=== PATIENT | male | born 1950 | race Caucasian/White ===

== ENCOUNTER 2019-12-23 14:43 | Emergency (ER) | payer OTHER, SELFPAY ==
[2019-12-23 15:29] VITALS: BP 185/99; PULSE 65; RESP 18; TEMP 36.2; O2SAT 98; BMI 30.1
--- NOTE | 2019-12-23 16:31 | XRR_ITS ---
PROCEDURE INFORMATION: Exam: XR Right Foot Complete Exam date and time: 12/23/2019 5:26 PM Age: 69 years old Clinical indication: Patient HX: Right foot pain TECHNIQUE: Imaging protocol: XR Right foot. Views: 3 or more views. COMPARISON: CR Foot 3 views, RIGHT* [id number] 07/21/2016 2:16 PM FINDINGS: Bones/joints: Possible fracture involving the medial proximal aspect of the 1st cuneiform. Soft tissues: Normal. XR/XR foot RT min 3V* [id number] IMPRESSION: Possible fracture involving the medial proximal aspect of the 1st cuneiform.
--- NOTE | 2019-12-23 16:37 | ED_ITS ---
Documented by User: [email or web address] 12/26/19 07:01 HPI - Extremity Problem General: Chief complaint: Extremity Injury, Lower Stated complaint: RIGHT FOOT PAIN Time Seen by Provider: 12/23/19 16:24 History of Present Illness: HPI Narrative: Patient complains about right foot pain. Been gone for about a week or 2. Come back from trip and he has been [facility] for 10 months was in the ER for he said 25 hours. Said he has hi story of Charcot's has pain with plan weight on the right foot. Does have a history diabetes high blood pressure MD Complaint: extremity pain Onset (ago): day(s) Pain Consistency: constant Location: right and lower extremity Severity scale (1-10): 4 Quality: aching Radiation: none Relieving factors: immobilization and rest Exacerbating factors: range of motion and weight bearing Associated symptoms: Reports no associated symptoms; Deny chest pain, fever(s) or rash Context: recent travel Review of Systems Const: Denies: fever(s), chills or body aches Eyes: Denies: change in vision or blurry vision ENMT: Denies: throat pain or nasal congestion Card: Denies: chest pain or dyspnea on exertion Resp: Denies: dyspnea, productive cough or non-productive cough GI: Denies: abdominal pain, nausea or vomiting : Denies: difficulty urinating Musc: Reports: extremity pain (Right foot) Skin/Breast: Denies: rash Neuro: Denies: headache(s) Psych: Denies: anxiety or depression Rico/Lymph: Denies: easy bruising Physical Exam Const: COMMON NORMALS: no acute distress, average body habitus and patient oriented x3 HENMT: COMMON NORMALS: normocephalic HEAD & SCALP: normal to inspection and normocephalic FACE & SINUS: normal facial exam Eye: COMMON NORMALS: conjunctivae normal GENERAL EYE: appearance normal, both eyes and all related structures CONJUNCTIVA: Yes conjunctivae normal Neck/C-Spine: COMMON NORMALS: no JVD Chest: COMMONS NORMALS: normal inspection of the chest Resp: COMMON NORMALS: normal respiratory effort and clear to auscultation bilaterally AUSCULTATION: clear to auscultation bilaterally Cardio: COMMON NORMALS: no JVD, regular rate and regular rhythm RATE: regular rate RHYTHM: regular rhythm GI: COMMON NORMALS: Normal to inspection, nondistended, normoactive bowel sounds present Extremity: COMMON NORMALS: full ROM RIGHT LOWER EXTREMITY: Yes foot & digits (Has redness to right foot lateral aspect head of the fifth metatarsal foot not swollen) Neuro: COMMON NORMALS: patient oriented x3 Course Vital Signs: Vital signs: Vital Signs Temperature 97.2 F L 12/23/19 15:29 Pulse Rate 53 L 12/23/19 20:00 Respiratory Rate 16 12/23/19 20:00 Blood Pressure 204/95 12/23/19 20:00 Pulse Oximetry 96 12/23/19 20:00 Discharge Plan Discharge Patient Disposition: Home Clinical Impression: Closed fracture of tarsal bone of right foot Qualifiers: Encounter type: initial encounter Tarsal bone: medial cuneiform Fracture alignment: nondisplaced Qualified Code(s): S92.244A - Nondisplaced fracture of medial cuneiform of right foot, initial encounter for closed fracture Condition: Stable Discharge Orders: Discharge Order (Routine); Ordered 12/23/19 Ordered By: Lucila Lebron Referrals: Vamsi Domínguez [Primary Care Provider] - Activity Restrictions/Additional Instructions: As discussed case management should be contacting you shortly to set you up with podiatry. In the meantime please ice and elevate the extremity. Continue to use your hard soled shoe for ambulation. Please return to the emergency department for redness or warmth to the foot, worsening pain, red streaking up your leg, fevers, or any other concerns you may have. Discharge Date/Time: 12/23/19 20:02 Sign Out Sign Out Data: Patient Sign Out occurred on 12/23/19 at 17:23. Patient's care was discussed, and care was transferred from to LISA Velasco. Coding Level of Care Code ED Environmental Property Assessor for Chg Fwd Exam Comprehensive Documented by User: LISA Velasco 12/24/19 00:15 HPI - Extremity Problem General: Chief complaint: Extremity Injury, Lower Stated complaint: RIGHT FOOT PAIN Time Seen by Provider: 12/23/19 16:24 Source: patient Limitations: no limitations History of Present Illness: HPI Narrative: Patient is a 69-year-old male who presents to ED today with complaints of pain and swelling to his right foot. Patient tells me he recently came back from a long trip from the [facility]. He does not remember injuring the foot in any way. He does have a history of Charcot's. He does state he did a lot of walking while there. Review of Systems Musc: Reports: extremity pain (R foot) and extremity swelling (R foot) Physical Exam Extremity: OTHER: pt has swelling throughout dorsum of R foot when compared to his L; he has mild TTP to R calf Course Vital Signs: Vital signs: Vital Signs Temperature 97.2 F L 12/23/19 15:29 Pulse Rate 53 L 12/23/19 20:00 Respiratory Rate 16 12/23/19 20:00 Blood Pressure 204/95 12/23/19 20:00 Pulse Oximetry 96 12/23/19 20:00 MDM - Extremity (Nontraumatic) MDM Narrative: Medical decision making narrative: due to swelling and calf pain along with his recent long travel history, US was obtained to rule out DVT; this was negative; XR showing proximal fx of medial cuneiform; pt will be splinted/crutches and follow up with podiatry; I don't see any evidence for infection at this time; recommend ice/elevation; return to ED precautions given Imaging Data^: XR R foot: Radiologist's impression: [address] [place] [address] XRay Report Signed Patient: Manoj Anglin Unit #: [id number] : 1950 Age/Sex: 69 / M ADM Date: 12/23/19 Loc: ER Room/Bed: Attending Dr: Ordering Provider/Ordering MD: Julián Pastor Sr, [employer]- Date of Service: 12/23/19 Procedure(s): XR foot RT min 3V* [id number] Accession Number(s): [id number] Report Number: [id number] PROCEDURE INFORMATION: Exam: XR Right Foot Complete Exam date and time: 12/23/2019 5:26 PM Age: 69 years old Clinical indication: Patient HX: Right foot pain TECHNIQUE: Imaging protocol: XR Right foot. Views: 3 or more views. COMPARISON: CR Foot 3 views, RIGHT* [id number] 07/21/2016 2:16 PM FINDINGS: Bones/joints: Possible fracture involving the medial proximal aspect of the 1st cuneiform. Soft tissues: Normal. XR/XR foot RT min 3V* [id number] IMPRESSION: Possible fracture involving the medial proximal aspect of the 1st cuneiform. Dictated By: Marcel Hunt MD Signed By: Marcel Hunt MD Signed Date/Time: 12/23/191833 DD/ 31 US R LE venous: Radiologist's impression: [address] [address] Ultrasound Report Signed Patient: Manoj Anglin Unit #: [id number] : 1950 Age/Sex: 69 / M ADM Date: 12/23/19 Loc: ER Room/Bed: Attending Dr: Ordering Provider/Ordering MD: Lucila Lebron Date of Service: 12/23/19 Procedure(s): [place] [address] Accession Number(s): [id number] Report Number: [id number] PROCEDURE INFORMATION: Exam: US Duplex Right Lower Extremity Veins, Limited Exam date and time: 12/23/2019 5:49 PM Age: 69 years old Clinical indication: Swelling (edema) of limb; Lower extremity, right; Additional info: Swelling, pain; Recent long plane ride TECHNIQUE: Imaging protocol: Real-time Duplex ultrasound of the Right Lower Extremity with 2-D johnston scale, color Doppler flow and spectral waveform analysis with image documentation. Limited exam was focused on the right lower extremity veins. COMPARISON: No relevant prior studies available. FINDINGS: Right deep veins: Unremarkable. The common femoral, femoral, proximal profunda femoral and popliteal veins are patent without thrombus. Normal Doppler waveforms. Normal compressibility and/or augmentation response. Right superficial veins: Unremarkable. Saphenofemoral junction is patent without thrombus. Soft tissues: Unremarkable. US/[place] [id number] IMPRESSION: No evidence of deep vein thrombosis. Dictated By: Marcel Hunt MD Signed By: Marcel Hunt MD Signed Date/Time: 12/23/192150 DD/ 49 Discharge Plan Discharge Patient Disposition: Home Clinical Impression: Closed fracture of tarsal bone of right foot Qualifiers: Encounter type: initial encounter Tarsal bone: medial cuneiform Fracture alignment: nondisplaced Qualified Code(s): S92.244A - Nondisplaced fracture of medial cuneiform of right foot, initial encounter for closed fracture Condition: Stable Discharge Orders: Discharge Order (Routine); Ordered 12/23/19 Ordered By: Lucila Lebron Referrals: Vamsi Domínguez [Primary Care Provider] - Activity Restrictions/Additional Instructions: As discussed case management should be contacting you shortly to set you up with podiatry. In the meantime please ice and elevate the extremity. Continue to use your hard soled shoe for ambulation. Please return to the emergency department for redness or warmth to the foot, worsening pain, red streaking up your leg, fevers, or any other concerns you may have. Discharge Date/Time: 12/23/19 20:02 Sign Out Sign Out Data: Patient Sign Out occurred on 12/23/19 at 17:23. Patient's care was discussed, and care was transferred from to LISA Velasco. Coding Level of Care Code ED Environmental Property Assessor for Kalpana Doherty Exam Comprehensive
--- NOTE | 2019-12-23 17:48 | USR_ITS ---
PROCEDURE INFORMATION: Exam: US Duplex Right Lower Extremity Veins, Limited Exam date and time: 12/23/2019 5:49 PM Age: 69 years old Clinical indication: Swelling (edema) of limb; Lower extremity, right; Additional info: Swelling, pain; Recent long plane ride TECHNIQUE: Imaging protocol: Real-time Duplex ultrasound of the Right Lower Extremity with 2-D jhonston scale, color Doppler flow and spectral waveform analysis with image documentation. Limited exam was focused on the right lower extremity veins. COMPARISON: No relevant prior studies available. FINDINGS: Right deep veins: Unremarkable. The common femoral, femoral, proximal profunda femoral and popliteal veins are patent without thrombus. Normal Doppler waveforms. Normal compressibility and/or augmentation response. Right superficial veins: Unremarkable. Saphenofemoral junction is patent without thrombus. Soft tissues: Unremarkable. US/[place] [id number] IMPRESSION: No evidence of deep vein thrombosis.
--- NOTE | 2019-12-23 19:50 | PC.NURSE ---
POST OP SHOE APPLIED TO RIGHT FOOT. PT IS IN NAD.
[2019-12-23 20:00] VITALS: BP 204/95; PULSE 53; RESP 16; O2SAT 96
--- NOTE | 2019-12-26 11:11 | DCPLANNER ---
Addendum entered by Norma Gonzalez 12/26/19 12:51: Patient has [facility] insurance, child welfare caseworker called [facility] with [facility], informed the [facility] that patient was seen in ED and a follow up with ortho was needed. fast food manager sent [facility] records on patient. Original Note: fast food manager had message to schedule a follow up appointment for patient with ortho. fast food manager called the ortho clinic, spoke with Pat, gave clinic patients information. fast food manager was told that patients information would be printed and reviewed. Clinic will call patient with appointment information.
--- NOTE | 2019-12-27 15:43 | DCPLANNER ---
Layne from ortho called case therapist and stated that a follow up appointment for patient for Thursday, January 02, [address] at 2:[address] Bauman. workday manager called July with the [facility] and informed the [facility] of the scheduled appointment. The ortho clinic called patient with appointment information.
--- NOTE | 2020-01-14 08:57 | DCPLANNER ---
Patient did attend appointment scheduled for 01.02.20 with ortho.
== END 2019-12-23 20:02 | disposition home or self-care (01) ==
PROVIDERS: Emergency Provider Physician Assistant; Family Provider Family Medicine; PCP Family Medicine
DX: S92.244A Nondisplaced fracture of medial cuneiform of right foot, initial encounter for closed fracture (principal); X58.XXXA Exposure to other specified factors, initial encounter
CPT/HCPCS: 12345; 73630; 93971; 99281; 99282

== ENCOUNTER → 2020-01-02 14:49 | Outpatient (BNVA) | payer OTHER, SELFPAY | PROVIDERS: Family Provider Family Medicine; PCP Family Medicine; Referring Provider Nurse Practitioner Family; Visit Provider Podiatrist Foot & Ankle Surgery | DX: M25.571 Pain in right ankle and joints of right foot (principal); S92.001A Unspecified fracture of right calcaneus, initial encounter for closed fracture | CPT/HCPCS: 73610; 73630 ==

== ENCOUNTER 2020-01-02 16:39 | Outpatient (CLI) | payer OTHER, SELFPAY | END 2020-01-02 16:40 | disposition home or self-care (01) | LOC: SPT 16:40 | PROVIDERS: Family Provider Family Medicine; PCP Family Medicine; Visit Provider Podiatrist Foot & Ankle Surgery | DX: Z47.89 Encounter for other orthopedic aftercare (principal); S90.31XD Contusion of right foot, subsequent encounter; X58.XXXD Exposure to other specified factors, subsequent encounter | CPT/HCPCS: 97760; L4361 ==

== ENCOUNTER 2020-01-16 15:15 | Outpatient (CLI) | payer OTHER, SELFPAY | END 2020-01-16 15:16 | disposition home or self-care (01) | LOC: SPT 04-23 16:16 | PROVIDERS: Family Provider Family Medicine; PCP Family Medicine; Referring Provider Podiatrist Foot & Ankle Surgery; Visit Provider Podiatrist Foot & Ankle Surgery | DX: Z46.89 Encounter for fitting and adjustment of other specified devices (principal); S90.31XD Contusion of right foot, subsequent encounter; X58.XXXD Exposure to other specified factors, subsequent encounter | CPT/HCPCS: 97760; L1902 ==

== ENCOUNTER → 2020-02-20 14:17 | Outpatient (BNVA) | payer OTHER, SELFPAY | PROVIDERS: Family Provider Family Medicine; PCP Family Medicine; Visit Provider Podiatrist Foot & Ankle Surgery | DX: S90.31XA Contusion of right foot, initial encounter (principal); M77.51 Other enthesopathy of right foot and ankle; X58.XXXA Exposure to other specified factors, initial encounter | CPT/HCPCS: 73610 ==

== ENCOUNTER 2020-06-06 09:07 | Outpatient (CLI) | payer OTHER, SELFPAY ==
[2020-06-06 09:33] LABS: Add Urine Microscopic? NO
[2020-06-06 09:46] LABS: Urine Appearance Clear (CLEAR); Urine Color Yellow (Yellow)
[2020-06-06 09:47] LABS: Bilirubin Urine Neg (Negative); Blood Urine Neg (Negative); Glucose Urine UA 4+ (Normal); Ketones Urine Negative (Negative); Leukocyte Esterase Urine Negative (Negative); Nitrate Urine Negative (Negative); Protein Urine Neg (Negative); Urobilinogen Urine Norm (Negative); pH Urine 5 (5-7)
[2020-06-06 09:54] LABS: Alanine Aminotransferase 19 U/L (0-41); Albumin Level 4.4 g/dL (3.5-5.2); Alkaline Phosphatase 53 IU/L (40-130); Anion Gap 12.5 (5-19); Aspartate Amino Transferase 18 U/L (0-40); Blood Urea Nitrogen 16 mg/dL (8-23); Calcium 9.1 mg/dL (8.5-10.5); Carbon Dioxide 28 mmol/L (22-29); Chloride 101 mmol/L (98-107); Globulin 2.8 g/dL (1.3-4.6); Glomerular Filtration Rate 96.1 mL/min (90-130); Glucose 337 mg/dL (65-115); Osmolality Calculated 298 mOsm/kg (285-295); Potassium 4.5 mmol/L (3.5-5.1); Sodium 137 mmol/L (136-145); Total Bilirubin 0.6 mg/dL (0.15-1.2); Total Protein 7.2 g/dL (6.6-8.7)
== END 2020-06-06 09:08 | disposition home or self-care (01) ==
PROVIDERS: PCP Family Medicine; Visit Provider Orthopaedic Surgery
DX: E11.9 Type 2 diabetes mellitus without complications (principal)
CPT/HCPCS: 36415; 80053; 81003

== ENCOUNTER 2020-06-23 13:44 | Inpatient (IN) | payer OTHER, MEDICARE, SELFPAY ==
[2020-06-23 13:51] VITALS: BP 168/98; PULSE 102; RESP 14; TEMP 38; O2SAT 97; BMI 29.0
--- NOTE | 2020-06-23 14:10 | W.ED.GENADLT ---
Documented by User: YUKO Ye 06/23/20 15:50 HPI - General Adult General: Chief complaint: General Medical Stated complaint: POSS STAPH INFECTION Time Seen by Provider: 06/23/20 13:55 History of Present Illness: HPI narrative: Patient complains about an area right buttock and thigh area that is very swollen and tender and painful. Patient has a history of staph. Said he acquired a spider bite right thigh while over in the [facility]. Was diagnosed with a staph aureus. Said his nose is tender a lot of time from staph infection now area right thigh has been present for quite a few days and just worsened to where he cannot stand the pain anymore complaint: Abscess Onset (ago): day(s) Location: buttocks and right Radiation: non-radiation Severity scale (1-10): 4 Quality: burning and aching Pain Consistency: constant Relieving factors: immobilization Exacerbating factors: movement Associated symptoms: Reports fevers/chills; Deny chest pain, dyspnea, headache(s), nausea, rash or vomiting Review of Systems Narrative: Patient is diabetic Const: Denies: fever(s), chills or body aches Eyes: Denies: change in vision or blurry vision ENMT: Denies: throat pain or nasal congestion Card: Denies: chest pain or dyspnea on exertion Resp: Denies: dyspnea, productive cough or non-productive cough GI: Denies: abdominal pain, nausea or vomiting : Denies: difficulty urinating Musc: Denies: extremity pain Skin/Breast: Reports: skin tenderness and skin swelling (Right buttock and thigh area); Denies: rash Neuro: Denies: headache(s) Psych: Denies: anxiety or depression Rico/Lymph: Denies: easy bruising PFSH ED PFSH: Medical History (Updated 06/23/20 @ 23:54 by Gia Navarro MD, [facility]) Diabetes mellitus Hypertension Social History Smoking and tobacco status: never smoked Alcohol intake: current Alcohol intake frequency: few times a week Physical Exam Const: COMMON NORMALS: no acute distress, average body habitus and patient oriented x3 HENMT: COMMON NORMALS: normocephalic HEAD & SCALP: normal to inspection and normocephalic FACE & SINUS: normal facial exam Eye: COMMON NORMALS: conjunctivae normal GENERAL EYE: appearance normal, both eyes and all related structures CONJUNCTIVA: Yes conjunctivae normal Neck/C-Spine: COMMON NORMALS: no JVD Chest: COMMONS NORMALS: normal inspection of the chest Resp: COMMON NORMALS: normal respiratory effort and clear to auscultation bilaterally AUSCULTATION: clear to auscultation bilaterally Cardio: COMMON NORMALS: no JVD and regular rhythm RATE: tachycardic RHYTHM: regular rhythm GI: COMMON NORMALS: Normal to inspection, nondistended, normoactive bowel sounds present Extremity: COMMON NORMALS: normal to inspection and full ROM Neuro: COMMON NORMALS: patient oriented x3 Skin: OTHER: Large abscess right gluteal fold tender appears to have a bite to the proximal aspect of wound redness extends up to the scrotal sac. Very tender. I made 2 incisions proximal and distal of the abscess and drained very little pustular contents did packed with half-inch iodoform gauze. Procedures Abscess I/D Site: lower extremity Side (if applicable): right Local Anesthetic: lidocaine 1% Amount of anesthesia used (mL): 5 Technique: incised with #11 blade Irrigation: Yes Packing used?: iodoform Course Vital Signs: Vital signs: Vital Signs Temperature 98.3 F 06/23/20 19:24 Pulse Rate 55 L 06/23/20 19:24 Respiratory Rate 18 06/23/20 19:24 Blood Pressure 125/72 06/23/20 19:24 Pulse Oximetry 96 06/23/20 19:24 MDM - General Adult MDM Narrative: Medical decision making narrative: Discussed lab and radiology findings with Dr. Ferris. Turned over care to him. Lab Data: Labs: Lab Results 06/23/20 06/23/20 06/23/20 Range/Units 14:18 14:18 14:18 WBC 13.0 H (4.0-10.0) 10^3/ uL RBC 4.47 (4.1-5.3) 10^6/u L Hgb 14.6 (11.7-16.6) g/dL Hct 41.1 L (42.0-52.0) % MCV 91.9 (80-94) fL MCH 32.7 (28.0-34.0) pg MCHC 35.5 (30.0-36.0) g/dL RDW 11.5 L (12.1-15.1) % Plt Count 255 (130-400) 10^3/c mm MPV 10.6 H (7.4-10.4) fL Neut % (Auto) 73.8 % Lymph % (Auto) 15.4 % Tarrant % (Auto) 9.3 % Eos % (Auto) 0.5 % Baso % (Auto) 0.5 % Neut # (Auto) 9.54 H (1.8-7.7) 10^3/u L Lymph # (Auto) 2.0 (0.8-4.8) 10^3/u L Tarrant # (Auto) 1.2 H (0.2-0.9) 10^3/u L Eos # (Auto) 0.1 (0.0-0.8) 10^3/u L Baso # (Auto) 0.1 (0.0-0.1) 10^3/u L Nucleated RBC % (a uto) 0 % Nucleated RBCs # 0.0 /100WBC Sodium 136 (136-145) mmol/L Potassium 3.7 (3.5-5.1) mmol/L Chloride 99 (98-107) mmol/L Carbon Dioxide 25 (22-29) mmol/L Anion Gap 15.7 (5-19) BUN 11 (8-23) mg/dL Creatinine 0.7 (0.7-1.2) mg/dL GFR Calculation 112.1 (90-130) mL/min Glucose 223 H (65-115) mg/dL Calculated Osmolal ity 288 (285-295) mOsm/k g Lactate 1.5 (0.5-2.2) mmol/L Calcium 8.6 (8.5-10.5) mg/dL Discharge Plan Discharge Patient Disposition: Admitted As Inpatient Admit Provider: Parker Wiley Clinical Impression: Cellulitis of gluteal region, Diabetes mellitus Condition: Stable Sign Out Sign Out Data: Patient Sign Out occurred on 06/23/20 at 16:09. Patient's care was discussed, and care was transferred from to Gia Navarro MD, [facility]. Coding Level of Care Code ED Crayon Sorting Machine Feeder for g Fwd Exam Comprehensive Documented by User: Gia Navarro MD, [facility] 06/23/20 23:54 HPI - General Adult General: Chief complaint: General Medical Stated complaint: POSS STAPH INFECTION Time Seen by Provider: 06/23/20 13:55 PFSH ED PFSH: Medical History (Updated 06/23/20 @ 23:54 by Gia Navarro MD, [facility]) Diabetes mellitus Hypertension Social History Smoking and tobacco status: never smoked Alcohol intake: current Alcohol intake frequency: few times a week Course Consultations: Consultation #1: Discussed the patient with Dr. Wiley, hospitalist and she kindly accepted patient to her service Time: 16:03 Vital Signs: Vital signs: Vital Signs Temperature 98.3 F 06/23/20 19:24 Pulse Rate 55 L 06/23/20 19:24 Respiratory Rate 18 06/23/20 19:24 Blood Pressure 125/72 06/23/20 19:24 Pulse Oximetry 96 06/23/20 19:24 MDM - General Adult MDM Narrative: Medical decision making narrative: Kindly evaluate the nurse practitioner's note for complete history and physical examination. I also evaluated this patient. Essentially this is a 70-year-old diabetic male who presents to the emergency department with a gluteal cellulitis/abscess. In inspection had attempted an I&D but only got scant amounts of purulent material. CT scan of the area showed mainly cellulitis with no abscess. On examination he has at least a 10 x 10 area of induration and erythema in his right gluteal region. He has a history of MRSA. I think because of his risk factors he will benefit from inpatient stay and IV antibiotics and so he is being admitted to the hospitalist service for further evaluation and management. Lab Data: Labs: Lab Results 06/23/20 06/23/20 06/23/20 Range/Units 14:18 14:18 14:18 WBC 13.0 H (4.0-10.0) 10^3/ uL RBC 4.47 (4.1-5.3) 10^6/u L Hgb 14.6 (11.7-16.6) g/dL Hct 41.1 L (42.0-52.0) % MCV 91.9 (80-94) fL MCH 32.7 (28.0-34.0) pg MCHC 35.5 (30.0-36.0) g/dL RDW 11.5 L (12.1-15.1) % Plt Count 255 (130-400) 10^3/c mm MPV 10.6 H (7.4-10.4) fL Neut % (Auto) 73.8 % Lymph % (Auto) 15.4 % Tarrant % (Auto) 9.3 % Eos % (Auto) 0.5 % Baso % (Auto) 0.5 % Neut # (Auto) 9.54 H (1.8-7.7) 10^3/u L Lymph # (Auto) 2.0 (0.8-4.8) 10^3/u L Tarrant # (Auto) 1.2 H (0.2-0.9) 10^3/u L Eos # (Auto) 0.1 (0.0-0.8) 10^3/u L Baso # (Auto) 0.1 (0.0-0.1) 10^3/u L Nucleated RBC % (a uto) 0 % Nucleated RBCs # 0.0 /100WBC Sodium 136 (136-145) mmol/L Potassium 3.7 (3.5-5.1) mmol/L Chloride 99 (98-107) mmol/L Carbon Dioxide 25 (22-29) mmol/L Anion Gap 15.7 (5-19) BUN 11 (8-23) mg/dL Creatinine 0.7 (0.7-1.2) mg/dL GFR Calculation 112.1 (90-130) mL/min Glucose 223 H (65-115) mg/dL Calculated Osmolal ity 288 (285-295) mOsm/k g Lactate 1.5 (0.5-2.2) mmol/L Calcium 8.6 (8.5-10.5) mg/dL Imaging Data^: CT Abd/Pel: Attestation: I personally reviewed and interpreted this imaging study as follows: Radiologist's impression: [facility] [address] [place] [address] CT Scan Report Signed with Addenda Patient: Ana Anglin #: [id number] : 1950cct#:[id number] Age/Sex: 70 / MADM Date: 06/23/20 Loc: ERRoom/Bed: Attending Dr: Ordering Provider/Ordering MD: Julián Pastor Sr, [facility]- Date of Service: 06/23/20 Procedure(s): CT pelvis w con* [id number] Accession Number(s): [id number] Report Number: [id number]/CT pelvis w con* [id number] There is a lipoma deep to the left gluteus ewa muscle that measures 4.2 x 9.5 x 17.1 cm. Radiation Dose CTDIVOL = (mGy): DLP = 605.31 (mGy-cm) Addendum Dictated By: Vamsi Manuel Addendum Signed By: Esequiel Manueligned Date/Time:06/23/20 1611 Addendum Cosigned By: PROCEDURE INFORMATION: Exam: CT Pelvis With Contrast Exam date and time: 06/23/2020 3:00 PM Age: 70 years old Clinical indication: Gluteal fold abscess with swelling and pain. Right buttock/upper thigh abscess. TECHNIQUE: Imaging protocol: Computed tomography images of the pelvis with intravenous contrast. Radiation optimization: All CT scans at this facility use at least one of these dose optimization techniques: automated exposure control; mA and/or kV adjustment per patient size (includes targeted exams where dose is matched to clinical indication); or iterative reconstruction. Contrast material: OMNI 300; Contrast volume: 95 ml; Contrast route: INTRAVENOUS (IV); COMPARISON: No relevant prior studies available. RADIATION DOSE METRICS: Total DLP (mGy-cm): 605.31 FINDINGS: No acute fracture is identified. No free intraperitoneal air. Small fat containing umbilical hernia. A subcentimeter right renal hypodensity is too small to accurately characterize and requires no follow-up. The bladder wall is mildly thickened. Correlate with urinalysis to assess for cystitis. The visualized large and small bowel are grossly unremarkable. The prostate measures 3.6 x 4.3 cm. A right external iliac lymph node measures 1.1 x 2.1 cm. A right inguinal lymph node measures 1.3 x 2.0 cm. There is skin thickening and subcutaneous edema involving the right gluteal fold. There are 2 small cutaneous wounds or foci of recent incision and drainage. There are small underlying hematomas at these locations measuring 0.9 x 1.0 x 1.4 cm and 0.7 x 0.6 x 0.7 cm. No drainable abscess is identified. CT/CT pelvis w con* [id number] IMPRESSION: 1. There is skin thickening and subcutaneous edema involving the right gluteal fold compatible with cellulitis. There are 2 small cutaneous wounds or foci of recent incision and drainage. There are small underlying hematomas at these locations. No drainable abscess is identified. There is associated right inguinal and right pelvic lymphadenopathy. 2. The bladder wall is mildly thickened. Correlate with urinalysis to assess for cystitis. Radiation Dose CTDIVOL = (mGy): DLP = 605.31 (mGy-cm) Dictated By:Vamsi Manuel Signed By:Esequiel Manueligned Date/Time:06/23/201544 DD/ 154 Discharge Plan Discharge Patient Disposition: Admitted As Inpatient Admit Provider: Parker Wiley Clinical Impression: Cellulitis of gluteal region, Diabetes mellitus Condition: Stable Sign Out Sign Out Data: Patient Sign Out occurred on 06/23/20 at 16:09. Patient's care was discussed, and care was transferred from to Gia Navarro MD, [facility]. Coding Level of Care Code ED Crayon Sorting Machine Feeder for Chg Fwd Exam Comprehensive
[2020-06-23] MEDS: TRAMadol 50 mg Tablet PO (14:17)
[2020-06-23] MEDS: lidocaine 1% INJ 20 mL 5 ML INTRADERMA (14:18)
[2020-06-23 14:32] LABS: Basophils # 0.1 10^3/uL (0.0-0.1); Basophils % 0.5 %; Eosinophils # 0.1 10^3/uL (0.0-0.8); Eosinophils % 0.5 %; Hematocrit 41.1 % (42.0-52.0); Hemoglobin 14.6 g/dL (11.7-16.6); Lymphocytes % 15.4 %; Mean Corpuscular HGB Conc 35.5 g/dL (30.0-36.0); Mean Corpuscular Hemoglobin 32.7 pg (28.0-34.0); Mean Corpuscular Volume 91.9 fL (80-94); Mean Platelet Volume 10.6 fL (7.4-10.4); Monocytes # 1.2 10^3/uL (0.2-0.9); Monocytes % 9.3 %; Neutrophils # 9.54 10^3/uL (1.8-7.7); Neutrophils % 73.8 %; Nucleated Red Blood Cells % 0 %; Platelet Count 255 10^3/cmm (130-400); Red Blood Count 4.47 10^6/uL (4.1-5.3); Red Cell Distribution Width 11.5 % (12.1-15.1)
--- NOTE | 2020-06-23 14:35 | CTR_ITS ---
PROCEDURE INFORMATION: Exam: CT Pelvis With Contrast Exam date and time: 06/23/2020 3:00 PM Age: 70 years old Clinical indication: Gluteal fold abscess with swelling and pain. Right buttock/upper thigh abscess. TECHNIQUE: Imaging protocol: Computed tomography images of the pelvis with intravenous contrast. Radiation optimization: All CT scans at this facility use at least one of these dose optimization techniques: automated exposure control; mA and/or kV adjustment per patient size (includes targeted exams where dose is matched to clinical indication); or iterative reconstruction. Contrast material: OMNI 300; Contrast volume: 95 ml; Contrast route: INTRAVENOUS (IV); COMPARISON: No relevant prior studies available. RADIATION DOSE METRICS: Total DLP (mGy-cm): 605.31 FINDINGS: No acute fracture is identified. No free intraperitoneal air. Small fat containing umbilical hernia. A subcentimeter right renal hypodensity is too small to accurately characterize and requires no follow-up. The bladder wall is mildly thickened. Correlate with urinalysis to assess for cystitis. The visualized large and small bowel are grossly unremarkable. The prostate measures 3.6 x 4.3 cm. A right external iliac lymph node measures 1.1 x 2.1 cm. A right inguinal lymph node measures 1.3 x 2.0 cm. There is skin thickening and subcutaneous edema involving the right gluteal fold. There are 2 small cutaneous wounds or foci of recent incision and drainage. There are small underlying hematomas at these locations measuring 0.9 x 1.0 x 1.4 cm and 0.7 x 0.6 x 0.7 cm. No drainable abscess is identified. CT/CT pelvis w con* [id number] IMPRESSION: 1. There is skin thickening and subcutaneous edema involving the right gluteal fold compatible with cellulitis. There are 2 small cutaneous wounds or foci of recent incision and drainage. There are small underlying hematomas at these locations. No drainable abscess is identified. There is associated right inguinal and right pelvic lymphadenopathy. 2. The bladder wall is mildly thickened. Correlate with urinalysis to assess for cystitis. Radiation Dose CTDIVOL = (mGy): DLP = 605.31 (mGy-cm)
[2020-06-23 14:59] LABS: Lactate (Lactic Acid level) 1.5 mmol/L (0.5-2.2)
[2020-06-23] MEDS: clindamycin 600 MG/50 ML PREMIX 100 MG IV (14:59)
[2020-06-23 15:00] LABS: Anion Gap 15.7 (5-19); Blood Urea Nitrogen 11 mg/dL (8-23); Calcium 8.6 mg/dL (8.5-10.5); Carbon Dioxide 25 mmol/L (22-29); Chloride 99 mmol/L (98-107); Glomerular Filtration Rate 112.1 mL/min (90-130); Glucose 223 mg/dL (65-115); Osmolality Calculated 288 mOsm/kg (285-295); Potassium 3.7 mmol/L (3.5-5.1); Sodium 136 mmol/L (136-145)
[2020-06-23] MEDS: iohexol 300 mg/mL 100 mL Btl IV (15:10)
[2020-06-23] MEDS: acetaminophen 500 mg Tablet 1000 MG PO (16:12)
[2020-06-23] MEDS: vancomycin 1,500 MG/300 ML PIGGYBACK 200 MG IV (16:18)
[2020-06-23 16:33] VITALS: BP 132/79; PULSE 68; RESP 16; TEMP 37.7; O2SAT 95
[2020-06-23 18:28] VITALS: BP 151/82; PULSE 58; RESP 18; TEMP 36.6; O2SAT 18
--- NOTE | 2020-06-23 18:36 | PM.HP ---
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 He states this particular infection he noticed pain on Thursday and something was off a few days prior to that. He says he wanted to see [facility] however he depends on a ride from his sister and she was unable to bring him at the time. He presents today with pain at the site of his right gluteal fold. It is getting progressively worse. He denies other signs and symptoms. He is unable to identify any factors that trigger the MRSA infections. Review of Systems General: Reports: 10 or more systems reviewed and unremarkable except in HPI and below Const: Denies: fever(s) or chills Eyes: Denies: change in vision or blurry vision ENMT: Denies: throat pain or odynophagia Card: Denies: chest pain or palpitations Resp: Denies: dyspnea or productive cough GI: Denies: abdominal pain, nausea, vomiting or diarrhea : Reports: difficulty urinating (Denies) and dysuria (Denies) Musc: Reports: neck pain and back pain (Denies denies) Skin/Breast: Reports: rash (Denies) and pruritus (Denies) Neuro: Reports: headache(s) (Denies) and weakness in extremities (Denies) Psych: Reports: anxiety (Denies) and depression (Denies) Endo: Reports: polyuria (Denies) and polydipsia (Denies) Medications/Allergies Home Medications Medication Instructions Recorded Confirmed Last Taken Type Cam Walker #1 each NS 01/02/20 06/23/20 Unknown Rx ASO Ankle brace #1 ea 01/16/20 06/23/20 Unknown Rx Vitamin C 1 tab PO DAILY@52906/23/20 06/23/20 06/23/20 History Vitamin D3 1 tab PO DAILY@52906/23/20 06/23/20 06/23/20 History amlodipine 10 mg PO DAILY@52906/23/20 06/23/20 06/23/20 History aspirin [Aspir-81] 81 mg PO DAILY@52906/23/20 06/23/20 06/23/20 History brimonidine-timolol 1 drp OPHTHALMIC (EYE) 06/23/20 06/23/20 06/23/20 History BID@529,1999 budesonide-formoterol 2 puff INHALATION BID@529,199906/23/20 06/23/20 06/23/20 History fluticasone propionate 1 spray INTRANASAL DAILY@0800 06/23/20 06/23/20 Unknown History hydralazine 25 mg PO BID@529,199906/23/20 06/23/20 06/23/20 History hydrochlorothiazide 25 mg PO DAILY@0506/23/20 06/23/20 06/23/20 History insulin aspart U-100 [Novolog 6 unit SUBCUT TID@529,1199,199906/23/20 06/23/20 06/23/20 History Flexpen U-100 Insulin] latanoprost 1 drp OPHTHALMIC (EYE) DAILY@199906/23/20 06/23/20 06/22/20 History lisinopril 20 mg PO DAILY@52906/23/20 06/23/20 06/23/20 History loratadine 10 mg PO DAILY@52906/23/20 06/23/20 06/23/20 History metoprolol tartrate 50 mg PO BID@529,199906/23/20 06/23/20 06/23/20 History omeprazole 20 mg PO DAILY@30 06/23/20 06/23/20 06/23/20 History sildenafil 50 mg PO Q7D PRN 06/23/20 06/23/20 Unknown History timolol maleate (PF) 1 drp OPHTHALMIC (EYE) DAILY@52906/23/20 06/23/20 06/23/20 History tiotropium-olodaterol 2 puff INHALATION DAILY@30 06/23/20 06/23/20 06/23/20 History vitamin A 1 tab PO DAILY@30 06/23/20 06/23/20 06/23/20 History vitamin B complex 1 tab PO DAILY@0530 06/23/20 06/23/20 06/23/20 History vitamin E 1 tab PO DAILY@0530 06/23/20 06/23/20 06/23/20 History Allergies Allergy/AdvReac Type Severity Reaction Status Date / Time No Known Allergies Allergy Verified 02/20/20 14:37 PFSH Acute PFSH: Medical History (Updated 06/23/20 @ 18:48 by Parker Wiley DO) Diabetes mellitus Hypertension Social History Smoking and tobacco status: never smoked Alcohol intake: current Alcohol intake frequency: few times a week Vitals/I&O/Wt Last Vital Signs Temp 99.8 F H 06/23/20 16:33 Pulse 68 06/23/20 16:33 Resp 16 06/23/20 16:33 BP 132/79 06/23/20 16:33 Pulse Ox 95 06/23/20 16:33 06/23/20 06/23/20 06/23/20 06:59 14:59 22:59 Intake Total 350 / 350 Balance 350 / 350 Weight last 48 hrs Weight 94.347 kg Physical Exam Narrative: EXAM NARRATIVE: General patient is alert oriented to person place and time. He is in no acute distress. He appears his stated age of 70 and he has a normal body habitus HEENT: Head is normocephalic atraumatic pupils are equal and round reactive to light and accommodation. Extraocular muscles are intact. External auditory canals appear normal neck is supple no JVD carotid bruits or lymphadenopathy. Mucous membranes are moist and pink without lesions or exudate. Chest: Symmetric with respirations no deformities Respiratory: Clear to auscultation without wheezes rales or rhonchi. Cardio: Regular rate and rhythm without murmurs clicks gallops or rubs. Normal S1-S2. GI: Soft, nontender, nondistended. Normal active bowel sounds no rigidity or rebound or guarding. Extremities: No clubbing cyanosis or edema. Neuro: Cranial nerves II through XII are grossly intact he has diminished sensation in his lower extremities due to neuropathy sensations intact in his arms. Motor able to move all extremities 5 out of 5. Reflexes are normal. Skin: On his right gluteal fold there is erythema and induration. There is a small incision with a wick in place. There is no pus able to be discharged on manual expression. And limited bloody discharge. , normal circumcised male Data : 06/23/20 14:18 06/23/20 14:18 Micro: Microbiology 06/23/20 14:18 Blood Culture - Preliminary Blood SPECIMEN COLLECTED A&P Assessment and plan (1) Cellulitis: Vancomycin and Zosyn IV. Discussed with patient to stay off of his right buttock. Patient is encouraged to ambulate around room and sit in chair. Status: Acute (2) Peripheral neuropathy: I do not see that patient is taking typical medication for this condition will discuss starting Neurontin with patient. Status: Acute Additional A&P Information Hypertension: Patient takes hydralazine hydrochlorothiazide and lisinopril metoprolol at home for this condition will order Diabetes mellitus: Patient takes NovoLog 6 units 3 times daily and I do not see other treatment. Attestations Medical Necessity Statement*: Patient with cellulitis and possible abscess prior to the CAT scan being done. Patient had I&D in the ER. Patient requires 2448 hrs. of IV antibiotics Coding Level of Care Code Acute Telephone Information Supervisor for Kalpana Doherty Diagnoses Cellulitis L03.90 Peripheral neuropathy G62.9
--- NOTE | 2020-06-23 19:13 | PC.PHAR ---
Vancomycin is dosed at 1500mg IVPB every 12 hours to produce a predicted trough level of 11.65 (population based pharmacokinetic analysis). A trough level has been ordered from the lab to be obtained before the fourth dose to confirm and adjust if needed.
[2020-06-23 19:24] VITALS: BP 125/72; PULSE 55; RESP 18; TEMP 36.8; O2SAT 96
[2020-06-23 19:26] LABS: Blood Urine 2+ (Negative); Glucose Urine UA 2+ (Normal); Ketones Urine Negative (Negative); Nitrate Urine Negative (Negative); Protein Urine Neg (Negative); Urine Appearance Clear (CLEAR); Urine Color Yellow (Yellow); pH Urine 5 (5-7)
[2020-06-23 19:27] LABS: Add Urine Microscopic? YES; Bilirubin Urine Neg (Negative); Leukocyte Esterase Urine Negative (Negative); Urobilinogen Urine 1 mg/dL (Negative)
[2020-06-23 19:28] LABS: Mucus Urine TRACE /hpf; WBC Urine RARE /hpf (0-5)
[2020-06-23 19:29] LABS: Add Urine Culture? No
[2020-06-23] MEDS: enoxaparin 40 mg/0.4 mL Syringe SUBCUT (19:32)
--- NOTE | 2020-06-23 20:09 | PM.HP ---
Providers/Chief Complaint Admitting Physician: Parker Wiley DO Primary Care Provider: [facility] Chief Complaint: POSS STAPH INFECTION History of Present Illness Manoj Anglin is a 70 year old male Review of Systems Const: Denies: fever(s) or chills Eyes: Denies: change in vision ENMT: Denies: throat pain or nasal congestion Card: Denies: chest pain or palpitations Resp: Denies: dyspnea or productive cough GI: Denies: abdominal pain, nausea, vomiting or change in stool character : Denies: difficulty urinating or dysuria Musc: Denies: back pain or extremity pain Skin/Breast: Denies: rash or lesions Neuro: Denies: headache(s) or dizziness Psych: Denies: anxiety or depression Rico/Lymph: Denies: easy bruising or easy bleeding Medications/Allergies Home Medications Medication Instructions Recorded Confirmed Last Taken Type Cam Walker #1 each NS 01/02/20 06/23/20 Unknown Rx ASO Ankle brace #1 ea 01/16/20 06/23/20 Unknown Rx Vitamin C 1 tab PO DAILY@0530 06/23/20 06/23/20 06/23/20 History Vitamin D3 1 tab PO DAILY@0530 06/23/20 06/23/20 06/23/20 History amlodipine 10 mg PO DAILY@0530 06/23/20 06/23/20 06/23/20 History aspirin [Aspir-81] 81 mg PO DAILY@0530 06/23/20 06/23/20 06/23/20 History brimonidine-timolol 1 drp OPHTHALMIC (EYE) 06/23/20 06/23/20 06/23/20 History BID@05,1999 budesonide-formoterol 2 puff INHALATION BID@0530,199906/23/20 06/23/20 06/23/20 History fluticasone propionate 1 spray INTRANASAL DAILY@0800 06/23/20 06/23/20 Unknown History hydralazine 25 mg PO BID@0530,199906/23/20 06/23/20 06/23/20 History hydrochlorothiazide 25 mg PO DAILY@0530 06/23/20 06/23/20 06/23/20 History insulin aspart U-100 [Novolog 6 unit SUBCUT TID@0530,1200,199906/23/20 06/23/20/20/21 History Flexpen U-100 Insulin] latanoprost 1 drp OPHTHALMIC (EYE) DAILY@199906/23/20 06/23/20 06/22/20 History lisinopril 20 mg PO DAILY@0530 06/23/20 06/23/20 06/23/20 History loratadine 10 mg PO DAILY@0530 06/23/20 06/23/20 06/23/20 History metoprolol tartrate 50 mg PO BID@06/23/20 06/23/20 06/23/20 History omeprazole 20 mg PO DAILY@0530 06/23/20 06/23/20 06/23/20 History sildenafil 50 mg PO Q7D PRN 06/23/20 06/23/20 Unknown History timolol maleate (PF) 1 drp OPHTHALMIC (EYE) DAILY@0506/23/20 06/23/20 06/23/20 History tiotropium-olodaterol 2 puff INHALATION DAILY@30 06/23/20 06/23/20 06/23/20 History vitamin A 1 tab PO DAILY@0530 06/23/20 06/23/20 06/23/20 History vitamin B complex 1 tab PO DAILY@0530 06/23/20 06/23/20 06/23/20 History vitamin E 1 tab PO DAILY@0530 06/23/20 06/23/20 06/23/20 History Allergies Allergy/AdvReac Type Severity Reaction Status Date / Time No Known Allergies Allergy Verified 02/20/20 14:37 PFSH Acute PFSH: Medical History (Updated 06/23/20 @ 18:48 by Parker Wiley DO) Diabetes mellitus Hypertension Social History Smoking and tobacco status: never smoked Alcohol intake: current Alcohol intake frequency: few times a week Vitals/I&O/Wt Last Vital Signs Temp 98.3 F 06/23/20 19:24 Pulse 55 L 06/23/20 19:24 Resp 18 06/23/20 19:24 BP 125/72 06/23/20 19:24 Pulse Ox 96 06/23/20 19:24 06/23/20 06/23/20 06/23/20 06:59 14:59 22:59 Intake Total 350 / 350 Output Total 100 / 100 Balance 250 / 250 Weight last 48 hrs Weight 94.347 kg Data : 06/23/20 14:18 06/23/20 14:18 Micro: Microbiology 06/23/20 14:18 Blood Culture - Preliminary Blood SPECIMEN COLLECTED Coding Level of Care Code Acute Acting Section Chief for g Chas
[2020-06-23] MEDS: hyDRALAzine 25 mg Tablet PO (20:30)
[2020-06-23] MEDS: metoprolol tartrate 50 mg Tablet PO (20:30)
[2020-06-23] MEDS: timolol 0.5% Op Soln 5 mL Btl 1 DROP EYEAFF (20:31)
[2020-06-23] MEDS: latanoprost 0.005% Op Soln 2.5 mL Btl 1 DROP EYE-BOTH (20:31)
[2020-06-23] MEDS: piperacillin-tazobactam 3.375 GM in sodium chloride 0.9% (plus) 50 ML IV (20:32)
[2020-06-23 22:15] LABS: Glucose Point of Care 247 mg/dL (70-110)
[2020-06-23 23:56] VITALS: BP 109/61; PULSE 49; RESP 18; TEMP 36.9; O2SAT 97
[2020-06-24] VITALS (8 sets, daily range): BP systolic 107–118; BP diastolic 60–72; PULSE 53–65; RESP 16–20; TEMP 36.5–37; O2SAT 96–98
[2020-06-24] MEDS: vancomycin 1,500 MG/300 ML PIGGYBACK 150 MG IV ×2 (02:59→17:09)
[2020-06-24] MEDS: acetaminophen 325 mg Tablet 650 MG PO (03:04)
[2020-06-24 04:58] LABS: Glucose Point of Care 160 mg/dL (70-110)
[2020-06-24] MEDS: piperacillin-tazobactam 3.375 GM in sodium chloride 0.9% (plus) 50 ML IV ×3 (05:02→19:46)
[2020-06-24] MEDS: loratadine 10 mg Tablet PO (05:05)
[2020-06-24] MEDS: metoprolol tartrate 50 mg Tablet PO ×2 (05:05→19:45)
[2020-06-24] MEDS: hyDRALAzine 25 mg Tablet PO ×2 (05:06→19:44)
[2020-06-24] MEDS: b-complex-vitamin c Tablet 1 EACH PO (05:06)
[2020-06-24] MEDS: lisinopril 20 mg Tablet PO (05:06)
[2020-06-24] MEDS: aspirin 81 mg EC Tablet PO (05:06)
[2020-06-24] MEDS: amlodipine 10 mg Tablet PO (05:06)
[2020-06-24] MEDS: pantoprazole DR 40 mg Tablet PO (05:06)
[2020-06-24] MEDS: hydroCHLOROthiazide 25 mg Tablet PO (05:06)
[2020-06-24 06:34] LABS: Alanine Aminotransferase 8 U/L (0-41); Albumin Level 3.5 g/dL (3.5-5.2); Alkaline Phosphatase 54 IU/L (40-130); Anion Gap 13.4 (5-19); Aspartate Amino Transferase 9 U/L (0-40); Blood Urea Nitrogen 10 mg/dL (8-23); Calcium 8.6 mg/dL (8.5-10.5); Carbon Dioxide 25 mmol/L (22-29); Chloride 105 mmol/L (98-107); Glucose 205 mg/dL (65-115); Osmolality Calculated 295 mOsm/kg (285-295); Potassium 3.4 mmol/L (3.5-5.1); Sodium 140 mmol/L (136-145); Total Bilirubin 0.8 mg/dL (0.15-1.2); Total Protein 6.5 g/dL (6.6-8.7)
[2020-06-24] MEDS: fluticasone nasal spray 16gm Btl 1 SPRAY INTRANASAL (09:34)
[2020-06-24 09:48] LABS: Basophils # 0.1 10^3/uL (0.0-0.1); Basophils % 0.8 %; Eosinophils # 0.2 10^3/uL (0.0-0.8); Eosinophils % 1.9 %; Hematocrit 37.9 % (42.0-52.0); Hemoglobin 13.3 g/dL (11.7-16.6); Lymphocytes # 2.8 10^3/uL (0.8-4.8); Lymphocytes % 26.4 %; Mean Corpuscular HGB Conc 35.1 g/dL (30.0-36.0); Mean Corpuscular Hemoglobin 32.5 pg (28.0-34.0); Mean Corpuscular Volume 92.7 fL (80-94); Mean Platelet Volume 11.1 fL (7.4-10.4); Monocytes # 1.1 10^3/uL (0.2-0.9); Monocytes % 10.1 %; Neutrophils # 6.36 10^3/uL (1.8-7.7); Nucleated Red Blood Cells % 0 %; Platelet Count 251 10^3/cmm (130-400); Red Blood Count 4.09 10^6/uL (4.1-5.3); Red Cell Distribution Width 11.7 % (12.1-15.1); White Blood Count 10.6 10^3/uL (4.0-10.0)
--- NOTE | 2020-06-24 10:16 | PC.CHAP ---
Pastoral Care Encounter/Spiritual Assessment Type of Contact [x] Declined supervisor area visit [] Patient/Family/Request visit [] Outpatient visit [] Follow-up visit [] Physician referral [] Code/Alert [] Routine visit [] Staff referral [] Actively dying [] Patient sleeping [] Family support [] [] Out of room [] Palliative care [] [] Receiving care in room [] Pre-surgical visit [] Trauma [] Long length of stay [] ICU visit [] Other: Relational/Emotional Strength [] Patient feels connected with others/family/visitors/staff [] Distress [] Loneliness/isolation [] Abandonment Spirituality of Patient [] Person of Gilda [] Attends Moravian of their Gilda [] Believes in Prayer [] Reads Bible or Lutheran materials [] There are Spiritual issues to be addressed Asset Manager Interventions [] Prayer [] Active listening [] Non-anxious presence [] Spiritual/emotional support [] Crisis/trauma care [] Spiritual counseling [] Bereavement support [] Provided bereavement packet [] Provided Bible/devotional materials [] Provided toy/stuffed animal, coloring book to patient or family member [] Provided Communion [] Anointing/[place] [] Salvation [] Completed spiritual assessment [] Other: Impact on Illness or Injury [] Angry [] Fearful [] Anxious [] Often cries [] Exhaustion [] Unable to work [] Unable to attend presybeterian [] Unable to walk/stand [] Unable to read [] Unable to drive [] Unable to eat/drink [] Unable to sleep [] Unable to be with family [] Patient intubated [] Other: Summary Time spent with patient Patient refused Asset Manager visit. 2 minutes.
[2020-06-24 12:00] LABS: Glucose Point of Care 211 mg/dL (70-110)
--- NOTE | 2020-06-24 12:37 | PC.NURSE ---
Notified Dr Wiley that patient has wound culture that is positive for Staphylococcus Aureus.
--- NOTE | 2020-06-24 15:37 | PM.PN ---
Subjective Subjective: Interval history: Patient states he is in pain. He feels it is still swollen. He has been staying off of it for the most part Medications: Reviewed: Yes Vitals/I&O/Wt Last Vital Signs Temp 97.9 F 06/24/20 10:49 Pulse 60 06/24/20 10:49 Resp 17 06/24/20 10:49 BP 113/72 06/24/20 10:49 Pulse Ox 97 06/24/20 10:49 06/24/20 06/24/20 06/24/20 06:59 14:59 22:59 Intake Total 350 / 700 530 / 530 Output Total 500 / 900 1250 / 1250 Balance -150 / -200 -720 / -720 Weight last 48 hrs Weight 94.347 kg Physical Exam Narrative: EXAM NARRATIVE: focused exam on the right buttock. Marked improvement by my exam. The area of erythema is about one third of what it was last night. And the induration is also about one third of what it was yesterday. The wick is gone he has very minimal bloody drainage on the ABD. I think he has had much improvement. Data : 06/24/20 05:40 06/24/20 05:40 Micro: Microbiology 06/23/20 15:00 Wound Culture - Preliminary Buttock Staphylococcus aureus 06/23/20 14:18 Blood Culture - Preliminary Blood SPECIMEN COLLECTED A&P Assessment and plan (1) Cellulitis: Vancomycin and Zosyn IV. RE-Discussed with patient to stay off of his right buttock. Patient is encouraged to ambulate around room and sit in chair Dr Carpio to assume care in am. As ID specialist, she can recommend transition to oral therapy and follow up. Status: Acute (2) Peripheral neuropathy: I do not see that patient is taking typical medication for this condition. Pt states he tried neurontin and higher dosing made him too dizzy. Will try lyrica and see if [facility] otherwise he can not afford. Status: Acute Attestations Medical Necessity Statement*: Continued antibiotcs. Anticipate d/c tomorrow. Coding Level of Care Code Acute Executive Director Global Brand Marketing for [facility] Diagnoses Cellulitis L03.90 Peripheral neuropathy G62.9
[2020-06-24 16:50] LABS: Glucose Point of Care 203 mg/dL (70-110)
[2020-06-24] MEDS: enoxaparin 40 mg/0.4 mL Syringe SUBCUT (17:08)
[2020-06-24] MEDS: latanoprost 0.005% Op Soln 2.5 mL Btl 1 DROP EYE-BOTH (19:42)
[2020-06-24 20:42] LABS: Glucose Point of Care 273 mg/dL (70-110)
[2020-06-25] VITALS (9 sets, daily range): BP systolic 106–135; BP diastolic 45–81; PULSE 52–85; RESP 17–19; TEMP 36.6–37.1; O2SAT 93–99
[2020-06-25] MEDS: piperacillin-tazobactam 3.375 GM in sodium chloride 0.9% (plus) 50 ML IV ×2 (03:05→11:37)
[2020-06-25 03:50] LABS: Basophils # 0.1 10^3/uL (0.0-0.1); Basophils % 0.7 %; Eosinophils # 0.2 10^3/uL (0.0-0.8); Eosinophils % 1.8 %; Hematocrit 38.8 % (42.0-52.0); Hemoglobin 13.4 g/dL (11.7-16.6); Lymphocytes # 2.4 10^3/uL (0.8-4.8); Lymphocytes % 26.3 %; Mean Corpuscular HGB Conc 34.5 g/dL (30.0-36.0); Mean Corpuscular Hemoglobin 32.4 pg (28.0-34.0); Mean Corpuscular Volume 93.9 fL (80-94); Mean Platelet Volume 10.2 fL (7.4-10.4); Neutrophils # 5.31 10^3/uL (1.8-7.7); Nucleated Red Blood Cells % 0 %; Platelet Count 257 10^3/cmm (130-400); Red Blood Count 4.13 10^6/uL (4.1-5.3); Red Cell Distribution Width 11.6 % (12.1-15.1)
[2020-06-25 04:10] LABS: Alanine Aminotransferase < 5 U/L (0-41); Albumin Level 3.5 g/dL (3.5-5.2); Alkaline Phosphatase 55 IU/L (40-130); Anion Gap 16.2 (5-19); Aspartate Amino Transferase 12 U/L (0-40); Blood Urea Nitrogen 12 mg/dL (8-23); Calcium 8.9 mg/dL (8.5-10.5); Carbon Dioxide 25 mmol/L (22-29); Chloride 104 mmol/L (98-107); Globulin 3.3 g/dL (1.3-4.6); Glomerular Filtration Rate 112.1 mL/min (90-130); Glucose 202 mg/dL (65-115); Osmolality Calculated 298 mOsm/kg (285-295); Potassium 4.2 mmol/L (3.5-5.1); Sodium 141 mmol/L (136-145); Total Bilirubin 0.5 mg/dL (0.15-1.2); Total Protein 6.8 g/dL (6.6-8.7)
[2020-06-25 04:28] LABS: Vancomycin Trough 10.9 ug/mL (10-15)
[2020-06-25] MEDS: b-complex-vitamin c Tablet 1 EACH PO (05:08)
[2020-06-25] MEDS: amlodipine 10 mg Tablet PO (05:08)
[2020-06-25] MEDS: aspirin 81 mg EC Tablet PO (05:09)
[2020-06-25] MEDS: metoprolol tartrate 50 mg Tablet PO ×2 (05:09→20:45)
[2020-06-25] MEDS: loratadine 10 mg Tablet PO (05:09)
[2020-06-25] MEDS: hydroCHLOROthiazide 25 mg Tablet PO (05:09)
[2020-06-25] MEDS: hyDRALAzine 25 mg Tablet PO ×2 (05:09→20:45)
[2020-06-25] MEDS: vancomycin 1,500 MG/300 ML PIGGYBACK 150 MG IV ×2 (05:09→17:48)
[2020-06-25] MEDS: pantoprazole DR 40 mg Tablet PO (05:09)
[2020-06-25] MEDS: lisinopril 20 mg Tablet PO (05:09)
[2020-06-25] MEDS: timolol 0.5% Op Soln 5 mL Btl 1 DROP EYEAFF (05:10)
[2020-06-25 07:22] LABS: Glucose Point of Care 198 mg/dL (70-110)
[2020-06-25] MEDS: fluticasone nasal spray 16gm Btl 1 SPRAY INTRANASAL (07:54)
[2020-06-25] MEDS: pregabalin 150 mg Capsule PO ×2 (07:54→17:48)
[2020-06-25 11:04] LABS: Glucose Point of Care 211 mg/dL (70-110)
--- NOTE | 2020-06-25 13:24 | PC.NURSE ---
patient's sister called and requested to be transferred to patient's room. technical writer transferred call to patient's room.
[2020-06-25 17:23] LABS: Glucose Point of Care 225 mg/dL (70-110)
--- NOTE | 2020-06-25 17:26 | PC.NURSE ---
Per Dr Carpio, discontinue isolation precautions. financial writer discontinued isolation precautions.
[2020-06-25] MEDS: enoxaparin 40 mg/0.4 mL Syringe SUBCUT (17:48)
--- NOTE | 2020-06-25 18:02 | P.PN_ITS ---
Subjective Subjective: Interval history: Buttock cellulitis appears to be improving, no noted abscess at this present time, culture from the wound show MSSA. Vancomycin,zosyn discontinued, started cefazolin instead. Medications: Reviewed: Yes Vitals/I&O/Wt Last Vital Signs Temp 98.1 F 06/25/20 15:08 Pulse 57 L 06/25/20 15:08 Resp 18 06/25/20 15:08 BP 125/60 06/25/20 15:08 Pulse Ox 94 06/25/20 15:08 06/25/20 06/25/20 06/25/20 06:59 14:59 22:59 Intake Total 50 / 1170 750 / 750 50 / 800 Output Total 0 / 1650 Balance 50 / -480 750 / 750 50 / 800 Physical Exam Narrative: EXAM NARRATIVE: GEN: Awake, alert and oriented, no acute distress CVS: S1S2 N RS: CTA B/L Abd: Soft, nt/nd , bs+ CIGARETTE MACHINE FILLER: no focal neuro deficits Data : 06/25/20 03:33 06/25/20 03:33 Micro: Microbiology 06/23/20 15:00 Wound Culture - Final Buttock Staphylococcus aureus 06/23/20 14:18 Blood Culture - Preliminary Blood NEGATIVE TO DATE Microbiology 06/23/20 15:00 Buttock Wound Culture - Final Staphylococcus aureus 06/23/20 14:18 Blood Blood Culture - Preliminary NEGATIVE TO DATE A&P Assessment and plan (1) Cellulitis: Culture from I&D returned with MSSA. Discontinue Zosyn and vancomycin Switch antibiotics to cefazolin 2 g IV every 8 hours If remains stable over the next 24 to 48 hours, plan transition to oral Keflex and discharging on the same regimen. Remove isolation precautions Discussed with the patient regarding role of decolonization. Though most extensively studied for MRSA, given patient has been having recurrent folliculitis over the last 2 months, can try decolonization even with MSSA. Mupirocin has been prescribed in accordance to be applied over both nostrils, to axillary folds and groin folds. Calin Status: Acute (2) Peripheral neuropathy: I do not see that patient is taking typical medication for this condition. Pt states he tried neurontin and higher dosing made him too dizzy. Will try lyrica and see if [facility] will [facility] otherwise he can not afford. Status: Acute Attestations Medical Necessity Statement*: Narrow antibiotics to cefazolin today, plan for transition to oral antibiotics if continues to improve over the next 24 to 48 hours. 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
[2020-06-25 20:44] LABS: Glucose Point of Care 248 mg/dL (70-110)
[2020-06-25] MEDS: latanoprost 0.005% Op Soln 2.5 mL Btl 1 DROP EYE-BOTH (20:46)
[2020-06-26] VITALS (10 sets, daily range): BP systolic 103–136; BP diastolic 56–79; PULSE 59–74; RESP 15–18; TEMP 36.8–37.5; O2SAT 94–98
[2020-06-26] MEDS: pantoprazole DR 40 mg Tablet PO (05:48)
[2020-06-26] MEDS: aspirin 81 mg EC Tablet PO (05:48)
[2020-06-26] MEDS: b-complex-vitamin c Tablet 1 EACH PO (05:48)
[2020-06-26] MEDS: hydroCHLOROthiazide 25 mg Tablet PO (05:48)
[2020-06-26] MEDS: loratadine 10 mg Tablet PO (05:48)
[2020-06-26] MEDS: hyDRALAzine 25 mg Tablet PO ×2 (06:02→21:37)
[2020-06-26] MEDS: timolol 0.5% Op Soln 5 mL Btl 1 DROP EYEAFF (06:03)
[2020-06-26 06:46] LABS: Alanine Aminotransferase 11 U/L (0-41); Albumin Level 3.4 g/dL (3.5-5.2); Alkaline Phosphatase 54 IU/L (40-130); Anion Gap 13.6 (5-19); Aspartate Amino Transferase 12 U/L (0-40); Blood Urea Nitrogen 12 mg/dL (8-23); Calcium 8.9 mg/dL (8.5-10.5); Carbon Dioxide 25 mmol/L (22-29); Chloride 103 mmol/L (98-107); Globulin 3.7 g/dL (1.3-4.6); Glomerular Filtration Rate 112.1 mL/min (90-130); Glucose 180 mg/dL (65-115); Osmolality Calculated 290 mOsm/kg (285-295); Potassium 3.6 mmol/L (3.5-5.1); Sodium 138 mmol/L (136-145); Total Bilirubin 0.5 mg/dL (0.15-1.2); Total Protein 7.1 g/dL (6.6-8.7)
[2020-06-26 06:47] LABS: Glucose Point of Care 195 mg/dL (70-110)
[2020-06-26] MEDS: chlorhexidine gluconate 4% Btl 118 mL 1 APPLIC TOPICAL (08:29)
[2020-06-26] MEDS: pregabalin 150 mg Capsule PO ×2 (08:30→18:08)
[2020-06-26] MEDS: fluticasone nasal spray 16gm Btl 1 SPRAY INTRANASAL (08:30)
--- NOTE | 2020-06-26 12:04 | PC.NURSE ---
Medications given without scanning due to WIFI shortage. Lisa HARRY verified medication administration with property underwriter. 2 patient identifiers used
[2020-06-26 12:30] LABS: Glucose Point of Care 264 mg/dL (70-110)
--- NOTE | 2020-06-26 15:19 | PM.PN ---
Subjective Subjective: Interval history: Complains of buttocks being sore, lump appears to be more prominent today, T-max 99.5, hemodynamically stable Medications: Reviewed: Yes Vitals/I&O/Wt Last Vital Signs Temp 99.5 F 06/26/20 12:00 Pulse 68 06/26/20 12:00 Resp 17 06/26/20 12:00 BP 114/74 06/26/20 12:00 Pulse Ox 95 06/26/20 12:00 06/26/20 06/26/20 06/26/20 06:59 14:59 22:59 Intake Total 362.5 / 2040.0 290 / 290 Output Total 850 / 850 Balance -487.5 / 1190.0 290 / 290 Physical Exam Narrative: EXAM NARRATIVE: GEN: Awake, alert and oriented, no acute distress CVS: S1S2 N RS: CTA B/L Abd: Soft, nt/nd , bs+ STARCH AND PROSIZE MIXER: no focal neuro deficits Data : 06/25/20 03:33 06/26/20 05:01 Micro: Microbiology 06/23/20 15:00 Wound Culture - Final Buttock Staphylococcus aureus A&P Assessment and plan (1) Cellulitis: Culture from I&D returned with MSSA. On Zosyn and vancomycin 06/23-06/25, cefazolin since 06/25- Cellulitis looks worse today compared to yesterday, may be 2/2 prolonged weigth bearing over the site, however also more pronounced fluctuant area possibly over gluteal cleft superiorly. Surgery consult to assess for need for additonal drainage Previosuly attempted I&D in the ER on 06/23- emilia pus aspirated, returned with MOOSE Discussed with the patient regarding role of decolonization given recurrent SSTIs/folliculitis over the past 2 months. Though most extensively studied for MRSA rather than MSSSA. can try decolonization given frequency of symptoms. Mupirocin has been prescribed in accordance to be applied over both nostrils, to axillary folds and groin folds. Hibiclens bath recommended. 5 days every month for the next 3-4 months Status: Acute (2) Peripheral neuropathy: Lyrica has been added this admission, tolerating well thus far Status: Acute (3) Hypertension: currently well controlled Status: Acute (4) Diabetes mellitus: Increasee pre meal insulin to 7U TID Status: Acute Attestations Medical Necessity Statement*: need for iv abx, surgery assessment Coding Level of Care Code Acute Drum Straightener for [facility] Fwd Diagnoses Cellulitis L03.90 Peripheral neuropathy G62.9 Hypertension I10 Diabetes mellitus E11.9
[2020-06-26 17:54] LABS: Glucose Point of Care 242 mg/dL (70-110)
[2020-06-26] MEDS: enoxaparin 40 mg/0.4 mL Syringe SUBCUT (18:07)
[2020-06-26] MEDS: mupirocin oint 22 gm 1 APPLIC NASAL (18:08)
--- NOTE | 2020-06-26 19:33 | PC.NURSE ---
PT was playing on cell phone.
[2020-06-26 20:54] LABS: Glucose Point of Care 238 mg/dL (70-110)
[2020-06-26] MEDS: metoprolol tartrate 50 mg Tablet PO (21:38)
[2020-06-26] MEDS: latanoprost 0.005% Op Soln 2.5 mL Btl 1 DROP EYE-BOTH (21:43)
[2020-06-27] VITALS (8 sets, daily range): BP systolic 118–147; BP diastolic 65–85; PULSE 60–88; RESP 17–18; TEMP 36.6–37.3; O2SAT 95–98
--- NOTE | 2020-06-27 05:57 | PC.NURSE ---
Physician Notification Patient has several BP medications ordered this morning. BP 118/74 and HR 60, notified Dr. Gonzalez. Orders received to hold amlodipine, metoprolol, and lisinopril. Proceed with administration of HCTZ and hydralazine.
[2020-06-27] MEDS: b-complex-vitamin c Tablet 1 EACH PO (06:01)
[2020-06-27] MEDS: hydroCHLOROthiazide 25 mg Tablet PO (06:01)
[2020-06-27] MEDS: hyDRALAzine 25 mg Tablet PO (06:01)
[2020-06-27] MEDS: pantoprazole DR 40 mg Tablet PO (06:01)
[2020-06-27] MEDS: aspirin 81 mg EC Tablet PO (06:01)
[2020-06-27] MEDS: loratadine 10 mg Tablet PO (06:01)
[2020-06-27] MEDS: timolol 0.5% Op Soln 5 mL Btl 1 DROP EYEAFF (06:04)
[2020-06-27 06:41] LABS: Glucose Point of Care 179 mg/dL (70-110)
[2020-06-27] MEDS: pregabalin 150 mg Capsule PO (09:39)
[2020-06-27] MEDS: fluticasone nasal spray 16gm Btl 1 SPRAY INTRANASAL (09:40)
[2020-06-27] MEDS: mupirocin oint 22 gm 1 APPLIC NASAL (09:42)
[2020-06-27 11:06] LABS: Glucose Point of Care 260 mg/dL (70-110)
--- NOTE | 2020-06-27 11:31 | PC.SOCIAL ---
IMM Update Pg. 2 of IMM updated and reviewed with patient who verbalized understanding. Copy provided.
--- NOTE | 2020-06-27 11:54 | P.CONIM_ITS ---
Providers/Reason For Consult Consulting Physican/Specialty*: Dr. Carpio Reason for Consult*: Gluteal cellulitis Attending Physician: Margo Carpio MD History of Present Illness History of Present Illness Manoj Anglin is a 70 year old male who presented to the ER on 06/23/2020 with pain redness and swelling in the right gluteal area of 4 days duration. Patient states that he had a spider bite about a year and a half ago when [place] traveled [place] and subsequently has been having intermittent episodes of skin infections since then. Patient presented to the ER says the pain redness and swelling was worsening and he underwent incision and drainage in the emergency room and was admitted for IV antibiotics. He denies any fevers or chills. Patient is a diabetic Review of Systems General: Reports: 10 or more systems reviewed and unremarkable except in HPI and below Meds/Allergies Home Medications and Allergies Home Medications Medication Instructions Recorded Confirmed Last Taken Type Cam Walker #1 each NS 01/02/20 06/23/20 Unknown Rx ASO Ankle brace #1 ea 01/16/20 06/23/20 Unknown Rx Novolog Flexpen U-100 Insulin 6 unit SUBCUT TID@0530,1199,199906/23/20 06/23/20 06/23/20 History Vitamin C 1 tab PO DAILY@0530 06/23/20 06/23/20 06/23/20 History Vitamin D3 1 tab PO DAILY@0530 06/23/20 06/23/20 06/23/20 History amlodipine 10 mg PO DAILY@0530 06/23/20 06/23/20 06/23/20 History aspirin 81 mg PO DAILY@0530 06/23/20 06/23/20 06/23/20 History brimonidine-timolol 1 drp OPHTHALMIC (EYE) 06/23/20 06/23/20 06/23/20 History BID@ budesonide-formoterol 2 puff INHALATION BID@06/23/20 06/23/20 06/23/20 History fluticasone propionate 1 spray INTRANASAL DAILY@0800 06/23/20 06/23/20 Unknown History hydralazine 25 mg PO BID@06/23/20 06/23/20 06/23/20 History hydrochlorothiazide 25 mg PO DAILY@0530 06/23/2020/21 03/20/21 History latanoprost 1 drp OPHTHALMIC (EYE) DAILY@199906/23/20 06/23/20 06/22/20 History lisinopril 20 mg PO DAILY@52906/23/20 06/23/20 06/23/20 History loratadine 10 mg PO DAILY@52906/23/20 06/23/20 06/23/20 History metoprolol tartrate 50 mg PO BID@06/23/20 06/23/20 06/23/20 History omeprazole 20 mg PO DAILY@52906/23/20 06/23/20 06/23/20 History sildenafil 50 mg PO Q7D PRN 06/23/20 06/23/20 Unknown History timolol maleate (PF) 1 drp OPHTHALMIC (EYE) DAILY@52906/23/20 06/23/20 06/23/20 History tiotropium-olodaterol 2 puff INHALATION DAILY@52906/23/20 06/23/20 06/23/20 History vitamin A 1 tab PO DAILY@52906/23/20 06/23/20 06/23/20 History vitamin B complex 1 tab PO DAILY@52906/23/20 06/23/20 06/23/20 History vitamin E 1 tab PO DAILY@52906/23/20 06/23/20 06/23/20 History cefadroxil 1,000 mg PO Q12H 7 Days #14 tab 06/27/20 Unknown Rx mupirocin 1 applic NASAL BID 5 Days g 06/27/20 Unknown Rx Allergies Allergy/AdvReac Type Severity Reaction Status Date / Time No Known Allergies Allergy Verified 02/20/20 14:37 Current Medications Current Medications Generic Name Dose Route Start Last Admin Trade Name Freq PRN Reason Stop Dose Admin Acetaminophen 650 mg 06/23/20 18:28 06/24/20 03:04 Acetaminophen 325 Mg Tablet PO 650 mg Q6H PRN Administration Mild/Mod Pain Or Temp >/= 101 Amlodipine Besylate 10 mg 06/24/20 05:30 06/27/20 05:57 Amlodipine 10 Mg Tablet PO Not Given DAILY@05 [facility] Aspirin 81 mg 06/24/20 05:30 06/27/20 06:01 Aspirin 81 Mg Ec Tablet PO 81 mg DAILY@529 [facility] Administration Chlorhexidine Gluconate 1 applic 06/26/20 09:00 06/26/20 08:29 Chlorhexidine Gluconate 4% Btl 118 Ml TOPICAL 1 applic DAILY [facility] Administration Enoxaparin Sodium 40 mg 06/23/20 18:30 06/26/20 18:07 Enoxaparin 40 Mg/0.4 Ml Syringe SUBCUT 40 mg Q24H [facility] Administration Fluticasone Propionate 1 spray 06/24/20 08:00 06/27/20 09:40 Fluticasone Nasal [place] 16gm Btl INTRANASAL 1 spray DAILY@0800 [facility] Administration Hydralazine HCl 25 mg 06/23/20 20:00 06/27/20 06:01 Hydralazine 25 Mg Tablet PO 25 mg BID@ [facility] Administration Hydrochlorothiazide 25 mg 06/24/20 05:30 06/27/20 06:01 Hydrochlorothiazide 25 Mg Tablet PO 25 mg DAILY@529 [facility] Administration Cefazolin Sodium/Dextrose 2 gm in 50 mls @ 100 mls/hr 06/25/20 18:30 06/27/20 04:05 Kefzol IV Infused Q8H [facility] Infusion Insulin Aspart 7 unit 06/26/20 20:00 06/27/20 06:01 Insulin Aspart 100 Unit/1 Ml SUBCUT 7 unit TID@05,1199,1999 [facility] Administration Latanoprost 1 drop 06/23/20 20:00 06/26/20 21:43 Latanoprost 0.005% Op Soln 2.5 Ml Btl EYE-BOTH 1 drop DAILY@1999 [facility] Administration Lisinopril 20 mg 06/24/20 05:30 06/27/20 05:57 Lisinopril 20 Mg Tablet PO Not Given DAILY@529 [facility] Loratadine 10 mg 06/24/20 05:30 06/27/20 06:01 Loratadine 10 Mg Tablet PO 10 mg DAILY@529 [facility] Administration Metoprolol Tartrate 50 mg 06/23/20 20:00 06/27/20 05:57 Metoprolol Tartrate 50 Mg Tablet PO Not Given BID@ [facility] Multivitamins 1 each 06/24/20 05:30 06/27/20 06:01 M-Qyatlqf-Zeodlie C Tablet PO 1 each DAILY@0530 [facility] Administration Mupirocin 1 applic 06/26/20 18:00 06/27/20 09:42 Mupirocin Oint 22 Gm NASAL 1 applic BID [facility] Administration Non-Formulary Medication 1 drop 06/23/20 20:00 06/27/20 05:11 Brimonidine-Timolol EYEAFF Not Given BID@0530,2000 [facility] Non-Formulary Medication 2 puff 06/24/20 05:30 06/27/20 06:17 Tiotropium-Olodaterol INHALATION Not Given DAILY@0530 [facility] Pantoprazole Sodium 40 mg 06/24/20 05:30 06/27/20 06:[address] 40 Mg Tablet PO 40 mg DAILY@0530 [facility] Administration Pregabalin 150 mg 06/25/20 09:00 06/27/20 09:39 Pregabalin 150 Mg Capsule PO 150 mg BID [facility] Administration Fluticasone/Salmeterol 1 puff 06/24/20 08:00 06/27/20 08:46 Fluticasone-Salmeterol 250-50 Diskus INHALATION 1 puff BID.RESPIRATORY [facility] Administration Timolol Maleate 1 drop 06/24/20 05:30 06/27/20 06:04 Timolol 0.5% Op Soln 5 Ml Btl EYEAFF 1 drop DAILY@0530 [facility] Administration PFSH Acute PFSH: Medical History Diabetes mellitus Hypertension Social History Smoking and tobacco status: never smoked Alcohol intake: current Alcohol intake frequency: few times a week Vitals/I&O/Wt Last Vital Signs Temp 97.8 F 06/27/20 11:09 Pulse 65 06/27/20 11:09 Resp 18 06/27/20 11:09 BP 136/85 06/27/20 11:09 Pulse Ox 96 06/27/20 11:09 06/26/20 06/27/20 06/27/20 22:59 06:59 14:59 Intake Total 290 / 870 50 / 870 330 / 330 Balance 290 / 870 50 / 870 330 / 330 Physical Exam Narrative: EXAM NARRATIVE: HEENT: Normocephalic Eye: Sclera /conjunctiva normal Abdomen: Soft to palpation Neurological: Oriented to place person and time Skin: Intact, the right gluteal fold there are 2 stab wounds which are almost healed, there is surrounding brawny edema with mild erythema. No fluctuant fluid collections noted A&P Assessment and plan (1) Cellulitis of gluteal region: 70-year-old male who is a diabetic who presented to the ER with 5-day history of cellulitis of the right gluteal region, status post incision and drainage in the ER. 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
--- NOTE | 2020-06-27 12:48 | P.DS_ITS ---
Discharge Providers Date of Admission: 06/24/20 15:37 Date of Discharge: June 27, 2020 Attending Provider at Admission: Parker Wiley DO Attending Provider at Discharge: Margo Carpio MD Diagnoses at Discharge Discharge Diagnosis (1) Cellulitis: Status: Acute (2) Peripheral neuropathy: Status: Acute (3) Hypertension: Status: Acute (4) Diabetes mellitus: Status: Acute Reason for Visit Reason for Visit: POSS STAPH INFECTION Hospital Course Hospital Course 70-year-old male presented to the emergency room on June 23, 2020 with chief complaint of pain swelling and redness over his right buttock that started 3 to 4 days prior to presentation. He was noted to have cellulitis involving the right buttock. Upon presentation at the ER, was thought he may have an underlying abscess, I&D was attempted, very little pus was able to be aspirated. Culture from this has subsequently shown MSSA. CT imaging performed upon admission also suggestive of cellulitis. He has been on treatment with IV antibiotics initially with Zosyn and vancomycin, changed to cefazolin once MSSA was recovered on cultures. General surgery was consulted, no current indication for further I&D at this time. Cellulitis is currently improving at the time of discharge. He is being transitioned to oral cefadroxil 1 g p.o. twice daily for 1 week. Follow-up with general surgery to ensure resolution. 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 Though most extensively studied for MRSA rather than MSSA, can try decolonization given frequency of symptoms. Mupirocin has been prescribed in accordance to be applied over both nostrils, to axillary folds and groin folds. Hibiclens bath recommended. Both of these interventions to be done for 5 days every month for the next 3-4 months. Physical Exam Narrative: EXAM NARRATIVE: GEN: Awake, alert and oriented, no acute distress CVS: S1S2 N RS: CTA B/L Abd: Soft, nt/nd , bs+ [employer] REPRESENTATIVE: no focal neuro deficits Extremities improving cellulitis over the right buttock Discharge Data Data Completed and Pending: Completed Studies During Hospitalization Category Date Time Status CT pelvis w con* [id number] Urgent Cat Scan 06/23/20 14:35 Completed Pending at discharge Category Date Time Status Blood Culture Sta t Lab 06/23/20 14:18 Results Labs from last 24 hours 06/27/20 06/27/20 06/26/20 10:27 06:26 20:46 POC Glucose 260 H 179 H 238 H 06/26/20 17:41 POC Glucose 242 H Addt'l Data from Hospital Stay: Laboratory Results WBC 9.0 10^3/uL (4.0- 10.0) 06/25/20 03:33 RBC 4.13 10^6/uL (4.1 -5.3) 06/25/20 03:33 Hgb 13.4 g/dL (11.7-1 6.6) 06/25/20 03:33 Hct 38.8 % (42.0-52.0 ) L 06/25/20 03:33 MCV 93.9 fL (80-94) 06/25/20 03:33 MCH 32.4 pg (28.0-34. 0) 06/25/20 03:33 MCHC 34.5 g/dL (30.0-3 6.0) 06/25/20 03:33 RDW 11.6 % (12.1-15.1 ) L 06/25/20 03:33 Plt Count 257 10^3/cmm (130 -400) 06/25/20 03:33 MPV 10.2 fL (7.4-10.4 ) 06/25/20 03:33 Neut % (Auto) 59.0 % 06/25/20 03:33 Lymph % (Auto) 26.3 % 06/25/20 03:33 Howard % (Auto) 11.0 % 06/25/20 03:33 Eos % (Auto) 1.8 % 06/25/20 03:33 Baso % (Auto) 0.7 % 06/25/20 03:33 Neut # (Auto) 5.31 10^3/uL (1.8 -7.7) 06/25/20 03:33 Lymph # (Auto) 2.4 10^3/uL (0.8- 4.8) 06/25/20 03:33 Howard # (Auto) 1.0 10^3/uL (0.2- 0.9) H 06/25/20 03:33 Eos # (Auto) 0.2 10^3/uL (0.0- 0.8) 06/25/20 03:33 Baso # (Auto) 0.1 10^3/uL (0.0- 0.1) 06/25/20 03:33 Nucleated RBC % (a uto) 0 % 06/25/20 03:33 Nucleated RBCs # 0.0 /100WBC 06/25/20 03:33 Sodium 138 mmol/L (136-1 45) 06/26/20 05:01 Potassium 3.6 mmol/L (3.5-5 .1) 06/26/20 05:01 Chloride 103 mmol/L (98-10 7) 06/26/20 05:01 Carbon Dioxide 25 mmol/L (22-29) 06/26/20 05:01 Anion Gap 13.6 (5-19) 06/26/20 05:01 BUN 12 mg/dL (8-23) 06/26/20 05:01 Creatinine 0.7 mg/dL (0.7-1. 2) 06/26/20 05:01 GFR Calculation 112.1 mL/min (90- 130) 06/26/20 05:01 Glucose 180 mg/dL (65-115 ) H 06/26/20 05:01 POC Glucose 260 mg/dL (70-110 ) H 06/27/20 10:27 Calculated Osmolal ity 290 mOsm/kg (285- 295) 06/26/20 05:01 Lactate 1.5 mmol/L (0.5-2 .2) 06/23/20 14:18 Calcium 8.9 mg/dL (8.5-10 .5) 06/26/20 05:01 Total Bilirubin 0.5 mg/dL (0.15-1 .2) 06/26/20 05:01 AST 12 U/L (0-40) 06/26/20 05:01 ALT 11 U/L (0-41) 06/26/20 05:01 Alkaline Phosphata se 54 IU/L (40-130) 06/26/20 05:01 Total Protein 7.1 g/dL (6.6-8.7 ) 06/26/20 05:01 Albumin 3.4 g/dL (3.5-5.2 ) L 06/26/20 05:01 Globulin 3.7 g/dL (1.3-4.6 ) 06/26/20 05:01 Urine Color Yellow (Yellow) 06/23/20 18:53 Urine Appearance Clear (CLEAR) 06/23/20 18:53 Urine pH 5 (5-7) 06/23/20 18:53 Ur Specific Gravit y 1.010 (1.005-1.0 30) 06/23/20 18:53 Urine Protein Neg (Negative) 06/23/20 18:53 Urine Glucose (UA) 2+ (Normal) 06/23/20 18:53 Urine Ketones Negative (Negati ve) 06/23/20 18:53 Urine Blood 2+ (Negative) H 06/23/20 18:53 Urine Nitrate Negative (Negati ve) 06/23/20 18:53 Urine Bilirubin Neg (Negative) 06/23/20 18:53 Urine Urobilinogen 1 mg/dL (Negative ) H 06/23/20 18:53 Ur Leukocyte Magnolia ase Negative (Negati ve) 06/23/20 18:53 Urine RBC 5-10 /hpf (0-2) H 06/23/20 18:53 Urine WBC Rare /hpf (0-5) 06/23/20 18:53 Ur Squamous Epith Cells None /hpf (0-5) 06/23/20 18:53 Amorphous Sediment Not Reportable 06/23/20 18:53 Urine Bacteria None /hpf (NONE) 06/23/20 18:53 Urine Mucus Trace /hpf 06/23/20 18:53 Vancomycin Trough 10.9 ug/mL (10-15 ) 06/25/20 03:[address] 06/23/20 14:35 IMPRESSION: 1. There is skin thickening and subcutaneous edema involving the right gluteal fold compatible with cellulitis. There are 2 small cutaneous wounds or foci of recent incision and drainage. There are small underlying hematomas at these locations. No drainable abscess is identified. There is associated right inguinal and right pelvic lymphadenopathy. 2. The bladder wall is mildly thickened. Correlate with urinalysis to assess for cystitis. Radiation Dose CTDIVOL = (mGy): DLP = 605.31 (mGy-cm) ADDENDUM: 06/23/20 1741 There is a lipoma deep to the left gluteus ewa muscle that measures 4.2 x 9.5 x 17.1 cm. Radiation Dose CTDIVOL = (mGy): DLP = 605.31 (mGy-cm) Microbiology 06/23/20 15:00 Buttock Wound Culture - Final Staphylococcus aureus 06/23/20 14:18 Blood Blood Culture - Preliminary NEGATIVE TO DATE Wound Culture Final 06/25/20-1230 Organism 1 Staphylococcus aureus Growth HEAVY DAY 2 CRITICAL RESULT YES/NO: YES CRITICAL CALLED BY: LESLIE TO AND READ BACK BY: SANDIE DATE: 06/24/20 TIME: 1233 S aureus M.I.C. RX --------- ------ * Amoxicillin/Clavulanate <=4/2 S * Ampicillin >8 R * Ampicillin/Sulbactam <=8/4 S * Ceftriaxone <=8 S * Ciprofloxacin <=1 S * Clindamycin <=0.5 S * Erythromycin <=0.5 S * Gentamicin <=4 S * Levofloxacin <=1 S * Linezolid 4 S * Oxacillin 0.5 S * Penicillin >8 R * Rifampin <=1 S * Tetracycline <=4 S * Trimethoprim/Sulfamethoxazole 04/24 S Vancomycin 1 S Daptomycin <=0.5 S Vitals: Last Vital Signs Temp 97.8 F 06/27/20 11:09 Pulse 65 06/27/20 11:09 Resp 18 06/27/20 11:09 BP 136/85 06/27/20 11:09 Pulse Ox 96 06/27/20 11:09 Discharge Plan Discharge Patient Disposition: Home Condition: Stable Prescriptions: New mupirocin 2 % Ointment 1 applic nasal BID 5 Days RF: 0 cefadroxil 1 gram tablet 1,000 mg PO Q12H 7 Days Qty: 14 RF: 0 Continued latanoprost 0.005 % Drops 1 drp OPHTHALMIC (EYE) DAILY@1999 RF: 0 metoprolol tartrate 100 mg Tablet 50 mg PO BID@ RF: 0 hydralazine 25 mg Tablet 25 mg PO BID@ RF: 0 Aspir-81 81 mg Tablet,Delayed Release (Dr/Ec) 81 mg PO DAILY@529 RF: 0 sildenafil 100 mg Tablet 50 mg PO Q7D PRN (Reason: ERECTILE DISFUNCTION) RF: 0 amlodipine 10 mg Tablet 10 mg PO DAILY@529 RF: 0 vitamin B complex Tablet 1 tab PO DAILY@0530 RF: 0 hydrochlorothiazide 25 mg Tablet 25 mg PO DAILY@0530 RF: 0 lisinopril 40 mg Tablet 20 mg PO DAILY@0530 RF: 0 fluticasone propionate 50 mcg/actuation [place],Suspension 1 spray INTRANASAL DAILY@0800 RF: 0 loratadine 10 mg Tablet 10 mg PO DAILY@0530 RF: 0 Novolog Flexpen U-100 Insulin 100 unit/mL (3 mL) Insulin Pen 6 unit SUBCUT TID@0530,1199,1999 RF: 0 timolol maleate (PF) 0.5 % Dropperette 1 drp OPHTHALMIC (EYE) DAILY@05 RF: 0 budesonide-formoterol 80-4.5 mcg/actuation Hfa Aerosol Inhaler 2 puff INHALATION BID@529,1999 RF: 0 brimonidine-timolol 0.2-0.5 % Drops 1 drp OPHTHALMIC (EYE) BID@529,1999 RF: 0 omeprazole 20 mg Tablet,Delayed Release (Dr/Ec) 20 mg PO DAILY@0530 RF: 0 tiotropium-olodaterol 2.5-2.5 mcg/actuation Mist 2 puff INHALATION DAILY@0530 RF: 0 Vitamin C 1 tab PO DAILY@0530 RF: 0 Vitamin D3 1 tab PO DAILY@0530 RF: 0 vitamin A 1 tab PO DAILY@0530 RF: 0 vitamin E 1 tab PO DAILY@0530 RF: 0 No Action (DME) Cam Walker See Rx Instructions .ROUTE .MEDSUPPLY Qty: 1 RF: 0 (DME) ASO Ankle brace See Rx Instructions .Route .MEDSUPPLY Qty: 1 RF: 0 Discharge Orders: Discharge Order (Routine); Ordered 06/27/20 Ordered By: Margo Carpio Referrals: Brady Ford MD [Physician] - 1 week Discharge Diet: Usual diet Discharge Activity: Resume usual activity Activity Restrictions/Additional Instructions: Recommend using chlorhexidine 4% soap (available OTC at pharmacy) to wash everyday for 5 days each month over the next 3-4 months to decolonize. Wash your entire body (except face), concentrating on crevices or skin folds. Rinse off the CHG soap solution with warm tap water Discharge Attestations Time Spent in Discharge Care*: greater than 30 min Quality Metrics Clinical Quality Measures During this hospital stay, did patient experience: None Coding Level of Care Code Acute Chg FW DC note Diagnoses Cellulitis L03.90 Peripheral neuropathy G62.9 Hypertension I10 Diabetes mellitus E11.9
== END 2020-06-27 16:49 | disposition home or self-care (01) | DRG 603 ==
LOC: ER 16:09 → MEDSURG 16:40
PROVIDERS: Nurse Practitioner Family; Admitting Provider Internal Medicine; Emergency Provider Family Medicine; Visit Provider Student in an Organized Health Care Education/Training Program
DX: L03.317 Cellulitis of buttock (principal); Z86.14 Personal history of Methicillin resistant Staphylococcus aureus infection; E11.42 Type 2 diabetes mellitus with diabetic polyneuropathy; I10 Essential (primary) hypertension; Z79.4 Long term (current) use of insulin; B95.61 Methicillin susceptible Staphylococcus aureus infection as the cause of diseases classified elsewhere; Z79.82 Long term (current) use of aspirin
CPT/HCPCS: 10060; 36415; 36416; 72193; 80048; 80053; 80202; 81001; 82962; 83605; 85025; 87040; 87070; 87077; 87186; 94640; 96365; 96367; 96372; 99285; G0378; J0690; J1650; J1815; J2543; J3370; J3490; Q9967

== ENCOUNTER 2020-07-26 14:38 | Outpatient (CLI) | payer OTHER, SELFPAY ==
--- NOTE | 2020-07-26 14:43 | MR_ITS ---
WS: [id number] MRI HEAD WITH CONTRAST TECHNIQUE: Sagittal T1, T2 axial, T2 axial FLAIR, axial susceptibility weighted imaging, axial diffus ion weighted images, and coronal T2 images were obtained. Pre and post-T1 axial and post T1 coronal i mages. ADC and FSPGR images. CLINICAL INFORMATION: TREMOR/MEMORY LOSS;NEW TREMOR IN RT ARM/HAND,MEMORY LOSS COMPARISON: MRI 9 3075 FINDINGS: No evidence of restricted diffusion to suggest acute ischemia. Ventricular system and basal cisterns are patent. Moderate parenchymal volume loss. No suspicious intracranial signal abnormalities. Normal posterior fossa. Normal vascular flow voids skull base. No extra-axial fluid collections. No evidenc e of mass or mass effect. Mild mucosal thickening paranasal sinuses. Mastoid air cells well aerated. No hemosiderin on the susceptibility weighted images. No abnormal intracranial enhancement. Normal op tic chiasm and pituitary infundibulum. Cavernous sinuses and Meckel's cave normal in appearance. Mild to moderate symmetric atrophy temporal lobes and hippocampal formations. Normal visualized dural mallorie ous sinuses. MR/MR head wo/w con [id number] IMPRESSION: 1. No evidence of restricted diffusion to suggest acute ischemia. 2. No suspicious intracranial signal abnormalities. Moderate parenchymal volum e loss. 3. No hemosiderin on susceptibly weighted images. 4. Mild to moderate symmetric atrophy temporal lobes and hippocampal formation s. 5. No abnormal gadolinium enhancement. 6. No other significant findings.
[2020-07-26] MEDS: gadobenate dimeglumine 20 mL vial IV (15:47)
== END 2020-07-26 14:39 | disposition home or self-care (01) ==
LOC: RADSHAW 14:41
PROVIDERS: PCP Family Medicine; Visit Provider Family Medicine
DX: R25.1 Tremor, unspecified (principal); R41.3 Other amnesia; G31.9 Degenerative disease of nervous system, unspecified
CPT/HCPCS: 70553; A9577

== ENCOUNTER → 2020-12-24 10:54 | Outpatient (BNVA) | payer OTHER, SELFPAY | PROVIDERS: PCP Family Medicine; Visit Provider Specialist | DX: R25.1 Tremor, unspecified (principal); E11.42 Type 2 diabetes mellitus with diabetic polyneuropathy; Z79.4 Long term (current) use of insulin; Z87.891 Personal history of nicotine dependence | CPT/HCPCS: 99204 ==

== ENCOUNTER → 2021-02-04 12:42 | Outpatient (BNVA) | payer OTHER, SELFPAY | PROVIDERS: PCP Family Medicine; Visit Provider Specialist | DX: G25.0 Essential tremor (principal); E11.42 Type 2 diabetes mellitus with diabetic polyneuropathy; Z79.4 Long term (current) use of insulin; R20.0 Anesthesia of skin; R20.2 Paresthesia of skin; Z87.891 Personal history of nicotine dependence | CPT/HCPCS: 99213; 99214 ==

== ENCOUNTER → 2021-02-21 12:41 | Outpatient (BNVA) | payer OTHER, SELFPAY | PROVIDERS: PCP Family Medicine; Referring Provider Specialist; Visit Provider Specialist | DX: G56.03 Carpal tunnel syndrome, bilateral upper limbs (principal); G56.23 Lesion of ulnar nerve, bilateral upper limbs; Z87.891 Personal history of nicotine dependence | CPT/HCPCS: 95910 ==

== ENCOUNTER 2021-03-11 16:15 | Emergency (ER) | payer OTHER, SELFPAY ==
[2021-03-11 16:39] VITALS: BP 156/80; PULSE 61; RESP 16; TEMP 36.4; O2SAT 99
[2021-03-11 19:40] VITALS: BP 165/90; PULSE 68; RESP 18; O2SAT 98
--- NOTE | 2021-03-11 19:47 | W.ED.BACK ---
HPI - Back Pain/Injury General: Chief Complaint: Back Pain/Injury Stated Complaint: KIDNEY RELATED PAIN/SENT FROM [place] [facility] Time Seen by Provider: 03/11/21 19:32 Source: patient Mode of arrival: ambulatory Limitations: no limitations History of Present Illness: HPI Narrative: 71-year-old male states that over the last month he has been having bilateral flank pain along with right upper quadrant pain over the liver he states he started a statin over that time and is [place] physician believes it may be the statin causing pains concern is causing kidney dysfunction. They sent him here to have his liver enzymes and creatinine evaluated. Patient denies any fever states his pain has been constant for months rates it a 3 out of 10 denies any vomiting or diarrhea Associated symptoms: Deny abdominal pain, chills, fever(s), nausea or vomiting Review of Systems Const: Denies: fever(s), chills, body aches or change in appetite Eyes: Denies: blurry vision or eye discomfort ENMT: Denies: throat pain or dental pain Card: Denies: chest pain Resp: Denies: dyspnea GI: Denies: abdominal pain, nausea, vomiting or diarrhea : Reports: flank pain Musc: Denies: neck pain or back pain Skin/Breast: Denies: rash Neuro: Denies: headache(s) Psych: Denies: depression Rico/Lymph: Denies: easy bruising All/Imm: Denies: urticaria PFSH ED PFSH: Medical History Diabetes mellitus Hypertension Social History Smoking and tobacco status: former smoker Alcohol intake: current Alcohol intake frequency: few times a week History of recent travel: No Physical Exam Const: COMMON NORMALS: no acute distress, patient oriented x3 and healthy appearing HENMT: COMMON NORMALS: normocephalic and atraumatic HEAD & SCALP: normocephalic and atraumatic Eye: COMMON NORMALS: Equal, round and reactive pupils present and EOMs intact bilaterally PUPIL: Yes Equal, round and reactive pupils present Neck/C-Spine: COMMON NORMALS: full ROM and supple Chest: COMMONS NORMALS: normal inspection of the chest and normal palpation of entire chest wall Resp: COMMON NORMALS: normal respiratory effort, No retractions, No use of accessory muscles and clear to auscultation bilaterally AUSCULTATION: clear to auscultation bilaterally Cardio: COMMON NORMALS: regular rate, regular rhythm and No murmurs present (Cardio) RATE: regular rate RHYTHM: regular rhythm GI: COMMON NORMALS: Normal to inspection, nondistended, normoactive bowel sounds present, Soft to palpation, non-tender and no masses PALPATION: Yes Soft to palpation Extremity: COMMON NORMALS: normal to inspection and full ROM Neuro: COMMON NORMALS: patient oriented x3, moves all extremities and no focal motor deficits Psych: COMMON NORMALS: mental status grossly normal, Normal thought process present and cooperative THOUGHT PROCESS: Normal thought process present Skin: COMMON NORMALS: no rashes or lesions noted and no wounds GENERAL SKIN EXAM: no rashes or lesions noted Course Vital Signs: Vital signs: Vital Signs Temperature 97.5 F L 03/11/21 16:39 Pulse Rate 68 03/11/21 19:40 Respiratory Rate 16 03/11/21 20:44 Blood Pressure 165/90 03/11/21 19:40 Pulse Oximetry 98 03/11/21 19:40 MDM - Back Pain/Injury MDM Narrative: Medical decision making narrative: Patient presents here with back pain flank pain concerned about his liver enzymes and kidney function patient's liver enzymes kidney function are all normal CT shows no acute findings I did inform the pulmonary nodule [facility] Stable for discharge is to return if worsening Lab Data: Labs: Lab Results 03/11/21 03/11/21 03/11/21 16:28 19:35 19:35 WBC 7.0 10^3/uL 10^3/ uL Cancelled (4.0-10.0) Corrected WBC Cancelled RBC 4.77 10^6/uL 10^6 /uL Cancelled (4.1-5.3) Hgb 15.7 g/dL g/dL Cancelled (11.7-16.6) Hct 44.6 % % Cancelled (42.0-52.0) MCV 93.5 fl fl Cancelled (80-94) MCH 32.9 pg pg Cancelled (28.0-34.0) MCHC 35.2 g/dL g/dL Cancelled (30.0-36.0) RDW 11.6 % L % Cancelled (12.1-15.1) Plt Count 221 10^3/cmm 10^3 /cmm Cancelled (130-400) MPV 11.0 fL H fL Cancelled (7.4-10.4) Gran % Cancelled Neut % (Auto) 44.4 % % Cancelled Lymph % (Auto) 41.7 % % Cancelled [place] % (Auto) 9.8 % % Cancelled Eos % (Auto) 2.4 % % Cancelled Baso % (Auto) 1.1 % % Cancelled Neut # (Auto) 3.11 10^3/uL 10^3 /uL Cancelled (1.8-7.7) Lymph # (Auto) 2.9 10^3/uL 10^3/ uL Cancelled (0.8-4.8) [place] # (Auto) 0.7 10^3/uL 10^3/ uL Cancelled (0.2-0.9) Eos # (Auto) 0.2 10^3/uL 10^3/ uL Cancelled (0.0-0.8) Baso # (Auto) 0.1 10^3/uL 10^3/ uL Cancelled (0.0-0.1) Absolute Gran (aut o) Cancelled Nucleated RBC % (a uto) 0 % % Cancelled Nucleated RBCs # 0.0 /100WBC /100W BC Cancelled Sodium 140 mmol/L mmol/L (136-145) Potassium 4.0 mmol/L mmol/L (3.5-5.1) Chloride 102 mmol/L mmol/L (98-107) Carbon Dioxide 22 mmol/L mmol/L (22-29) Anion Gap 20.0 H (5-19) BUN 16 mg/dL mg/dL (8-23) Creatinine 0.7 mg/dL mg/dL (0.7-1.2) GFR Calculation 111.8 mL/min mL/m in (90-130) Glucose 179 mg/dL H mg/dL (65-115) Calculated Osmolal ity 296 mOsm/kg H mOs m/kg (285-295) Calcium 9.3 mg/dL mg/dL (8.5-10.5) Total Bilirubin 0.4 mg/dL mg/dL (0.15-1.2) AST 25 U/L U/L (0-40) ALT 33 U/L U/L (0-41) Alkaline Phosphata se 59 IU/L IU/L (40-130) Total Protein 7.2 g/dL g/dL (6.6-8.7) Albumin 5.0 g/dL g/dL (3.5-5.2) Globulin 2.2 g/dL g/dL (1.3-4.6) Lipase Urine Color Urine Appearance Urine pH Ur Specific Gravit y Urine Protein Urine Glucose (UA) Urine Ketones Urine Blood Urine Nitrate Urine Bilirubin Urine Urobilinogen Ur Leukocyte Magnolia ase Urine RBC Urine WBC Ur Squamous Epith Cells Amorphous Sediment Urine Bacteria 03/11/21 03/11/21 19:35 19:35 WBC Corrected WBC RBC Hgb Hct MCV MCH MCHC RDW Plt Count MPV Gran % Neut % (Auto) Lymph % (Auto) [place] % (Auto) Eos % (Auto) Baso % (Auto) Neut # (Auto) Lymph # (Auto) [place] # (Auto) Eos # (Auto) Baso # (Auto) Absolute Gran (aut o) Nucleated RBC % (a uto) Nucleated RBCs # Sodium Cancelled Potassium Cancelled Chloride Cancelled Carbon Dioxide Cancelled Anion Gap Cancelled BUN Cancelled Creatinine Cancelled GFR Calculation Cancelled Glucose Cancelled Calculated Osmolal ity Cancelled Calcium Cancelled Total Bilirubin Cancelled AST Cancelled ALT Cancelled Alkaline Phosphata se Cancelled Total Protein Cancelled Albumin Cancelled Globulin Cancelled Lipase Cancelled Urine Color Yellow (Yellow) Urine Appearance Clear (CLEAR) Urine pH 5 (5-7) Ur Specific Gravit y 1.010 (1.005-1.030) Urine Protein Neg (Negative) Urine Glucose (UA) 4+ H (Normal) Urine Ketones Negative (Negative) Urine Blood 2+ H (Negative) Urine Nitrate Negative (Negative) Urine Bilirubin Neg (Negative) Urine Urobilinogen Norm mg/dL mg/dL (Negative) Ur Leukocyte Magnolia ase Negative (Negative) Urine RBC 5-10 /hpf H /hpf (0-2) Urine WBC Not Reportable Ur Squamous Epith Cells 0-4 /hpf H /hpf (0-5) Amorphous Sediment Not Reportable Urine Bacteria Trace /hpf /hpf (NONE) Imaging Data^: CT Abd/Pel: Attestation: I personally reviewed and interpreted this imaging study as follows: Radiologist's impression: [employer] [address] [address] Scan Report Signed Patient: Manoj Anglin Unit #: [id number] : 1950 Age/Sex: 71 / M ADM Date: 03/11/21 Loc: ER Room/Bed: Attending Dr: Ordering Provider/Ordering MD: Judith Leyva MD Date of Service: 03/11/21 Procedure(s): CT abdomen pelvis w con* [id number] Accession Number(s): [id number] Report Number: [id number] PROCEDURE INFORMATION: Exam: CT Abdomen And Pelvis With Contrast Exam date and time: 03/11/2021 8:01 PM Age: 71 years old Clinical indication: Abdominal pain; Flank; Other: Bilateral; Prior surgery; Surgery type: Appy; Additional info: Flank pain TECHNIQUE: Imaging protocol: Computed tomography of the abdomen and pelvis with contrast. Radiation optimization: All CT scans at this facility use at least one of these dose optimization techniques: automated exposure control; mA and/or kV adjustment per patient size (includes targeted exams where dose is matched to clinical indication); or iterative reconstruction. Contrast material: OMNI 300; Contrast volume: 95 ml; Contrast route: INTRAVENOUS (IV); COMPARISON: CT pelvis w con* [id number] 06/23/2020 3:22 PM RADIATION DOSE METRICS: Total DLP (mGy-cm): 2206.74 FINDINGS: Lungs: There is a noncalcified pulmonary nodule in the right upper lobe visible on axial series 2, image 3 measuring 8 mm. Liver: There is a simple cyst in the liver. Gallbladder and bile ducts: The gallbladder is normal. There is no biliary dilation. Pancreas: The pancreas is unremarkable. Spleen: The spleen is unremarkable. Adrenal glands: The adrenal glands are unremarkable. Kidneys and ureters: There are simple cysts in both kidneys. There is no hydronephrosis or stones. Stomach and bowel: The stomach is decompressed, preventing meaningful evaluation of wall thickness. The small bowel is nondilated. The colon is unremarkable. Appendix: The appendix is absent. Intraperitoneal space: There is no free air or significant intraperitoneal free fluid. Vasculature: There is moderate aortic atherosclerotic disease. The portal, splenic and superior mesenteric veins are patent. Lymph nodes: Unremarkable. No enlarged lymph nodes. Urinary bladder: Unremarkable as visualized. Reproductive: The prostate and seminal vesicles are unremarkable. Bones/joints: The pelvis and proximal femora are intact. There is moderate diffuse lumbar degenerative disease. There is lower lumbar epidural lipomatosis. There is a lipoma in the deep gluteal region on the left deep to the gluteus ewa muscle extending inferior to the hip measuring 15 cm in length and 9.2 x 3.6 cm axial dimension. This finding is stable since 06/23/2020. Soft tissues: The abdominal wall is intact. CT/CT abdomen pelvis w con* [id number] IMPRESSION: 1. No acute findings. 2. 8 mm right middle lobe pulmonary nodule. For patients at low risk (minimal or absent history of smoking and of other known risk factors), recommend CT Chest at 6-12 months, then consider CT Chest at 18-24 months. For patients at high risk (history of smoking or of other known risk factors), recommend CT Chest at 6-12 months, then CT Chest at 18-24 months. (Reference: Nahun) 3. Incidental findings above. COMMENTS: Consistent with the [place]'s Incidental Findings Committee white paper (J Am Lyndsey Radiol 2018): Any incidental renal lesion less than 1 cm or classified as too small to characterize, or any incidental cystic renal lesion characterized as simple-appearing, is likely benign. No follow-up imaging is recommended for these lesions per consensus recommendations based on imaging criteria. REFERENCES: Nahun Wolfe, et al. Guidelines for Management of Incidental Pulmonary Nodules Detected on CT Images: From the Fleischner Society 2017. Radiology. 2017;284(1):228-243. Dictated By: Yanick Gray MD Signed By: Yanick Gray MD Signed Date/Time: 03/11/212124 DD/ 00 Discharge Plan Discharge Patient Disposition: Home Clinical Impression: Bilateral flank pain Condition: Stable Prescriptions: No Action (DME) Cam Walker See Rx Instructions .ROUTE .MEDSUPPLY Qty: 1 RF: 0 (DME) ASO Ankle brace See Rx Instructions .Route .MEDSUPPLY Qty: 1 RF: 0 zonisamide [Zonegran] 100 mg capsule 200 mg PO DAILY Qty: 60 RF: 3 pregabalin [Lyrica] 50 mg capsule 50 mg PO BID Qty: 60 RF: 2 latanoprost 0.005 % Drops 1 drp OPHTHALMIC (EYE) DAILY@1999 RF: 0 metoprolol tartrate 100 mg Tablet 50 mg PO BID@ RF: 0 hydralazine 25 mg Tablet 25 mg PO BID@ RF: 0 aspirin 81 mg Tablet,Delayed Release (Dr/Ec) 81 mg PO DAILY@529 RF: 0 sildenafil 100 mg Tablet 50 mg PO Q7D PRN (Reason: ERECTILE DISFUNCTION) RF: 0 amlodipine 10 mg Tablet 10 mg PO DAILY@529 RF: 0 vitamin B complex Tablet 1 tab PO DAILY@529 RF: 0 hydrochlorothiazide 25 mg Tablet 25 mg PO DAILY@529 RF: 0 lisinopril 40 mg Tablet 20 mg PO DAILY@529 RF: 0 fluticasone propionate 50 mcg/actuation [place],Suspension 1 spray INTRANASAL DAILY@799 RF: 0 loratadine 10 mg Tablet 10 mg PO DAILY@529 RF: 0 Novolog Flexpen U-100 Insulin 100 unit/mL (3 mL) Insulin Pen 6 unit SUBCUT TID@529, RF: 0 timolol maleate (PF) 0.5 % Dropperette 1 drp OPHTHALMIC (EYE) DAILY@529 RF: 0 budesonide-formoterol 80-4.5 mcg/actuation Hfa Aerosol Inhaler 2 puff INHALATION BID@ RF: 0 brimonidine-timolol 0.2-0.5 % Drops 1 drp OPHTHALMIC (EYE) BID@ RF: 0 omeprazole 20 mg Tablet,Delayed Release (Dr/Ec) 20 mg PO DAILY@529 RF: 0 tiotropium-olodaterol 2.5-2.5 mcg/actuation Mist 2 puff INHALATION DAILY@529 RF: 0 Vitamin C 1 tab PO DAILY@529 RF: 0 Vitamin D3 1 tab PO DAILY@529 RF: 0 vitamin A 1 tab PO DAILY@529 RF: 0 vitamin E 1 tab PO DAILY@529 RF: 0 Discharge Orders: Discharge ED (Routine); Ordered 03/11/21 Ordered By: Judith Leyva Referrals: Latisha Arce MD [Primary Care Provider] - 1-3 days Discharge Diet: Advance as tolerated Discharge Activity: Resume usual activity Patient Instructions: Flank Pain (ED) Coding Level of Care Code ED Washer Meat for Chg Fwd Exam Comprehensive
[2021-03-11 19:48] LABS: Basophils # 0.1 10^3/uL (0.0-0.1); Basophils % 1.1 %; Eosinophils # 0.2 10^3/uL (0.0-0.8); Eosinophils % 2.4 %; Hematocrit 44.6 % (42.0-52.0); Hemoglobin 15.7 g/dL (11.7-16.6); Lymphocytes # 2.9 10^3/uL (0.8-4.8); Lymphocytes % 41.7 %; Mean Corpuscular HGB Conc 35.2 g/dL (30.0-36.0); Mean Corpuscular Hemoglobin 32.9 pg (28.0-34.0); Mean Corpuscular Volume 93.5 fl (80-94); Monocytes # 0.7 10^3/uL (0.2-0.9); Monocytes % 9.8 %; Neutrophils # 3.11 10^3/uL (1.8-7.7); Neutrophils % 44.4 %; Nucleated Red Blood Cells % 0 %; Platelet Count 221 10^3/cmm (130-400); Red Blood Count 4.77 10^6/uL (4.1-5.3); Red Cell Distribution Width 11.6 % (12.1-15.1)
[2021-03-11 19:50] LABS: Protein Urine Neg (Negative); Urine Appearance Clear (CLEAR); Urine Color Yellow (Yellow); pH Urine 5 (5-7)
[2021-03-11 19:51] LABS: Add Urine Microscopic? YES; Bilirubin Urine Neg (Negative); Blood Urine 2+ (Negative); Glucose Urine UA 4+ (Normal); Ketones Urine Negative (Negative); Leukocyte Esterase Urine Negative (Negative); Nitrate Urine Negative (Negative); Urobilinogen Urine Norm (Negative)
--- NOTE | 2021-03-11 20:01 | CTR_ITS ---
PROCEDURE INFORMATION: Exam: CT Abdomen And Pelvis With Contrast Exam date and time: 03/11/2021 8:01 PM Age: 71 years old Clinical indication: Abdominal pain; Flank; Other: Bilateral; Prior surgery; Surgery type: Appy; Additional info: Flank pain TECHNIQUE: Imaging protocol: Computed tomography of the abdomen and pelvis with contrast. Radiation optimization: All CT scans at this facility use at least one of these dose optimization techniques: automated exposure control; mA and/or kV adjustment per patient size (includes targeted exams where dose is matched to clinical indication); or iterative reconstruction. Contrast material: OMNI 300; Contrast volume: 95 ml; Contrast route: INTRAVENOUS (IV); COMPARISON: CT pelvis w con* [id number] 06/23/2020 3:22 PM RADIATION DOSE METRICS: Total DLP (mGy-cm): 2206.74 FINDINGS: Lungs: There is a noncalcified pulmonary nodule in the right upper lobe visible on axial series 2, image 3 measuring 8 mm. Liver: There is a simple cyst in the liver. Gallbladder and bile ducts: The gallbladder is normal. There is no biliary dilation. Pancreas: The pancreas is unremarkable. Spleen: The spleen is unremarkable. Adrenal glands: The adrenal glands are unremarkable. Kidneys and ureters: There are simple cysts in both kidneys. There is no hydronephrosis or stones. Stomach and bowel: The stomach is decompressed, preventing meaningful evaluation of wall thickness. The small bowel is nondilated. The colon is unremarkable. Appendix: The appendix is absent. Intraperitoneal space: There is no free air or significant intraperitoneal free fluid. Vasculature: There is moderate aortic atherosclerotic disease. The portal, splenic and superior mesenteric veins are patent. Lymph nodes: Unremarkable. No enlarged lymph nodes. Urinary bladder: Unremarkable as visualized. Reproductive: The prostate and seminal vesicles are unremarkable. Bones/joints: The pelvis and proximal femora are intact. There is moderate diffuse lumbar degenerative disease. There is lower lumbar epidural lipomatosis. There is a lipoma in the deep gluteal region on the left deep to the gluteus ewa muscle extending inferior to the hip measuring 15 cm in length and 9.2 x 3.6 cm axial dimension. This finding is stable since 06/23/2020. Soft tissues: The abdominal wall is intact. CT/CT abdomen pelvis w con* [id number] IMPRESSION: 1. No acute findings. 2. 8 mm right middle lobe pulmonary nodule. For patients at low risk (minimal or absent history of smoking and of other known risk factors), recommend CT Chest at 6-12 months, then consider CT Chest at 18-24 months. For patients at high risk (history of smoking or of other known risk factors), recommend CT Chest at 6-12 months, then CT Chest at 18-24 months. (Reference: Nahun) 3. Incidental findings above. COMMENTS: Consistent with the [employer]'s Incidental Findings Committee white paper (J Am Lyndsey Radiol 2018): Any incidental renal lesion less than 1 cm or classified as too small to characterize, or any incidental cystic renal lesion characterized as simple-appearing, is likely benign. No follow-up imaging is recommended for these lesions per consensus recommendations based on imaging criteria. REFERENCES: Nahun Wolfe, et al. Guidelines for Management of Incidental Pulmonary Nodules Detected on CT Images: From the Fleischner Society 2017. Radiology. 2017;284(1):228-243.
[2021-03-11 20:02] LABS: Add Urine Culture? No; Bacteria Urine TRACE /hpf; Squamous Epithelial Cell Urine 0-4 /hpf (0-5)
[2021-03-11 20:25] LABS: Alanine Aminotransferase 33 U/L (0-41); Alkaline Phosphatase 59 IU/L (40-130); Aspartate Amino Transferase 25 U/L (0-40); Blood Urea Nitrogen 16 mg/dL (8-23); Calcium 9.3 mg/dL (8.5-10.5); Carbon Dioxide 22 mmol/L (22-29); Chloride 102 mmol/L (98-107); Globulin 2.2 g/dL (1.3-4.6); Glomerular Filtration Rate 111.8 mL/min (90-130); Glucose 179 mg/dL (65-115); Osmolality Calculated 296 mOsm/kg (285-295); Sodium 140 mmol/L (136-145); Total Bilirubin 0.4 mg/dL (0.15-1.2); Total Protein 7.2 g/dL (6.6-8.7)
[2021-03-11] MEDS: iohexol 300 mg/mL 100 mL Btl IV (20:39)
[2021-03-11 20:44] VITALS: RESP 16
[2021-03-11] MEDS: morphine 4 mg/mL SDV 1 mL IVP (20:44)
[2021-03-11] MEDS: ondansetron 2 mg/ML SDV 2 mL 4 MG IVP (20:44)
== END 2021-03-11 22:03 | disposition home or self-care (01) ==
PROVIDERS: Physician Assistant; Emergency Provider Emergency Medicine; PCP Family Medicine
DX: R10.9 Unspecified abdominal pain (principal); Z79.82 Long term (current) use of aspirin; Z79.4 Long term (current) use of insulin; E11.9 Type 2 diabetes mellitus without complications; I10 Essential (primary) hypertension; Z87.891 Personal history of nicotine dependence
CPT/HCPCS: 74177; 80053; 81001; 85025; 96374; 96375; 99284; J2270; J2405; Q9967

== ENCOUNTER → 2021-06-10 12:59 | Outpatient (BNVA) | payer OTHER, SELFPAY | PROVIDERS: PCP Family Medicine; Visit Provider Specialist | DX: G25.0 Essential tremor (principal); G62.9 Polyneuropathy, unspecified; G56.03 Carpal tunnel syndrome, bilateral upper limbs; Z87.891 Personal history of nicotine dependence | CPT/HCPCS: 99213; 99214 ==

== ENCOUNTER 2021-07-18 06:11 | Day surgery (SDC) | payer OTHER, SELFPAY ==
[2021-07-17 14:08] VITALS: BMI 30.7
[2021-07-18 06:35] VITALS: BP 133/78; PULSE 48; RESP 15; TEMP 36.6; O2SAT 97
[2021-07-18 06:36] LABS: Glucose Point of Care 97 mg/dL (70-110)
--- NOTE | 2021-07-18 06:38 | P.ANESASSM_ITS ---
Pre-Anesthetic Assessment Height/Weight: Height 1.8 m Weight 99.79 kg Preop Diagnosis: Carpal tunnel syndrome Right Operation Date: 07/18/21 07:00 Proposed Procedures p Carpal Tunnel Release 48071/g56.03(Right) - David Reardon MD Familial anesthetic complications: none Was Beta Jessica taken within 24 hours: Yes Was Clonidine taken within 24 hours: N/A Last intake: > 8hrs Social Tobacco (Former smoker) and No alcohol Exam alert, oriented x 3, clear to auscultation bilaterally and regular rate & rhythm Airway Mallampati: Class III Dentition: full Pulmonary Chronic Obstructive Pulmonary Disease (not on oxygen, no steroid use in last year, no admissions) and Sleep Apnea (cpap) CV/HEM Hypertension None reported Hepatic None reported GI Gastroesophageal Reflux Disease Metabolic Diabetes Mellitus Neuropsych Neuropathy hx crush injury to back Anesthetic Plan ASA status: 3 Anesthesia: MAC and Regional (specify below) Risk of > 500 ml blood loss (7ml/kg in children): No Medications/Allergies Home Medications Medication Instructions Recorded Confirmed Last Taken Type Cam Walker #1 each NS 01/02/20 07/16/21 Unknown Rx ASO Ankle brace #1 ea 01/16/20 07/16/21 Unknown Rx Vitamin C 1 tab PO DAILY@0530 06/23/20 07/18/21 07/17/21 History Vitamin D3 1 tab PO DAILY@0530 06/23/20 07/18/21 07/17/21 History amlodipine 10 mg tablet 10 mg PO DAILY@0530 06/23/20 07/18/21 07/18/21 History aspirin 81 mg tablet,delayed 81 mg PO DAILY@0530 06/23/20 07/18/21 07/17/21 History release brimonidine 0.2 %-timolol 0.5 % 1 drp OPHTHALMIC (EYE) 06/23/20 07/18/21 07/17/21 History eye drops BID@ budesonide-formoterol HFA 80 2 puff INHALATION BID@0506/23/20 07/18/21 07/17/21 History mcg-4.5 mcg/actuation aerosol inhaler fluticasone propionate 50 1 spray INTRANASAL DAILY@0800 06/23/20 07/18/21 07/17/21 History mcg/actuation nasal spray,suspension hydralazine 25 mg tablet 25 mg PO BID@06/23/20 07/18/21 07/17/21 History hydrochlorothiazide 25 mg tablet 25 mg PO DAILY@52906/23/20 07/18/21 07/17/21 History insulin aspart U-100 100 unit/mL 6 unit SUBCUT TID@0530,1200,199906/23/20 07/18/21 07/17/21 History (3 mL) subcutaneous pen (Novolog Flexpen U-100 Insulin aspart) latanoprost 0.005 % eye drops 1 drp OPHTHALMIC (EYE) DAILY@199906/23/20 07/18/21 07/17/21 History lisinopril 40 mg tablet 20 mg PO DAILY@52906/23/20 07/18/21 07/17/21 History loratadine 10 mg tablet 10 mg PO DAILY@52906/23/20 07/18/21 07/17/21 History metoprolol tartrate 100 mg tablet 50 mg PO BID@06/23/20 07/18/21 07/18/21 History omeprazole 20 mg tablet,delayed 20 mg PO DAILY@52906/23/20 07/18/21 07/17/21 History release sildenafil 100 mg tablet 50 mg PO Q7D PRN 06/23/20 07/17/21 Unknown History timolol maleate (PF) 0.5 % eye 1 drp OPHTHALMIC (EYE) DAILY@52906/23/20 07/18/21 07/17/21 History drops in a dropperette tiotropium 2.5 mcg-olodaterol 2.5 2 puff INHALATION DAILY@52906/23/20 07/18/21 07/17/21 History mcg/actuation mist for inhalation vitamin A 1 tab PO DAILY@52906/23/20 07/18/21 07/17/21 History vitamin B complex 1 tab PO DAILY@52906/23/20 07/18/21 07/17/21 History vitamin E 1 tab PO DAILY@52906/23/20 07/18/21 07/17/21 History zonisamide 100 mg capsule 200 mg PO DAILY #60 cap 12/24/20 07/18/21 07/17/21 Rx (Zonegran) pregabalin 100 mg capsule 100 mg PO BID #60 cap 06/10/21 07/18/21 07/17/21 Rx Allergies Allergy/AdvReac Type Severity Reaction Status Date / Time No Known Allergies Allergy Verified 07/16/21 10:46 [facility] Anesthesia Medical History Diabetes mellitus Hypertension Social History Smoking and tobacco status: former smoker Alcohol intake: current Alcohol intake frequency: few times a week History of recent travel: No Data Anesthesia Cardiac Studies: No Data to Display
[2021-07-18] MEDS: sodium chloride 0.9% 1,000 ML 30 ML IV (06:40)
--- NOTE | 2021-07-18 06:57 | W.PM.OPSUD ---
Surgery/Procedure H&P Update DATE OF PROCEDURE: July 18, 2021 DATE H&P PERFORMED: 07/02/21 H&P UPDATE INFORMATION: I have reviewed H&P completed within last 30 days PREOP DIAGNOSIS: Carpal tunnel syndrome Right PLANNED PROCEDURE: Operation Date: 07/18/21 07:00 Proposed Procedures p Carpal Tunnel Release 89310/g56.03(Right) - David Reardon MD
[2021-07-18 07:44] VITALS: BP 95/55; PULSE 46; RESP 12; TEMP 36.2; O2SAT 95
--- NOTE | 2021-07-18 07:44 | P.OP_ITS ---
Operative Report Date of procedure: July 18, 2021 Pre-op diagnosis: Preop Diagnosis Carpal tunnel syndrome Right Post-op diagnosis: same Post-op diagnosis: Same Procedure done: Right carpal tunnel release Pathology: none sent Surgeon: David Reardon Anesthesia: Nerve Block ([place] block) Estimated blood loss (mL): 2 Tourniquet time (min): 20 Findings: No masses or space-occupying lesion seen in the right carpal tunnel Condition: stable Disposition: PACU Procedure: Patient was taken to the operating room and anesthesia provided by the anesthesia service. She was prepped and draped with the arm exposed. A timeout was performed. A 3 cm long incision was made in line with the fourth ray from the distal edge of the carpal tunnel extending proximally. The subcutaneous fat and palmar fascia was divided with a scalpel blade. Under loupe magnification the ulnar neurovascular bundle was identified distally. A hemostat could be passed under the transverse carpal ligament allowing the distal 25% to be divided. A slotted guide was then passed beneath the transverse carpal ligament and the middle 50% divided. Blunt scissors were then passed over the guide freeing the proximal ligament. The tourniquet was deflated. Hemostasis provided with electrocautery. Wound edges were infiltrated with 10 cc of a half percent Marcaine solution. Skin edges were reapproximated with 3-0 Prolene. Sterile dressings were applied. The patient was taken to the recovery room in stable condition
[2021-07-18 07:49] VITALS: BP 98/59; PULSE 46; RESP 16; O2SAT 94
[2021-07-18 07:54] VITALS: BP 100/58; PULSE 48; RESP 16; TEMP 36.2; O2SAT 95
[2021-07-18 07:56] VITALS: BP 109/63; PULSE 45; RESP 15; TEMP 36.1; O2SAT 95
[2021-07-18 08:11] VITALS: BP 129/66; PULSE 50; RESP 16; TEMP 36.6; O2SAT 98
--- NOTE | 2021-07-18 13:20 | ANE.PACU2 ---
Inpatient post-anesthesia follow up: Airway intact: Yes Vital signs: Temperature 98 F Pulse Rate 50 Respiratory Rate 16 Blood Pressure 129/66 Pulse Oximetry 98 Oxygen Delivery Me thod Room Air Oxygen Flow Rate 6 Fraction of Inspir ed Oxygen Hydration adequate: Yes Nausea and vomiting: No Pain level: 2 Mental status: Baseline
== END 2021-07-18 08:26 | disposition home or self-care (01) ==
PROVIDERS: PCP Family Medicine; Visit Provider Orthopaedic Surgery
PROC: (CPT 64721; principal; 2021-07-18 07:00)
DX: G56.01 Carpal tunnel syndrome, right upper limb (principal); J44.9 Chronic obstructive pulmonary disease, unspecified; Z87.891 Personal history of nicotine dependence; I10 Essential (primary) hypertension; G47.30 Sleep apnea, unspecified; K21.9 Gastro-esophageal reflux disease without esophagitis; E11.40 Type 2 diabetes mellitus with diabetic neuropathy, unspecified; Z79.82 Long term (current) use of aspirin; Z79.4 Long term (current) use of insulin
CPT/HCPCS: 64721; 36416; 82962; J0330; J0690; J2370; J2704; J3010; J3490; J7030

== ENCOUNTER 2021-08-05 11:18 | Outpatient (CLI) | payer OTHER, SELFPAY ==
--- NOTE | 2021-08-05 11:30 | CT_ITS ---
WS: [id number] CT CHEST TECHNIQUE: Contrast enhanced CT of the chest with coronal and sagittal reformatted images. CLINICAL INFORMATION: 8 MM RIGHT MIDDLE LOBE PULMONARY NODULE COMPARISON: CT abdomen pelvis March 11, 2021 DLP: 823.[address] scans at [facility] use at least one of these dose optimization techniques: automated e xposure control; mA and/or kV adjustment per patient size (includes targeted exams where dose is matc hed to clinical indication); or iterative reconstruction. FINDINGS: Again seen is the RIGHT middle lobe pulmonary nodule today measuring 8 mm unchanged from March 11, 2021. Additional tiny pulmonary nodule RIGHT upper lobe measuring 3 mm. Hazy opacity RIGHT upper lob e measuring 5 mm. A few tiny subpleural nodules. A few tiny calcified granulomas. Hazy subpleural nod ule in the RIGHT lower lobe laterally measuring 5 mm appears stable Mild chronic emphysematous changes. Proximal main pulmonary arteries are normal. Normal caliber thora cic aorta. Aortic calcification. No mediastinal or hilar lymphadenopathy. No axillary lymphadenopathy . Stable RIGHT adrenal adenoma measuring 2.3 CM. Partially visualized renal cysts. Small LEFT adrenal adenoma. Diffuse fatty infiltration of the liver. Enlarged RIGHT hepatic lobe. Incidental RIGHT hepa tic cyst or hemangioma. Mild fatty atrophy of the pancreas. Celiac and SMA appear patent at the upper abdomen. Normal GE junction. No axillary lymphadenopathy. Schmorl's nodes in the mid thoracic spine. Small sclerotic focus in the mid thoracic spine likely benign bone island. CT/CT chest w con* [id number] IMPRESSION: 1. Previously described 8 mm pulmonary nodule along the RIGHT hilum and RIGHT middle lobe is stable compared to March 11, 2021. Considering the size of 8 mm recommend additional 6 -12 month follow-up. 2. A few additional scattered subcentimeter noncalcified nodules and subpleura l nodules described above. 3. No mediastinal or hilar lymphadenopathy. 4. Stable RIGHT greater than LEFT adrenal adenomas.
[2021-08-05 12:40] LABS: Blood Urea Nitrogen 14 mg/dL (8-23); Glomerular Filtration Rate 111.8 mL/min (90-130)
[2021-08-05] MEDS: iohexol 350 mg/mL 100 mL Btl IV (12:41)
== END 2021-08-05 11:19 | disposition home or self-care (01) ==
LOC: RAD 11:19
PROVIDERS: PCP Family Medicine; Visit Provider Family Medicine
DX: R91.1 Solitary pulmonary nodule (principal); D35.02 Benign neoplasm of left adrenal gland; D35.01 Benign neoplasm of right adrenal gland
CPT/HCPCS: 71260; 82565; 84520

== ENCOUNTER → 2021-12-11 13:01 | Outpatient (BNVA) | payer OTHER, SELFPAY | PROVIDERS: PCP Family Medicine; Visit Provider Specialist | DX: G25.0 Essential tremor (principal); G62.9 Polyneuropathy, unspecified; G89.29 Other chronic pain | CPT/HCPCS: 99213 ==

== ENCOUNTER → 2022-01-30 14:24 | Outpatient (BNVA) | payer OTHER, SELFPAY | PROVIDERS: PCP Family Medicine; Visit Provider Surgery | DX: Z86.010 Personal history of colon polyps (principal) | CPT/HCPCS: 99203 ==

== ENCOUNTER 2022-03-19 05:48 | Day surgery (SDC) | payer OTHER, SELFPAY ==
[2022-03-17 08:30] VITALS: BMI 32.3
[2022-03-19 06:20] VITALS: BP 115/66; PULSE 43; RESP 18; TEMP 36; O2SAT 97
[2022-03-19] MEDS: sodium chloride 0.9% 1,000 ML 30 ML IV (06:25)
[2022-03-19 06:30] LABS: Glucose Point of Care 166 mg/dL (70-110)
--- NOTE | 2022-03-19 06:42 | W.PM.OPSFHP ---
Same Day Surgery H&P Indication for Procedure/HPI DATE OF PROCEDURE: March 19, 2022 CHIEF COMPLAINT/INDICATIONFOR SURGICAL PROCEDURE: History of colon polyps PREOP DIAGNOSIS: History of colon polyps PLANNED PROCEDURE: Operation Date: 03/19/22 07:30 Proposed Procedures p Colonoscopy 89146,Z12.11(Not Applicable) - Huy Koehler MD 01/30/2022 This is a pleasant 72 years old gentleman with history of colon polyps before 6 years ago.? Denies bleeding per rectum and he is referred to my practice for surveillance colonoscopy.? No evidence of history of colon cance 03/19/2022 Patient comes today for surveillance colonoscopy ROS All systems have been reviewed negative except as for the above or per problem list. Medications/Allergies* Home Medications Medication Instructions Recorded Confirmed Type Vitamin C 1 tab PO DAILY@52906/23/20 03/19/22 History Vitamin D3 1 tab PO DAILY@52906/23/20 03/19/22 History amlodipine 10 mg tablet 10 mg PO DAILY@52906/23/20 03/19/22 History aspirin 81 mg tablet,delayed 81 mg PO DAILY@52906/23/20 03/19/22 History release brimonidine 0.2 %-timolol 0.5 % 1 drp ophthalmic (eye) 06/23/20 03/19/22 History eye drops BID@ hydralazine 25 mg tablet 25 mg PO BID@06/23/20 03/19/22 History hydrochlorothiazide 25 mg tablet 25 mg PO DAILY@52906/23/20 03/19/22 History insulin aspart U-100 100 unit/mL 6 unit SUBCUT TID@529,06/23/20 03/19/22 History (3 mL) subcutaneous pen (Novolog Flexpen U-100 Insulin aspart) latanoprost 0.005 % eye drops 1 drp ophthalmic (eye) DAILY@199906/23/20 03/19/22 History lisinopril 40 mg tablet 20 mg PO DAILY@52906/23/20 03/19/22 History loratadine 10 mg tablet 10 mg PO DAILY@52906/23/20 03/19/22 History metoprolol tartrate 100 mg tablet 50 mg PO BID@06/23/20 03/19/22 History omeprazole 20 mg tablet,delayed 20 mg PO DAILY@0530 06/23/20 03/19/22 History release sildenafil 100 mg tablet 50 mg PO Q7D PRN ERECTILE 06/23/20 03/19/22 History DISFUNCTION timolol maleate (PF) 0.5 % eye 1 drp ophthalmic (eye) DAILY@0530 06/23/20 03/19/22 History drops in a dropperette (Timoptic Ocudose (PF)) vitamin A 1 tab PO DAILY@0530 06/23/20 03/19/22 History vitamin B complex 1 tab PO DAILY@0530 06/23/20 03/19/22 History vitamin E 1 tab PO DAILY@0530 06/23/20 03/19/22 History pregabalin 100 mg capsule (Lyrica) 100 mg PO BID 03/17/22 03/19/22 History Allergies/Adverse Reactions Allergy/AdvReac Type Severity Reaction Status Date / Time No Known Allergies Allergy Verified 03/19/22 06:42 Current Medications: Generic Name Dose Route Start Last Admin Trade Name Freq PRN Reason Stop Dose Admin Sodium Chloride 1,000 mls @ 30 mls/hr 03/19/22 06:00 03/19/22 06:25 Sodium Chloride 0.9% IV 03/20/22 05:59 30 mls/hr .Q24H ANGELICA Administration Pertinent History/Comorbid Conditions* Medical History (Updated 02/02/22 @ 08:06 by Huy Koehler MD) Diabetes mellitus Hypertension Social History Smoking and tobacco status: former smoker Alcohol intake: current Alcohol intake frequency: few times a week History of recent travel: No Pertinent Exam Findings alert, oriented x 3, regular rate & rhythm and procedure specific exam findings (Abdominal exam nontender nondistended soft) Recommendations Surgery/Procedure today (Surveillance colonoscopy) Coding Level of Care Code Acute Youth Care Professional for Kalpana Doherty
--- NOTE | 2022-03-19 06:55 | P.ANESASSM_ITS ---
Pre-Anesthetic Assessment Height/Weight: Height 1.78 m Weight 102.058 kg Temp Pulse Resp BP Pulse Ox O2 Del Method 96.8 F L 43 L 18 115/66 97 03/19/22 06:20 03/19/22 06:20 03/19/22 06:20 03/19/22 06:20 03/19/22 06:20 03/19/22 06:20 Preop Diagnosis: History of colon polyps Operation Date: 03/19/22 07:30 Proposed Procedures p Colonoscopy 78450,Z12.11(Not Applicable) - Huy Koehler MD Was Beta Jessica taken within 24 hours: Yes Last intake: Intake Last Liquid Date 03/18/22 Last Liquid Time 22:00 Last Solid Date 03/17/22 Last Solid Time 19:00 Last Intake: 22:00 Exam alert Airway Submandibular: within normal limits Cervical ROM: within normal limits Mallampati: Class II History/ROS No significant history except as noted Pulmonary Sleep Apnea CV/HEM Hypertension None reported Hepatic None reported GI Gastroesophageal Reflux Disease Metabolic Diabetes Mellitus [facility] [place] None reported Neuropsych Neuropathy Anesthetic Plan ASA status: 3 Anesthesia: MAC Medications/Allergies Home Medications Medication Instructions Recorded Confirmed Last Taken Type Cam Walker #1 ea 01/02/20 03/19/22 Unknown Rx ASO Ankle brace #1 ea 01/16/20 03/19/22 Unknown Rx Vitamin C 1 tab PO DAILY@0530 06/23/20 03/19/22 03/17/22 History Vitamin D3 1 tab PO DAILY@0530 06/23/20 03/19/22 03/17/22 History amlodipine 10 mg tablet 10 mg PO DAILY@0530 06/23/20 03/19/22 03/19/22 History aspirin 81 mg tablet,delayed 81 mg PO DAILY@0530 06/23/20 03/19/22 03/16/22 History release brimonidine 0.2 %-timolol 0.5 % 1 drp ophthalmic (eye) 06/23/20 03/19/22 03/18/22 History eye drops BID@ hydralazine 25 mg tablet 25 mg PO BID@0530,199906/23/20 03/19/22 03/19/22 History hydrochlorothiazide 25 mg tablet 25 mg PO DAILY@0530 06/23/20 03/19/22 03/19/22 History insulin aspart U-100 100 unit/mL 6 unit SUBCUT TID@0530,1200,199906/23/20 03/19/22 03/18/22 History (3 mL) subcutaneous pen (Novolog Flexpen U-100 Insulin aspart) latanoprost 0.005 % eye drops 1 drp ophthalmic (eye) DAILY@199906/23/20 03/19/22 03/18/22 History lisinopril 40 mg tablet 20 mg PO DAILY@52906/23/20 03/19/22 03/18/22 History loratadine 10 mg tablet 10 mg PO DAILY@52906/23/20 03/19/22 03/16/22 History metoprolol tartrate 100 mg tablet 50 mg PO BID@06/23/20 03/19/22 03/19/22 History omeprazole 20 mg tablet,delayed 20 mg PO DAILY@52906/23/20 03/19/22 03/18/22 History release sildenafil 100 mg tablet 50 mg PO Q7D PRN ERECTILE 06/23/20 03/19/22 2 Months Ago History DISFUNCTION ~01/17/22 timolol maleate (PF) 0.5 % eye 1 drp ophthalmic (eye) DAILY@52906/23/20 03/19/22 03/18/22 History drops in a dropperette (Timoptic Ocudose (PF)) vitamin A 1 tab PO DAILY@0530 06/23/20 03/19/22 03/17/22 History vitamin B complex 1 tab PO DAILY@0530 06/23/20 03/19/22 03/17/22 History vitamin E 1 tab PO DAILY@0530 06/23/20 03/19/22 03/17/22 History pregabalin 100 mg capsule (Lyrica) 100 mg PO BID 03/17/22 03/19/22 03/16/22 History Allergies Allergy/AdvReac Type Severity Reaction Status Date / Time No Known Allergies Allergy Verified 03/19/22 06:42 Current Medications Generic Name Dose Route Start Last Admin Trade Name Freq PRN Reason Stop Dose Admin Sodium Chloride 1,000 mls @ 30 mls/hr 03/19/22 06:00 03/19/22 06:25 Sodium Chloride 0.9% IV 03/20/22 05:59 30 mls/hr .Q24H ANGELICA Administration PFSH Anesthesia Medical History Diabetes mellitus Hypertension Social History Smoking and tobacco status: former smoker Alcohol intake: current Alcohol intake frequency: few times a week History of recent travel: No Data Anesthesia Cardiac Studies: No Data to Display
[2022-03-19 08:07] VITALS: BP 100/65; PULSE 52; RESP 16; TEMP 36.1; O2SAT 99
[2022-03-19 08:17] VITALS: BP 105/68; PULSE 51; RESP 16; O2SAT 100
--- NOTE | 2022-03-19 15:56 | ANE.PACU2 ---
Inpatient post-anesthesia follow up: Airway intact: Yes Vital signs: Temperature 97 F Pulse Rate 51 Respiratory Rate 16 Blood Pressure 105/68 Pulse Oximetry 100 Oxygen Delivery Me thod Room Air Oxygen Flow Rate 4 Fraction of Inspir ed Oxygen Hydration adequate: Yes Nausea and vomiting: No Pain level: 1 Mental status: Baseline
== END 2022-03-19 08:31 | disposition home or self-care (01) ==
PROVIDERS: PCP Family Medicine; Visit Provider Surgery
PROC: 0DJD8ZZ Inspection of Lower Intestinal Tract, Via Natural or Artificial Opening Endoscopic (ICD-10-PCS; CPT 45378; principal; 2022-03-19 07:30)
DX: Z12.11 Encounter for screening for malignant neoplasm of colon (principal); Z86.010 Personal history of colon polyps; D12.2 Benign neoplasm of ascending colon; E11.9 Type 2 diabetes mellitus without complications; I10 Essential (primary) hypertension; Z87.891 Personal history of nicotine dependence; G47.30 Sleep apnea, unspecified; K21.9 Gastro-esophageal reflux disease without esophagitis; Z79.82 Long term (current) use of aspirin
CPT/HCPCS: 36416; 45385; 82962; 88305; J0461; J2704; J7030

== ENCOUNTER → 2022-03-26 09:31 | Outpatient (BNVA) | payer OTHER, SELFPAY | PROVIDERS: PCP Family Medicine; Visit Provider Surgery | DX: Z09 Encounter for follow-up examination after completed treatment for conditions other than malignant neoplasm (principal); Z86.010 Personal history of colon polyps | CPT/HCPCS: 99213 ==

== ENCOUNTER 2022-07-08 12:46 | Outpatient (CLI) | payer OTHER, SELFPAY ==
--- NOTE | 2022-07-08 | MR_ITS ---
WS: [id number] INDICATION: RIGHT calf pain TECHNIQUE: Coronal STIR coronal T1 sagittal STIR sagittal T1, axial T2 fat sat, axial PD FINDINGS: Mild diffuse soft tissue edema RIGHT calf. A few superficial varicosities. No drainable flu id collection or abscess. Normal bone marrow signal in the tibia and fibula. No evidence of osteomyel itis. No acute fractures. No evidence of drainable abscess or fluid collection. Distal Achilles is no rmal in appearance. Degenerative arthritis at the ankle mortise partially visualized. Partially included at the edge of the [id number] is diffuse irregularity with thickening of the extensor hallucis longus. Findings c ompatible with tendinopathy/partial tear. Fluid along the tendon sheath compatible with tenosynovitis . Partially visualized peroneal tendon sheaths appear normal. MR/MR lower leg RT wo con* [id number] IMPRESSION: 1. Partially visualized irregularity with thickening of the extensor pollicis longus at the level of the ankle with tenosynovitis and tendinopathy/partial te ar. Recommend clinical correlation. This can be further evaluated with ankle MR I. 2. No evidence of osteomyelitis. No evidence of abscess or drainable fluid col lection. 3. Mild diffuse soft tissue edema throughout the RIGHT calf. 4. A few superficial varicosities.
== END 2022-07-08 12:47 | disposition home or self-care (01) ==
PROVIDERS: PCP Family Medicine; Visit Provider Family Medicine
DX: M79.661 Pain in right lower leg (principal); R60.0 Localized edema
CPT/HCPCS: 73718

== ENCOUNTER → 2022-07-22 09:44 | Outpatient (BNVA) | payer OTHER, SELFPAY | PROVIDERS: PCP Family Medicine; Referring Provider Family Medicine; Visit Provider Orthopaedic Surgery | DX: M76.891 Other specified enthesopathies of right lower limb, excluding foot (principal) | CPT/HCPCS: 99213 ==

== ENCOUNTER 2022-07-28 06:00 | Outpatient (RCR) | payer OTHER, SELFPAY | END 2022-08-03 23:59 | disposition home or self-care (01) | LOC: MPT 06:00 | PROVIDERS: Visit Provider Orthopaedic Surgery | DX: M25.561 Pain in right knee (principal) | CPT/HCPCS: 97110; 97162; G0283 ==

== ENCOUNTER 2022-07-30 12:07 | Outpatient (CLI) | payer OTHER, SELFPAY ==
--- NOTE | 2022-07-30 12:16 | CT_ITS ---
WS: [id number] CT chest w con* [id number] HISTORY: SOLITARY NODULE FOLLOW UP TECHNIQUE: Axial imaging performed through the thorax. Coronal and sagittal reformats are submitted. All CT scans at [facility] use at least one of these dose optimization techniques: automated exposure control; mA and/or kV adjustment per patient size (includes targeted exams where dose is mat ched to clinical indication); or iterative reconstruction. CONTRAST: Omnipaque 350; 100 mL IV. DLP: 394.11 mGy.cm COMPARISON: 08/05/2021, 03/11/2012 Lungs and central airway: Solid well-circumscribed 7.7 mm nodule in the RIGHT middle lobe. May be an endobronchial nodule but there is no collapse. No increase in size since 03/11/2021. No additional mas s or nodule. Pleura: Normal. No pleural effusion. Heart and pericardium: Normal size heart with no pericardial effusion. Mediastinum and harsha: Small mediastinal and hilar lymph nodes. Similar to prior studies. Vessels: Mild atherosclerosis aorta. Normal size pulmonary artery. Chest wall and lower neck: No soft tissue masses. Upper abdomen: RIGHT adrenal adenoma stable at 2.5 cm. Negative gallbladder. Bilateral renal cysts. L argest cyst on the RIGHT is 2.7 x 3.0 cm. Mild pancreatic atrophy. Osseous structures: No destructive process. CT/CT chest w con* [id number] IMPRESSION: 1. Stable solid nodule 7.7 mm RIGHT middle lobe. No increase in size since 03/11/2021. Recommend one additional 12 month month follow-up to document stability for greater than 2 years. 2. No adenopathy. 3. RIGHT adrenal adenoma. 4. Bilateral renal cysts.
[2022-07-30 12:46] LABS: Blood Urea Nitrogen 25 mg/dL (8-23); Glomerular Filtration Rate 66.2 mL/min (90-130)
[2022-07-30] MEDS: iohexol 350 mg/mL 500 mL Btl (per mL) IV (12:53)
== END 2022-07-30 12:08 | disposition home or self-care (01) ==
LOC: RAD 12:11
PROVIDERS: PCP Family Medicine; Visit Provider Family Medicine
DX: R91.8 Other nonspecific abnormal finding of lung field (principal); D35.01 Benign neoplasm of right adrenal gland; N28.1 Cyst of kidney, acquired
CPT/HCPCS: 71260; 82565; 84520; Q9967

== ENCOUNTER 2022-08-04 06:00 | Outpatient (RCR) | payer OTHER, SELFPAY | END 2022-09-03 23:59 | disposition home or self-care (01) | LOC: MPT 06:00 | PROVIDERS: PCP Family Medicine; Visit Provider Orthopaedic Surgery | DX: M25.561 Pain in right knee (principal) | CPT/HCPCS: 97110; 97112; G0283 ==

== ENCOUNTER → 2022-08-20 12:53 | Outpatient (BNVA) | payer OTHER, SELFPAY | PROVIDERS: PCP Family Medicine; Visit Provider Dermatology | DX: D23.5 Other benign neoplasm of skin of trunk (principal); L27.0 Generalized skin eruption due to drugs and medicaments taken internally; L82.1 Other seborrheic keratosis; L57.0 Actinic keratosis | CPT/HCPCS: 11102; 17000; 17003; 99214 ==

== ENCOUNTER 2022-09-04 06:00 | Outpatient (RCR) | payer OTHER, SELFPAY | END 2022-09-25 23:59 | disposition home or self-care (01) | LOC: MPT 06:00 | PROVIDERS: PCP Family Medicine; Visit Provider Orthopaedic Surgery | DX: M25.561 Pain in right knee (principal) | CPT/HCPCS: 97110; 97112; G0283 ==

== ENCOUNTER → 2022-12-10 12:36 | Outpatient (BNVA) | payer OTHER, SELFPAY | PROVIDERS: PCP Family Medicine; Visit Provider Specialist | DX: G62.9 Polyneuropathy, unspecified (principal); G25.0 Essential tremor | CPT/HCPCS: 99214 ==

== ENCOUNTER 2023-01-06 14:08 | Outpatient (CLI) | payer OTHER, SELFPAY ==
--- NOTE | 2023-01-06 14:39 | MR_ITS ---
WS: [id number] MRI RIGHT ANKLE WITHOUT CONTRAST. COMPARISON: Radiograph 11/27/2022 and prior MRI 07/08/2022 Multiplanar, multisequence imaging is performed without contrast. No fractures or marrow edema. Normal Achilles tendon. The peroneal tendons are normal. Extensor tendons are normal. Abnormal appearance of the distal extensor hallucis longus tendon. There is marked thickening of the distal tendon just above the ankle joint. This is the area of previously described tear which was lauro cribed on 07/08/2022. There is an area of soft tissue thickening extending over a length of 1.9 cm whic h is low signal on all sequences. There is no residual fluid within the tendon sheath. The tendon dis jensen to this focal nodularity is very thin and small caliber. Favored tear of the extensor hallucis lo ngus with retraction resulting in the soft tissue nodule at the stump site. The tendon proximal to th e soft tissue nodule is a more normal caliber. The anterior tibial tendon and the peroneus tendons ar e negative. Anterior and posterior talofibular ligaments are negative. No osteochondral lesions. IMPRESSION: 1. Marked thickening in the distal extensor hallucis longus tendon and sheath sheath just above the a nkle joint. Favor there is a complete tear with retraction of the tendon. Distal to this marked thick ening of the extensor tendon there is no significant tendon or tendon sheath identified. 2. No fractures.
== END 2023-01-06 14:09 | disposition home or self-care (01) ==
PROVIDERS: PCP Family Medicine; Visit Provider Family Medicine
DX: R93.6 Abnormal findings on diagnostic imaging of limbs (principal)
CPT/HCPCS: 73721

== ENCOUNTER → 2023-01-26 07:50 | Outpatient (BNVA) | payer OTHER, SELFPAY | PROVIDERS: PCP Family Medicine; Visit Provider Podiatrist Foot & Ankle Surgery | DX: B35.1 Tinea unguium (principal); G62.9 Polyneuropathy, unspecified; R20.0 Anesthesia of skin; R20.2 Paresthesia of skin; E11.42 Type 2 diabetes mellitus with diabetic polyneuropathy; Z79.4 Long term (current) use of insulin | CPT/HCPCS: 11056; 11721; 99203 ==

== ENCOUNTER → 2023-02-23 13:14 | Outpatient (BNVA) | payer OTHER, SELFPAY | PROVIDERS: PCP Family Medicine; Visit Provider Nurse Practitioner Family | DX: L27.0 Generalized skin eruption due to drugs and medicaments taken internally (principal); Z85.828 Personal history of other malignant neoplasm of skin; L57.0 Actinic keratosis; L82.1 Other seborrheic keratosis; L82.0 Inflamed seborrheic keratosis; I87.2 Venous insufficiency (chronic) (peripheral) | CPT/HCPCS: 17000; 17110; 99214 ==

== ENCOUNTER → 2023-03-10 12:46 | Outpatient (BNVA) | payer OTHER, SELFPAY | PROVIDERS: PCP Family Medicine; Visit Provider Podiatrist Foot & Ankle Surgery | DX: B35.1 Tinea unguium; G62.9 Polyneuropathy, unspecified; R20.0 Anesthesia of skin; R20.2 Paresthesia of skin; E11.42 Type 2 diabetes mellitus with diabetic polyneuropathy; M21.371 Foot drop, right foot; Z79.4 Long term (current) use of insulin | CPT/HCPCS: 99213 ==

== ENCOUNTER 2023-05-01 13:06 | Outpatient (CLI) | payer OTHER, SELFPAY ==
--- NOTE | 2023-05-01 | USCV_ITS ---
Manoj Anglin Age: 73 Gender: M : 1950 Exam Date: 05/01/2023 14:02 Ordering Phys: Latisha Arce MD Technologist: MARKEL Exam Location: [facility] [place] Indication: Screening Risk Factors: Previous Vascular Surgery: Right Brachial BP: / Left Brachial BP: / Right Left Velocity (cm/s) Spectral Plaque Velocity (cm/s) Spectral Plaque Syst/Diast Broadening Syst/Diast Broadening 98.10/ 17.60 Prox CCA 125.50/ 31.40 94.80/ 22.10 Mid CCA 94.80 / 19.80 83.80/ 18.70 Distal CCA 90.40 / 19.80 50.70/ 13.40 Prox ICA 75.20 / 21.40 64.10/ 19.40 Mid ICA 78.60 / 29.10 77.80/ 26.50 Distal ICA 88.90 / 29.90 72.60 ECA 126.20 0.79 ICA/CCA 0.71 Antegrade Vertebral Antegrade 48.70/ 15.40 cm/s 53.00/ 14.50 cm/s Tri Subclavian Tri 133.5 175.1 0 0 CONCLUSIONS Right ICA stenosis <50%. Mild atheromatous plaque right carotid bulb/ICA. . Left ICA stenosis <50%. Mild atheromatous plaque left carotid bulb/ICA. Normal antegrade Doppler flow noted in the right vertebral artery. Normal antegrade Doppler flow noted in the left vertebral artery. Sky Upton MD (Electronically Signed) Final Date: 01 May 2023 15:46 S
== END 2023-05-01 13:07 | disposition home or self-care (01) ==
LOC: RAD 13:07
PROVIDERS: PCP Family Medicine; Visit Provider Family Medicine
DX: Z13.6 Encounter for screening for cardiovascular disorders (principal); I65.23 Occlusion and stenosis of bilateral carotid arteries
CPT/HCPCS: 93880

== ENCOUNTER → 2023-05-19 09:36 | Outpatient (BNVA) | payer OTHER, SELFPAY | PROVIDERS: PCP Family Medicine; Visit Provider Podiatrist Foot & Ankle Surgery | DX: B35.1 Tinea unguium (principal); G62.9 Polyneuropathy, unspecified; R20.0 Anesthesia of skin; R20.2 Paresthesia of skin; E11.42 Type 2 diabetes mellitus with diabetic polyneuropathy; M21.371 Foot drop, right foot; Z79.4 Long term (current) use of insulin | CPT/HCPCS: 11721 ==

== ENCOUNTER 2023-07-17 12:44 | Outpatient (CLI) | payer OTHER, SELFPAY ==
--- NOTE | 2023-07-17 12:48 | CT_ITS ---
WS: [id number] CT chest w con* [id number] HISTORY: FOLLOW UP ON LUNG NODULE TECHNIQUE: Axial imaging performed through the thorax. Coronal and sagittal reformats are submitted. All CT scans at [facility] use at least one of these dose optimization techniques: automated exposure control; mA and/or kV adjustment per patient size (includes targeted exams where dose is mat ched to clinical indication); or iterative reconstruction. CONTRAST: Omnipaque 350; 100 mL IV. DLP: 592.53 mGy.cm COMPARISON: 08/05/2021, 07/30/2022 Lungs and central airway: Mild pulmonary hyperexpansion. Previously described well-circumscribed 7 mm nodule in the RIGHT middle lobe is reidentified with no interval change. There are a few additional very small micronodules throughout the RIGHT lung. No pneumonia. Pleura: Normal. No pleural effusion. Heart and pericardium: Normal size heart with no pericardial effusion. Mediastinum and harsha: No mediastinum or hilar adenopathy. Vessels: Mild atherosclerosis aorta. Normal sized pulmonary artery. Chest wall and lower neck: No soft tissue masses. Upper abdomen: Hepatic steatosis. Stable bilateral adrenal masses consistent with adenomas. No change since 08/05/2021. Gallbladder is slightly contracted which is probably due to a nonfasting state. No b ile duct dilatation. Mild pancreatic atrophy. Bilateral renal cysts in the upper poles. Osseous structures: Mild thoracic spondylosis. IMPRESSION: 1. Stable pulmonary nodules since 08/05/2021. The largest is 7 mm, noncalcified in the RIGHT middle lo be. 2. No mediastinal or hilar adenopathy. 3. Stable bilateral adrenal adenomas. 4. Contracted gallbladder due to nonfasting state.
[2023-07-17 13:20] LABS: Blood Urea Nitrogen 18 mg/dL (8-23)
[2023-07-17] MEDS: iohexol 350 mg/mL 500 mL Btl (per mL) IV (13:25)
== END 2023-07-17 12:45 | disposition home or self-care (01) ==
LOC: RAD 12:44
PROVIDERS: PCP Family Medicine; Visit Provider Family Medicine
DX: R91.8 Other nonspecific abnormal finding of lung field (principal); D35.02 Benign neoplasm of left adrenal gland; D35.01 Benign neoplasm of right adrenal gland
CPT/HCPCS: 71260; 82565; 84520; Q9967

== ENCOUNTER → 2023-07-23 10:32 | Outpatient (BNVA) | payer OTHER, SELFPAY | PROVIDERS: Visit Provider Podiatrist Foot & Ankle Surgery | DX: B35.1 Tinea unguium (principal); G62.9 Polyneuropathy, unspecified; R20.0 Anesthesia of skin; R20.2 Paresthesia of skin; E11.42 Type 2 diabetes mellitus with diabetic polyneuropathy; M21.371 Foot drop, right foot; Z79.4 Long term (current) use of insulin | CPT/HCPCS: 11721 ==

== ENCOUNTER 2023-08-10 06:00 | Outpatient (RCR) | payer OTHER, SELFPAY | END 2023-09-04 23:59 | disposition home or self-care (01) | LOC: MST 06:00 | PROVIDERS: PCP Family Medicine; Visit Provider Family Medicine | DX: R49.0 Dysphonia (principal) | CPT/HCPCS: 92507; 92524 ==

== ENCOUNTER → 2023-09-18 12:55 | Outpatient (BNVA) | payer OTHER, SELFPAY | PROVIDERS: PCP Family Medicine; Visit Provider Specialist | DX: G62.9 Polyneuropathy, unspecified; G25.0 Essential tremor | CPT/HCPCS: 99214 ==

== ENCOUNTER 2023-09-24 11:00 | Outpatient (CLI) | payer OTHER, SELFPAY ==
--- NOTE | 2023-09-24 10:42 | MR_ITS ---
WS: [id number] MRI LUMBAR SPINE NONCONTRAST TECHNIQUE: Sagittal T1, T2 and STIR imaging. Axial T1 and T2 imaging. CLINICAL INFORMATION: LUMBAR RADICULOPATHY/NEUROPATHY IN LEG, FREQ FALLS COMPARISON: None. FINDINGS: S1 is partially lumbarized. Counting performed from the craniocervical junction. Recommend plain film correlation prior to surgical intervention. Prominent epidural fat throughout the lumbar spine results in diffuse narrowing of the thecal sac. Th is is worse at L2-L5 with tapering of the thecal sac distally. Crowding of the cauda equina nerve yaw tlets. RIGHT paracentral disc extrusion L4-5 in the RIGHT subarticular recess. L1-L2: Mild annular bulging. Mild facet arthropathy. Spinal canal and foramen are patent. L2-L3: Mild disc bulging with mild to moderate narrowing of the thecal sac due to prominent epidural fat. Moderate facet arthropathy. Foramen are patent. L3-L4: Mild disc bulging with prominent epidural fat. Moderate facet arthropathy. Moderate narrowing of the thecal sac due to prominent epidural fat. Foramina are patent. L4-L5: Small RIGHT paracentral extrusion with inferior migration of disc material in the RIGHT subart icular recess. Impingement on the traversing RIGHT L5 nerve root. Mild central canal stenosis. Modera te narrowing of the thecal sac due to prominent epidural fat. Mild LEFT greater than RIGHT foraminal narrowing. Moderate facet arthropathy. L5-S1: Mild disc bulge with endplate ridging. RIGHT foraminal disc osteophyte protrusion impinges the exiting L5 nerve root with severe RIGHT foraminal narrowing. Mild LEFT foraminal narrowing. Moderate to advanced facet arthropathy. Circumferential tapering and narrowing of the thecal sac with promine nt epidural fat. Partially visualized RIGHT renal cyst. Few small disc protrusions in the cervical spine on the packager machine imaging with mild central canal stenosis at C5-C6 and C6-C7. Partially visualized cholelithiasis. MR/MR lumbar spine wo con* [id number] IMPRESSION: 1. Diffuse prominent epidural fat throughout the lumbar spine results in mild to moderate narrowing of the thecal sac with crowding of the cauda equina nerve rootlets L2-L5. Tapering of the cauda equina distally. Moderate narrowing at L 3-L4 and L4-L5. 2. S1 is partially lumbarized. Recommend plain film correlation prior to surgi jeet intervention. 3. RIGHT paracentral disc extrusion L4-5 with slight inferior migration of dis c material in the subarticular recess. Impingement traversing RIGHT L5 nerve ro ot with mild central canal stenosis. 4. Severe RIGHT L5-S1 foraminal narrowing with impingement on the exiting RIGH T L5 nerve root. 5. LEFT foraminal protrusion L4-5 with moderate LEFT foraminal narrowing and i mpingement on the exiting LEFT L4 nerve root. 6. Cholelithiasis. This could be further evaluated with ultrasound.
== END 2023-09-24 11:01 | disposition home or self-care (01) ==
PROVIDERS: PCP Family Medicine; Visit Provider Family Medicine
DX: M51.26 Other intervertebral disc displacement, lumbar region (principal); M48.062 Spinal stenosis, lumbar region with neurogenic claudication; M99.63 Osseous and subluxation stenosis of intervertebral foramina of lumbar region; M99.64 Osseous and subluxation stenosis of intervertebral foramina of sacral region; K80.80 Other cholelithiasis without obstruction
CPT/HCPCS: 72148

== ENCOUNTER → 2023-09-30 13:21 | Outpatient (BNVA) | payer OTHER, SELFPAY | PROVIDERS: PCP Family Medicine; Visit Provider Podiatrist Foot & Ankle Surgery | DX: B35.1 Tinea unguium (principal); G62.9 Polyneuropathy, unspecified; R20.0 Anesthesia of skin; R20.2 Paresthesia of skin; E11.42 Type 2 diabetes mellitus with diabetic polyneuropathy; M21.371 Foot drop, right foot; Z79.4 Long term (current) use of insulin | CPT/HCPCS: 11721 ==

== ENCOUNTER 2023-10-13 16:33 | Observation (INO) | payer OTHER, MEDICARE, SELFPAY ==
[2023-10-13] VITALS (8 sets, daily range): BP systolic 104–141; BP diastolic 56–94; PULSE 52–60; RESP 15–20; TEMP 36.6–36.9; O2SAT 93–95; BMI 38.5
--- NOTE | 2023-10-13 16:50 | XRR_ITS ---
PROCEDURE INFORMATION: Exam: XR Chest Exam date and time: 10/13/2023 5:01 PM Age: 73 years old Clinical indication: Dyspnea; Additional info: Dyspnea/cough TECHNIQUE: Imaging protocol: Radiologic exam of the chest. Views: 1 view. COMPARISON: CT chest w con* [id number] 07/17/2023 1:20 PM FINDINGS: Lungs: Unremarkable. No consolidation. Pleural spaces: Unremarkable. No pleural effusion. No pneumothorax. Heart/Mediastinum: Unremarkable. No cardiomegaly. Bones/joints: Unremarkable. XR/XR chest 1V portable [id number] IMPRESSION: No acute findings.
--- NOTE | 2023-10-13 16:51 | ECG_ITS ---
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 Measurements Intervals [place] Rate: 55 P: 30 IN: 179 QRS: 31 QRSD: 105 T: 68 QT: 433 QTc: 416 Interpretive Statements SINUS BRADYCARDIA NONSPECIFIC T-WAVE ABNORMALITY INTERPRETATION BASED ON A DEFAULT AGE OF 40 YEARS No previous ECG available for comparison Electronically Signed On 10-13-2023 23:42:08 CDT by Rina Aranda M.D. [id number]
--- NOTE | 2023-10-13 16:56 | ED_ITS ---
Documented by User: Jonathon Robledo DO 10/14/23 07:35 HPI - Weakness 2 General: Chief complaint: Weakness Stated complaint: sent by [facility], bp low, sob Time Seen by Provider: 10/13/23 16:50 Source: patient Mode of arrival: ambulatory History of Present Illness: 73-year-old male presents to the emergen cy room with complaints of chest tightness and generalized weakness. [facility] and reported to have shortness of breath chest discomfort with exertion for the last couple weeks is escalating in nature he is generalized weakness. He was mildly bradycardic as well. He has a history of diabetes mellitus and hypertension he is on multiple medications including metoprolol. He is a former smoker. He is on some inhaled medications as well. MD Complaint: generalized weakness Onset (ago): week(s) (2) Duration: intermittent Severity: moderate Quality: aching Relieving factors: none and exertion Exacerbating factors: rest Associated symptoms: Reports chest pain; Denies chills, confusion, melena, decreased appetite, diaphoresis, dysuria, easy bruising, fever(s), headache(s), myalgias, nausea, rash, short of breath, syncope or vomiting Review of Systems 2 Const: Denies: fever(s), chills or diaphoresis Card: Reports: chest pain; Denies: syncope Resp: Denies: dyspnea GI: Denies: abdominal pain, nausea, vomiting or melena : Denies: dysuria, urinary frequency or urinary urgency Musc: Denies: neck pain or back pain Skin/Breast: Denies: rash Neuro: Denies: headache(s) or confusion Rico/Lymph: Denies: easy bruising PFSH ED 2 PFSH: Medical History Diabetes mellitus Hypertension Family History Other CAD (coronary artery disease) Social History Smoking and tobacco/nicotine status: tobacco/nicotine user, details unknown Alcohol intake: current Alcohol intake frequency: few times a week Substance/Drug Use: never Physical Exam 2 Const: COMMON NORMALS: no acute distress GENERAL APPEARANCE: cooperative and comfortable ORIENTATION/CONSCIOUSNESS: Yes awake, Yes oriented to person, Yes oriented to place and Yes oriented to time HENMT: COMMON NORMALS: normocephalic, atraumatic and hearing grossly normal bilaterally HEAD & SCALP: normocephalic and atraumatic Resp: COMMON NORMALS: normal respiratory effort, No retractions, No use of accessory muscles and clear to auscultation bilaterally AUSCULTATION: clear to auscultation bilaterally Cardio: COMMON NORMALS: regular rate, regular rhythm and No murmurs present (Cardio) RATE: regular rate RHYTHM: regular rhythm GI: COMMON NORMALS: Soft to palpation and No hepatosplenomegaly present A USCULTATION: Yes normoactive bowel sounds PALPATION: Yes Soft to palpation, No Tenderness to palpation present (GI), No Guarding due to palpation present (GI) and Yes No hepatosplenomegaly present Extremity: COMMON NORMALS: normal to inspection, capillary refill normal, no clubbing, cyanosis or edema, no calf tenderness and no pedal edema Neuro: SENSORIUM/ORIENTATION: Yes oriented to person, Yes oriented to place and Yes oriented to time Skin: COMMON NORMALS: no rashes or lesions noted GENERAL SKIN EXAM: no rashes or lesions noted Course 2 Vital Signs: Vital signs: Vital Signs Temperature 98.0 F 10/14/23 03:56 Pulse Rate 66 10/14/23 06:00 Respiratory Rate 16 10/14/23 03:56 Blood Pressure 111/84 10/14/23 03:56 Pulse Oximetry 96 10/14/23 03:56 Oxygen Delivery Me thod Room Air 10/14/23 03:56 MDM - Weakness Medical Decision Making Patient having what this sounds like escalating angina he has multiple risk factors initial EKG does not show any acute changes. His troponin is 13. Will admit for rule out [place] and due to his high risk status early cardiac stress testing. Medical Records I reviewed the patient's medical records. Lab Data I reviewed the patient's lab results. 10/14/23 03:43 10/14/23 03:43 Radiology Impressions Chest X-Ray 10/13/23 16:50 IMPRESSION: No acute findings. Laboratory Results WBC 7.22 10^3/uL (3.29-11.43) 10/13/23 16:57 RBC 4.25 10^6/uL (3.85-5.65) 10/13/23 16:57 Hgb 14.00 g/dL (11.27-16.99) 10/13/23 16:57 Hct 40.3 % (37-53) 10/13/23 16:57 MCV 94.8 fl (82-101) 10/13/23 16:57 MCH 32.9 pg (27-33) 10/13/23 16:57 MCHC 34.7 g/dL (30-55) 10/13/23 16:57 RDW 12.8 % (12.1-15.1) 10/13/23 16:57 Plt Count 194 10^3/cmm (157-399) 10/13/23 16:57 MPV 11.4 fL (7.4-10.4) H 10/13/23 16:57 Neut % (Auto) 56.0 % 10/13/23 16:57 Lymph % (Auto) 27.8 % 10/13/23 16:57 [place] % (Auto) 12.7 % 10/13/23 16:57 Eos % (Auto) 1.9 % 10/13/23 16:57 Baso % (Auto) 1.0 % 10/13/23 16:57 Neut # (Auto) 4.04 10^3/uL (1.8-7.7) 10/13/23 16:57 Lymph # (Auto) 2.0 10^3/uL (0.8-4.8) 10/13/23 16:57 [place] # (Auto) 0.9 10^3/uL (0.2-0.9) 10/13/23 16:57 Eos # (Auto) 0.1 10^3/uL (0.0-0.8) 10/13/23 16:57 Baso # (Auto) 0.1 10^3/uL (0.0-0.1) 10/13/23 16:57 Nucleated RBC % (auto) 0 % 10/13/23 16:57 Nucleated RBCs # 0.0 /100WBC 10/13/23 16:57 PT 12.40 SECONDS (12.1-14.9) 10/13/23 16:57 INR 0.90 (0.8-1.2) 10/13/23 16:57 Sodium 142 mmol/L (136-145) 10/13/23 16:57 Potassium 3.8 mmol/L (3.5-5.1) 10/13/23 16:57 Chloride 107 mmol/L (98-107) 10/13/23 16:57 Carbon Dioxide 19 mmol/L (22-29) L 10/13/23 16:57 Anion Gap 19.8 (5-19) H 10/13/23 16:57 BUN 30 mg/dL (8-23) H 10/13/23 16:57 Creatinine 1.1 mg/dL (0.7-1.2) 10/13/23 16:57 GFR Calculation Not Reportable 10/13/23 16:57 Glucose 155 mg/dL (65-115) H 10/13/23 16:57 Estimat Average Glucose 146 10/13/23 16:57 Hemoglobin A1c 6.7 % (4.0-6.0) H 10/13/23 16:57 Calculated Osmolality 303 mOsm/kg (285-295) H 10/13/23 16:57 Lactic Acid 2.0 mmol/L (0.5-2.2) 10/13/23 16:57 Calcium 9.2 mg/dL (8.5-10.5) 10/13/23 16:57 Phosphorus 3.7 mg/dL (2.5-4.5) 10/13/23 16:57 Magnesium 1.6 mg/dL (1.7-2.3) L 10/13/23 16:57 Total Bilirubin 0.3 mg/dL (0.15-1.2) 10/13/23 16:57 AST 16 U/L (0-40) 10/13/23 16:57 ALT 17 U/L (0-41) 10/13/23 16:57 Alkaline Phosphatase 62 U/L (40-130) 10/13/23 16:57 Troponin T Baseline 13 ng/L (0-15) 10/13/23 16:57 C-Reactive Protein 24.3 mg/L (0.0-4.9) H 10/13/23 16:57 NT-Pro-B Natriuret Pep 61 pg/mL (0-125) 10/13/23 16:57 Total Protein 7.2 g/dL (6.6-8.7) 10/13/23 16:57 Albumin 4.4 g/dL (3.5-5.2) 10/13/23 16:57 Globulin 2.8 g/dL (1.3-4.6) 10/13/23 16:57 Triglycerides 241 mg/dL (0-150) H 10/13/23 16:57 Cholesterol 146 mg/dL (0-200) 10/13/23 16:57 LDL Cholesterol, Calc 58 mg/dL (50-129) 10/13/23 16:57 HDL Cholesterol 40 mg/dL (60-100) L 10/13/23 16:57 LDL/HDL Ratio 1.45 RATIO (0.00-3.22) 10/13/23 16:57 Cholesterol/HDL Ratio 3.65 mg/dL (1.0-5.00) 10/13/23 16:57 Lipase 45 U/L (13-60) 10/13/23 16:57 Procalcitonin 0.13 ng/mL (0-0.5) 10/13/23 16:57 TSH 2.04 uIU/mL (0.27-4.20) 10/13/23 16:57 Urine Color Dark yellow (Yellow) A 10/13/23 18:16 Urine Appearance Clear (CLEAR) 10/13/23 18:16 Urine pH 5 (5-7) 10/13/23 18:16 Ur Specific [place] 1.020 (1.005-1.030) 10/13/23 18:16 Urine Protein Neg (Negative) 10/13/23 18:16 Urine Glucose (UA) Norm (Normal) 10/13/23 18:16 Urine Ketones Negative (Negative) 10/13/23 18:16 Urine Blood Neg (Negative) 10/13/23 18:16 Urine Nitrate Negative (Negative) 10/13/23 18:16 Urine Bilirubin Neg (Negative) 10/13/23 18:16 Urine Urobilinogen Norm mg/dL (Negative) 10/13/23 18:16 Ur Leukocyte Esterase Negative (Negative) 10/13/23 18:16 Urine Opiates Screen Negative ng/mL (Negative) 10/13/23 18:16 Ur Barbiturates Screen Negative ng/mL (Negative) 10/13/23 18:16 Ur Phencyclidine Scrn Negative ng/mL (Negative) 10/13/23 18:16 Ur Amphetamines Screen Negative ng/mL (Negative) 10/13/23 18:16 U Benzodiazepines Scrn Negative ng/mL (Negative) 10/13/23 18:16 Urine Cocaine Screen Negative ng/mL (Negative) 10/13/23 18:16 U Marijuana (THC) Screen Negative ng/mL (Negative) 10/13/23 18:16 Discharge Plan Discharge Patient Disposition: Placed in Observation Admit Provider: Andrade Delgado Clinical Impression: Angina pectoris Coding Level of Care Code ED Ict Support And Test Engineers for Chg Fwd Documented by User: Deedee Silva MD 10/13/23 18:25 HPI - Weakness 2 General: Chief complaint: Weakness Stated complaint[facility] Time Seen by Provider: 10/13/23 16:50 PFSH ED 2 PFSH: Medical History Diabetes mellitus Hypertension Family History Other CAD (coronary artery disease) Social History Smoking and tobacco/nicotine status: tobacco/nicotine user, details unknown Alcohol intake: current Alcohol intake frequency: few times a week Substance/Drug Use: never Course 2 Vital Signs: Vital signs: Vital Signs Temperature 98.0 F 10/14/23 03:56 Pulse Rate 66 10/14/23 06:00 Respiratory Rate 16 10/14/23 03:56 Blood Pressure 111/84 10/14/23 03:56 Pulse Oximetry 96 10/14/23 03:56 Oxygen Delivery Ca thod Room Air 10/14/23 03:56 MDM - Weakness Medical Decision Making Patient having what this sounds like escalating angina he has multiple risk factors initial EKG does not show any acute changes. His troponin is 13. Will admit for rule out [place] and due to his high risk status early cardiac stress testing. Patient was transferred to or at shift change. Awaiting hospitalist callback for admission. He has been having worsening angina and is being admitted for this. I spoke with Dr. Delgado who agrees to admission. Lab Data 10/14/23 03:43 10/14/23 03:43 Radiology Impressions Chest X-Ray 10/13/23 16:50 IMPRESSION: No acute findings. Laboratory Results WBC 7.22 10^3/uL (3.29-11.43) 10/13/23 16:57 RBC 4.25 10^6/uL (3.85-5.65) 10/13/23 16:57 Hgb 14.00 g/dL (11.27-16.99) 10/13/23 16:57 Hct 40.3 % (37-53) 10/13/23 16:57 MCV 94.8 fl (82-101) 10/13/23 16:57 MCH 32.9 pg (27-33) 10/13/23 16:57 MCHC 34.7 g/dL (30-55) 10/13/23 16:57 RDW 12.8 % (12.1-15.1) 10/13/23 16:57 Plt Count 194 10^3/cmm (157-399) 10/13/23 16:57 MPV 11.4 fL (7.4-10.4) H 10/13/23 16:57 Neut % (Auto) 56.0 % 10/13/23 16:57 Lymph % (Auto) 27.8 % 10/13/23 16:57 [place] % (Auto) 12.7 % 10/13/23 16:57 Eos % (Auto) 1.9 % 10/13/23 16:57 Baso % (Auto) 1.0 % 10/13/23 16:57 Neut # (Auto) 4.04 10^3/uL (1.8-7.7) 10/13/23 16:57 Lymph # (Auto) 2.0 10^3/uL (0.8-4.8) 10/13/23 16:57 [place] # (Auto) 0.9 10^3/uL (0.2-0.9) 10/13/23 16:57 Eos # (Auto) 0.1 10^3/uL (0.0-0.8) 10/13/23 16:57 Baso # (Auto) 0.1 10^3/uL (0.0-0.1) 10/13/23 16:57 Nucleated RBC % (auto) 0 % 10/13/23 16:57 Nucleated RBCs # 0.0 /100WBC 10/13/23 16:57 PT 12.40 SECONDS (12.1-14.9) 10/13/23 16:57 INR 0.90 (0.8-1.2) 10/13/23 16:57 Sodium 142 mmol/L (136-145) 10/13/23 16:57 Potassium 3.8 mmol/L (3.5-5.1) 10/13/23 16:57 Chloride 107 mmol/L (98-107) 10/13/23 16:57 Carbon Dioxide 19 mmol/L (22-29) L 10/13/23 16:57 Anion Gap 19.8 (5-19) H 10/13/23 16:57 BUN 30 mg/dL (8-23) H 10/13/23 16:57 Creatinine 1.1 mg/dL (0.7-1.2) 10/13/23 16:57 GFR Calculation Not Reportable 10/13/23 16:57 Glucose 155 mg/dL (65-115) H 10/13/23 16:57 Estimat Average Glucose 146 10/13/23 16:57 Hemoglobin A1c 6.7 % (4.0-6.0) H 10/13/23 16:57 Calculated Osmolality 303 mOsm/kg (285-295) H 10/13/23 16:57 Lactic Acid 2.0 mmol/L (0.5-2.2) 10/13/23 16:57 Calcium 9.2 mg/dL (8.5-10.5) 10/13/23 16:57 Phosphorus 3.7 mg/dL (2.5-4.5) 10/13/23 16:57 Magnesium 1.6 mg/dL (1.7-2.3) L 10/13/23 16:57 Total Bilirubin 0.3 mg/dL (0.15-1.2) 10/13/23 16:57 AST 16 U/L (0-40) 10/13/23 16:57 ALT 17 U/L (0-41) 10/13/23 16:57 Alkaline Phosphatase 62 U/L (40-130) 10/13/23 16:57 Troponin T Baseline 13 ng/L (0-15) 10/13/23 16:57 C-Reactive Protein 24.3 mg/L (0.0-4.9) H 10/13/23 16:57 NT-Pro-B Natriuret Pep 61 pg/mL (0-125) 10/13/23 16:57 Total Protein 7.2 g/dL (6.6-8.7) 10/13/23 16:57 Albumin 4.4 g/dL (3.5-5.2) 10/13/23 16:57 Globulin 2.8 g/dL (1.3-4.6) 10/13/23 16:57 Triglycerides 241 mg/dL (0-150) H 10/13/23 16:57 Cholesterol 146 mg/dL (0-200) 10/13/23 16:57 LDL Cholesterol, Calc 58 mg/dL (50-129) 10/13/23 16:57 HDL Cholesterol 40 mg/dL (60-100) L 10/13/23 16:57 LDL/HDL Ratio 1.45 RATIO (0.00-3.22) 10/13/23 16:57 Cholesterol/HDL Ratio 3.65 mg/dL (1.0-5.00) 10/13/23 16:57 Lipase 45 U/L (13-60) 10/13/23 16:57 Procalcitonin 0.13 ng/mL (0-0.5) 10/13/23 16:57 TSH 2.04 uIU/mL (0.27-4.20) 10/13/23 16:57 Urine Color Dark yellow (Yellow) A 10/13/23 18:16 Urine Appearance Clear (CLEAR) 10/13/23 18:16 Urine pH 5 (5-7) 10/13/23 18:16 Ur Specific [place] 1.020 (1.005-1.030) 10/13/23 18:16 Urine Protein Neg (Negative) 10/13/23 18:16 Urine Glucose (UA) Norm (Normal) 10/13/23 18:16 Urine Ketones Negative (Negative) 10/13/23 18:16 Urine Blood Neg (Negative) 10/13/23 18:16 Urine Nitrate Negative (Negative) 10/13/23 18:16 Urine Bilirubin Neg (Negative) 10/13/23 18:16 Urine Urobilinogen Norm mg/dL (Negative) 10/13/23 18:16 Ur Leukocyte Esterase Negative (Negative) 10/13/23 18:16 Urine Opiates Screen Negative ng/mL (Negative) 10/13/23 18:16 Ur Barbiturates Screen Negative ng/mL (Negative) 10/13/23 18:16 Ur Phencyclidine Scrn Negative ng/mL (Negative) 10/13/23 18:16 Ur Amphetamines Screen Negative ng/mL (Negative) 10/13/23 18:16 U Benzodiazepines Scrn Negative ng/mL (Negative) 10/13/23 18:16 Urine Cocaine Screen Negative ng/mL (Negative) 10/13/23 18:16 U Marijuana (THC) Screen Negative ng/mL (Negative) 10/13/23 18:16 All radiology interpretation(s) finalized by discharge Discharge Plan Discharge Patient Disposition: Placed in Observation Admit Provider: Andrade Delgado Clinical Impression: Angina pectoris Coding Level of Care Code ED Ict Support And Test Engineers for Kalpana Doherty
--- NOTE | 2023-10-13 17:01 | PC.NURSE ---
Pt on bedside cardiac nurse
[2023-10-13 17:04] LABS: Basophils # 0.1 10^3/uL (0.0-0.1); Eosinophils # 0.1 10^3/uL (0.0-0.8); Eosinophils % 1.9 %; Hematocrit 40.3 % (37-53); Lymphocytes % 27.8 %; Mean Corpuscular HGB Conc 34.7 g/dL (30-55); Mean Corpuscular Hemoglobin 32.9 pg (27-33); Mean Corpuscular Volume 94.8 fl (82-101); Mean Platelet Volume 11.4 fL (7.4-10.4); Monocytes # 0.9 10^3/uL (0.2-0.9); Monocytes % 12.7 %; Neutrophils # 4.04 10^3/uL (1.8-7.7); Nucleated Red Blood Cells % 0 %; Platelet Count 194 10^3/cmm (157-399); Red Blood Count 4.25 10^6/uL (3.85-5.65); Red Cell Distribution Width 12.8 % (12.1-15.1); White Blood Count 7.22 10^3/uL (3.29-11.43)
[2023-10-13 17:25] LABS: Troponin(5th) Baseline 13 ng/L (0-15)
[2023-10-13 17:27] LABS: Alanine Aminotransferase 17 U/L (0-41); Albumin Level 4.4 g/dL (3.5-5.2); Alkaline Phosphatase 62 U/L (40-130); Anion Gap 19.8 (5-19); Aspartate Amino Transferase 16 U/L (0-40); Blood Urea Nitrogen 30 mg/dL (8-23); Calcium 9.2 mg/dL (8.5-10.5); Carbon Dioxide 19 mmol/L (22-29); Chloride 107 mmol/L (98-107); Creatinine Clr Calc Pharmacy 61.3236; Globulin 2.8 g/dL (1.3-4.6); Glucose 155 mg/dL (65-115); Lipase 45 U/L (13-60); Osmolality Calculated 303 mOsm/kg (285-295); Potassium 3.8 mmol/L (3.5-5.1); Sodium 142 mmol/L (136-145); Total Bilirubin 0.3 mg/dL (0.15-1.2); Total Protein 7.2 g/dL (6.6-8.7)
--- NOTE | 2023-10-13 18:19 | USCV_ITS ---
Manoj Anglin Age: 73 Gender: M : 1950 Exam Date: 10/13/2023 21:32 Ordering Phys: Andrade Delgado MD Technologist: DENIS Exam Location: [facility] – [place], [place] Indication: sob. No history of cardiac intervention per patient. BP: 127 / 60 HR: 59 Rhythm: Sinus Technical Quality: Adequate MEASUREMENTS (Male / Female) Normal Values 2D ECHO LV Diastolic Diameter PLAX 4.8 cm 4.2 - 5.9 / 3.9 - 5.3 cm IVS Diastolic Thickness 1.4 cm 0.6 - 1.0 / 0.6 - 0.9 cm IVS Systolic Thickness 1.8 cm LVPW Diastolic Thickness 1.2 cm 0.6 - 1.0 / 0.6 - 0.9 cm LVPW Systolic Thickness 1.9 cm LVOT Diameter 2.2 cm LV Ejection Fraction 2D Teich 69.3 % LV Ejection Fraction MOD 2C 60.9 % LV Ejection Fraction 2C AL 62.0 % LA Diameter 3.7 cm LA Sys Volume AL 48.9 cm cubed LA Sys Volume Index AL 22.0 cm cubed/m squared Aorta at Sinotubular Diameter 3.3 cm IVC Diameter 1.7 cm M-MODE LA Ao Ratio MM 1.7 AV Cusp Separation MM 1.9 cm DOPPLER AV Peak Velocity 201.0 cm/s LVOT Peak Velocity 146.0 cm/s AV Area Cont Eq vti 3.2 cm squared AV Area Cont Eq pk 2.8 cm squared MV Peak Velocity 108.0 cm/s MV Area PHT 2.4 cm squared Mitral E to A Ratio 0.9 TV Peak Velocity 293.5 cm/s TR Peak Velocity 309.0 cm/s TR Peak Gradient 38.2 mmHg TV Peak E Velocity 39.0 cm/s Right Atrial Pressure 3.0 mmHg Pulmonary Artery Systolic Pressu 41.2 mmHg PV Peak Velocity 113.0 cm/s FINDINGS Left Ventricle Left ventricle is normal in size. LV systolic function is normal with EF of 55 to 60%. No regional wall motion normalities are seen. Grade 1 diastolic dysfunction Right Ventricle Normal in size and function Right Atrium Normal in size Left Atrium Normal in size Mitral Valve Structurally normal mitral valve. Mild mitral regurgitation. Aortic Valve Structurally normal aortic valve. No significant stenosis or regurgitation. Tricuspid Valve Mild tricuspid regurgitation. RVSP is 40 to 45 mmHg. This is consistent with mild pulmonary hypertension. Pulmonic Valve Trace pulmonic regurgitation. Pericardium Normal Aorta Normal in size IVC Appears to be normal CONCLUSIONS LV systolic function is normal with EF of 55-60% Grade 1 diastolic dysfunction Mild mitral regurgitation Mild tricuspid regurgitation Mild pulmonary hypertension Trace pulmonic regurgitation. No comparison studies are available. Zi Levy MD (Electronically Signed) Final Date: 14 October 2023 12:32 S
--- NOTE | 2023-10-13 18:20 | ECG_ITS ---
[facility] Test Date: 2023-10-14 Pat Name: Manoj Anglin Department: Room: Gender: Male Dope Edger: : 1950 Requested By: Andrade Delgado Order Number: [id number] Momo MD: Zi Levy M.D. Interpretive Statements NAME OF STUDY: LEXISCAN SESTAMIBI STRESS TEST INDICATION: [Chest Pain] [email or web address]
--- NOTE | 2023-10-13 18:24 | P.HP_ITS ---
Providers/Chief Complaint 2 Primary Care Provider: Latisha Arce MD Chief Complaint: [facility] by [facility], bp low, sob History of Present Illness Manoj Anglin is a 73 year old male with a past medical history of hypertension, type 2 diabetes mellitus, who presents to [facility] due to fatigue, malaise, progressive shortness of breath, orthopnea, paroxysmal nocturnal dyspnea. According to patient, over the last month, he has had progressive increased shortness of breath, orthopnea with paroxysmal nocturnal dyspnea, increasing lower extreme edema, he is also reported intermittent chest discomfort chest pain. Denies any lightheadedness, dizziness, no recent sickness, no fevers, chills, denies any IV drug use, denies any history of heavy alcohol use, he quit smoking more than 15 years ago, Review of Systems 2 Card: Reports: chest pain Resp: Reports: dyspnea Medications/Allergies Home Medications Medication Instructions Recorded Confirmed Last Taken Type Cam Walker #1 ea 01/02/20 09/30/23 Unknown Rx ASO Ankle brace #1 ea 01/16/20 09/30/23 Unknown Rx Vitamin C 1 tab PO DAILY@0530 06/23/20 09/30/23 03/17/22 History Vitamin D3 1 tab PO DAILY@0530 06/23/20 09/30/23 03/17/22 History amlodipine 10 mg tablet 10 mg PO DAILY@0530 06/23/20 09/30/23 03/19/22 History aspirin 81 mg tablet,delayed 81 mg PO DAILY@0530 06/23/20 09/30/23 03/16/22 History release brimonidine 0.2 %-timolol 0.5 % 1 drp ophthalmic (eye) 06/23/20 09/30/23 03/18/22 History eye drops BID@ hydralazine 25 mg tablet 25 mg PO BID@06/23/20 09/30/23 03/19/22 History hydrochlorothiazide 25 mg tablet 25 mg PO DAILY@0530 06/23/20 09/30/23 03/19/22 History insulin aspart U-100 100 unit/mL 6 unit SUBCUT TID@0530,1199,199906/23/20 09/30/23 03/18/22 History (3 mL) subcutaneous pen (Novolog FlexPen U-100 Insulin aspart) latanoprost 0.005 % eye drops 1 drp ophthalmic (eye) DAILY@199906/23/20 09/30/23 03/18/22 History lisinopril 40 mg tablet 20 mg PO DAILY@0530 06/23/20 09/30/23 03/18/22 History loratadine 10 mg tablet 10 mg PO DAILY@0530 06/23/20 09/30/23 03/16/22 History metoprolol tartrate 100 mg tablet 50 mg PO BID@05,199906/23/20 09/30/23 03/19/22 History omeprazole 20 mg tablet,delayed 20 mg PO DAILY@30 06/23/20 09/30/23 03/18/22 History release sildenafil 100 mg tablet 50 mg PO Q7D PRN ERECTILE 06/23/20 09/30/23 2 Months Ago History DISFUNCTION ~01/17/22 timolol maleate (PF) 0.5 % eye 1 drp ophthalmic (eye) DAILY@52906/23/20 09/30/23 03/18/22 History drops in a dropperette (Timoptic Ocudose (PF)) vitamin A 1 tab PO DAILY@0530 06/23/20 09/30/23 03/17/22 History vitamin B complex 1 tab PO DAILY@0530 06/23/20 09/30/23 03/17/22 History vitamin E 1 tab PO DAILY@0530 06/23/20 09/30/23 03/17/22 History meloxicam 15 mg tablet 15 mg PO DAILY 12/10/22 09/30/23 Unknown History diabetic shoes with 3 inserts #1 ea 01/26/23 09/30/23 Unknown Rx AFO brace #1 ea 03/10/23 09/30/23 Unknown Rx pregabalin 100 mg capsule (Lyrica) 100 mg PO BID #180 caps 09/18/23 09/30/23 Unknown Rx Allergies Allergy/AdvReac Type Severity Reaction Status Date / Time No Known Allergies Allergy Verified 10/13/23 16:48 PFSH Acute 2 PFSH: Medical History Diabetes mellitus Hypertension Family History Other CAD (coronary artery disease) Social History Smoking and tobacco/nicotine status: tobacco/nicotine user, details unknown Alcohol intake: current Alcohol intake frequency: few times a week Substance/Drug Use: never Vitals/I&O/Wt Last Vital Signs Temp 97.8 F 10/13/23 16:45 Pulse 60 10/13/23 17:51 Resp 17 10/13/23 16:45 BP 114/56 10/13/23 17:51 Pulse Ox 94 10/13/23 17:51 O2 Del Method Room Air 10/13/23 17:51 Weight last 48 hrs Weight 97.522 kg Physical Exam 2 Const: COMMON NORMALS: no acute distress and patient oriented x3 HENMT: COMMON NORMALS: normocephalic HEAD & SCALP: normocephalic Neck/C-Spine: COMMON NORMALS: no JVD Resp: COMMON NORMALS: normal respiratory effort, No retractions, No use of accessory muscles and clear to auscultation bilaterally AUSCULTATION: clear to auscultation bilaterally Cardio: COMMON NORMALS: no JVD, regular rate, regular rhythm, S1 normal heart sound present and S2 normal heart sound present RATE: regular rate RHYTHM: regular rhythm HEART SOUNDS: S1 normal heart sound present and S2 normal heart sound present GI: COMMON NORMALS: Normal to inspection, nondistended, normoactive bowel sounds present, Soft to palpation and non-tender Extremity: OTHER: 1+ edema Neuro: COMMON NORMALS: patient oriented x3, CN's II-XII intact bilaterally and moves all extremities Psych: COMMON NORMALS: mental status grossly normal Data 10/13/23 16:57 10/13/23 16:57 A&P Assessment and plan (1) Chest pain: (2) Shortness of breath: (3) Hypertension: Plan Chest pain complaints ? Family history of chest pain in his father's ? Plan ? Serial EKGs, serial troponins, telemetry monitoring ? Aspirin, statin, metoprolol ? Cardiac echo ? N.p.o. midnight ? Cardiac stress test tomorrow morning ? Full code ? Lovenox for DVT prophylaxis Shortness of breath complaints -Is with orthopnea, paroxysmal nocturnal dyspnea, 1+ edema ? Likely component of CHF 1 dose IV Lasix ? BNP Type 2 diabetes mellitus ? Low-dose sliding scale Hypertension ? Continue home blood pressure medications Attestations 2 Medical Necessity Statement*: Patient requires hospitalization, outpatient observation, for chest pain shortness of breath concerning for CAD, and CHF Diagnoses Chest pain R07.9 Shortness of breath R06.02 Hypertension I10
[2023-10-13] MEDS: FUROsemide 10 mg/mL SDV 4mL 40 MG IVP (18:30)
[2023-10-13 18:40] LABS: Add Urine Microscopic? NO; Charge for UA Resulting for Rev
[2023-10-13 18:49] LABS: Bilirubin Urine Neg (Negative); Blood Urine Neg (Negative); Glucose Urine UA Norm (Normal); Ketones Urine Negative (Negative); Leukocyte Esterase Urine Negative (Negative); Nitrate Urine Negative (Negative); Protein Urine Neg (Negative); Urine Appearance Clear (CLEAR); Urine Color Dark Yellow (Yellow); Urobilinogen Urine Norm (Negative); pH Urine 5 (5-7)
[2023-10-13 18:51] LABS: Amphetamines Screen Urine Negative (Negative); Barbiturates Screen Urine Negative (Negative); Benzodiazepines Screen Urine Negative (Negative); Cocaine Screen Urine Negative (Negative); Opiate Screen Urine Negative (Negative); PCP Screen Urine Negative (Negative); THC Screen Urine Negative (Negative)
[2023-10-13 19:03] LABS: NT Pro B Type Natriuretic Pept 61 pg/mL (0-125); Procalcitonin 0.13 ng/mL (0-0.5)
--- NOTE | 2023-10-13 19:08 | ECG_ITS ---
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 Measurements Intervals [place] Rate: 54 P: 34 KS: 159 QRS: 46 QRSD: 106 T: 76 QT: 443 QTc: 420 Interpretive Statements SINUS BRADYCARDIA Compared to ECG 10/13/2023 16:49:06 T-wave abnormality no longer present Electronically Signed On 10-13-2023 23:49:05 CDT by Rina Aranda M.D. [id number]
[2023-10-13 19:14] LABS: C Reactive Protein 24.3 mg/L (0.0-4.9); Magnesium 1.6 mg/dL (1.7-2.3); Phosphorus 3.7 mg/dL (2.5-4.5)
[2023-10-13] MEDS: pantoprazole 40 mg SDV IVP (20:47)
[2023-10-13] MEDS: enoxaparin 40 mg/0.4 mL Syringe SUBCUT (20:47)
[2023-10-13] MEDS: atorvastatin 40 mg Tablet PO (20:48)
[2023-10-13 21:08] LABS: Glucose Point of Care 189 mg/dL (70-110)
[2023-10-13 21:10] LABS: Chol HDL Ratio 3.65 mg/dL (1.0-5.00); Cholesterol 146 mg/dL (0-200); Estmated Average Glucose 146; HDL Cholesterol 40 mg/dL (60-100); Hemoglobin A1C 6.7 % (4.0-6.0); LDL Cholesterol Calculated 58 mg/dL (50-129); LDL HDL Ratio 1.45 RATIO (0.00-3.22); Thyroid Stimulating Hormone 2.04 uIU/mL (0.27-4.20); Triglycerides 241 mg/dL (0-150)
--- NOTE | 2023-10-13 22:39 | ECG_ITS ---
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 Measurements Intervals [place] Rate: 56 P: 56 [place]: 171 QRS: 58 QRSD: 102 T: 81 QT: 430 QTc: 417 Interpretive Statements SINUS BRADYCARDIA Compared to ECG 10/13/2023 19:08:30 No significant changes Electronically Signed On 10-13-2023 23:49:41 CDT by Rina Aranda M.D. [id number]
[2023-10-13 23:51] LABS: Troponin 5 6HR 15.45 ng/L (0-15); Troponin 5 6HR Delta 2.45 ng/L (0-12)
[2023-10-14] VITALS (12 sets, daily range): BP systolic 111–141; BP diastolic 7–84; PULSE 54–80; RESP 15–22; TEMP 36.6–36.9; O2SAT 92–97
[2023-10-14 03:56] LABS: Basophils # 0.1 10^3/uL (0.0-0.1); Basophils % 0.7 %; Eosinophils # 0.2 10^3/uL (0.0-0.8); Eosinophils % 2.2 %; Hematocrit 40.4 % (37-53); Lymphocytes # 2.1 10^3/uL (0.8-4.8); Lymphocytes % 30.8 %; Mean Corpuscular HGB Conc 34.7 g/dL (30-55); Mean Corpuscular Volume 95.3 fl (82-101); Mean Platelet Volume 11.5 fL (7.4-10.4); Monocytes # 0.8 10^3/uL (0.2-0.9); Monocytes % 11.5 %; Neutrophils % 54.4 %; Nucleated Red Blood Cells % 0 %; Platelet Count 182 10^3/cmm (157-399); Red Blood Count 4.24 10^6/uL (3.85-5.65); Red Cell Distribution Width 12.9 % (12.1-15.1); White Blood Count 6.81 10^3/uL (3.29-11.43)
[2023-10-14 04:22] LABS: Alanine Aminotransferase 15 U/L (0-41); Albumin Level 4.1 g/dL (3.5-5.2); Alkaline Phosphatase 64 U/L (40-130); Anion Gap 18.8 (5-19); Aspartate Amino Transferase 15 U/L (0-40); Blood Urea Nitrogen 34 mg/dL (8-23); Calcium 9.3 mg/dL (8.5-10.5); Carbon Dioxide 23 mmol/L (22-29); Chloride 105 mmol/L (98-107); Creatinine Clr Calc Pharmacy 73.9565; Globulin 2.9 g/dL (1.3-4.6); Glucose 168 mg/dL (65-115); Magnesium 1.5 mg/dL (1.7-2.3); Osmolality Calculated 307 mOsm/kg (285-295); Phosphorus 3.7 mg/dL (2.5-4.5); Potassium 3.8 mmol/L (3.5-5.1); Sodium 143 mmol/L (136-145); Total Bilirubin 0.6 mg/dL (0.15-1.2)
[2023-10-14 04:28] LABS: NT Pro B Type Natriuretic Pept < 36 pg/mL (0-125)
[2023-10-14] MEDS: metoprolol tartrate 50 mg Tablet 100 MG PO ×2 (05:44→20:59)
[2023-10-14] MEDS: lisinopril 20 mg Tablet PO (05:44)
[2023-10-14 06:33] LABS: Glucose Point of Care 179 mg/dL (70-110)
[2023-10-14] MEDS: regadenoson 0.4 Mg/5 ml Syringe IVP (07:36)
--- NOTE | 2023-10-14 08:34 | PC.PHAR ---
[facility] DID ONT HAVE EYE DROPS OR OTC VITAMINS ON IT.
[2023-10-14] MEDS: magnesium lactate 84 mg Tablet PO ×2 (10:20→17:48)
[2023-10-14] MEDS: pregabalin 100 mg Capsule PO ×2 (10:20→17:48)
[2023-10-14] MEDS: aspirin 81 mg EC Tablet PO (10:21)
[2023-10-14 11:47] LABS: Glucose Point of Care 218 mg/dL (70-110)
--- NOTE | 2023-10-14 12:48 | CTR_ITS ---
PROCEDURE INFORMATION: Exam: CTA Chest With Contrast Exam date and time: 10/14/2023 6:46 PM Age: 73 years old Clinical indication: Dyspnea; Additional info: SOB TECHNIQUE: Imaging protocol: Computed tomographic angiography of the chest with contrast. Exam focused on the arteries. 3D rendering (Not supervised by radiologist): MIP and/or 3D reconstructed images were created by the technologist. Radiation optimization: All CT scans at this facility use at least one of these dose optimization techniques: automated exposure control; mA and/or kV adjustment per patient size (includes targeted exams where dose is matched to clinical indication); or iterative reconstruction. Contrast material: OMNI 350; Contrast volume: 60 ml; Contrast route: INTRAVENOUS (IV); COMPARISON: CT chest w con* [id number] 07/17/2023 1:20 PM RADIATION DOSE METRICS: Total DLP (mGy-cm): 535.93 FINDINGS: Pulmonary arteries: Adequate visualization of the pulmonary arteries to the subsegmental level. No pulmonary embolism. Aorta: Ascending aorta is normal in caliber. Lungs: Mild distal bronchial wall thickening and intraluminal debris of the distal pulmonary airways at the right lower lung base and associated with ground-glass opacities in patchy opacity. Aspiration pneumonia is a consideration. Pleural spaces: Unremarkable. No pneumothorax. No pleural effusion. Heart: Unremarkable. No cardiomegaly. No pericardial effusion. Coronary arteries: mild coronary artery calcifications predominantly along the LAD. Lymph nodes: Unremarkable. No enlarged lymph nodes. Liver: Mild diffuse hepatic steatosis. Bilateral renal cysts. Bones/joints: Unremarkable. No acute fracture. Soft tissues: Unremarkable. CT/CT angio chest PE protcl [id number] IMPRESSION: 1. No pulmonary embolism. 2. Findings concerning for aspiration pneumonia/pneumonitis of the right lung base. COMMENTS: Consistent with the [employer]'s Incidental Findings Committee white paper (J Am Lyndsey Radiol 2018): Any incidental renal lesion less than 1 cm or classified as too small to characterize, or any incidental cystic renal lesion characterized as simple-appearing, is likely benign. No follow-up imaging is recommended for these lesions per consensus recommendations based on imaging criteria.
[2023-10-14 13:00] LABS: D Dimer 0.29 ug/mLFEU (0-0.59)
[2023-10-14] MEDS: FUROsemide 10 mg/mL SDV 4mL 40 MG IVP (13:30)
[2023-10-14] MEDS: insulin lispro 100 unit/1 mL SUBCUT ×2 (13:31→17:49)
[2023-10-14] MEDS: brimonidine 0.2% Op Soln 5 mL Btl 1 DROP EYE-BOTH ×2 (13:31→17:48)
[2023-10-14] MEDS: timolol 0.5% Op Soln 5 mL Btl 1 DROP EYEAFF ×2 (13:32→17:48)
[2023-10-14 16:07] LABS: Glucose Point of Care 184 mg/dL (70-110)
--- NOTE | 2023-10-14 17:33 | P.PN_ITS ---
Subjective 2 Subjective: Patient was seen this morning, he does report episode of chest pain this morning, reports shortness of breath with exertion, Vitals/I&O/Wt Last Vital Signs Temp 98.3 F 10/14/23 16:00 Pulse 60 10/14/23 16:00 Resp 15 10/14/23 16:00 BP 134/72 10/14/23 16:00 Pulse Ox 97 10/14/23 16:00 O2 Del Method Room Air 10/14/23 16:00 10/14/23 10/14/23 10/14/23 06:59 14:59 22:59 Intake Total 1440 / 1680 360 / 360 Output Total 625 / 1550 700 / 700 Balance 815 / 130 -340 / -340 Weight last 48 hrs Weight 122.243 kg Weight 122.016 kg Weight 97.522 kg Physical Exam 2 Const: COMMON NORMALS: no acute distress and patient oriented x3 Resp: COMMON NORMALS: normal respiratory effort, No retractions, No use of accessory muscles and clear to auscultation bilaterally AUSCULTATION: clear to auscultation bilaterally Cardio: COMMON NORMALS: regular rate, regular rhythm, S1 normal heart sound present and S2 normal heart sound present RATE: regular rate RHYTHM: r egular rhythm HEART SOUNDS: S1 normal heart sound present and S2 normal heart sound present GI: COMMON NORMALS: Normal to inspection, nondistended, normoactive bowel sounds present and non-tender Extremity: COMMON NORMALS: no pedal edema Neuro: COMMON NORMALS: patient oriented x3 Psych: COMMON NORMALS: mental status grossly normal Data 10/14/23 03:43 10/14/23 03:43 A&P Assessment and plan (1) Chest pain: (2) Shortness of breath: (3) Hypertension: Plan Chest pain complaints ? Family history of chest pain in his father's ? Plan ? Serial EKGs, serial troponins, telemetry monitoring ? Aspirin, statin, metoprolol ? Cardiac echo ? N.p.o ? Cardiac stress test ? Full code ? Lovenox for DVT prophylaxis Shortness of breath complaints -Is with orthopnea, paroxysmal nocturnal dyspnea, 1+ edema ? Likely component of CHF 1 dose IV Lasix Type 2 diabetes mellitus ? Low-dose sliding scale Hypertension ? Continue home blood pressure medications Attestations 2 Medical Necessity Statement*: Patient requires hospitalization for chest pain, shortness of breath Diagnoses Chest pain R07.9 Shortness of breath R06.02 Hypertension I10
--- NOTE | 2023-10-14 18:20 | NMCV_ITS ---
NM [facility]iah perf SPECT r/s* [id number] Manoj Anglin Age: 73 Gender: M : 1950 Exam Date: 10/14/2023 06:10 Ordering Phys: Andrade Delgado MD Technologist: MIYA Brewer Exam Location: [facility] Indications: SOB, CP STRESS TEST Please see separate stress test report in [facility] for full findings IMAGE PROTOCOL Rest/Stress 1 Lexiscan Day Radiopharmaceutical Dose (mCi) Administration Site Administered by Rest: Tc-99m 10.5 IV MIYA Brewer Sestamibi Stress:Tc-99m 33.0 IV MIYA Brewer Sestamibi Rest: 14-Oct-2023 45 Discovery 630 Stress: 14-Oct-2023 30 Discovery 630 0.4mg Lexiscan. Images obtained in supine and prone position. SPECT RESULTS Technical Quality: Good Raw Data Analysis: Normal Image Corrections: No attenuation or motion correction applied Summed Stress Score: 0 Summed Rest Score: 1 Summed Difference Score: 0 PERFUSION FINDINGS SPECT images demonstrate homogeneous tracer distribution throughout the myocardium. FUNCTIONAL RESULTS (calculated via Gated SPECT) Stress Image LV EF (%): 66 Stress EDV (mL):119 TID: 0.99 Stress ESV (mL):41 FUNCTIONAL FINDINGS: There is normal left ventricular systolic function. IMPRESSIONS 1. Normal myocardial perfusion imaging with no evidence of ischemia 2. LV systolic function is normal Zi Levy MD (Electronically Signed) Final Date: 14 October 2023 09:06 S
[2023-10-14] MEDS: iohexol 350 mg/mL 500 mL Btl (per mL) IV (18:55)
[2023-10-14 20:32] LABS: Glucose Point of Care 252 mg/dL (70-110)
[2023-10-14] MEDS: pantoprazole 40 mg SDV IVP (20:59)
[2023-10-14] MEDS: enoxaparin 40 mg/0.4 mL Syringe SUBCUT (20:59)
[2023-10-14] MEDS: atorvastatin 40 mg Tablet PO (20:59)
[2023-10-15 04:00] VITALS: BP 137/89; PULSE 87; RESP 17; TEMP 36.9; O2SAT 97
[2023-10-15 04:55] LABS: Basophils # 0.1 10^3/uL (0.0-0.1); Basophils % 1.1 %; Eosinophils # 0.2 10^3/uL (0.0-0.8); Eosinophils % 2.9 %; Hematocrit 40.6 % (37-53); Lymphocytes # 2.1 10^3/uL (0.8-4.8); Lymphocytes % 37.5 %; Mean Corpuscular HGB Conc 34.5 g/dL (30-55); Mean Corpuscular Hemoglobin 32.9 pg (27-33); Mean Corpuscular Volume 95.3 fl (82-101); Mean Platelet Volume 11.2 fL (7.4-10.4); Monocytes # 0.8 10^3/uL (0.2-0.9); Monocytes % 15.1 %; Neutrophils # 2.41 10^3/uL (1.8-7.7); Nucleated Red Blood Cells % 0 %; Platelet Count 192 10^3/cmm (157-399); Red Blood Count 4.26 10^6/uL (3.85-5.65); Red Cell Distribution Width 12.6 % (12.1-15.1); White Blood Count 5.58 10^3/uL (3.29-11.43)
[2023-10-15 05:22] LABS: Alanine Aminotransferase 13 U/L (0-41); Albumin Level 4.2 g/dL (3.5-5.2); Alkaline Phosphatase 63 U/L (40-130); Anion Gap 15.8 (5-19); Aspartate Amino Transferase 13 U/L (0-40); Blood Urea Nitrogen 33 mg/dL (8-23); Calcium 8.9 mg/dL (8.5-10.5); Carbon Dioxide 26 mmol/L (22-29); Chloride 103 mmol/L (98-107); Creatinine Clr Calc Pharmacy 81.7863; Globulin 2.9 g/dL (1.3-4.6); Glucose 206 mg/dL (65-115); Osmolality Calculated 305 mOsm/kg (285-295); Potassium 3.8 mmol/L (3.5-5.1); Sodium 141 mmol/L (136-145); Total Bilirubin 0.5 mg/dL (0.15-1.2); Total Protein 7.1 g/dL (6.6-8.7)
[2023-10-15 05:25] LABS: NT Pro B Type Natriuretic Pept < 36 pg/mL (0-125)
[2023-10-15 06:00] VITALS: PULSE 53
[2023-10-15] MEDS: lisinopril 20 mg Tablet PO (06:28)
[2023-10-15] MEDS: metoprolol tartrate 50 mg Tablet 100 MG PO (06:28)
[2023-10-15 06:39] LABS: Glucose Point of Care 197 mg/dL (70-110)
[2023-10-15 07:22] VITALS: BP 135/62; PULSE 54; RESP 16; TEMP 36.6; O2SAT 94
[2023-10-15] MEDS: cefTRIAXone 1,000 mg SDV 1000 MG IVP (09:04)
[2023-10-15] MEDS: magnesium lactate 84 mg Tablet PO (09:05)
[2023-10-15] MEDS: aspirin 81 mg EC Tablet PO (09:05)
[2023-10-15] MEDS: insulin lispro 100 unit/1 mL SUBCUT ×2 (09:05→12:20)
[2023-10-15] MEDS: brimonidine 0.2% Op Soln 5 mL Btl 1 DROP EYE-BOTH (09:05)
[2023-10-15] MEDS: pregabalin 100 mg Capsule PO (09:05)
[2023-10-15] MEDS: timolol 0.5% Op Soln 5 mL Btl 1 DROP EYEAFF (09:06)
[2023-10-15] MEDS: water for injection-sterile 10 ML (09:27)
[2023-10-15] MEDS: FUROsemide 10 mg/mL SDV 4mL 40 MG IVP (10:06)
[2023-10-15] MEDS: potassium chloride ER 20 mEq Tablet PO (10:06)
--- NOTE | 2023-10-15 10:55 | PM.DCS ---
Discharge Providers Date of Admission: 10/13/23 18:40 Date of Discharge: October 15, 2023 Attending Provider at Admission: Andrade Delgado MD Attending Provider at Discharge: Andrade Delgado MD Primary Care Provider: Latisha Arce MD Diagnoses at Discharge Discharge Diagnosis (1) Chest pain: Status: Acute (2) Shortness of breath: Status: Acute (3) Hypertension: Status: Acute Reason for Visit Reason for Visit: sent by va, bp low, sob Hospital Course Hospital Course Manoj Anglin is a 73 year old male with a past medical history of hypertension, type 2 diabetes mellitus, who presents to [facility] due to fatigue, malaise, progressive shortness of breath, orthopnea, paroxysmal nocturnal dyspnea. According to patient, over the last month, he has had progressive increased shortness of breath, orthopnea with paroxysmal nocturnal dyspnea, increasing lower extreme edema, he is also reported intermittent chest discomfort chest pain. Denies any lightheadedness, dizziness, no recent sickness, no fevers, chills, denies any IV drug use, denies any history of heavy alcohol use, he quit smoking more than 15 years ago, Patient was admitted to [facility] for shortness of breath and chest pain, for shortness of breath he received inpatient diuresis, BnP was not significantly elevated, echocardiogram showed grade 1 diastolic dysfunction, with diuresis, his shortness of breath did improve. On discharge I will discharge him on Lasix and potassium replacement to be used as needed for shortness of breath with instructions as below, follow-up with primary care, follow-up with cardiology For his chest pain complaints, testing as below stress test IMPRESSIONS 1. Normal myocardial perfusion imaging with no evidence of ischemia 2. LV systolic function is normal cardiac echo CONCLUSIONS LV systolic function is normal with EF of 55-60% Grade 1 diastolic dysfunction Mild mitral regurgitation Mild tricuspid regurgitation Mild pulmonary hypertension Trace pulmonic regurgitation. No comparison studies are available. -No recurrent chest pain continue aspirin, statin, beta-blanca with close follow-up cardiology as outpatient Due to persistent episodes of shortness of breath CT of the chest was ordered CTA chest CT/CT angio chest PE protcl [id number] IMPRESSION: 1. No pulmonary embolism. 2. Findings concerning for aspiration pneumonia/pneumonitis of the right lung base. -Was afebrile, no choking coughing episodes, seen by speech therapy -Nonetheless I discharged him on Augmentin Physical Exam Const: COMMON NORMALS: no acute distress and patient oriented x3 Resp: COMMON NORMALS: normal respiratory effort, No retractions, No use of accessory muscles and clear to auscultation bilaterally AUSCULTATION: clear to auscultation bilaterally Cardio: COMMON NORMALS: regular rate, regular rhythm, S1 normal heart sound present and S2 normal heart sound present RATE: regular rate RHYTHM: regular rhythm HEART SOUNDS: S1 normal heart sound present and S2 normal heart sound present GI: COMMON NORMALS: Normal to inspection, nondistended, normoactive bowel sounds present and non-tender Extremity: COMMON NORMALS: no pedal edema Neuro: COMMON NORMALS: patient oriented x3 Psych: COMMON NORMALS: mental status grossly normal Discharge Data Studies Completed and Pending Completed Studies During Hospitalization Category Date Time Status CT angio chest PE protcl [id number] Stat Cat Scan 10/14/23 12:48 Completed Sestamibi Stress Test Request Routine Exams 10/13/23 18:20 Draft XR chest 1V portable [id number] Stat Exams 10/13/23 16:50 Completed NM moriah perf SPECT r/s* [id number] Routine Nuc Med 10/14/23 18:20 Completed CV. echo complete* [id number] Stat Ultrasound 10/13/23 18:19 Completed Pending at discharge Category Date Time Status Complete Blood Count w/Auto AM LABS Lab 10/16/23 04:00 Ordered Comprehensive Metabolic Panel AM LABS Lab 10/16/23 04:00 Ordered NT Pro B Type Natriuretic Pept QAM Lab 10/16/23 06:00 Ordered Radiology Impressions Chest X-Ray 10/13/23 16:50 IMPRESSION: No acute findings. Chest CTA 10/14/23 12:48 IMPRESSION: 1. No pulmonary embolism. 2. Findings concerning for aspiration pneumonia/pneumonitis of the right lung base. COMMENTS: Consistent with the [employer]'s Incidental Findings Committee white paper (J Am Lyndsey Radiol 2018): Any incidental renal lesion less than 1 cm or classified as too small to characterize, or any incidental cystic renal lesion characterized as simple-appearing, is likely benign. No follow-up imaging is recommended for these lesions per consensus recommendations based on imaging criteria. Laboratory Results WBC 5.58 10^3/uL (3.29-11.43) 10/15/23 04:40 RBC 4.26 10^6/uL (3.85-5.65) 10/15/23 04:40 Hgb 14.00 g/dL (11.27-16.99) 10/15/23 04:40 Hct 40.6 % (37-53) 10/15/23 04:40 MCV 95.3 fl (82-101) 10/15/23 04:40 MCH 32.9 pg (27-33) 10/15/23 04:40 MCHC 34.5 g/dL (30-55) 10/15/23 04:40 RDW 12.6 % (12.1-15.1) 10/15/23 04:40 Plt Count 192 10^3/cmm (157-399) 10/15/23 04:40 MPV 11.2 fL (7.4-10.4) H 10/15/23 04:40 Neut % (Auto) 43.0 % 10/15/23 04:40 Lymph % (Auto) 37.5 % 10/15/23 04:40 Banks % (Auto) 15.1 % 10/15/23 04:40 Eos % (Auto) 2.9 % 10/15/23 04:40 Baso % (Auto) 1.1 % 10/15/23 04:40 Neut # (Auto) 2.41 10^3/uL (1.8-7.7) 10/15/23 04:40 Lymph # (Auto) 2.1 10^3/uL (0.8-4.8) 10/15/23 04:40 Banks # (Auto) 0.8 10^3/uL (0.2-0.9) 10/15/23 04:40 Eos # (Auto) 0.2 10^3/uL (0.0-0.8) 10/15/23 04:40 Baso # (Auto) 0.1 10^3/uL (0.0-0.1) 10/15/23 04:40 Nucleated RBC % (auto) 0 % 10/15/23 04:40 Nucleated RBCs # 0.0 /100WBC 10/15/23 04:40 PT 12.40 SECONDS (12.1-14.9) 10/13/23 16:57 INR 0.90 (0.8-1.2) 10/13/23 16:57 D-Dimer 0.29 ug/mLFEU (0-0.59) 10/14/23 12:23 Sodium 141 mmol/L (136-145) 10/15/23 04:40 Potassium 3.8 mmol/L (3.5-5.1) 10/15/23 04:40 Chloride 103 mmol/L (98-107) 10/15/23 04:40 Carbon Dioxide 26 mmol/L (22-29) 10/15/23 04:40 Anion Gap 15.8 (5-19) 10/15/23 04:40 BUN 33 mg/dL (8-23) H 10/15/23 04:40 Creatinine 1.1 mg/dL (0.7-1.2) 10/15/23 04:40 GFR Calculation Not Reportable 10/15/23 04:40 Glucose 206 mg/dL (65-115) H 10/15/23 04:40 POC Glucose 197 mg/dL (70-110) H 10/15/23 06:24 Estimat Average Glucose 146 10/13/23 16:57 Hemoglobin A1c 6.7 % (4.0-6.0) H 10/13/23 16:57 Calculated Osmolality 305 mOsm/kg (285-295) H 10/15/23 04:40 Lactic Acid 2.0 mmol/L (0.5-2.2) 10/13/23 16:57 Calcium 8.9 mg/dL (8.5-10.5) 10/15/23 04:40 Phosphorus 3.7 mg/dL (2.5-4.5) 10/14/23 03:43 Magnesium 1.5 mg/dL (1.7-2.3) L 10/14/23 03:43 Total Bilirubin 0.5 mg/dL (0.15-1.2) 10/15/23 04:40 AST 13 U/L (0-40) 10/15/23 04:40 ALT 13 U/L (0-41) 10/15/23 04:40 Alkaline Phosphatase 63 U/L (40-130) 10/15/23 04:40 Troponin T Baseline 13 ng/L (0-15) 10/13/23 16:57 Troponin T 120 Minute 12.30 ng/L (0-15) 10/13/23 18:49 Delta Troponin T -0.70 ABS# (0-10) L 10/13/23 18:49 Troponin T Hi Sens 6Hr 15.45 ng/L (0-15) H 10/13/23 23:04 Troponin T Hi Sens 6Hr Delta 2.45 ng/L (0-12) 10/13/23 23:04 C-Reactive Protein 24.3 mg/L (0.0-4.9) H 10/13/23 16:57 NT-Pro-B Natriuret Pep < 36 pg/mL (0-125) 10/15/23 04:40 Total Protein 7.1 g/dL (6.6-8.7) 10/15/23 04:40 Albumin 4.2 g/dL (3.5-5.2) 10/15/23 04:40 Globulin 2.9 g/dL (1.3-4.6) 10/15/23 04:40 Triglycerides 241 mg/dL (0-150) H 10/13/23 16:57 Cholesterol 146 mg/dL (0-200) 10/13/23 16:57 LDL Cholesterol, Calc 58 mg/dL (50-129) 10/13/23 16:57 HDL Cholesterol 40 mg/dL (60-100) L 10/13/23 16:57 LDL/HDL Ratio 1.45 RATIO (0.00-3.22) 10/13/23 16:57 Cholesterol/HDL Ratio 3.65 mg/dL (1.0-5.00) 10/13/23 16:57 Lipase 45 U/L (13-60) 10/13/23 16:57 Procalcitonin 0.13 ng/mL (0-0.5) 10/13/23 16:57 TSH 2.04 uIU/mL (0.27-4.20) 10/13/23 16:57 Urine Color Dark yellow (Yellow) A 10/13/23 18:16 Urine Appearance Clear (CLEAR) 10/13/23 18:16 Urine pH 5 (5-7) 10/13/23 18:16 Ur Specific [place] 1.020 (1.005-1.030) 10/13/23 18:16 Urine Protein Neg (Negative) 10/13/23 18:16 Urine Glucose (UA) Norm (Normal) 10/13/23 18:16 Urine Ketones Negative (Negative) 10/13/23 18:16 Urine Blood Neg (Negative) 10/13/23 18:16 Urine Nitrate Negative (Negative) 10/13/23 18:16 Urine Bilirubin Neg (Negative) 10/13/23 18:16 Urine Urobilinogen Norm mg/dL (Negative) 10/13/23 18:16 Ur Leukocyte Esterase Negative (Negative) 10/13/23 18:16 Urine Opiates Screen Negative ng/mL (Negative) 10/13/23 18:16 Ur Barbiturates Screen Negative ng/mL (Negative) 10/13/23 18:16 Ur Phencyclidine Scrn Negative ng/mL (Negative) 10/13/23 18:16 Ur Amphetamines Screen Negative ng/mL (Negative) 10/13/23 18:16 U Benzodiazepines Scrn Negative ng/mL (Negative) 10/13/23 18:16 Urine Cocaine Screen Negative ng/mL (Negative) 10/13/23 18:16 U Marijuana (THC) Screen Negative ng/mL (Negative) 10/13/23 18:16 Vitals Last Vital Signs Temp 97.9 F 10/15/23 07:22 Pulse 54 L 10/15/23 07:22 Resp 16 10/15/23 07:22 BP 135/62 10/15/23 07:22 Pulse Ox 94 10/15/23 07:22 O2 Del Method Room Air 10/15/23 07:22 Discharge Plan Discharge Patient Disposition: Home Condition: Stable Prescriptions: New atorvastatin 40 mg Tablet 40 mg PO BEDTIME 30 Days Qty: 30 0RF amoxicillin-pot clavulanate 875-125 mg tablet 1 tab PO Q12H 7 Days Qty: 14 0RF furosemide [Lasix] 20 mg tablet 20 mg PO DAILY MDD 20mg PRN (Reason: shortness of breath) 30 Days Qty: 30 0RF potassium chloride [Klor-Con M20] 20 mEq tablet,ER particles/crystals 20 meq PO DAILY PRN (Reason: shortness of breath) 30 Days Qty: 30 0RF Continued (DME) Cam Walker See Rx Instructions .ROUTE .MEDSUPPLY Qty: 1 0RF Rx Instructions: As directed (DME) ASO Ankle brace See Rx Instructions .Route .MEDSUPPLY Qty: 1 0RF Rx Instructions: As directed (DME) diabetic shoes with 3 inserts See Rx Instructions .Route .MEDSUPPLY Qty: 1 0RF Rx Instructions: As directed to the Evelyn Zepeda (DME) AFO brace See Rx Instructions .Route .MEDSUPPLY Qty: 1 0RF Rx Instructions: As directed to the Evelyn Donovanys latanoprost 0.005 % Drops 1 drp OPHTHALMIC (EYE) DAILY@1999 aspirin 81 mg Tablet,Delayed Release (Dr/Ec) 81 mg PO DAILY@0530 Hold Instructions: Resume on 03/21/22. sildenafil 100 mg Tablet 50 mg PO Q7D PRN (Reason: ERECTILE DISFUNCTION) vitamin B complex Tablet 1 tab PO DAILY@0530 hydrochlorothiazide 25 mg Tablet 25 mg PO QAM lisinopril 40 mg Tablet 20 mg PO QAM loratadine 10 mg Tablet 10 mg PO DAILY Rx Instructions: TAKE ON EMPTY STOMACH timolol maleate (PF) [Timoptic Ocudose (PF)] 0.5 % Dropperette 1 drp OPHTHALMIC (EYE) DAILY@05 brimonidine-timolol 0.2-0.5 % Drops 1 drp OPHTHALMIC (EYE) BID@529,1999 omeprazole 20 mg Tablet,Delayed Release (Dr/Ec) 20 mg PO BID vitamin A 2,400 mcg Capsule 2,400 mcg PO DAILY tizanidine 4 mg Tablet 8 mg PO BEDTIME PRN (Reason: SPASTICITY) clobetasol 0.05 % Cream See Rx Instructions .ROUTE .COMPLEX Rx Instructions: APPLY SPARINGLY TO AFFECTED AREAS ON LEGS TWICE DAILY. NO MORE THAN 2 WEEKS PER MONTH. DO NOT USE ON FACE, GROIN OR SKIN FOLDS. Vitamin C 500 mg Tablet 250 mg PO DAILY mirtazapine 30 mg Tablet 30 mg PO BEDTIME morphine 15 mg Tablet Extended Release 15 mg PO Q12H PRN (Reason: Pain) albuterol sulfate 90 mcg/actuation Hfa Aerosol Inhaler 2 puff INHALATION QID PRN (Reason: COPD) Flonase 50 mcg/actuation [place],Suspension 1 spray INTRANASAL DAILY Rx Instructions: administer into each nostril vitamin E 268 mg (400 unit) Capsule 268 mg PO DAILY meclizine 25 mg Tablet,Chewable 25 mg PO Q6H PRN (Reason: Vertigo) Lexapro 20 mg Tablet 20 mg PO QAM pregabalin 150 mg Capsule 150 mg PO BID Vitamin D3 50 mcg (2,000 unit) Capsule 50 mcg PO DAILY Changed insulin aspart U-100 [Novolog FlexPen U-100 Insulin] 100 unit/mL (3 mL) Insulin Pen See Rx Instructions .ROUTE .COMPLEX Qty: 15 0RF Rx Instructions: Inject, subcut, 3 times daily, after meals, based on sliding scale provided Lantus Solostar U-100 Insulin 100 unit/mL (3 mL) Insulin Pen 10 unit SUBCUT QAM Qty: 15 0RF Held metoprolol tartrate 100 mg Tablet 50 mg PO BID Hold Instructions: Resume on 10/16/23. Discontinued meloxicam 15 mg tablet 15 mg PO DAILY hydralazine 25 mg Tablet 25 mg PO BID amlodipine 10 mg Tablet 10 mg PO DAILY Discharge Orders: Discharge Order (Routine); Ordered 10/15/23 Ordered By: Andrade Delgado Referrals: Latisha Arce MD [Primary Care Provider] - (Dr. Arce's Office has your information and will be calling you to schedule a follow up appointment. You can give them a call if you have any questions or concerns. Thank you.) Rina Aranda MD [Physician] - 1 week Discharge Diet: Cardiac Discharge Activity: Resume usual activity Patient Instructions: Furosemide (By mouth) (Lasix), Aspirin (By mouth) (Joe Extra Strength, Joe Aspirin Children's,..., Amoxicillin/Clavulanate Potassium (By mouth) (Augmentin, Augmentin..., Atorvastatin (By mouth) (Lipitor, Atorvaliq), Opioid Safety Activity Restrictions/Additional Instructions: -Lasix should only be used as needed for shortness of breath, how you should use this medication is if you continue to feel short of breath or develop lower extremity swelling or gain more than 3 pounds, use Lasix 20 mg once daily with potassium 10 mEq once daily for 3 consecutive days then stop. If shortness of breath resolves,, go and see primary care provider to have them recheck your kidney function and potassium. If your shortness of breath persists, do not continue using Lasix and please go to your primary care provider and have them recheck your potassium and your kidney function or go to the emergency room -For your pneumonia please take potassium -Please monitor your blood sugars closely -Monitor your blood sugars 3 times daily as after meals -Please record your blood sugars, and a blood sugar log -For your NovoLog -Please inject blood sugar after meals based on sliding scale provided -Do not inject insulin if you do not eat as hypoglycemia kills -This is a NovoLog sliding scale -Insulin sliding ?fingerstick? Insulin ?141-180?0 units/sq 181-220?2 units/sq ?221-260?4 units/sq ?261-300 6 units/sq ?301-350?8 units/sq ?351-400 10 units/sq ?401-450?12 units/sq >450? 14units/sq -If your blood sugar is greater than 500 go to the emergency room -If your blood sugar is less than 60 or at anytime you feel lightheaded or dizzy or diaphoretic or have chest palpitations check your blood sugar, and eat a hard candy or drink orange juice and go immediately to the emergency room -Remember hypoglycemia kills, so if his blood sugar is less than 60 we have to increase it by taking in a sugary meal such as a hard candy or orange juice and go to the emergency room -If you have any questions please call us where here to help Discharge Attestations Time Spent in Discharge Care*: less than 30 min Quality Metrics Clinical Quality Measures [ No reported AMI, CVA or VTE this stay] Coding Level of Care Code Acute Code for Chg Fwd Diagnoses Chest pain R07.9 Shortness of breath R06.02 Hypertension I10
--- NOTE | 2023-10-15 10:59 | PC.NURSE ---
Patient ambulated 35 feet in the hallway with use of a walker. Vitals remained stable.
[2023-10-15 11:39] LABS: Glucose Point of Care 202 mg/dL (70-110)
[2023-10-15 11:43] VITALS: BP 124/74; PULSE 55; RESP 17; TEMP 36.7; O2SAT 92
== END 2023-10-15 13:33 | disposition home or self-care (01) ==
LOC: ER 18:23 → CSU 10-14 07:52
PROVIDERS: Emergency Medicine; Family Medicine; Admitting Provider Family Medicine; Emergency Provider Emergency Medicine; PCP Family Medicine; Visit Provider Family Medicine
DX: R07.9 Chest pain, unspecified (principal); R06.02 Shortness of breath; I10 Essential (primary) hypertension; E11.9 Type 2 diabetes mellitus without complications; Z79.4 Long term (current) use of insulin; Z87.891 Personal history of nicotine dependence; Z79.899 Other long term (current) drug therapy; J18.8 Other pneumonia, unspecified organism
CPT/HCPCS: 36415; 36416; 71045; 71275; 78452; 80053; 80061; 80306; 81003; 82962; 83036; 83605; 83690; 83735; 83880; 84100; 84145; 84443; 84484; 85025; 85378; 85610; 86140; 92610; 93005; 93017; 93306; 94664; 96372; 96374; 96375; 96376; 99285; A9500; C9113; G0378; J0696; J1650; J1815; J1940; J2785; Q9967

== ENCOUNTER 2023-11-13 08:05 | Outpatient (CLI) | payer OTHER, SELFPAY ==
--- NOTE | 2023-11-13 08:07 | FL_ITS ---
WS: [id number] [place] upper GI series [id number] REASON FOR EXAM: DYSPHAGIA FLUOROSCOPY TIME: 2min [id number] # OF SPOT FILMS: 1 FINDINGS: Patient was examined in the upright PA and lateral projections, prone DARDEN, supine, and LPO. The swall owing of barium was monitored fluoroscopically and recorded with multiple spot films. No abnormality of the cervical esophagus was identified. The thoracic esophagus demonstrates nearly absent primary peristalsis. There was intermittent lower e sophageal sphincter spasm. This cause significant retention of barium within the esophagus. There wer e intermittent episodes of tertiary contractions which tended to propel the residual barium retrograd e, to above the level of the thoracic inlet. Gastroesophageal reflux was elicited in the supine and RPO positions. Small hiatal hernia. No stricture. No evidence of esophageal malignancy. FL/FL upper GI series [id number] IMPRESSION: Esophageal dysmotility. Type II achalasia. There is both esophageal to esophageal reflux as well as gastroesophageal reflu x. The degree of reflux suggests the patient to be at risk for aspiration.
== END 2023-11-13 08:06 | disposition home or self-care (01) ==
LOC: RAD 08:05
PROVIDERS: PCP Family Medicine; Visit Provider Family Medicine
DX: R13.10 Dysphagia, unspecified (principal); K21.9 Gastro-esophageal reflux disease without esophagitis; K22.4 Dyskinesia of esophagus
CPT/HCPCS: 74240

== ENCOUNTER → 2023-12-01 13:24 | Outpatient (BNVA) | payer OTHER, SELFPAY | PROVIDERS: PCP Family Medicine; Visit Provider Podiatrist Foot & Ankle Surgery | DX: E11.8 Type 2 diabetes mellitus with unspecified complications (principal); B35.1 Tinea unguium; G62.9 Polyneuropathy, unspecified; R20.0 Anesthesia of skin; R20.2 Paresthesia of skin; E11.42 Type 2 diabetes mellitus with diabetic polyneuropathy; M21.371 Foot drop, right foot; Z79.4 Long term (current) use of insulin | CPT/HCPCS: 11721 ==

== ENCOUNTER 2023-12-03 13:09 | Outpatient (CLI) | payer OTHER, SELFPAY ==
--- NOTE | 2023-12-03 13:15 | MR_ITS ---
WS: [id number] MRI RIGHT KNEE HISTORY: PAIN POPPING COMPARISON: None available. Anterior cruciate ligament: Intact. Posterior cruciate ligament: Intact. Medial collateral ligament: Small amount of fluid adjacent to an intact MCL. Posterior lateral corner structures: Intact. Medial menisci: Horizontal tear in the posterior horn extends to the inferior articular surface. Part ial extrusion of the anterior meniscus from the joint line. Lateral meniscus: Intact. Normal signal, size and shape. Extensor mechanism: Distal quadriceps tendon and patellar tendons are intact. Fluid and soft tissue: Small suprapatellar joint effusion. Small Stratton's cyst. Osseous and articular structures: Patellofemoral compartment: No significant joint space narrowing. Medial compartment: Moderate narrowing the medial compartment with loss of cartilage along the weight bearing surface at the femoral condyle and tibial plateau. No marrow edema or fracture. Lateral compartment: Mild narrowing of the lateral compartment. Mild thinning of the cartilage. Incidental note is made of a slightly lobulated cystic mass posterior to the medial femoral condyle. This is very closely associated with the posterior meniscus and I suspect this may be a small paramen iscal cyst extending posterior to the femoral condyle. MR/MR knee RT wo con* [id number] IMPRESSION: 1. Horizontal tear posterior horn medial meniscus. 2. Small lobulated moderate narrowing medial compartment with mild chondromala eyal. 3. Mild narrowing lateral compartment. 4. Small Stratton's cyst. Cystic mass posterior to the medial femoral condyle ext ending towards the posterior meniscus. I suspect this is probably a paralabral cyst associated with the meniscal tear in the posterior medial horn. 5.
== END 2023-12-03 13:10 | disposition home or self-care (01) ==
LOC: RAD 13:10
PROVIDERS: PCP Family Medicine; Visit Provider Family Medicine
DX: M23.229 Derangement of posterior horn of medial meniscus due to old tear or injury, unspecified knee (principal); M71.21 Synovial cyst of popliteal space [Baker], right knee
CPT/HCPCS: 73721

== ENCOUNTER → 2023-12-22 14:09 | Outpatient (BNVA) | payer OTHER, SELFPAY | PROVIDERS: PCP Family Medicine; Visit Provider Student in an Organized Health Care Education/Training Program | DX: M17.11 Unilateral primary osteoarthritis, right knee; M25.561 Pain in right knee; M25.562 Pain in left knee | CPT/HCPCS: 73560; 73565 ==

== ENCOUNTER 2023-12-22 17:00 | Outpatient (CLI) | payer OTHER, SELFPAY | END 2023-12-22 17:01 | disposition home or self-care (01) | LOC: SPT 17:01 | PROVIDERS: PCP Family Medicine; Visit Provider Student in an Organized Health Care Education/Training Program | DX: Z46.89 Encounter for fitting and adjustment of other specified devices (principal); M17.11 Unilateral primary osteoarthritis, right knee | CPT/HCPCS: L1851 ==

== ENCOUNTER → 2023-12-29 13:58 | Outpatient (BNVA) | payer OTHER, SELFPAY | PROVIDERS: PCP Family Medicine; Visit Provider Internal Medicine Cardiovascular Disease | DX: R06.02 Shortness of breath (principal); I50.31 Acute diastolic (congestive) heart failure; R07.89 Other chest pain; I10 Essential (primary) hypertension; E11.9 Type 2 diabetes mellitus without complications; Z79.4 Long term (current) use of insulin; Z87.891 Personal history of nicotine dependence | CPT/HCPCS: 99204 ==

== ENCOUNTER → 2024-01-21 13:59 | Outpatient (BNVA) | payer OTHER, SELFPAY | PROVIDERS: PCP Family Medicine; Visit Provider Physician Assistant | DX: M76.891 Other specified enthesopathies of right lower limb, excluding foot (principal); M17.11 Unilateral primary osteoarthritis, right knee | CPT/HCPCS: 20610; 99213; J7318 ==

== ENCOUNTER → 2024-02-02 13:31 | Outpatient (BNVA) | payer OTHER, SELFPAY | PROVIDERS: PCP Family Medicine; Visit Provider Podiatrist Foot & Ankle Surgery | DX: B35.1 Tinea unguium (principal); Z79.4 Long term (current) use of insulin; G62.9 Polyneuropathy, unspecified; E11.42 Type 2 diabetes mellitus with diabetic polyneuropathy; M21.371 Foot drop, right foot; M21.372 Foot drop, left foot | CPT/HCPCS: 11721 ==

== ENCOUNTER → 2024-03-16 12:57 | Outpatient (BNVA) | payer OTHER, SELFPAY | PROVIDERS: PCP Family Medicine; Visit Provider Nurse Practitioner Family | DX: L82.1 Other seborrheic keratosis (principal); D23.5 Other benign neoplasm of skin of trunk; Z08 Encounter for follow-up examination after completed treatment for malignant neoplasm; Z85.828 Personal history of other malignant neoplasm of skin; D48.5 Neoplasm of uncertain behavior of skin; L57.0 Actinic keratosis | CPT/HCPCS: 11102; 17000; 99213 ==

== ENCOUNTER → 2024-04-07 13:23 | Outpatient (BNVA) | payer OTHER, SELFPAY | PROVIDERS: PCP Family Medicine; Visit Provider Podiatrist Foot & Ankle Surgery | DX: B35.1 Tinea unguium (principal); Z79.4 Long term (current) use of insulin; G62.9 Polyneuropathy, unspecified; E11.42 Type 2 diabetes mellitus with diabetic polyneuropathy; M21.371 Foot drop, right foot | CPT/HCPCS: 11721 ==

== ENCOUNTER → 2024-06-07 12:55 | Outpatient (BNVA) | payer OTHER, SELFPAY | PROVIDERS: PCP Family Medicine; Visit Provider Podiatrist Foot & Ankle Surgery | DX: E11.42 Type 2 diabetes mellitus with diabetic polyneuropathy (principal); B35.1 Tinea unguium; Z79.4 Long term (current) use of insulin; G62.9 Polyneuropathy, unspecified; M21.371 Foot drop, right foot | CPT/HCPCS: 11055; 11721 ==

== ENCOUNTER → 2024-06-22 09:12 | Outpatient (BNVA) | payer OTHER, SELFPAY | PROVIDERS: PCP Family Medicine; Visit Provider Nurse Practitioner Family | DX: L82.1 Other seborrheic keratosis (principal); D03.39 Melanoma in situ of other parts of face; D23.5 Other benign neoplasm of skin of trunk; C44.311 Basal cell carcinoma of skin of nose; Z08 Encounter for follow-up examination after completed treatment for malignant neoplasm; Z85.828 Personal history of other malignant neoplasm of skin; L57.0 Actinic keratosis | CPT/HCPCS: 17000; 99213 ==

== ENCOUNTER → 2024-06-29 16:15 | Outpatient (BNVA) | payer OTHER, SELFPAY | PROVIDERS: PCP Family Medicine; Visit Provider Internal Medicine Cardiovascular Disease | DX: R07.9 Chest pain, unspecified (principal) | CPT/HCPCS: 36415; 80048; 83880; 93005; 99214 ==

== ENCOUNTER 2024-07-05 05:00 | Outpatient (RCR) | payer OTHER, SELFPAY | END 2024-08-03 23:59 | disposition home or self-care (01) | LOC: MPT 05:00 | PROVIDERS: PCP Family Medicine; Visit Provider Family Medicine | DX: M17.11 Unilateral primary osteoarthritis, right knee (principal) | CPT/HCPCS: 20610; 97110; 97162; 99213; J7318 ==

== ENCOUNTER 2024-08-04 05:00 | Outpatient (RCR) | payer OTHER, SELFPAY | END 2024-09-03 23:59 | disposition home or self-care (01) | LOC: MPT 05:00 | PROVIDERS: PCP Family Medicine; Visit Provider Family Medicine | DX: M17.11 Unilateral primary osteoarthritis, right knee (principal) | CPT/HCPCS: 97110; 97140; G0283 ==

== ENCOUNTER → 2024-08-09 14:25 | Outpatient (BNVA) | payer OTHER, SELFPAY | PROVIDERS: PCP Family Medicine; Visit Provider Podiatrist Foot & Ankle Surgery | DX: E11.42 Type 2 diabetes mellitus with diabetic polyneuropathy (principal); B35.1 Tinea unguium; Z79.4 Long term (current) use of insulin; G62.9 Polyneuropathy, unspecified; M21.371 Foot drop, right foot | CPT/HCPCS: 11056; 11721 ==

== ENCOUNTER 2024-09-04 06:30 | Outpatient (RCR) | payer OTHER, SELFPAY | END 2024-09-21 11:07 | disposition home or self-care (01) | LOC: MPT 06:30 | PROVIDERS: PCP Family Medicine; Visit Provider Family Medicine | DX: M17.11 Unilateral primary osteoarthritis, right knee (principal) | CPT/HCPCS: 97110; G0283 ==

== ENCOUNTER → 2024-09-21 08:17 | Outpatient (BNVA) | payer OTHER, SELFPAY | PROVIDERS: PCP Family Medicine; Visit Provider Specialist | DX: G63 Polyneuropathy in diseases classified elsewhere (principal); G25.0 Essential tremor | CPT/HCPCS: 99213 ==

== ENCOUNTER → 2024-10-11 13:35 | Outpatient (BNVA) | payer OTHER, SELFPAY | PROVIDERS: PCP Family Medicine; Visit Provider Podiatrist Foot & Ankle Surgery | DX: E11.42 Type 2 diabetes mellitus with diabetic polyneuropathy (principal); B35.1 Tinea unguium; L84 Corns and callosities; Z79.4 Long term (current) use of insulin; G62.9 Polyneuropathy, unspecified; M21.371 Foot drop, right foot | CPT/HCPCS: 11055; 11721 ==

== ENCOUNTER 2024-10-30 14:18 | Emergency (ER) | payer OTHER, MEDICARE, SELFPAY ==
--- OUTSIDE RECORDS SUMMARY | 2003-04-05 19:00 | XMS_ITS | Continuity of Care Document ---
Author Name [facility] Address [address] [place] [address] Organization [facility] Care Team Providers Care [address] Justice Name Role Phone [facility] Unavailable Unavailable Allergies, Adverse Reactions, Alerts Substance Category Reaction Severity Reaction type Status Date Reported Comments Source buPROPion Assertion Propensity to adverse reactions to drug Active [facility] Venlafaxine Hydrochlorid e Assertion Propensity to adverse reactions to drug [facility] Dorzolamide Hydrochlorid [facility] Assertion Propensity to adverse reactions to drug Active [facility] Encounters Location Location Details Encounter Type Encounter Number Reason For Visit Attending Provider ADM Date DC Date Status Source [facility] [id number] Follow Up Alisha Monnig Cancel [facility] [id number] 11/04 23:59 :59 Discharged [facility] Procedures Procedure Code Date Perfomer Comments Source appendectomy [facility] Pulmon[facility]
--- OUTSIDE RECORDS SUMMARY | 2023-11-27 07:01 | XMS_ITS ---
Author Name [facility] [place] [facility] [place] [facility] [place] [facility] [place] Address [address] [place] [address] Care Team Providers Care Field Services Director Name Role Phone LEONIDES DE LOS SANTOS Primary Care Provider Unavailabl e Insurance Providers: All historical and current Section Date Range: From patient's date of to the date document was created. This section includes the names of all active insurance providers for the patient. Insurance Provider Type of Coverage Plan Name Start of Policy Coverage End of Policy Coverage Group Number Member ID Insurance Provider's Telephone Number Policy Pierson's Name Patient's Relationship to Policy Pierson MEDICARE (WNR) MEDICARE (M) PART A Dec 05, 2004 PART A [id number] MANJIT MUNROE PATIENT MEDICARE (WNR) MEDICARE (M) PART B Dec 05, 2004 PART B [id number] MANJIT MUNROE PATIENT MEDICARE (WNR) MEDICARE (M) PART B Dec 05, 2004 PART B [id number] MANJIT MUNROE PATIENT MEDICARE (WNR) MEDICARE (M) PART A Dec 05, 2004 PART A [id number] [phone] [id number] MANJIT MUNROE PATIENT MEDICARE (WNR) MEDICARE (M) PART B Dec 05, 2004 PART B [id number] [id number] MANJIT MUNROE PATIENT MEDICARE (WNR) MEDICARE (M) PART A Dec 05, 2004 PART A [id number] MANJIT MUNROE PATIENT MEDICARE (WNR) MEDICARE (M) PART A Dec 05, 2004 PART A [id number] MANJIT MUNROE PATIENT MEDICARE (WNR) MEDICARE (M) PART B Dec 05, 2004 PART B [id number] MANJIT MUNROE PATIENT MEDICARE PART D (WNR) MEDICARE (M) PART D Jun 04, 2012 PART D [id number] MANJIT MUNROE PATIENT MEDICARE PART D (WNR) MEDICARE (M) PART D Jun 04, 2012 PART D [id number] [id number] MANJIT MUNROE PATIENT Selected Encounter This section includes the information on record at [place] for the Encounter. Date/Time Encounter Type Encounter Description Reason Provider Source Nov 27, 2023 12:01 PM HEARING AID REPAIR/MODIFYIN G AUDIOLOGY ICD-10-CM Z46.1 Encounter for fitting and adjustment of hearing aid MARY BONILLA RA [facility] Encounter Template Text not used by [place] Assessments - Encounter Diagnoses This section includes the primary and secondary diagnoses documented for the Encounter. Date/Time Primary/Secondary Diagnosis Diagnosis Name Provider Source Nov 27, 2023 12:04 PM PRIMARY Encounter for fitting and adjustment of hearing aid MARY BONILLA RA [facility] Nov 27, 2023 12:04 PM SECONDARY Sensorineural hearing loss, bilateral MARY BONILLA RA [facility] Plan of Treatment: Future Appointments (+ 6 months) and Future Tests (+/- 45 days) The Plan of Treatment section includes future care activities for the patient from all [place] [facility]. This section includes future appointments and future orders which are active, pending or scheduled. Future Appointments This section includes appointments that were scheduled to occur 6 months from the date of the Encounter, up to a maximum of 20 appointments. The data comes from all [place] treatment facilities. Appointment Date/Time Appointment Type Appointme nt Facility Name Dec 01, 2023 03:30 PM AMBULATORY - MEDICINE [facility] Dec 03, 2023 01:30 PM AMBULATORY - MEDICINE [facility] Dec 03, 2023 01:45 PM [place] [facility] Dec 08, 2023 03:30 PM [facility] [place] [facility] [facility] Dec 08, 2023 04:00 PM [facility] [place] [facility] [facility] Dec 15, 2023 03:30 PM [facility] [place] [facility] [facility] Dec 18, 2023 09:00 AM [facility] [place] [facility] [facility] Dec 21, 2023 01:00 PM [facility] [place] [facility] Dec 22, 2023 02:00 PM AM[facility]ATORY - [place] [facility] Dec 22, 2023 03:30 PM [facility] Dec 25, 2023 10:00 AM [facility] [place] [facility] [facility] Dec 29, 2023 02:30 PM [place] [facility] Dec 29, 2023 03:30 PM [facility] [place] [facility] [facility] Dec 30, 2023 02:30 PM [facility]ORY - [place] [facility] 2024 03:30 PM [facility] [place] [facility] Jan 12, 2024 03:30 PM [facility] [place] [facility] Jan 19, 2024 03:30 PM [facility] [place] [facility] [facility] Jan 27, 2024 03:30 PM [facility] - MEDICINE [facility] Feb 02, 2024 03:15 PM [facility] [place] [facility] Feb 02, 2024 03:30 PM [facility]ORY - MEDICINE [facility] Lab Results: +/- 30 days of the encounter This section includes the Chemistry and Hematology Lab Results on record with [place] for the patient. Radiology Reports and Pathology Reports are provided separately, in subsequent sections. Lab Results This section contains the Chemistry/Hematology Results that were resulted 30 days before or 30 daysafter the date of the Encounter. Date/Time Source Result Type Result - Unit Interpretation Reference Range Specimen Type Comment Dec 18, 2023 08:45 AM [facility] HGA1C BLOOD Specimen Type: BLOOD No comment entered. Ordering Provider: LEONIDES DE LOS SANTOS Report Released Date/Time: Dec 30, 2022 09:51 AM Reporting Lab: [place] [facility] [address] [place] [address] Performing Lab: [place] [facility] [address] [place] [address] HGA1C 7.0 H 4.0-6.0 Dec 18, 2023 08:45 AM [facility] T[facility] (MA-PB) SERUM Specimen Typ e: SERUM No comment entered. Ordering Provider: LEONIDES DE LOS SANTOS Report Released Date/Time: Dec 30, 2022 09:51 AM Reporting Lab: [place] [facility] [address] [place] [address] Performing Lab: [place] [facility] [address] [place] [id number] TSH 2.380 u[IU]/mL 0.47-5 Dec 18, 2023 08:45 AM [facility] CHOLESTEROL PANEL (PB) PLASMA Specimen Type: P LASMA No comment entered. Ordering Provider: LEONIDES DE LOS SANTOS Report Released Date/Time: Dec 30, 2022 09:51 AM Reporting Lab: [place] [facility] [address] [place] [address] Performing Lab: [place] [facility] [address] [place] [id number] CHOLESTEROL 134 mg/dL 0-200 TRIGLYCERIDE 106 mg/dL 0-150 CALCULATED LDL 68.8 mg/dL HDL(New) 44.0 mg/dL H >40 HDL % OF TOTAL CHOLESTEROL (PB) 32.8 >25 Dec 18, 2023 08:45 AM [facility] COMPREHENSIVE METABOLIC PANEL PLASMA Specimen Type: PLASMA No comment entered. Ordering Provider: LEONIDES DE LOS SANTOS Report Released Date/Time: Dec 30, 2022 09:51 AM Reporting Lab: [place] [facility] [address] [place] [address] Performing Lab: [place] [facility] [address] [place] [address] CREATININE 0.93 mg/dL 0.7-1.3 UREA NITROGEN 12 mg/dL 9-25 GLUCOSE 173 mg/dL H 72-99 SODIUM 138 meq/L 136-145 POTASSIUM 4.1 meq/L 3.5-5 CHLORIDE 102 meq/L 98-107 CARBON DIOXIDE 25 meq/L 22-31 CALCIUM 9.3 mg/dL 8.4-10.4 PROTEIN 7.5 g/dL 6-8.6 ALBUMIN 4.4 g/dL 3.4-5 TOTAL BILIRUBIN 0.7 mg/dL 0.2-1.2 ALKALINE PHOSPHATASE 70 U/L 40-150 AST/SGOT 23 U/L 5-34 ALT/SGPT 24 U/L 8-40 EGFR (CKD-EPI 2020) 88 Dec 18, 2023 08:44 AM [facility] URINE ALBUMIN PROFILE-ih (PB) URINE Specimen Type: URINE No comment entered. Ordering Provider: LEONIDES DE LOS SANTOS Report Released Date/Time: Dec 30, 2022 09:51 AM Reporting Lab: [place] [facility] [address] [place] [address] Performing Lab: [place] [facility] [address] [place] [address] URINE ALBUMIN (PB-STL) 5.80 mg/L 0-30 uACR (PB-MA) 4.45 ug/mg CREATININE URINE/OTHERS 130.23 mg/dL Dec 18, 2023 08:44 AM [facility] CBC BLOOD Specimen Type: BLOOD No comment entered. Ordering Provider: LEONIDES DE LOS SANTOS Report Released Date/Time: Dec 30, 2022 09:51 AM Reporting Lab: [place] [facility] [address] [place] [address] Performing Lab: [place] [facility] [address] [place] [address] WBC 6.2 10*3/uL 3.6-11.2 RBC 4.43 10*6/uL 4.10-5.70 HGB 14.6 g/dL 13.1-16.8 HCT 41.6 38.2-48.4 MCV 93.9 fL 80.0-100.0 MCH 33.0 pg 27.0-34.0 MCHC 35.1 g/dL 33.0-36.0 PLT 254 10*3/uL 150-400 MPV 10.5 fL 7.5-11.2 RDW 11.9 11.8-15.1 LYMPHOCYTES, AUTO % 34.0 MONOCYTES, AUTO % 11.9 NEUTROPHILS, AUTO % 50.1 EOSINOPHILS, AUTO % 2.4 BASOPHILS, AUTO % 1.3 LYMPHOCYTES, ABSOLUTE 2.09 10*3/uL 0.77- 4.50 MONOCYTES, ABSOLUTE 0.73 10*3/uL 0.19-0. 8 NEUTROPHILS, ABSOLUTE 3.08 10*3/uL 2.10- 8.00 EOSINOPHILS, ABSOLUTE 0.15 10*3/uL 0.00- 0.60 BASOPHILS, ABSOLUTE 0.08 10*3/uL 0.00-0. 20 IMMATURE GRANS, AUTO % 0.3 IMMATURE GRANS, AUTO ABS 0.02 10*3/uL 0. 00-0.05 Radiology Reports: +/- 30 days of the encounter Radiology Reports For cases when an order for radiology services may have been completed prior to the date of the Encounter, the report list includes the Radiology Reports that were completed up to 30 days before dateof the Encounter. For cases when an order for radiology services may have been completed after the date of the Encounter, the report list also includes the Radiology Reports that were completed up to30 days after date of the Encounter. The data comes from all [place] treatment facilities. Date/Time Radiology Report Provider Source Dec 25, 2023 10:21 AM CHEST X-RAY, 2 VIE WS: MANJIT MUNROE [id number] -1950 M Exm Date: DEC 25, 2023@10:21 Req Phys: LEONIDES DE LOS SANTOS Loc: -CRISPIN PACT ECHO PCP (Thu'nadia La Img Loc: -XRAY [place] Service: [place] [address] (Case [id number] COMPLETE) CHEST X-RAY, 2 VIEWS (RAD Detailed) CPT:19330 Reason for Study: cough Clinical History: Report Status: Verified Date Reported: DEC 25, 2023 Date Verified: DEC 25, 2023 Warehouse Order Puller E-Sig: Report: PA and lateral views of the chest reveal moderate degenerative skeletal changes and mild bilateral pulmonary hyperaeration. There is no infiltrate or effusion. Heart size is normal. Impression: No acute process Primary Interpreting Staff: ROSALINA HANDY RADIOLOGIST (Warehouse Order Puller, no e-sig) /ROSALINA [facility] Dec 08, 2023 04:04 PM TOE(S) 2 OR MORE V IEWS: MANJIT MUNROE [id number] -1950 M Exm Date: DEC 08, 2023@16:04 Req Phys: LEONIDES DE LOS SANTOS Loc: PB-CRISPIN PACT ECHO JUSTIN (Req'g Lo Img Loc: PB-XRAY [place] Service: [place] [address] (Case [id number] COMPLETE) TOE(S) 2 OR MORE VIEWS (RAD Detailed) CPT:14759 Proc Modifiers : LEFT Reason for Study: swelling in L 2nd toe Clinical History: swelling x 4 days Report Status: Verified Date Reported: DEC 08, 2023 Date Verified: DEC 08, 2023 Warehouse Order Puller E-Sig: Report: Multiple views of the left toes reveal diffuse swelling of the second toe and over the dorsum of the foot, with no underlying fracture, dislocation or other acute osseous abnormality. Mild deformity of the proximal phalanx of the fifth toe might be due to old trauma. Impression: Swollen left second toe with no underlying acute osseous abnormality Primary Interpreting Staff: ROSALINA HANDY, RADIOLOGIST (Warehouse Order Puller, no e-sig) /ROSALINA Graff [facility] Dec 03, 2023 01:38 PM MRI KNEE RIGHT: MANJIT MUNROE [id number] -1950 M Exm Date: DEC 03, 2023@13:38 Req Phys: LEONIDES DE LOS SANTOS Loc: OUTSIDE PB-MRI (Req'g Loc) Img Loc: OUTSIDE PB-MRI Service: Unknown (Case [id number] COMPLETE) MRI KNEE RIGHT (MRI Detailed) CPT:40631 Reason for Study: Exam imported from outside Clinical History: Original Data for Imported Study Patient Name: MANJIT MUNROE Date: 1950 Sex: M Study Date: 12/03/23 Study Time: 01:38:50 Study Description: MR knee RT wo con* [id number] Referring Physician: UNKNOWN, UNKNOWN Series 1: 1 MN file, description: ENA Presentation State - SNAPSHOT Series 2: 21 MR files, description: 3 PL LOC RIGHT Series 3: 24 MR files, description: AX PD FS Series 4: 27 MR files, description: COR PD Series 5: 27 MR files, description: COR T2 FS Series 6: 24 MR files, description: SAG PD FS Series 7: 24 MR files, description: SAG PD Series 8: 15 MR files, description: SAG PD ACL Series 9: 24 MR files, description: AX PD FS Report Status: Electronically Filed Date Reported: DEC 31, 2023 Report: Electronically generated report for outside study. Impression: Electronically generated report for outside study. VERIFIED BY: / *ELECTRONICALLY FILED* NERY ARECHIGA [facility] Encounter Notes: All associated encounter notes This section contains the clinical notes associated to the Encounter. Date/Time Encounter Note(s) Provider Source Nov 27, 2023 07:08 AM AUDIOLOGY NOTE: LOCAL TITLE: HEARING CLINIC STANDARD TITLE: AUDIOLOGY NOTE DATE OF NOTE: NOV 27, 2023@07:08 ENTRY DATE: NOV 27, 2023@07:08:39 AUTHOR: GEORGETTE BONILLA COSIGNER: URGENCY: STATUS: COMPLETED Diagnosis: Sensorineural hearing loss, Bilateral Treatment: Hearing Aid Check Time spent with : 30 minutes seen for a hearing aid check via Audio Telehealth and verbally consented to the Telehealth modality. Multi-factor personally identifiable information of the was obtained verbally (full name and date of ). [place] accompanied by: none Patient site: [facility] ____ HISTORY: Reason for Appointment: Patient is here today reporting no output from right device. Patient reports difficulty changing cerushield disk filters. HEARING DEVICES: 03/10/22 PHONAK AUDEO L90-R RAUL R [id number] 03/10/22 PHONAK AUDEO L90-R RAUL L [id number] - 2M ORGANIC CHEMISTRY PROFESSOR 5.0 - POWER DOME 4.0 - MEDIUM - CERUSTOP Accessories: PHONAK PARTNERMIC and TV CONNECTOR 2.0 OBJECTIVE/ASSESSMENT: Visual inspection of both hearing aids revealed no noticeable damage or defects. Both hearing aids were cleaned. Installed 5.0 receivers on both devices in place of 4.0 Educated patient on cerustops filters. Ordered filters and domes for in [facility]. A listening check performed by the TCT confirmed proper function. The was counseled/educated on services provided today and is in agreement with the plan. PLAN: Follow up as needed or scheduled. /chio/ Bhavin Breaux [facility] Signed: 11/27/2023 12:05 GEORGETTE BONILLA [facility]
--- OUTSIDE RECORDS SUMMARY | 2023-12-08 11:00 | XMS_ITS | Encounter Summary ---
Author Name [facility] Organization [facility] [place] Address [address] [place] [address] Care Team Providers Care Safety Representative Name Role Phone LATISHA ARCE Primary Care Provider Unavailabl e Insurance Providers: [...] PART A Dec 05, 2004 PART A [id number] MANJIT MUNROE PATIENT MEDICARE (WNR) MEDICARE (M) PART B Dec 05, 2004 PART B [id number] [id number] MANJIT MUNROE PATIENT MEDICARE (WNR) MEDICARE (M) PART A Dec 05, 2004 PART A [id number] [id number] MANJIT MUNROE PATIENT MEDICARE (WNR) MEDICARE (M) PART B Dec 05, 2004 PART B [id number] [id number] [id number] MANJIT MUNROE PATIENT MEDICARE (WNR) MEDICARE (M) PART A Dec 05, 2004 PART A [id number] MANJIT MUNROE PATIENT MEDICARE (WNR) MEDICARE (M) PART B Dec 05, 2004 PART B [id number] MANJIT MUNROE PATIENT MEDICARE (WNR) MEDICARE (M) PART A Dec 05, 2004 PART A [id number] MANJIT MUNROE PATIENT MEDICARE (WNR) MEDICARE (M) PART B Dec 05, 2004 PART B [id number] MANJIT MUNROE PATIENT MEDICARE PART D (WNR) MEDICARE (M) PART D Jun 04, 2012 PART D [id number] MANJIT MUNROE PATIENT MEDICARE PART D (WNR) MEDICARE (M) PART D Jun 04, 2012 PART D [id number] MANJIT MUNROE PATIENT Selected Encounter This section includes the information on record at [place] for the Encounter. Date/Time Encounter Type Encounter Description Reason Provider Source Dec 08, 2023 04:00 PM OFF/OP EST AUGUST X REQ PHY/QHP PRIMARY CARE/MEDICINE ICD-10-CM R60.0 Localized edema ONOFRE PAREKH Chanelle Encounter Template Text not used by DC Assessments - Encounter Diagnoses This section includes the primary and secondary diagnoses documented for the Encounter. Date/Time Primary/Secondary Diagnosis Diagnosis Name Provider Source Dec 08, 2023 04:28 PM PRIMARY Localized edema ILEANA PAREKH [facility] Plan of Treatment: Future Appointments (+ 6 months) and Future Tests (+/- 45 days) The Plan of Treatment section includes future care activities for the patient from all [place] treatmentfacilities. This section includes future appointments and future orders which are active, pending or scheduled. Future Appointments This section includes appointments that were scheduled to occur 6 months from the date of the Encounter, up to a maximum of 20 appointments. The data comes from all [place] treatment facilities. Appointment Date/Time Appointment Type Appointme nt Facility Name Dec 15, 2023 03:30 PM AMBULATORY - MEDICINE [facility] Dec 18, 2023 09:00 AM AMBULATORY - MEDICINE [facility] Dec 21, 2023 01:00 PM AMBULATORY - [place]IC[place] [facility] Dec 22, 2023 02:00 PM [place] [facility] Dec 22, 2023 03:30 PM [facility] [facility] Dec 25, 2023 10:00 AM [facility] [facility] Dec 29, 2023 02:30 PM [facility]ULATORY - [place] [facility] Dec 29, 2023 03:30 PM [facility] Dec 30, 2023 02:30 PM [facility]ATORY - [place] [facility] 2024 03:30 PM [facility] Jan 12, 2024 03:30 PM [facility] Jan 19, 2024 03:30 PM [facility] Jan 27, 2024 03:30 PM [facility] Feb 02, 2024 03:15 PM [facility] Feb 02, 2024 03:30 PM [facility] Feb 16, 2024 03:30 PM [facility] Feb 23, 2024 03:30 PM [facility] Mar 16, 2024 01:45 PM [facility]ORY - [place] [facility] Mar 18, 2024 02:00 PM [facility] Apr 07, 2024 01:30 PM [facility]ORY - [place]IC[place] [facility] Lab Results: +/- 30 days of the encounter This section includes the Chemistry and Hematology Lab Results on record with [facility] for the patient. Radiology Reports and Pathology Reports are provided separately, in subsequent sections. Lab Results This section contains the Chemistry/Hematology Results that were resulted 30 days before or 30 daysafter the date of the Encounter. Date/Time Source Result Type Result - Unit Interpretation Reference Range Specimen Type Comment Dec 18, 2023 08:45 AM [facility] HGA1C BLOOD Specimen Type: BLOOD No comment entered. Ordering Provider: LATISHA ARCE Report Released Date/Time: Dec 30, 2022 09:51 AM Reporting Lab: [place] [facility] [address] [place] [address] Performing Lab: [place] [facility] [address] [place] [address] HGA1C 7.0 H 4.0-6.0 Dec 18, 2023 08:45 AM [facility] TSH (MA-PB) SERUM Specimen Typ e: SERUM No comment entered. Ordering Provider: LATISHA ARCE Report Released Date/Time: Dec 30, 2022 09:51 AM Reporting Lab: [place] [facility] [address] [place] [address] Performing Lab: [place] [facility] [address] [place] [address] TSH 2.380 u[IU]/mL 0.47-5 Dec 18, 2023 08:45 AM [facility] CHOLESTEROL PANEL (PB) PLASMA Specimen Type: P LASMA No comment entered. Ordering Provider: LATISHA ARCE Report Released Date/Time: Dec 30, 2022 09:51 AM Reporting Lab: [place] [facility] [address] [place] [address] Performing Lab: [place] [facility] [address] [place] [address] CHOLESTEROL 134 mg/dL 0-200 TRIGLYCERIDE 106 mg/dL 0-150 CALCULATED LDL 68.8 mg/dL HDL(New) 44.0 mg/dL H >40 HDL % OF TOTAL CHOLESTEROL (PB) 32.8 >25 Dec 18, 2023 08:45 AM [facility] COMPREHENSIVE METABOLIC PANEL PLASMA Specimen Type: PLASMA No comment entered. Ordering Provider: LATISHA ARCE Report Released Date/Time: Dec 30, 2022 09:51 AM Reporting Lab: [place] [facility] [address] [place] [address] Performing Lab: [place] [facility] [address] [place] [address] CREATININE 0.93 mg/dL 0.7-1.3 UREA NITROGEN 12 [...] 2020) 88 Dec 18, 2023 08:44 AM [facility] URINE ALBUMIN PROFILE-ih (PB) URINE Specimen Type: URINE No comment entered. Ordering Provider: LATISHA ARCE Report Released Date/Time: Dec 30, 2022 09:51 AM Reporting Lab: [place] [facility] [address] [place] [address] Performing Lab: [place] [facility] [address] [place] [address] URINE ALBUMIN (PB-STL) 5.80 mg/L 0-30 uACR (PB-MA) 4.45 ug/mg CREATININE URINE/OTHERS 130.23 mg/dL Dec 18, 2023 08:44 AM [facility] CBC BLOOD Specimen Type: BLOOD No comment entered. Ordering Provider: LATISHA ARCE Report Released Date/Time: Dec 30, 2022 09:51 AM Reporting Lab: [place] [facility] [address] [place] [address] Performing Lab: [place] [facility] [address] [place] [address] WBC 6.2 10*3/uL 3.6-11.2 RBC 4.43 10*6/uL [...] GRANS, AUTO ABS 0.02 10*3/uL 0. 00-0.05 Vital Signs: All taken on the encounter date This section contains inpatient and outpatient Vital Signs collected on the date of the Encounter. Date/Time Temperature Pulse Blood Pressure Respiratory Rate SP02 Pain Height Weight Body Mass Index Source Dec 08, 2023 04:06 PM 97.8 99 120/80 20 93 245.2 34 [facility] Social History: Smoking Status (Most current) and Tobacco Use (All prior to encounter date) This section includes the most current, and the historical, smoking and tobacco- related health factors from the [place] facility where the Encounter took place. Current Smoking Status This section includes the most current smoking, or tobacco-related health factor, from the [place] facility where the Encounter took place. Date/Time Current Smoking Status Comment Shruthi perales Dec 30, 2022 09:30 AM VA-TOBACCO QUIT 15 YRS OR MORE [facility] Tobacco Use History This section includes a history of the smoking, or tobacco-related health factors, that were collected on or before the date of the Encounter. The data comes from the [place] facility where the Encounter took place. Date/Time Smoking Status/Tobacco Use Comment F alfred Dec 30, 2022 09:30 AM VA-TOBACCO QUIT 15 YRS [place] MORE [facility] Jan 07, 2022 01:00 PM VA-TOBACCO FORMER USER [facility] Jan 07, 2022 01:00 PM VA-TOBACCO QUIT 15 YRS OR MORE [facility] Jan 08, 2021 01:00 PM VA-TOBACCO FORMER USER [facility] Jan 08, 2021 01:00 PM VA-TOBACCO QUIT 15 YRS OR MORE [facility] Jan 10, 2020 01:00 PM VA-TOBACCO FORMER USER [facility] Jan 10, 2020 01:00 PM VA-TOBACCO QUIT 5 TO < 15 YRS [facility] Apr 19, 2018 02:57 PM VA-TOBACCO FORMER USER [facility] Apr 19, 2018 02:57 PM VA-TOBACCO QUIT 15 YRS OR MORE [facility] Sep 05, 2015 02:32 PM QUIT TOBACCO >7 YEARS AGO [facility] Radiology Reports: +/- 30 days of the [...] the Encounter. The data comes from all [place] treatment facilities. Date/Time Radiology Report Provider Source Dec 25, 2023 10:21 AM CHEST X-RAY, 2 VIE WS: SHANEKAMANJIT MAGDA [id number] -1950 M Exm Date: DEC 25, 2023@10:21 Req Phys: LATISHA ARCE Loc: PB-[facility] PACT ECHO PCP (Req'g Lo Img Loc: [facility] Service: [place] [address] (Case [id number] COMPLETE) CHEST X-RAY, 2 VIEWS (RAD Detailed) CPT:21948 Reason for Study: cough Clinical History: Report Status: Verified Date Reported: DEC 25, 2023 Date Verified: DEC 25, 2023 [employer] E-Sig: Report: PA and lateral views of the chest reveal moderate degenerative skeletal changes and mild bilateral pulmonary hyperaeration. There is no infiltrate or effusion. Heart size is normal. Impression: No acute process Primary Interpreting Staff: ROSALINA HANDY RADIOLOGIST ([employer], no e-sig) /ROSALINA Graff [facility] Dec 08, 2023 04:04 PM TOE(S) 2 OR MORE V IEWS: SHANEKAMANJIT MAGDA [id number] -1950 M Exm Date: DEC 08, 2023@16:04 Req Phys: LATISHA ARCE Loc: [facility] PACT ECHO JUSTIN ([facility] Lo Img [facility] [place] Service: [place] [address] (Case [id number] COMPLETE) TOE(S) 2 OR MORE VIEWS (RAD Detailed) CPT:37493 Proc Modifiers : LEFT Reason for Study: swelling in L 2nd toe Clinical History: swelling x 4 days Report Status: Verified Date Reported: DEC 08, 2023 Date Verified: DEC 08, 2023 [employer] E-Sig: Report: Multiple views of the left [...] abnormality Primary Interpreting Staff: ROSALINA HANDY, RADIOLOGIST ([employer], no e-sig) /ROSALINA Graff [facility] Dec 03, 2023 01:38 PM MRI KNEE RIGHT: MANJIT MUNROE [id number] -1950 M Exm Date: DEC 03, 2023@13:38 Req Phys: LATISHA ARCE Loc: OUTSIDE PB-MRI (Req'g Loc) Img Loc: OUTSIDE PB-MRI Service: Unknown (Case [id number] COMPLETE) MRI KNEE RIGHT (MRI Detailed) CPT:22166 Reason for Study: Exam imported from outside Clinical History: Original Data for Imported Study Patient Name: MANJIT MUNROE Date: 1950 Sex: M Study Date: 12/03/23 Study Time: 01:38:50 Study Description: MR knee RT wo con* [id number] Referring Physician: UNKNOWN, UNKNOWN Series 1: 1 [place] file, description: FUJI Presentation State - SNAPSHOT Series 2: 21 [...] study. VERIFIED BY: / *ELECTRONICALLY FILED* NERY KULKARNI HAWK [facility] Encounter Notes: All associated encounter notes This section contains the clinical notes associated to the Encounter. Date/Time Encounter Note(s) Provider Source Dec 08, 2023 04:13 PM NURSING PROGRESS NOTE: LOCAL TITLE: NURSING NOTE PB STANDARD TITLE: NURSING PROGRESS NOTE DATE OF NOTE: DEC 08, 2023@16:13 ENTRY DATE: DEC 08, 2023@16:13:17 AUTHOR: ILEANA PAREKH COSIGNER: URGENCY: STATUS: COMPLETED NURSING NOTE PB Has ADDENDA This is a 73 year old MALE with known Allergies as noted: BUPROPION, DORZOLAMIDE, VENLAFAXINE On the following Active Medications: Active Outpatient Medications (including Supplies): Active Outpatient Medications Status 1) ALBUTEROL 90MCG (CFC-F) 200D ORAL INHL INHALE 2 PUFFS ACTIVE ORAL INHALATION FOUR TIMES A DAY NEEDED FOR COPD SHAKE WELL. RINSE MOUTHPIECE FREQUENTLY TO PREVENT CLOGGING. 2) ATORVASTATIN CALCIUM 40MG TAB TAKE ONE TABLET BY ACTIVE MOUTH EVERY EVENING FOR HIGH CHOLESTEROL 3) CLOBETASOL PROPIONATE 0.05% CREAM APPLY SPARINGLY TO ACTIVE AFFECTED AREA(S) TWICE DAILY NEEDED APPLY TO AFFECTED AREAS ON LEGS. NO MORE THAN TWO WEEKS OF THE MONTH. DO NOT USE ON FACE, GROIN, OR SKIN FOLDS. 4) ESCITALOPRAM OXALATE 20MG TAB TAKE ONE TABLET BY ACTIVE (S) MOUTH EVERY MORNING FOR DEPRESSION 5) FLUTICASONE PROP 50MCG 120D NASAL INHL INSTILL 1 ACTIVE SPRAY IN EACH NOSTRIL ONCE A DAY FOR ALLERGIES (MUST BE USED DIRECTED FOR MINIMUM OF 21 DAYS TO PROVIDE ADEQUATE BENEFITS) 6) GLUCOSE SENSOR Sim[employer]media JEFE 2 USE SENSOR EVERY ACTIVE (S) 2 WEEKS FOR CONTINUOUS GLUCOSE MONITORING. CHANGE SENSOR/SITE EVERY 14 DAYS. CONTACT [facility] AT ([phone]) FOR REPLACEMENT OF DAMAGED/MALFUNCTIONING SENSORS 7) HYDRALAZINE HCL 25MG TAB TAKE ONE TABLET BY MOUTH ACTIVE TWICE A DAY FOR BLOOD PRESSURE 8) HYDROCHLOROTHIAZIDE 25MG TAB TAKE ONE TABLET BY MOUTH ACTIVE ONCE A DAY FOR BLOOD PRESSURE 9) INSULIN SYRINGE 0.5ML 31G 8MM USE SYRINGE UNDER THE ACTIVE SKIN ONCE A DAY FOR DIABETES TO USE WITH INSULIN 10) INSULIN,ASPART(EQV-NOVLG)100UN /ML FLXPEN INJECT 12 ACTIVE (S) UNITS UNDER THE SKIN THREE TIMES A DAY BEFORE MEALS FOR BLOOD SUGAR CONTROL. ADMINISTER 10 MINUTES BEFORE FOOD DIRECTED. REFRIGERATE UN-OPENED PENS. DISCARD CARTRIDGE 28 DAYS AFTER OPENING. 11) INSULIN,GLARGINE-YFGN 100UNIT/ML INJ INJECT 20 UNITS ACTIVE UNDER THE SKIN EVERY MORNING FOR DIABETES ADMINISTER AT SAME TIME EACH DAY DIRECTED. DISCARD ANY VIAL 28 DAYS AFTER OPENING. 12) LISINOPRIL 40MG TAB TAKE ONE-HALF TABLET BY MOUTH ACTIVE ONCE A DAY FOR HEART OR BLOOD PRESSURE 13) LORATADINE 10MG TAB TAKE ONE TABLET BY MOUTH ONCE A ACTIVE DAY ON EMPTY STOMACH FOR ALLERGIES 14) MECLIZINE HCL 25MG CHEW TAB CHEW AND SWALLOW ONE ACTIVE TABLET BY MOUTH EVERY 6 HOURS NEEDED FOR VERTIGO CHEWABLE TABLETS MAY BE CHEWED OR SWALLOWED WHOLE. MAY CAUSE DROWSINESS. 15) METOPROLOL TARTRATE 100MG TAB TAKE ONE-HALF TABLET BY ACTIVE MOUTH TWICE A DAY FOR HEART/BLOOD PRESSURE. TAKE WITH OR IMMEDIATELY FOLLOWING FOOD. 16) MIRTAZAPINE 30MG TAB TAKE ONE TABLET BY MOUTH AT ACTIVE BEDTIME FOR DEPRESSION 17) OMEPRAZOLE 20MG EC CAP TAKE ONE CAPSULE BY MOUTH ACTIVE TWICE A DAY TAKE ON AN EMPTY STOMACH 18) PREGABALIN 150MG ORAL CAP TAKE ONE CAPSULE BY MOUTH ACTIVE TWICE A DAY FOR NERVE PAIN *MAY CAUSE DROWSINESS* 19) TIOTROPIUM 2.5MCG/ACTUAT 60D ORAL INHL INHALE 2 ACTIVE INHALATIONS BY MOUTH ONCE A DAY (ADMINISTER AT SAME TIME EACH DAY) FOR BREATHING. 20) TIZANIDINE HCL 4MG TAB TAKE TWO TABLETS BY MOUTH AT ACTIVE BEDTIME FOR SPASTICITY Active Non-VA Medications Status 1) Non-VA MORPHINE SO4 15MG SA TAB 15MG BY MOUTH EVERY ACTIVE 12 HOURS NEEDED 21 Total Medications C/C: Left second toe swelling S: The presented to the clinic today with the complaint of swelling in his left second toe. The reports that he has no felling in his foot and does not know if he injured the toe. [place] reports that there was swelling in the second toe starting on Thursday12/04/23. The reports that his toe is always crooked. O/A: The ambulated to the exam room with assistance of a rollator, gate is slow and a little unsteady. The 's left second toe is warm to the touch, swollen and a little red. it is always crooked but it may be more crooked than normal. Vitals were stable today. Vital Signs: as charted P: Discussed the above symptoms and assessment with Dr. Arce who stepped in and looked at the foot. X-ray ordered today. Dr. Arce let the know that it looked chronic nothing acute. The voiced understanding, is in agreement with the plan and has no further questions or complaints at this time. The ambulated to the exit in satisfactory manner. RTC: as needed /chio/ Ileana Parekh RN,[facility]UPINDER [place] Signed: 12/08/2023 16:28 Receipt Acknowledged By: 12/08/2023 16:40 /chio/ Latisha Arce MD [place] [facility] 12/08/2023 ADDENDUM STATUS: COMPLETED The reports that he has been using 16-18 units of insulin three times a day for over a year and would like his prescription to be changed to reflect this. The reports I run out of insulin at times. INSULIN ASPART (EQV-NOVOLOG) FLEXPEN INJ 100UNIT/ML INJECT 12 UNITS UNDER THE SKIN THREE TIMES A DAY BEFORE /jessica Parekh RN,[facility]UPINDER [place] Signed: 12/08/2023 16:36 ILEANA PAREKH
--- OUTSIDE RECORDS SUMMARY | 2023-12-25 05:00 | XMS_ITS | Encounter Summary ---
Author Name [facility] [place] [facility] [place] Address [address] [place] [address] Care Team Providers Care Regulatory Affairs Consultant Name Role Phone FILIBERTOLEONIDES PIZARRO Primary Care Provider Unavailabl e Insurance Providers: [...] PART A Dec 05, 2004 PART A [id number] MANJIT MUNROE PATIENT MEDICARE (WNR) MEDICARE (M) PART B Dec 05, 2004 PART B [id number] MANJIT MUNROE PATIENT MEDICARE (WNR) MEDICARE (M) PART A Dec 05, 2004 PART A [id number] MANJIT MUNROE PATIENT MEDICARE (WNR) MEDICARE (M) PART B Dec 05, 2004 PART B [id number] MANJIT MUNROE PATIENT MEDICARE (WNR) MEDICARE (M) PART A Dec 05, 2004 PART A [id number] MANJIT MUNROE PATIENT MEDICARE (WNR) MEDICARE (M) PART B Dec 05, 2004 PART B [id number] MANJIT MUNROE PATIENT MEDICARE (WNR) MEDICARE (M) PART A Dec 05, 2004 PART A [id number] MANJIT MUNROE PATIENT MEDICARE (WNR) MEDICARE (M) PART B Dec 05, 2004 PART B [id number] MANJIT MUNROE PATIENT MEDICARE PART D (WNR) MEDICARE (M) PART D Jun 04, 2012 PART D [id number] MANJIT MUNROE PATIENT MEDICARE PART D (WNR) MEDICARE (M) PART D Jun 04, 2012 PART D [id number] MANJIT MUNROE PATIENT Selected Encounter This section includes the information on record at [place] for the Encounter. Date/Time Encounter Type Encounter Description Reason Provider Source Dec 25, 2023 10:00 AM OFFICE O/P EST MOD 30 MIN PRIMARY CARE/MEDICINE ICD-10-CM E11.9 Type 2 diabetes mellitus without complications FILIBERTOTAMM Y IHE Encounter Template Text not used by [facility] Assessments - Encounter Diagnoses This section includes the primary and secondary diagnoses documented for the Encounter. Date/Time Primary/Secondary Diagnosis Diagnosis Name Provider Source Dec 25, 2023 11:09 AM PRIMARY Type 2 diabetes mellitus without complications FILIBERTO,[facility] [place] [facility] Dec 25, 2023 11:09 AM SECONDARY Alcohol abuse, uncomplicated FILIBERTO,[facility] [place] [facility] Dec 25, 2023 11:09 AM SECONDARY Allergic rhinitis, unspecified FILIBERTO,[facility] [place] [facility] Dec 25, 2023 11:09 AM SECONDARY Anxiety disorder, unspecified FILIBERTO,[facility] [place] [facility] Dec 25, 2023 11:09 AM SECONDARY Arthralgia of temporomandibular joint, unspecified side FILIBERTO,[facility] [place] [facility] Dec 25, 2023 11:09 AM SECONDARY Autonomic neuropathy in diseases classified elsewhere FILIBERTO,[facility] [place] [facility] Dec 25, 2023 11:09 AM SECONDARY Basal cell carcinoma of skin of unspecified parts of face FILIBERTO,[facility] [place] [facility] Dec 25, 2023 11:09 AM SECONDARY Benign neoplasm of unspecified adrenal gland FILIBERTOTANISHA [place] [facility] Dec 25, 2023 11:09 AM SECONDARY Benign prostatic hyperplasia without lower urinry tract symp FILIBERTO,[place] [place] [facility] Dec 25, 2023 11:09 AM SECONDARY Bilateral primary osteoarthritis of knee FILIBERTO,[facility] [place] [facility] Dec 25, 2023 11:09 AM SECONDARY Calculus of gallbladder w/o cholecystitis w/o obstruction FILIBERTO,[facility] [place] [facility] Dec 25, 2023 11:09 AM SECONDARY Carpal tunnel syndrome, unspecified upper limb FILIBERTO,[facility] [place] [facility] Dec 25, 2023 11:09 AM SECONDARY Cervicalgia FILIBERTO,[facility] [place] [facility] Dec 25, 2023 11:09 AM SECONDARY Charcot's joint, unspecified ankle and foot FILIBETRO,[facility] [place] [facility] Dec 25, 2023 11:09 AM SECONDARY Chronic obstructive pulmonary disease, unspecified FILIBERTO,[facility] [place] [facility] Dec 25, 2023 11:09 AM SECONDARY Contact with and exposure to other hazardous substances FILIBERTO,[facility] [place] [facility] Dec 25, 2023 11:09 AM SECONDARY Dysphonia FILIBERTO,[facility] [place] [facility] Dec 25, 2023 11:09 AM SECONDARY Essential (primary) hypertension [facility] [place] [facility] Dec 25, 2023 11:09 AM SECONDARY Gastro-esophageal reflux disease without esophagitis FILIBERTO,[facility] [place] [facility] Dec 25, 2023 11:09 AM SECONDARY Hyperlipidemia, unspecified FILIBERTO,[facility] [place] [facility] Dec 25, 2023 11:09 AM SECONDARY Major depressive disorder, recurrent, moderate FILIBERTO,[facility] [place] [facility] Dec 25, 2023 11:09 AM SECONDARY Other amnesia FILIBERTO,[facility] [place] [facility] Dec 25, 2023 11:09 AM SECONDARY Other intervertebral disc degeneration, lumbar region FILIBERTO,[facility] [place] [facility] Dec 25, 2023 11:09 AM SECONDARY Other peripheral vertigo, bilateral FILIBERTO,[place]ANISHAM [place] [facility] Dec 25, 2023 11:09 AM SECONDARY Polyp of colon [facility] [place] [facility] Dec 25, 2023 11:09 AM SECONDARY Post-traumatic stress disorder, chronic [facility] [place] [facility] Dec 25, 2023 11:09 AM SECONDARY Segmental and somatic dysfunction of cervical region [facility] [place] [facility] Dec 25, 2023 11:09 AM SECONDARY Solitary pulmonary nodule [facility] Dec 25, 2023 11:09 AM SECONDARY Tinnitus, bilateral [facility] [place] [facility] Dec 25, 2023 11:09 AM SECONDARY Tremor, unspecified [facility] [place] [facility] Dec 25, 2023 11:09 AM SECONDARY Unilateral primary osteoarthritis, right knee [facility] [place] [facility] Dec 25, 2023 11:09 AM SECONDARY Unsp disorder of synovium and tendon, right ankle and foot [facility] [place] [facility] Dec 25, 2023 11:09 AM SECONDARY Unspecified chronic gastritis without bleeding [facility] [place] [facility] Dec 25, 2023 11:09 AM SECONDARY Unspecified hearing loss, bilateral [facility] [place] [facility] Plan of Treatment: Future Appointments (+ 6 months) and Future Tests (+/- 45 days) The Plan of Treatment section includes future care activities for the patient from all [place] treatmentcilities. This section includes future appointments and future orders which are active, pending or scheduled. Future Appointments This section includes appointments that were scheduled to occur 6 months from the date of the Encounter, up to a maximum of 20 appointments. The data comes from all [place] treatment facilities. Appointment Date/Time Appointment Type Appointme nt Facility Name Dec 29, 2023 02:30 PM [facility] [place] Dec 29, 2023 03:30 PM AMBULATORY - MEDICINE [facility] Dec 30, 2023 02:30 PM [facility] [place] [facility] 2024 03:30 PM AMBULATORY - MEDICINE [facility] Jan 12, 2024 03:30 PM AMBULATORY - MEDICINE [facility] Jan 19, 2024 03:30 PM [facility] [place] [facility] [facility] Jan 27, 2024 03:30 PM [facility] [place] [facility] [place] [facility] Feb 02, 2024 03:15 PM [facility] [place] [facility] [place] [facility] Feb 02, 2024 03:30 PM [facility] [place] [facility] [place] [facility] Feb 16, 2024 03:30 PM [facility] [place] [facility] Feb 23, 2024 03:30 PM [facility] [place] [facility] Mar 16, 2024 01:45 PM [facility] [place] [facility] Mar 18, 2024 02:00 PM [facility] [place] [facility] [facility] Apr 07, 2024 01:30 PM [facility] [place] [facility] May 03, 2024 03:30 PM [facility] [place] [facility] [place] [facility] May 04, 2024 08:15 AM [facility] [place] [facility] May 10, 2024 03:30 PM [facility] [place] [facility] [place] [facility] May 30, 2024 02:00 PM AM[facility]ORY - [facility] Jun 07, 2024 03:30 PM [facility] [place] [facility] [facility] Jun 14, 2024 03:30 PM AMBULATORY - MEDICINE [facility] Lab Results: +/- 30 days of the encounter This section includes the Chemistry and Hematology Lab Results on record with [place] for the patient. Radiology Reports and Pathology Reports are provided separately, in subsequent sections. Lab Results This section contains the Chemistry/Hematology Results that were resulted 30 days before or 30 daysafter the date of the Encounter. Date/Time Source Result Type Result - Unit Interpretation Reference Range Specimen Type Comment Dec 18, 2023 08:45 AM [facility] HGA1C BLOOD Specimen Type: BLOOD No comment entered. Ordering Provider: LEONIDES DE LOS SANTOS Report Released Date/Time: Dec 30, 2022 09:51 AM Reporting Lab: [place] [facility] [address] [place] [address] Performing Lab: [place] [facility] [address] [place] [address] HGA1C 7.0 H 4.0-6.0 Dec 18, 2023 08:45 AM [facility] CHOLESTEROL PANEL (PB) PLASMA Specimen Type: P LASMA No comment entered. Ordering Provider: LEONIDES DE LOS SANTOS Report Released Date/Time: Dec 30, 2022 09:51 AM Reporting Lab: [place] [facility] [address] [place] [address] Performing Lab: [place] [facility] [address] [place] [address] CHOLESTEROL 134 mg/dL 0-200 TRIGLYCERIDE 106 mg/dL 0-150 CALCULATED LDL 68.8 mg/dL HDL(New) 44.0 mg/dL H >40 HDL % OF TOTAL CHOLESTEROL (PB) 32.8 >25 Dec 18, 2023 08:45 AM [facility] COMPREHENSIVE METABOLIC PANEL PLASMA Specimen Type: PLASMA No comment entered. Ordering Provider: LEONIDES DE LOS SANTOS Report Released Date/Time: Dec 30, 2022 09:51 AM Reporting Lab: [place] [facility] [address] [place] [address] Performing Lab: [place] [facility] [address] [place] [address] CREATININE 0.93 mg/dL 0.7-1.3 UREA NITROGEN 12 [...] EGFR (CKD-EPI 2020) 88 Dec 18, 2023 08:45 AM [facility] TSH (MA-PB) SERUM Specimen Typ e: SERUM No comment entered. Ordering Provider: LEONIDES DE LOS SANTOS Report Released Date/Time: Dec 30, 2022 09:51 AM Reporting Lab: [place] [facility] [address] [place] [address] Performing Lab: [place] [facility] [address] [place] [address] TSH 2.380 u[IU]/mL 0.47-5 Dec 18, 2023 08:44 AM [facility] URINE ALBUMIN PROFILE-ih (PB) URINE Specimen Type: URINE No comment entered. Ordering Provider: LEONIDES DE LOS SANTOS Report Released Date/Time: Dec 30, 2022 09:51 AM Reporting Lab: [place] [facility] [address] [place] [facility] Performing Lab: [place] [facility] [address] [place] [id number] URINE ALBUMIN (PB-STL) 5.80 mg/L 0-30 uACR (PB-MA) 4.45 ug/mg CREATININE URINE/OTHERS 130.23 mg/dL Dec 18, 2023 08:44 AM [facility] BLOOD Specimen Type: BLOOD No comment entered. Ordering Provider: LEONIDES DE LOS SANTOS Report Released Date/Time: Dec 30, 2022 09:51 AM Reporting Lab: [place] [facility] [address] [place] [id number] Performing Lab: [place] [facility] [address] [place] [address] WBC 6.2 10*3/uL 3.6-11.2 RBC 4.43 10*6/uL [...] Height Weight Body Mass Index Source Dec 25, 2023 10:10 AM 98.5 82 131/89 19 95 4 71.0 242.7 34 [facility] Social History: Smoking Status (Most current) and Tobacco Use (All prior to encounter date) This section includes the most current, and the historical, smoking and tobacco- related health factors from the [place] facility where the Encounter took place. Current Smoking Status This section includes the most current smoking, or tobacco-related health factor, from the [place] facility where the Encounter took place. Date/Time Current Smoking Status Comment Facil ity Dec 25, 2023 10:00 AM VA-TOBACCO QUIT 5 TO < 15 YRS [facility] Tobacco Use History This section includes a history of the smoking, or tobacco-related health factors, that were collected on or before the date of the Encounter. The data comes from the [place] facility where the Encounter took place. Date/Time Smoking Status/Tobacco Use Comment F acility Dec 25, 2023 10:00 AM VA-TOBACCO QUIT 5 TO < 15 YRS [place] [facility] Dec 30, 2022 09:30 AM VA-TOBACCO FORMER USER [facility] Dec 30, 2022 09:30 AM VA-TOBACCO QUIT 15 YRS OR MORE [place] [facility] Jan 07, 2022 01:00 PM VA-TOBACCO FORMER USER [place] [facility] Jan 07, 2022 01:00 PM VA-TOBACCO QUIT 15 YRS OR MORE [place] [facility] Jan 08, 2021 01:00 PM VA-TOBACCO FORMER USER [place] [facility] Jan 08, 2021 01:00 PM VA-TOBACCO QUIT 15 YRS OR MORE [place] [facility] Jan 10, 2020 01:00 PM VA-TOBACCO FORMER USER [place] [facility] Jan 10, 2020 01:00 PM VA-TOBACCO QUIT 5 TO < 15 YRS [place] [facility] Apr 19, 2018 02:57 PM VA-TOBACCO FORMER USER [facility] Apr 19, 2018 02:57 PM VA-TOBACCO QUIT 15 YRS OR MORE [facility] Sep 05, 2015 02:32 PM QUIT TOBACCO >7 YEARS AGO [facility] Radiology Reports: +/- 30 days of [...] the Encounter. The data comes from all [place] treatment facilities. Date/Time Radiology Report Provider Source Dec 25, 2023 10:21 AM CHEST X-RAY, 2 VIE WS: MANJIT MUNROE [id number] -1950 M Exm Date: DEC 25, 2023@10:21 Req Phys: LEONIDES DE LOS SANTOS Loc: [facility] PA[facility] ECHO PCP (Req'g Lo Img Loc: -XRAY [place] Service: [place] [address] (Case [id number] COMPLETE) CHEST X-RAY, 2 VIEWS (RAD Detailed) CPT:34986 Reason for Study: cough Clinical History: Report Status: Verified Date Reported: DEC 25, 2023 Date Verified: DEC 25, 2023 A R Collections Rep E-Sig: Report: PA and lateral views of the chest reveal moderate degenerative skeletal changes and mild bilateral pulmonary hyperaeration. There is no infiltrate or effusion. Heart size is normal. Impression: No acute process Primary Interpreting Staff: ROSALINA HANDY, RADIOLOGIST (A R Collections Rep, no e-sig) /rld ROSALINA HANDY [facility] Dec 08, 2023 04:04 PM TOE(S) 2 OR MORE V IEWS: MANJIT MUNROE [id number] -1950 M Exm Date: DEC 08, 2023@16:04 Req Phys: LEONIDES DE LOS SANTOS Loc: [facility] PA[facility] ECHO JUSTIN (Req'g Lo Img Loc: [facility] Service: [place] [address] (Case [id number] COMPLETE) TOE(S) 2 OR MORE VIEWS (RAD Detailed) CPT:95216 Proc Modifiers : LEFT Reason for Study: swelling in L 2nd toe Clinical History: swelling x 4 days Report Status: Verified Date Reported: DEC 08, 2023 Date Verified: DEC 08, 2023 A R Collections Rep E-Sig: Report: Multiple views of the left [...] abnormality Primary Interpreting Staff: ROSALINA HANDY, RADIOLOGIST (A R Collections Rep, no e-sig) /[facility] Dec 03, 2023 01:38 PM MRI KNEE RIGHT: MANJIT MUNROE [id number] -1950 M Exm Date: DEC 03, 2023@13:38 Req Phys: LEONIDES DE LOS SANTOS Pat Loc: OUTSIDE [facility] (Req'g Loc) Img Loc: OUTSIDE [facility] Service: Unknown (Case [id number] COMPLETE) MRI KNEE RIGHT (MRI Detailed) CPT:13377 Reason for Study: Exam imported from outside Clinical History: Original Data for Imported Study Patient Name: MANJIT MUNROE Date: 1950 Sex: M Study Date: 12/03/23 Study Time: 01:38:50 Study Description: MR knee RT wo con* [id number] Referring Physician: UNKNOWN, UNKNOWN Series 1: 1 NV file, description: FUJI Presentation State - SNAPSHOT [...] VERIFIED BY: / *ELECTRONICALLY FILED* NERY ARECHIGA [facility] Encounter Notes: All associated encounter notes This section contains the clinical notes associated to the Encounter. Date/Time Encounter Note(s) Provider Source Dec 25, 2023 10:12 AM PRIMARY CARE PROGRESS NOTE: LOCAL TITLE: PRIMARY CARE CLINIC PROGRESS NOTE PB STANDARD TITLE: PRIMARY CARE PROGRESS NOTE DATE OF NOTE: DEC 25, 2023@10:12 ENTRY DATE: DEC 25, 2023@10:12:48 AUTHOR: LEONIDES DE LOS SANTOS EXP COSIGNER: URGENCY: STATUS: COMPLETED PRIMARY CARE CLINIC PROGRESS NOTE PB Has ADDENDA SUBJECTIVE: MANJIT MUNROE is a 73 years old MALE. HPI: Presents to the clinic today for a periodic health maintenance visit. Last seen September 27, 2023 for hospital follow-up for pneumonia. He reports that his having increased sinus drainage along with increased cough and congestion been coughing up some yellow phlegm usually in the morning. He denies any fevers. He is being followed by orthopedist on his right knee is getting synovial injection next week is wearing a brace on it now to help with balance. He has been falling more frequently he is set up to see the neurosurgeon next week in [place] regarding his lumbar radiculopathy. MRI 09/24/2023 shows diffuse prominent epidural fat throughout the lumbar spine in the mid to moderate narrowing of the thecal sac with crowding of the cauda equina and a roots L2-L5 moderate narrowing of L3-4 L4-5 right paracentral disc extrusion L4-5 severe right L5-S1 foraminal narrowing with impingement on the right L4 V nerve root left foraminal protrusion L4-5 with moderate left foraminal narrowing impingement on the exiting left L4 nerve root Non-VA Primary Care Provider none Specialty Services Neurologist, Dr. Costa Retail Salesperson, [facility], Dr. Longoria Orthopedist, Dr. 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 JOB/DUTIES: [employer] OVERSEAS STATIONS/DEPLOYMENTS: no MAJOR ACCIDENTS OR INJURIES WHILE ON ACTIVE DUTY: SURGICAL HX: appendectomy colonoscopy 2016- normal Cataracts bilaterally CTS Problem List 1) Type 2 diabetes mellitus 2) Neuropathy 3) HTN - Hypertension 4) HLD - Hyperlipidemia 5) Chronic gastritis 6) Allergic rhinitis 7) Anxiety 8) Depression 9) Glaucoma 10) Degeneration of lumbar intervertebral disc 11) Cervical segmental dysfunction 12) Shoulder pain 13) Chronic post-traumatic stress disorder following combat 14) Vertigo 15) Tinnitus 16) Hearing loss 17) COPD - Chronic obstructive pulmonary disease 18) Tremor 19) Poor short-term memory 20) Benign Prostatic Hypertrophy without Outflow Obstruction ([facility] [id number]) 21) Alcohol Abuse ([facility] [id number]) 22) Charcot's joint of foot 23) Temporomandibular zdpzz-vmab-wymxcavrqhl syndrome 24) Solitary nodule of lung 25) Carpal tunnel syndrome 26) Ulnar neuropathy 27) Basal cell carcinoma of face 28) Polyp Colon (SCT [id number]) 29) Adrenal adenoma 30) Tenosynovitis of right ankle 31) Osteoarthritis of right knee joint 32) Cervicalgia 33) Exposure to potentially hazardous substance 34) Dysphonia 35) GERD - Gastro-Esophageal Reflux Disease ([facility] [id number]) 36) Bilateral osteoarthritis of knees 37) Cholelithiasis 38) Esophageal dysphagia Active Outpatient Medications (including Supplies): Active Outpatient [...] TO PROVIDE ADEQUATE BENEFITS) 6) GLUCOSE SENSOR [employer] JEFE 2 USE SENSOR EVERY ACTIVE 2 WEEKS FOR CONTINUOUS GLUCOSE MONITORING. CHANGE SENSOR/SITE EVERY 14 DAYS. CONTACT [facility]UST[facility] AT ([phone]) FOR REPLACEMENT OF DAMAGED/MALFUNCTIONING SENSORS 7) HYDRALAZINE [...] WITH INSULIN 10) INSULIN,ASPART(EQV-NOVLG)100UN /ML FLXPEN INJECT 18 ACTIVE UNITS UNDER THE SKIN THREE TIMES A DAY BEFORE MEALS FOR DIABETES FOR BLOOD SUGAR CONTROL. ADMINISTER 10 MINUTES [...] ACTIVE 12 HOURS NEEDED 21 Total Medications Allergies: BUPROPION, DORZOLAMIDE, VENLAFAXINE Review of Systems: as per HPI and Systemic: Denies fatigue, fever, chills, or weight loss CV: Denies chest pain, palpitations Pulmonary: Denies hemoptysis, Shortness of breath, dyspnea on exertion GI: Denies constipation, bloody stools, diarrhea, indigestion, or n/v Ext: Denies any swelling Neuro: Denies slurred speech or dizziness Skin: Denies abnormal lesions; denies any new rashes PSYCH: Denies SI/HI; denies nightmares OBJECTIVE: Vital Signs Temperature: 98.5 F [36.9 C] (12/25/2023 10:10) Respiratory Rate: 19 (12/25/2023 10:10) Pulse Rate: 82 (12/25/2023 10:10) Blood Pressure: 131/89 (12/25/2023 10:10) HT: 71.0 in [180.3 cm] (12/25/2023 10:10) WT: 242.7 lb [110.09 kg] (12/25/2023 10:10) BMI: 33.9 95% (12/25/2023 10:10) Physical Exam General: NAD noted, A&Ox3, pleasant, appears stated age HEENT: NCAT, TM's clear, nares and oropharynx clear Neck: Supple with normal active ROM, without any lymphadenopathy Heart: RRR, no murmur, clicks, or rub Resp: Lungs coarse bibasilar rales more so on the right, respirations even with a wet cough. Ext: No clubbing, cyanosis, edema or obvious deformity Skin: Warm, pink, and dry, no rashes Neuro: Grossly intact Psych: Affect normal, answers questions appropriately throughout visit A/P: ASSESSMENT and PLAN Health Maintenance: Labs reviewed with patient and printout given to patient. Discussed preventative health to include diet and exercise as well as immunizations. Type 2 diabetes mellitus- stable on Lantus insulin 20 units in the am Novolog sliding scale; before meals BS < 90 3 units 90-149 5 units 150-199 9 units 200-249 12 units 250-299 15 units >300 18 units Neuropathy- severe- sees Dr. Cosat intolerant to zonisamide, doing better on the pregabalin, but still having pain. Will increase the pregabalin to 150mg BID. He is getting some relief with BFA. Will continue with the tramadol prn, but hopeful the increase pregabalin and BFA will decrease the need. Lumbar radiculopathy-appointment next week with neurosurgery in [place] [facility] foot- Right- followed by podiatry Tremor- right arm- followed by neuro Memory loss- followed by neuro HTN - controlled on amlodipine, hydralazine, HCTZ, lisinopril, metoprolol; Hyperlipidemia- restart atorvastatin Chronic gastritis- stable on omeprazole Allergic rhinitis- stable on loratadine and Flonase Depression/anxiety- on Cymbalta for the anxiety and the pain as well as working on pain control. Chronic pain due to Degeneration of lumbar intervertebral disc/Cervical segmental dysfunction- stable; on pregabalin; he has participated and BFA with minimal improvement of about 10% Chronic post-traumatic stress disorder following combat with occ anxiety especially when around a lot of people, stable on Lexapro followed by Dr. Chapman vertigo- chronic stable Tinnitus/Hearing loss- stable COPD -stable on Symbicort Alcohol abuse- seeing BPH- on Flomax and Proscar. ED- Viagra prn Left TMJ- stable Basal Cell Cancer face- followed by dermatology Glaucoma- followed by Dr. Neves in [place] Chronic diarrhea- stable Polyp Colon- normal colonoscopy 2021 GERD/Esophageal dysphagia-on omeprazole Dysphonia-workup with ENT felt to be related to GERD Solitary nodule of lung- due for repeat chest CT in July 2023; if no change then this will be the last CT Recent right knee injury- followed by orthopedist Exposure to potentially hazardous substance Cholelithiasis without obstruction-stable Stable. Discussed medications with patient; med rec completed. Continue current regimen as prescribed by PCP and specialists. RTC as needed if developing any new or worsening symptoms. Please notify PACT with medication changes or for orders coordination as needed if seen by a specialist in the future. Will f/u with patient once updated labs / imaging / testing received; otherwise f/u as listed below. Follow-up: 6 months with fasting labs prior to appointment and/or as needed. Discussed with patient that in the event of community imaging / testing being ordered in the future, once the imaging / testing has been completed, please notify PACT of completion at outside facility if not called with results within 1 week by a [facility] member; this is due to intermittent lapses in notification of imaging completion within [facility]. All questions answered; agrees to plan of care. Follow up as listed above, annually, and as needed. Keep all appointments. Medications Reconciled. See AVS given to . Time spent 30 minutes. /MD Germán Ramirez [facility] Signed: 12/25/2023 11:08 12/29/2023 ADDENDUM STATUS: COMPLETED Patient reports he saw typing pool supervisor they then increased his lisinopril to 40 mg daily. /MD Germán Ramirez [facility] Signed: 12/29/2023 16:15 01/08/2024 ADDENDUM STATUS: COMPLETED Reviewed neurosurgical note from 01/04/2024 patient nonsurgical candidate due to his multiple comorbidities recommended physical therapy and pain management/tramadol. /MD Germán Ramirez [facility] Primary Care Signed: 01/08/2024 14:52 LEONIDES DE [facility] Dec 25, 2023 09:58 AM PRIMARY CARE NURSING NOTE: LOCAL TITLE: PRIMARY CARE NURSING PROGRESS NOTE (TEXT) NURSING P STANDARD TITLE: PRIMARY CARE NURSING NOTE DATE OF NOTE: DEC 25, 2023@09:58 ENTRY DATE: DEC 25, 2023@09:58:52 AUTHOR: DELGADO MOSCOSOIGNER: URGENCY: STATUS: COMPLETED Established Patient MANJIT MUNROE IS A 73 YEAR OLD MALE BEING SEEN IN CLINIC DEC 25, 2023. REASON FOR VISIT: here for 6 month follow up Are you receiving care any where other than the [place]? No HEALTH AND SURGICAL HISTORY: Does patient report using home oxygen? No CURRENT ACTIVE MEDICATIONS FOR REVIEW: Allergies/ADRs (Tool #5) FACILITY ALLERGY/ADR -------- [facility] MEDICAL BUPROPION [facility] MEDICAL DORZOLAMIDE [facility] V[facility]LAFAXINE [facility] BUPROPION [facility] DORZOLAMIDE [facility] VENLAFAXINE Med. Reconciliation (Tool #1) INCLUDED IN THIS LIST: Alphabetical list of active outpatient prescriptions dispensed from this [place] (local) and dispensed from another [place] or [facility] facility (remote) as well as inpatient orders (local pending and active), local clinic medications, locally documented non-VA medications, and local prescriptions that have or been discontinued in the past 90 days. Non-VA Meds Last Documented On: Jul 15, 2021 NOTE The display of VA prescriptions dispensed from another [place] or [facility] facility (remote) is limited to active outpatient prescription entries matched to National Drug File at the originating site and may not include some items such as investigational drugs, compounds, etc. NOT INCLUDED IN THIS LIST: Medications self-entered by the patient into personal health records (i.e. [employer]) are NOT included in this list. Non-VA medications documented outside this VA, remote inpatient orders (regardless of status) and remote clinic medications are NOT included in this list. The patient and provider must always discuss medications the patient is taking, regardless of where the medication was dispensed or obtained. OUTPT ALBUTEROL 90MCG (CFC-F) 200D ORAL INHL (Status = Active) INHALE 2 PUFFS ORAL INHALATION FOUR TIMES A DAY NEEDED FOR COPD SHAKE WELL. RINSE MOUTHPIECE FREQUENTLY TO PREVENT CLOGGING. Rx# [id number] Last Released: 06/05/23 Qty/Days Supply: Rx Expiration Date: 06/02/24 Refills Remainin Indication: FOR COPD OUTPT AMLODIPINE BESYLATE 10MG TAB (Status = Discontinued) TAKE ONE TABLET BY MOUTH ONCE A DAY FOR HEART/BLOOD PRESSURE Rx# [id number] Last Released: 08/27/23 Qty/Days Supply: Rx Expiration Date: 04/15/24 Refills Remainin OUTPT ATORVASTATIN CALCIUM 40MG TAB (Status = Active) TAKE ONE TABLET BY MOUTH EVERY EVENING FOR HIGH CHOLESTEROL Rx# [id number] Last Released: 11/25/23 Qty/Days Supply: Rx Expiration Date: 11/24/24 Refills Remainin Indication: FOR HIGH CHOLESTEROL OUTPT ATORVASTATIN CALCIUM 80MG TAB (Status = Discontinued) TAKE ONE-HALF TABLET BY MOUTH EVERY EVENING FOR HIGH CHOLESTEROL Rx# [id number] Last Released: 10/28/23 Qty/Days Supply: Rx Expiration Date: 10/27/24 Refills Remainin Indication: FOR HIGH CHOLESTEROL OUTPT BRIMONIDINE TARTRATE 0.2% OPH SOLN (Status = ) INSTILL 1 DROP IN BOTH EYES TWICE A DAY FOR GLAUCOMA Rx# [id number] Last Released: 06/05/23 Qty/Days Supply: Rx Expiration Date: 09/26/23 Refills Remainin OUTPT CLOBETASOL PROPIONATE 0.05% CREAM (Status = Active) APPLY SPARINGLY TO AFFECTED AREA(S) TWICE DAILY NEEDED APPLY TO AFFECTED AREAS ON LEGS. NO MORE THAN TWO WEEKS OF THE MONTH. DO NOT USE ON FACE, GROIN, OR SKIN FOLDS. Rx# [id number] Last Released: 02/27/23 Qty/Days Supply: 60/30 Rx Expiration Date: 02/24/24 Refills Remainin OUTPT ESCITALOPRAM OXALATE 20MG TAB (Status = Discontinued) TAKE ONE TABLET BY MOUTH EVERY MORNING FOR DEPRESSION Rx# [id number] Last Released: 11/13/23 Qty/Days Supply: 90 Rx Expiration Date: 03/31/24 Refills Remainin Indication: FOR DEPRESSION OUTPT ESCITALOPRAM OXALATE 20MG TAB (Status = Active/Suspended) TAKE ONE TABLET BY MOUTH EVERY MORNING FOR DEPRESSION Rx# [id number] Last Released: Qt Supply: Rx Expiration Date: 11/17/24 Refills Remainin Indication: FOR DEPRESSION OUTPT FLUTICASONE PROP 50MCG 120D NASAL INHL (Status = Active) INSTILL 1 SPRAY IN EACH NOSTRIL ONCE A DAY FOR ALLERGIES (MUST BE USED DIRECTED FOR MINIMUM OF 21 DAYS TO PROVIDE ADEQUATE BENEFITS) Rx# [id number] Last Released: 06/05/23 Qty/Days Supply: Rx Expiration Date: 04/08/24 Refills Remainin OUTPT HYDRALAZINE HCL 25MG TAB (Status = Active) TAKE ONE TABLET BY MOUTH TWICE A DAY FOR BLOOD PRESSURE Rx# [id number] Last Released: 10/09/23 Qty/Days Supply: 180/ Rx Expiration Date: 03/27/24 Refills Remainin OUTPT HYDROCHLOROTHIAZIDE 25MG TAB (Status = Active) TAKE ONE TABLET BY MOUTH ONCE A DAY FOR BLOOD PRESSURE Rx# [id number] Last Released: 10/09/23 Qty/Days Supply: 90 Rx Expiration Date: 03/11/24 Refills Remainin OUTPT INSULIN,ASPART(EQV-NOVLG)100UN /ML FLXPEN (Status = Discontinued) INJECT 12 UNITS UNDER THE SKIN THREE TIMES A DAY BEFORE MEALS FOR BLOOD SUGAR CONTROL. ADMINISTER 10 MINUTES BEFORE FOOD DIRECTED. REFRIGERATE UN-OPENED PENS. DISCARD CARTRIDGE 28 DAYS AFTER OPENING. Rx# [id number] Last Released: 09/16/23 Qty/Days Supply: Rx Expiration Date: 06/16/24 Refills Remainin OUTPT INSULIN,ASPART(EQV-NOVLG)100UN /ML FLXPEN (Status = Active) INJECT 18 UNITS UNDER THE SKIN THREE TIMES A DAY BEFORE MEALS FOR DIABETES FOR BLOOD SUGAR CONTROL. ADMINISTER 10 MINUTES BEFORE FOOD DIRECTED. REFRIGERATE UN-OPENED PENS. DISCARD CARTRIDGE 28 DAYS AFTER OPENING. Rx# [id number] Last Released: 12/16/23 Qty/Days Supply: Rx Expiration Date: 12/11/24 Refills Remainin Indication: FOR DIABETES OUTPT INSULIN,GLARGINE-YFGN 100UNIT/ML INJ (Status = Active) INJECT 20 UNITS UNDER THE SKIN EVERY MORNING FOR DIABETES ADMINISTER AT SAME TIME EACH DAY DIRECTED. DISCARD ANY VIAL 28 DAYS AFTER OPENING. Rx# [id number] Last Released: 07/02/23 Qty/Days Supply: Rx Expiration Date: 06/29/24 Refills Remainin Indication: FOR DIABETES OUTPT LATANOPROST 0.005% OPH SOLN (Status = ) INSTILL 1 DROP IN BOTH EYES AT BEDTIME FOR GLAUCOMA. KEEP REFRIGERATED UNTIL READY TO USE, THEN STORE AT ROOM TEMPERATURE FOR MAXIMUM OF 42 DAYS. Rx# [id number] Last Released: 06/05/23 Qty/Days Supply: 7. Rx Expiration Date: 09/26/23 Refills Remainin OUTPT LISINOPRIL 40MG TAB (Status = Active) TAKE ONE-HALF TABLET BY MOUTH ONCE A DAY FOR HEART OR BLOOD PRESSURE Rx# [id number] Last Released: 11/13/23 Qty/Days Supply: 45 Rx Expiration Date: 03/04/24 Refills Remainin OUTPT LORATADINE 10MG TAB (Status = Active) TAKE ONE TABLET BY MOUTH ONCE A DAY ON EMPTY STOMACH FOR ALLERGIES Rx# [id number] Last Released: 09/07/23 Qty/Days Supply: 90 Rx Expiration Date: 12/30/23 Refills Remainin OUTPT MECLIZINE HCL 25MG CHEW TAB (Status = Active) CHEW AND SWALLOW ONE TABLET BY MOUTH EVERY 6 HOURS NEEDED FOR VERTIGO CHEWABLE TABLETS MAY BE CHEWED OR SWALLOWED WHOLE. MAY CAUSE DROWSINESS. Rx# [id number] Last Released: 10/09/23 Qty/Days Supply: 120/30 Rx Expiration Date: 04/08/24 Refills Remainin Indication: FOR VERTIGO OUTPT MELOXICAM 15MG TAB (Status = Discontinued) TAKE ONE TABLET BY MOUTH ONCE A DAY FOR PAIN Rx# [id number] Last Released: 10/09/23 Qty/Days Supply: 90 Rx Expiration Date: 11/28/23 Refills Remainin Indication: FOR PAIN OUTPT METOPROLOL TARTRATE 100MG TAB (Status = Active) TAKE ONE-HALF TABLET BY MOUTH TWICE A DAY FOR HEART/BLOOD PRESSURE. TAKE WITH OR IMMEDIATELY FOLLOWING FOOD. Rx# [id number] Last Released: 09/02/23 Qty/Days Supply: 90/90 Rx Expiration Date: 03/11/24 Refills Remainin OUTPT MIRTAZAPINE 30MG TAB (Status = Active) TAKE ONE TABLET BY MOUTH AT BEDTIME FOR DEPRESSION Rx# [id number] Last Released: 09/17/23 Qty/Days Supply: 9090 Rx Expiration Date: 09/15/24 Refills Remainin Indication: FOR DEPRESSION Non-VA MORPHINE SO4 15MG SA TAB TAKE ONE TABLET BY MOUTH EVERY 12 HOURS NEEDED Patient wants to buy from Non-VA pharmacy. Medication prescribed by Non-VA provider. OUTPT OMEPRAZOLE 20MG EC CAP (Status = Discontinued) TAKE ONE CAPSULE BY MOUTH TWICE A DAY TAKE ON AN EMPTY STOMACH Rx# [id number] Last Released: 08/27/23 Qty/Days Supply: 60/30 Rx Expiration Date: 05/04/24 Refills Remainin OUTPT OMEPRAZOLE 20MG EC CAP (Status = Active) TAKE ONE CAPSULE BY MOUTH TWICE A DAY TAKE ON AN EMPTY STOMACH Rx# [id number] Last Released: 12/21/23 Qty/Days Supply: 60/30 Rx Expiration Date: 10/12/24 Refills Remainin OUTPT PREGABALIN 150MG ORAL CAP (Status = Active) TAKE ONE CAPSULE BY MOUTH TWICE A DAY FOR NERVE PAIN *MAY CAUSE DROWSINESS* Rx# [id number] Last Released: 12/21/23 Qty/Days Supply: 60/30 Rx Expiration Date: 01/31/24 Refills Remainin Indication: FOR NERVE PAIN OUTPT TIMOLOL MALEATE 0.5% OPH SOLN (Status = ) INSTILL 1 DROP IN BOTH EYES TWICE A DAY FOR GLAUCOMA. Rx# [id number] Last Released: 06/05/23 Qty/Days Supply: Rx Expiration Date: 09/26/23 Refills Remainin OUTPT TIOTROPIUM 2.5MCG/ACTUAT 60D ORAL INHL (Status = Discontinued) INHALE 2 INHALATIONS BY MOUTH ONCE A DAY (ADMINISTER AT SAME TIME EACH DAY) FOR BREATHING. Rx# [id number] Last Released: 06/05/23 Qty/Days Supply: Rx Expiration Date: 09/26/23 Refills Remainin OUTPT TIOTROPIUM 2.5MCG/ACTUAT 60D ORAL INHL (Status = Active) INHALE 2 INHALATIONS BY MOUTH ONCE A DAY (ADMINISTER AT SAME TIME EACH DAY) FOR BREATHING. Rx# [id number] Last Released: 10/16/23 Qty/Days Supply: Rx Expiration Date: 10/14/24 Refills Remainin OUTPT TIZANIDINE HCL 4MG TAB (Status = Active) TAKE TWO TABLETS BY MOUTH AT BEDTIME FOR SPASTICITY Rx# [id number] Last Released: 10/31/23 Qty/Days Supply: Rx Expiration Date: 06/26/24 Refills Remainin Indication: FOR SPASTICITY SUPPLIES OUTPT GLUCOSE SENSOR FREESTYLE JEFE 2 (Status = Active) USE SENSOR EVERY 2 WEEKS FOR CONTINUOUS GLUCOSE MONITORING. CHANGE SENSOR/SITE EVERY 14 DAYS. CONTACT [facility] AT ([phone]) FOR REPLACEMENT OF DAMAGED/MALFUNCTIONING SENSORS Rx# [id number] Last Released: 12/11/23 Qty/Days Supply: Rx Expiration Date: 06/11/24 Refills Remainin OUTPT INSULIN SYRINGE 0.5ML 31G 8MM (Status = Active) USE SYRINGE UNDER THE SKIN ONCE A DAY FOR DIABETES TO USE WITH INSULIN Rx# [id number] Last Released: 07/09/23 Qty/Days Supply: 100/ Rx Expiration Date: 07/07/24 Refills Remainin Indication: FOR DIABETES PHARMACY TERMS AND POSSIBLE PATIENT ACTIONS INPT = [place] inpatient order IV = [place] intravenous medication OUTPT = [place] outpatient prescription PHARMACY POSSIBLE PATIENT TERMS EXPLANATION ACTIONS -------- -- ACTIVE A prescription that can be If you have refills, filled at the local [place] pharmacy. you may request a refill of this prescription from your [place] pharmacy. CLINIC A medication you received during If you have questions a visit to a [place] clinic or about this medication emergency department. contact your [place] healthcare team. DISCONTINUED A prescription your provider has Contact your VA stopped. It is no longer healthcare team if you available to be sent to you or need more of this picked up at the [place] pharmacy medication. window. A prescription which is too old Contact your VA to fill. This does not refer to healthcare team if you the expiration date of the need more of this medication in the container. medication. NON-VA A medication that came from If this medication someplace other than a VA information is pharmacy. This may be a incorrect or out of prescription from either the VA date, please tell your or non VA providers that was VA healthcare team. filled outside the VA. Or, it may be an [id number] (OTC), herbal, dietary supplements or sample medication. ON HOLD An active prescription that will Contact your VA not be filled until pharmacy pharmacy when you need resolves the issue. more of this medication. PARKED An active prescription that will Contact your VA not be filled until the patient pharmacy when you need requests it. this medication. PENDING This prescription order has been If you have been sent to the pharmacy for review instructed to start and is not ready yet. this medication now, contact your VA pharmacy. SUSPENDED An active prescription that is Contact your [place] not scheduled to be filled yet. pharmacy if you need You should receive it before this medication now. you run out. ====== Patient reports taking medications as ordered. IS PATIENT TAKING ANY OVER THE COUNTER MEDICATIONS, SUCH VITAMINS OR HERBAL SUPPLEMENTS, INCLUDING ANY MEDICATIONS PRESCRIBED BY ANOTHER PHYSICIAN? No ALLERGIES/ADVERSE REACTIONS: BUPROPION, DORZOLAMIDE, VENLAFAXINE Does patient have any new allergies to report since last visit? NO VITALS: TEMPERATURE: 97.8 F [36.6 C] (12/08/2023 16:06) BP: 120/80 (12/08/2023 16:06) RESP: 20 (12/08/2023 16:06) PULSE: 99 (12/08/2023 16:06) HT: 71 in [180.3 cm] (11/17/2023 09:30) WT: 245.2 lb [111.22 kg] (12/08/2023 16:06) BMI: 34.3 PAIN ASSESSMENT: (Most Recent Pain Score in Vitals Package: 4 (11/17/2023 09:30) ) The patient indicated that they and their close contacts have not traveled outside of the [place] in the past 21 days. The patient reports the following symptoms: No symptoms present The patient is not immunocompromised. The patient does not report having a history of Multi Drug Resistant Organism (MDRO) within the last five years. The patient does not report having been exposed to measles, chickenpox, or zoster in last 30 days. STRESS: Thank you for your service. Now let us serve you. At the [facility], we strive to provide you with exceptional health care that improves your health and well-being. Are you feeling sad, empty, or depressed? No Do you need to talk about things in your life that worry you or cause you stress? No Do you need to talk about personal problems, family problems, alcohol use, drug use, or mental or emotional illness? No SUICIDE SCREENING: The patient was asked, Over the past two weeks, how often have you been bothered by thoughts that you would be better off or of hurting yourself in some way? Not At All SPIRITUAL ASSESSMENT: Are there sabianism practices or spiritual concerns you want the cook camp, your physician, and other health care team members to immediately know about? No Patient advised to call the clinic for any concerns, questions, or symptoms. Patient and/or caregiver verbalized understanding of plan of care. Sexual Orientation: The patient thinks of their sexual orientation as: Straight or Heterosexual [facility] MAP: PERSONAL HEALTH PLAN INVENTORY & MAP [place]'s Response: getting in [place] Alcohol Use Screen (AUDIT-C): Alcohol Screen: SCREEN FOR ALCOHOL (AUDIT-C) An alcohol screening test (AUDIT-C) was negative (score=3). 1. How often did you have a drink containing alcohol in the past year? Consider a drink to be a 12 ounce can or bottle of regular beer, 8 ounces of malt liquor, a 5 ounce glass of table wine, or a 1.5 ounce shot of liquor (like scotch, gin, or vodka). Two to three times per week 2. How many drinks containing alcohol did you have on a typical day when you were drinking in the past year? One or two drinks 3. How often did you have six or more drinks on one occasion in the past year? Never Tobacco Use Screening: The patient is a former tobacco user. The patient quit five to less than fifteen years ago. Pain Assessment: - PAIN ASSESSMENT: .. This patient's last pain assessment score was: 4 (12/25/2023 10:10). A detailed pain assessment showed the following: Pain characteristics (per patient's own words) Constant Location of current pain Low Back Patient's self identified pain goal: 0 Weight Control/Nutrition Counseling: * The patient received the following counseling at this encounter: [facility] MAP: PERSONAL HEALTH PLAN /es/ VERONICA VARNER Signed: 12/25/2023 10:16 DELGADO MOSCOSO [place] VICKY
--- OUTSIDE RECORDS SUMMARY | 2024-03-18 09:00 | XMS_ITS | Encounter Summary ---
Author Name [facility] Organization [facility] Address [address] [place] [address] Care Team Providers Care Curator [employer] Name Role Phone FILIBERTOLEONIDES PIZARRO Primary Care [...] PART A Dec 05, 2004 PART A [id number] MANJIT MUNROE PATIENT MEDICARE (WNR) MEDICARE (M) PART B Dec 05, 2004 PART B [id number] MANJIT MUNROE PATIENT MEDICARE (WNR) MEDICARE (M) PART B Dec 05, 2004 PART B [id number] MANJIT MUNROE PATIENT MEDICARE (WNR) MEDICARE (M) PART A Dec 05, 2004 PART A [id number] MANJIT MUNROE PATIENT MEDICARE (WNR) MEDICARE (M) PART A Dec 05, 2004 PART A [id number] MANJIT MUNROE PATIENT MEDICARE (WNR) MEDICARE (M) PART B Dec 05, 2004 PART B [id number] MANJIT MUNROE PATIENT MEDICARE (WNR) MEDICARE (M) PART A Dec 05, 2004 PART A [id number] MANJIT MUNROE PATIENT MEDICARE (WNR) MEDICARE (M) PART B Dec 05, 2004 PART B [id number] MANJIT MUNROE PATIENT MEDICARE PART D (WNR) MEDICARE (M) PART D Jun 04, 2012 PART D [id number] MANJIT MUNROE PATIENT MEDICARE PART D (WNR) MEDICARE (M) PART D Jun 04, 2012 PART D [id number] MANJIT MUNROE PATIENT Selected Encounter This section includes the information on record at [place] for the Encounter. Date/Time Encounter Type Encounter Description Reason Provider Source Mar 18, 2024 02:00 PM OFFICE O/P EST LOW 20 [facility] - IND ICD-10-CM F33.42 Major depressive disorder, recurrent, in full remission TATUM CHAPMAN [facility] Encounter Template Text not used by ME Assessments - Encounter Diagnoses This section includes the primary and secondary diagnoses documented for the Encounter. Date/Time Primary/Secondary Diagnosis Diagnosis Name Provider Source Mar 18, 2024 02:16 PM PRIMARY Major depressive disorder, recurrent, in full remission TATUM CHAPMAN [facility] Plan of Treatment: Future Appointments (+ 6 months) and Future Tests (+/- 45 days) The Plan of Treatment section includes future care activities for the patient from all [place] treatmentfacilities. This section includes future appointments and future orders which are active, pending or scheduled. Future Appointments This section includes appointments that were scheduled to occur 6 months from the date of the Encounter, up to a maximum of 20 appointments. The data comes from all [place] treatment facilities. Appointment Date/Time Appointment Type Appointme nt Facility Name Apr 07, 2024 01:30 PM AMBULATORY - [facility]ICINE [facility] May 03, 2024 03:30 PM AMBULATORY - MEDICINE [facility] May 04, 2024 08:15 AM [facility] May 10, 2024 03:30 PM [facility] [place] [facility] [facility] May 30, 2024 02:00 PM [facility]ORY - [facility] Jun 07, 2024 03:30 PM AMBULATORY - MEDICINE [facility] Jun 14, 2024 03:30 PM [facility] Jun 15, 2024 09:00 AM AMBULATORY - MEDICINE [facility] Jun 21, 2024 10:00 AM AMBULATORY - MEDICINE [facility] Jun 29, 2024 08:00 AM [facility]ORY - [facility] [place] [facility] Jul 14, 2024 10:30 AM [facility]ORY [facility] Jul 19, 2024 03:30 PM AMBULATORY - MEDICINE [facility] Jul 26, 2024 03:30 PM AMBULATORY - MEDICINE [facility] Jul 27, 2024 09:45 AM [facility]ORY - [facility] [place] [facility] Jul 27, 2024 02:00 PM [facility]ORY - [facility] [place] [facility] Aug 02, 2024 03:30 PM AMBULATORY - MEDICINE [facility] August 09, 2024 03:30 PM AMBULATORY - MEDICINE [facility] August 16, 2024 03:30 PM AMBULATORY - MEDICINE [facility] August 23, 2024 02:40 PM AM[facility]ULATORY - MEDICINE [facility] [place] [facility] August 23, 2024 03:30 PM AMBULATORY - MEDICINE [facility] Vital Signs: All taken on the encounter date This section contains inpatient and outpatient Vital Signs collected on the date of the Encounter. Date/Time Temperature Pulse Blood Pressure Respiratory Rate SP02 Pain Height Weight Body Mass Index Source Mar 18, 2024 04:12 PM 153/73 [facility] Mar 18, 2024 02:11 PM 97.8 87 155/83 20 95 6 71 242.7 34 [facility] Social History: Smoking Status (Most current) and Tobacco Use (All prior to encounter date) This section includes the most current, and the historical, smoking and tobacco- related health factors from the [place] facility where the Encounter took place. Current Smoking Status This section includes the most current smoking, or tobacco-related health factor, from the [place] facility where the Encounter took place. Date/Time Current Smoking Status Comment Facil ity Dec 25, 2023 10:00 AM VA-TOBACCO QUIT 5 TO < 15 YRS [facility] Tobacco Use History This section includes a history of the smoking, or tobacco-related health factors, that were collected on or before the date of the Encounter. The data comes from the [place] facility where the Encounter took place. Date/Time Smoking Status/Tobacco Use Comment F acility Dec 25, 2023 10:00 AM VA-TOBACCO QUIT 5 TO < 15 YRS [facility] Dec 30, 2022 09:30 AM VA-TOBACCO FORMER USER [facility] Dec 30, 2022 09:30 AM VA-TOBACCO QUIT 15 YRS OR MORE [facility] Jan 07, 2022 01:00 PM VA-TOBACCO FORMER USER [facility] Jan 07, 2022 01:00 PM VA-TOBACCO QUIT 15 YRS OR MORE [facility] Jan 08, 2021 01:00 PM VA-TOBACCO FORMER USER [facility] Jan 08, 2021 01:00 PM VA-TOBACCO QUIT 15 YRS OR MORE [facility] Jan 10, 2020 01:00 PM VA-TOBACCO FORMER USER [facility] Jan 10, 2020 01:00 PM VA-TOBACCO QUIT 5 TO < 15 YRS [facility] Apr 19, 2018 02:57 PM VA-TOBACCO FORMER USER [facility] Apr 19, 2018 02:57 PM VA-TOBACCO QUIT 15 YRS OR MORE [facility] Sep 05, 2015 02:32 PM QUIT TOBACCO >7 YEARS AGO [facility] Encounter Notes: All associated encounter notes This section contains the clinical notes associated to the Encounter. Date/Time Encounter Note(s) Provider Source Mar 18, 2024 02:19 PM PRIMARY CARE EDUCA TION NOTE: LOCAL TITLE: OPT PHY INSTR AUTO PB STANDARD TITLE: PRIMARY CARE EDUCATION NOTE DATE OF NOTE: MAR 18, 2024@14:19 ENTRY DATE: MAR 18, 2024@14:19:40 AUTHOR: TATUM CHAPMAN COSIGNER: URGENCY: STATUS: COMPLETED This documentation is related to: . F/U Visit Description of Today's Injury/Illness: MH MED MGMT Mental Health Testing: None RETURN TO CLINIC: Return appointment is needed. ____ . Special Instructions: . None. MEDICATION REVIEW/ASSESSMENT & PLAN: 1. Continue medications 2. RTC 6 months Active Outpatient Medications (including Supplies): Active Outpatient [...] 20MG TAB TAKE ONE TABLET BY ACTIVE MOUTH EVERY MORNING FOR DEPRESSION 5) FINASTERIDE 5MG TAB TAKE ONE TABLET BY MOUTH ONCE A ACTIVE DAY FOR PROSTATE. SWALLOW WHOLE, DO NOT CRUSH, SPLIT, OR CHEW. 6) FLUTICASONE PROP 50MCG 120D NASAL INHL INSTILL 1 ACTIVE SPRAY IN EACH NOSTRIL ONCE A DAY FOR ALLERGIES (MUST BE USED DIRECTED FOR MINIMUM OF 21 DAYS TO PROVIDE ADEQUATE BENEFITS) 7) GLUCOSE SENSOR [employer] JEFE 2 USE SENSOR EVERY ACTIVE 2 WEEKS FOR CONTINUOUS GLUCOSE MONITORING. CHANGE SENSOR/SITE EVERY 14 DAYS. CONTACT [facility] CUSTOMER SERVICE AT ([id number]) FOR REPLACEMENT OF DAMAGED/MALFUNCTIONING SENSORS 8) HYDRALAZINE HCL 25MG TAB TAKE ONE TABLET BY MOUTH ACTIVE TWICE A DAY FOR BLOOD PRESSURE 9) HYDROCHLOROTHIAZIDE 25MG TAB TAKE ONE TABLET BY MOUTH ACTIVE ONCE A DAY FOR BLOOD PRESSURE 10) INSULIN SYRINGE 0.5ML 31G 8MM USE SYRINGE UNDER THE ACTIVE SKIN ONCE A DAY FOR DIABETES TO USE WITH INSULIN 11) INSULIN,ASPART(EQV-NOVLG)100UN/ ML FLXPEN INJECT 18 ACTIVE UNITS UNDER THE SKIN THREE TIMES A DAY BEFORE MEALS FOR DIABETES FOR BLOOD SUGAR CONTROL. ADMINISTER 10 MINUTES BEFORE FOOD DIRECTED. REFRIGERATE UN-OPENED PENS. DISCARD CARTRIDGE 28 DAYS AFTER OPENING. 12) INSULIN,GLARGINE-YFGN 100UNIT/ML INJ INJECT 20 UNITS ACTIVE UNDER THE SKIN EVERY MORNING FOR DIABETES ADMINISTER AT SAME TIME EACH DAY DIRECTED. DISCARD ANY VIAL 28 DAYS AFTER OPENING. 13) LISINOPRIL 40MG TAB TAKE ONE TABLET BY MOUTH ONCE A ACTIVE DAY FOR HIGH BLOOD PRESSURE 14) LORATADINE 10MG TAB TAKE ONE TABLET BY MOUTH ONCE A ACTIVE DAY ON EMPTY STOMACH FOR ALLERGIES 15) MECLIZINE HCL 25MG CHEW TAB CHEW AND SWALLOW ONE ACTIVE TABLET BY MOUTH EVERY 6 HOURS NEEDED FOR VERTIGO CHEWABLE TABLETS MAY BE CHEWED OR SWALLOWED WHOLE. MAY CAUSE DROWSINESS. 16) MIRTAZAPINE 30MG TAB TAKE ONE TABLET [...] BY MOUTH AT ACTIVE BEDTIME FOR SPASTICITY 21) TRAMADOL HCL 50MG TAB TAKE 1 TABLET BY MOUTH EVERY 4 ACTIVE HOURS NEEDED FOR MILD TO MODERATE PAIN Active Non-VA Medications Status 1) Non-VA MORPHINE SO4 15MG SA TAB 15MG BY MOUTH EVERY ACTIVE 12 HOURS NEEDED 22 Total Medications Medication reconciliation performed with confirmed /significant other and /significant other voiced an understandng of current medications? Yes Mcneal/significant other were provided an updated medication list. Following results reviewed and discussed with patient: None Future Appointments: 06/15/2024 09:00 [facility] ( 06/21/2024 10:00 [facility] PACT ECHO PCP 09/19/2024 14:00 [facility] IND [facility] PSI BRASS /chio/ TATUM Whalenhing [facility] Signed: 03/18/2024 14:20 [facility] Mar 18, 2024 02:16 PM NURSING NOTE: LOCAL TITLE: PCMHI/BHIP NURSING EXIT NOTE PB STANDARD TITLE: NURSING NOTE DATE OF NOTE: MAR 18, 2024@14:16 ENTRY DATE: MAR 18, 2024@14:16:56 AUTHOR: BEULAH VARGAS COSIGNER: URGENCY: STATUS: COMPLETED EXIT INTERVIEW Location: [facility] Ambulatory Appointment Reviewed: Instructions: CLINIC: Sent to Pharmacy for medications and instructions: Lab Instructions: Special Instructions: Verbalized understanding of today's visit: Patient Is patient's pain under control at time of exit? Yes Discussed walk-in and after-hour services. verbalized understanding. Encouraged to seek treatment if change in status. Contact information and hours of operation given. Mcneal voiced no questions or concerns, scheduling for his next appt. explained to was mailed on 03-11-24 and per tracking showed it was in [place] on the . Will call on Thursday and see if he received it. /chio/ GIANFRANCO GALLAGHER, RN [facility] Signed: 03/18/2024 16:23 BEULAH VARGAS [facility] Mar 18, 2024 02:10 PM NURSING PROGRESS N OTE: LOCAL TITLE: NURSING NOTE PB STANDARD TITLE: NURSING PROGRESS NOTE DATE OF NOTE: MAR 18, 2024@14:10 ENTRY DATE: MAR 18, 2024@14:10:35 AUTHOR: BEULAH VARGAS COSIGNER: URGENCY: STATUS: COMPLETED NURSING NOTE PB Has ADDENDA Jevon is here for his scheduled F2F psychiatry appt. He is alert and oriented, resps even and unlabored, gait steady and with use of a rollator walker. Mcneal is pleasant and conversational. States he has not been sleeping good d/t his neuropathy pain. He states he has been out of his Lyrica x3 weeks and has requested it to be refilled. This nurse stated she will have the med tracked and see where it is at. HTN Assess for Elevated BP>=140/90 - N,P,PH: Repeat blood pressure: 153/73 Pain Assessment: - PAIN ASSESSMENT: .. This patient's last pain assessment score was: 6 (03/18/2024 14:11). A detailed pain assessment showed the following: Pain characteristics (per patient's own words) Constant Location of current pain Low Back, Other-neuropathy pain Onset/Duration of the current pain. Constant or variable? More than a year Patient's self-identified pain level: 6 Commented feels like his back is going out. Mcneal was escorted to room 112 for his appt with Dr Chapman. /es/ GIANFRANCO GALLAGHER, RN [facility] Signed: 03/18/2024 16:21 03/21/2024 ADDENDUM STATUS: COMPLETED Mcneal was called this morning to see if he received his Lyrica over the weekend, he did. He thanked this nurse for calling. /chio/ GIANFRANCO GALLAGHER, RN [facility] Signed: 03/21/2024 08:26 BEULAH VARGAS [facility]
--- OUTSIDE RECORDS SUMMARY | 2024-05-30 09:00 | XMS_ITS | Encounter Summary ---
Author Name [facility] [place] [facility] [place] [facility] [facility] [place] Address [address] [place] [address] Care Team Providers Care Napper Tender Name Role Phone FILIBEROT LEONIDES Primary Care Provider Unavailabl e Insurance Providers: [...] PART A Dec 05, 2004 PART A [id number] MANJIT MUNROE PATIENT MEDICARE (WNR) MEDICARE (M) PART B Dec 05, 2004 PART B [id number] MANJIT MUNROE PATIENT MEDICARE (WNR) MEDICARE (M) PART B Dec 05, 2004 PART B [id number] [id number] MANJIT MUNROE PATIENT MEDICARE (WNR) MEDICARE (M) PART A Dec 05, 2004 PART A [id number] MANJIT MUNROE PATIENT MEDICARE (WNR) MEDICARE (M) PART A Dec 05, 2004 PART A [id number] MANJIT MUNROE PATIENT MEDICARE (WNR) MEDICARE (M) PART B Dec 05, 2004 PART B [id number] MANJIT MUNROE PATIENT MEDICARE (WNR) MEDICARE (M) PART A Dec 05, 2004 PART A [id number] MANJIT MUNROE PATIENT MEDICARE (WNR) MEDICARE (M) PART B Dec 05, 2004 PART B [id number] MANJIT MUNROE PATIENT MEDICARE PART D (WNR) MEDICARE (M) PART D Jun 04, 2012 PART D [id number] [id number] MANJIT MUNROE PATIENT MEDICARE PART D (WNR) MEDICARE (M) PART D Jun 04, 2012 PART D [id number] [id number] MANJIT MUNROE PATIENT Selected Encounter This section includes the information on [place] at [place] for the Encounter. Date/Time Encounter Type Encounter Description Reason Provider Source May 30, 2024 02:00 PM PSYTX W PT 60 [facility]ES [facility] - [facility] ICD-10-CM F43.12 Post-traumatic stress disorder, chronic ORIANA VELA Chanelle Encounter Template Text not used by [place] Assessments - Encounter Diagnoses This section includes the primary and secondary diagnoses documented for the Encounter. Date/Time Primary/Secondary Diagnosis Diagnosis Name Provider Source May 30, 2024 03:37 PM PRIMARY Post-traumatic stress disorder, chronic ORIANA VELA [facility] Plan of Treatment: Future Appointments (+ 6 months) and Future Tests (+/- 45 days) The Plan of Treatment section includes future care activities for the patient from all [place] treatmentfacilities. This section includes future appointments and future orders which are active, pending or scheduled. Future Appointments This section includes appointments that were scheduled to occur 6 months from the date of the Encounter, up to a maximum of 20 appointments. The data comes from all [place] treatment facilities. Appointment Date/Time Appointment Type Appointme nt Facility Name Jun 07, 2024 03:30 PM AMBULATORY - MEDICINE [facility] Jun 14, 2024 03:30 PM AMBULATORY - MEDICINE [facility] Jun 15, 2024 09:00 AM AMBULATORY - MEDICINE [facility] Jun 21, 2024 10:00 AM AMBULATORY - MEDICINE [facility] Jun 29, 2024 08:00 AM [facility] [place] [facility] Jul 14, 2024 10:30 AM [facility] Jul 19, 2024 03:30 PM [facility] [place] [facility] Jul 26, 2024 03:30 PM [facility] [place] [facility] [place] [facility] Jul 27, 2024 09:45 AM [facility] [place] [facility] [facility] Jul 27, 2024 02:00 PM [facility] [place] [facility] Aug 02, 2024 03:30 PM [facility] [place] [facility] August 09, 2024 03:30 PM [facility] [place] [facility] August 16, 2024 03:30 PM [facility] [place] [facility] August 23, 2024 02:40 PM [facility] - [facility] [place] [facility] August 23, 2024 03:30 PM [facility] [place] [facility] August 30, 2024 03:30 PM [facility] [place] [facility] Sep 06, 2024 03:30 PM [facility] [place] [facility] Sep 19, 2024 02:00 PM [facility] [place] [facility] Sep 21, 2024 08:45 AM [facility]ORY - [place]IC[place] [facility] Oct 04, 2024 03:30 PM AMBULATORY - MEDICINE [facility] Active, Pending, and Scheduled Orders This section includes a listing of several types of active, pending, and scheduled orders, including clinic medications orders, diagnostic test orders, procedure orders and consult orders; where the start date of the order is 45 days before the date of the Encounter or 45 days after the date of theEncounter. The data comes from all [place] treatment facilities. Test Date/Time Test Type Test Details Facility Name Jun 21, 2024 12:04 PM Consult Order [facility]-PAIN [id number] Cons [facility] Jul 07, 2024 02:34 PM Consult Order [facility]-DERMATOLOGY [id number] Cons [facility] Lab Results: +/- 30 days of the encounter This section includes the Chemistry and Hematology Lab Results on record with [place] for the patient. Radiology Reports and Pathology Reports are provided separately, in subsequent sections. Lab Results This section contains the Chemistry/Hematology Results that were resulted 30 days before or 30 daysafter the date of the Encounter. Date/Time Source Result Type Result - Unit Interpretation Reference Range Specimen Type Comment Jun 21, 2024 10:39 AM [facility] DRUG SCREEN URINE-inhouse (PB) URINE Specimen Type: URINE No comment entered. Ordering Provider: LEONIDES DE LOS SANTOS Report Released Date/Time: Jun 21, 2024 10:39 AM Reporting Lab: [place] [facility] [address] [place] [address] Performing Lab: [place] [facility] [address] [place] [address] METHADONE Negative Negative OPIATES (PB) Negative Negative COCAINE... Negative Negative THC(Marijuana... Negative Negative BENZODIAZEPINE (PB) Negative Negative AMPHETAMINE... Negative Negative CREATININE URINE/OTHERS 65.89 mg/dL OXYCODONE ([id number]) Negative Negati ve BUPRENORPHINE (STL-PB-MA) Negative ng/mL Negative ETHANOL URINE 42 mg/dL H 0-20 FENTANYL, URINE (PB) Negative ng/mL Jun 15, 2024 08:44 AM [facility] URINE ALBUMIN PROFILE-ih (PB) URINE Specimen Type: URINE Comment: Unable to calculate due to Microalbumin <5.0 mg/dL Ordering Provider: LEONIDES DE LOS SANTOS Report Released Date/Time: Dec 25, 2023 11:26 AM Reporting Lab: [place] [facility] [address] [place] [address] Performing Lab: [place] [facility] [address] [place] [address] URINE ALBUMIN (PB-STL) <5.00 mg/L L 0-30 uACR (PB-MA) comment ug/mg CREATININE URINE/OTHERS 75.94 mg/dL Jun 15, 2024 08:44 AM [facility] HGA1C BLOOD Specimen Type: BLOOD No comment entered. Ordering Provider: LEONIDES DE LOS SANTOS Report Released Date/Time: Dec 25, 2023 11:26 AM Reporting Lab: [place] [facility] [address] [place] [address] Performing Lab: [place] [facility] [address] [place] [address] HGA1C 6.9 H 4.0-6.0 Jun 15, 2024 08:44 AM [facility] CHOLESTEROL PANEL (PB) PLASMA Specimen Type: P CATRACHITA No comment entered. Ordering Provider: LEONIDES DE LOS SANTOS Report Released Date/Time: Dec 25, 2023 11:26 AM Reporting Lab: [place] [facility] [address] [place] [address] Performing Lab: [place] [facility] [address] [place] [address] CHOLESTEROL 140 mg/dL 0-200 TRIGLYCERIDE 191 mg/dL H 0-150 CALCULATED LDL 57.9 mg/dL HDL(New) 43.9 mg/dL H >40 HDL % OF TOTAL CHOLESTEROL (PB) 31.4 >25 Jun 15, 2024 08:44 AM [facility] COMPREHENSIVE METABOLIC PANEL PLASMA Specimen Type: PLASMA No comment entered. Ordering Provider: LEONIDES DE LOS SANTOS Report Released Date/Time: Dec 25, 2023 11:26 AM Reporting Lab: [place] [facility] [address] [place] [address] Performing Lab: [place] [facility] [address] [place] [address] CREATININE 1.57 mg/dL H 0.7-1.3 UREA NITROGEN 37 mg/dL H 9-25 GLUCOSE 114 mg/dL H 72-99 SODIUM 140 meq/L 136-145 POTASSIUM 3.8 meq/L 3.5-5 CHLORIDE 106 meq/L 98-107 CARBON DIOXIDE 23 meq/L 22-31 CALCIUM 9.4 mg/dL 8.4-10.4 PROTEIN 7.7 g/dL 6-8.6 ALBUMIN 4.8 g/dL 3.4-5 TOTAL BILIRUBIN 0.7 mg/dL 0.2-1.2 ALKALINE PHOSPHATASE 58 U/L 40-150 AST/SGOT 36 U/L H 5-34 ALT/SGPT 31 U/L 8-40 EGFR (CKD-EPI 2020) 47 Social History: Smoking Status (Most current) and Tobacco Use (All prior to encounter date) This section includes the most current, and the historical, smoking and tobacco- related health factors from the [place] facility where the Encounter took place. Current Smoking Status This section includes the most current smoking, or tobacco-related health factor, from the [place] facility where the Encounter took place. Date/Time Current Smoking Status Comment Facil ity Dec 25, 2023 10:00 AM VA-TOBACCO QUIT 5 TO < 15 YRS [facility] [place] [place] [facility] Tobacco Use History This section includes a history of the smoking, or tobacco-related health factors, that were collected on or before the date of the Encounter. The data comes from the [place] facility where the Encounter took place. Date/Time Smoking Status/Tobacco Use Comment F acility Dec 25, 2023 10:00 AM VA-TOBACCO QUIT 5 TO < 15 YRS [facility] Dec 30, 2022 09:30 AM VA-TOBACCO FORMER USER [facility] Dec 30, 2022 09:30 AM VA-TOBACCO QUIT 15 YRS OR MORE [facility] Jan 07, 2022 01:00 PM VA-TOBACCO FORMER USER [facility] Jan 07, 2022 01:00 PM VA-TOBACCO QUIT 15 YRS OR MORE [facility] Jan 08, 2021 01:00 PM VA-TOBACCO FORMER USER [facility] Jan 08, 2021 01:00 PM VA-TOBACCO QUIT 15 YRS OR MORE [facility] Jan 10, 2020 01:00 PM VA-TOBACCO FORMER USER [facility] Jan 10, 2020 01:00 PM VA-TOBACCO QUIT 5 TO < 15 YRS [facility] Apr 19, 2018 02:57 PM VA-TOBACCO FORMER USER [facility] Apr 19, 2018 02:57 PM VA-TOBACCO QUIT 15 YRS OR MORE [facility] Sep 05, 2015 02:32 PM QUIT TOBACCO >7 YEARS AGO [facility] Radiology Reports: +/- 30 days of the [...] the Encounter. The data comes from all [place] treatment facilities. Date/Time Radiology Report Provider Source Jun 21, 2024 10:39 AM KNEE,LEFT, 3 VIEWS : MANJIT MUNROE [id number] -[id number] M Exm Date: JUN 21, 2024@10:39 Req Phys: LEONIDES DE LOS SANTOS Loc: PB-[place] PACT ECHO PCP (Req'g Lo Img Loc: PB-XRAY [place] Service: Unknown [facility] [place] [address] (Case [id number] COMPLETE) KNEE,LEFT, 3 VIEWS (RAD Detailed) CPT:17798 Proc Modifiers : LEFT Reason for Study: Left knee pain Clinical History: Report Status: Verified Date Reported: JUN 21, 2024 Date Verified: JUN 21, 2024 Residential Interior Designer E-Sig: Report: 3 views of the left knee reveal mild degenerative skeletal change with no acute osseous or adjacent soft tissue abnormality. Vascular calcifications are noted. Impression: No acute process Primary Interpreting Staff: ROSALINA HANDY, RADIOLOGIST (Residential Interior Designer, no e-sig) /ROSALINA Graff [facility] [place] [facility] Encounter Notes: All associated encounter notes This section contains the clinical notes associated to the Encounter. Date/Time Encounter Note(s) Provider Source May 30, 2024 03:31 PM SOCIAL WORK NOTE: LOCAL TITLE: SOCIAL WORK GENERAL NOTE PB STANDARD TITLE: SOCIAL WORK NOTE DATE OF NOTE: MAY 30, 2024@15:31 ENTRY DATE: MAY 30, 2024@15:31:31 AUTHOR: ORIANA VELA EXP COSIGNER: URGENCY: STATUS: COMPLETED PATIENT: MANJIT MUNROE GENDER: MALE AGE: 74 DATE OF : Jan Service Connected: Yes (90%) SNAP (Strengths, Needs, Abilities,Preferences) STRENGTHS Supportive family, Hope NEEDS Learn about my illness, Learn positive coping skills ABILITIES Listens to adults, Attends to activities of daily living (ADLs), Asks for help PREFERENCES Appointment times: None Specific Programs: None Specific therapeutic Modalities: individual A therapist of same or opposite sex: Either; no preference Other: MEDICATION RECONCILIATION Have there been any changes to your medication? No If YES, how was the prescribing provider notified? PAIN Patient reports Pain of 4 or greater. Pain description: Knees and back Intervention for Pain: Medication, shots VISIT DATE: May Relevant Changes in Mental Status: None reported MENTAL STATUS EVALUATION APPEARANCE Neat, Medium Height, Medium Build SPEECH Normal BEHAVIOR Appropriate, Cooperative MOOD Not been good AFFECT Appropriate THOUGHT CONTENT/DELUSIONS Normal (Logical) HALLUCINATIONS Not evident SUICIDAL (POSITIVE RESPONSE TO ONE OF THESE REQUIRES SUICIDE RISK ASSESSMENT) Denied HOMICIDAL: Patient has exhibited these warning signs: Denied COGNITION Oriented to Person, Oriented to Place, Oriented to Time, Oriented to Purpose, Alert, Normal Concentration, Normal , Insight/Judgment, Normal Memory, Normal Intelligence, Normal Abstraction, Literate Relevant historical changes since last contact: None reported Intervention/Treatment Provided(required): Provided supportive and cognitive-based psychotherapy Rison reports he still in the ongoing process of getting his moved from the [facility] to the [facility]. reported he still struggles with nightmares that cause him to fight in his sleep, yells out, and jumps out of bed landing on the floor. Rison reports he not been sleeping very well as a result of it. Provider engaged and exploring his alcohol use. reports it has increased lately with several drinks throughout the day. Rison reported he often takes a shot of bourbon in the morning and will drink vodka and 7-Up throughout the day. Provider discussed his alcohol use and reported he did not see it as an issue at this time. Rison justifies his alcohol use due to his physical pain and as a way to numb out his trauma symptoms. Provider discussed cognitive processing to help with his trauma. PERTINENT THEMES DISCUSSED: Other: Mood regulation GOAL(S)ADDRESSED IN THIS SESSION (required): Reduction of trauma symptoms No clinically significant SI/HI: Homicidal ideation/behavior present: Denied Child/elder abuse present: Denied PROGRESS OF SESSION OR THERAPY TO DATE (required): Minimal progress RECOMMENDATIONS/PLAN (required): Continue individual psychotherapy sessions. Return to clinic order placed for additional appointments CHANGES IN TREATMENT PLAN: None CHANGES IN DIAGNOSIS: None DIAGNOSIS TREATED THIS VISIT: Posttraumatic stress disorder TIME SPENT WITH PATIENT: 60 minutes, Ind. Psychotherapy, [id number] _ /chio/ ORIANA VELA Signed: 05/30/2024 15:38 ORIANA VELA [facility] May 30, 2024 02:10 PM PRIMARY CARE NOTE: LOCAL TITLE: DEPRESSION SCREEN PHQ9 PB STANDARD TITLE: PRIMARY CARE NOTE DATE OF NOTE: MAY 30, 2024@14:10 ENTRY DATE: MAY 30, 2024@14:10:37 AUTHOR: ORIANA VELA EXP COSIGNER: URGENCY: STATUS: COMPLETED PHQ-9 A PHQ-9 screen was performed. The score was 8 which is suggestive of mild depression. 1. Little interest or pleasure in doing things More than half the days 2. Feeling down, depressed, or hopeless Several days 3. Trouble falling or staying asleep, or sleeping too much More than half the days 4. Feeling tired or having little energy Several days 5. Poor appetite or overeating Not at all 6. Feeling bad about yourself or that you are a failure or have let yourself or your family down Several days 7. Trouble concentrating on things, such as reading the newspaper or watching television Several days 8. Moving or speaking so slowly that other people could have noticed. Or the opposite being so fidgety or restless that you have been moving around a lot more than usual Not at all 9. Thoughts that you would be better off or of hurting yourself in some way Not at all 10. If you checked off any problems, how DIFFICULT have these problems made it for you to do your work, take care of things at home or get along with other people? Somewhat difficult /es/ ORIANA VELA Signed: 05/30/2024 15:37 ORIANA VELA [facility]
--- OUTSIDE RECORDS SUMMARY | 2024-06-21 05:00 | XMS_ITS | Encounter Summary ---
Author Name [facility] [place] [facility] [place] [facility] [facility] [place] Address [address] [place] [address] Care Team Providers Care Corn Shucker Name Role Phone FILIBERTOLATISHA PIZARRO Primary Care Provider Unavailabl e Insurance [...] PART A Dec 05, 2004 PART A [id number] MANJIT MUNROE PATIENT MEDICARE (WNR) MEDICARE (M) PART B Dec 05, 2004 PART B [id number] SHANEKA MANJIT PATIENT MEDICARE (WNR) MEDICARE (M) PART A Dec 05, 2004 PART A [id number] MANJIT MUNROE PATIENT MEDICARE (WNR) MEDICARE (M) PART B Dec 05, 2004 PART B [id number] SHANEKA MANJIT PATIENT MEDICARE (WNR) MEDICARE (M) PART A Dec 05, 2004 PART A [id number] MANJIT MUNROE PATIENT MEDICARE (WNR) MEDICARE (M) PART A Dec 05, 2004 PART A [id number] MANJIT MUNROE PATIENT MEDICARE (WNR) MEDICARE (M) PART B Dec 05, 2004 PART B [id number] MANJIT MUNROE PATIENT MEDICARE (WNR) MEDICARE (M) PART B Dec 05, 2004 PART B [id number] [facility] [id number] MANJIT MUNROE PATIENT MEDICARE PART D (WNR) MEDICARE (M) PART D Jun 04, 2012 PART D [id number] MANJIT MUNROE PATIENT MEDICARE PART D (WNR) MEDICARE (M) PART D Jun 04, 2012 PART D [id number] MANJIT MUNROE PATIENT Selected Encounter This section includes the information on record at [place] for the Encounter. Date/Time Encounter Type Encounter Description Reason Provider Source Jun 21, 2024 10:00 AM OFFICE O/P EST MOD 30 MIN PRIMARY CARE/MEDICINE ICD-10-CM E11.9 Type 2 diabetes mellitus without complications FILIBERTO,TAMM Y IHE Encounter Template Text not used by VA Assessments - Encounter Diagnoses This section includes the primary and secondary diagnoses documented for the Encounter. Date/Time Primary/Secondary Diagnosis Diagnosis Name Provider Source Jun 21, 2024 12:01 PM PRIMARY Type 2 diabetes mellitus without complications FILIBERTO,TAMM Y [facility] Jun 21, 2024 12:01 PM SECONDARY Alcohol abuse, uncomplicated FILIBERTO,TAMM Y [facility] Jun 21, 2024 12:01 PM SECONDARY Allergic rhinitis, unspecified FILIBERTO,TAMM Y [facility] Jun 21, 2024 12:01 PM SECONDARY Anxiety disorder, unspecified FILIBERTO,TAMM Y [facility] Jun 21, 2024 12:01 PM SECONDARY Arthralgia of temporomandibular joint, unspecified side FILIBERTO,TAMM Y [facility] Jun 21, 2024 12:01 PM SECONDARY Autonomic neuropathy in diseases classified elsewhere FILIBERTO,TAMM Y [facility] Jun 21, 2024 12:01 PM SECONDARY Basal cell carcinoma of skin of unspecified parts of face FILIBERTO,TAMM Y [facility] Jun 21, 2024 12:01 PM SECONDARY Benign neoplasm of unspecified adrenal gland FILIBERTO,TANISHAM Y [facility] Jun 21, 2024 12:01 PM SECONDARY Benign prostatic hyperplasia without lower urinry tract symp FILIBERTO,TANISHAM Y [facility] Jun 21, 2024 12:01 PM SECONDARY Bilateral primary osteoarthritis of knee FILIBERTO,TANISHA Y [facility] Jun 21, 2024 12:01 PM SECONDARY Calculus of gallbladder w/o cholecystitis w/o obstruction FILIBERTO,TANISHAM Y [facility] Jun 21, 2024 12:01 PM SECONDARY Carpal tunnel syndrome, unspecified upper limb FILIBERTO,TANISHA Y [facility] Jun 21, 2024 12:01 PM SECONDARY Cervicalgia FILIBERTO,TANISHAM Y [facility] Jun 21, 2024 12:01 PM SECONDARY Charcot's joint, unspecified ankle and foot FILIBERTO,TANISHA Y [facility] Jun 21, 2024 12:01 PM SECONDARY Chronic diastolic (congestive) heart failure FILIBERTO,T[place]ISHA Y [facility] Jun 21, 2024 12:01 PM SECONDARY Chronic obstructive pulmonary disease, unspecified FILIBERTO,TAM Y [facility] Jun 21, 2024 12:01 PM SECONDARY Contact with and exposure to other hazardous substances FILIBERTO,TANSIHAM Y [facility] Jun 21, 2024 12:01 PM SECONDARY Dysphonia FILIBERTO,TANISHA Y [facility] Jun 21, 2024 12:01 PM SECONDARY Essential (primary) hypertension FILIBERTO,[place]M [facility] Jun 21, 2024 12:01 PM SECONDARY Gastro-esophageal reflux disease without esophagitis FILIBERTO,TANISHA Y [facility] Jun 21, 2024 12:01 PM SECONDARY Hyperlipidemia, unspecified FILIBERTO,TAM Y [facility] Jun 21, 2024 12:01 PM SECONDARY Intervertebral disc disorders w radiculopathy, lumbar region FILIBERTO,TAM [facility] Jun 21, 2024 12:01 PM SECONDARY Lesion of ulnar nerve, unspecified upper limb FILIBERTO,TAM Y [facility] Jun 21, 2024 12:01 PM SECONDARY Major depressive disorder, recurrent, moderate FILIBERTO,TAMM Y [facility] Jun 21, 2024 12:01 PM SECONDARY Other amnesia FILIBERTO,TAMM Y [facility] Jun 21, 2024 12:01 PM SECONDARY Other dysphagia FILIBERTO,TAMM Y [facility] Jun 21, 2024 12:01 PM SECONDARY Other peripheral vertigo, bilateral FILIBERTO,TAMM Y [facility] Jun 21, 2024 12:01 PM SECONDARY Pain in left shoulder FILIBERTO,TAMM Y [facility] Jun 21, 2024 12:01 PM SECONDARY Polyp of colon FILIBERTO,TAMM Y [facility] Jun 21, 2024 12:01 PM SECONDARY Post-traumatic stress disorder, chronic FILIBERTO,TAMM Y [facility] Jun 21, 2024 12:01 PM SECONDARY Segmental and somatic dysfunction of cervical region FILIBERTO,TAMM Y [facility] Jun 21, 2024 12:01 PM SECONDARY Solitary pulmonary nodule FILIBERTO,TAMM Y [facility] Jun 21, 2024 12:01 PM SECONDARY Tinnitus, bilateral FILIBERTO,TAMM Y [facility] Jun 21, 2024 12:01 PM SECONDARY Tremor, unspecified FILIBERTO,TAMM Y [facility] Jun 21, 2024 12:01 PM SECONDARY Unilateral primary osteoarthritis, right knee FILIBERTO,TAMM Y [facility] Jun 21, 2024 12:01 PM SECONDARY Unsp disorder of synovium and tendon, right ankle and foot FILIBERTO,TAMM Y [facility] Jun 21, 2024 12:01 PM SECONDARY Unspecified chronic gastritis without bleeding FILIBERTO,TAMM Y [facility] Jun 21, 2024 12:01 PM SECONDARY Unspecified glaucoma FILIBERTO,TAMM Y [facility] Jun 21, 2024 12:01 PM SECONDARY Unspecified hearing loss, bilateral FILIBERTO,TAMM Y [facility] Plan of Treatment: Future Appointments (+ 6 months) and Future Tests (+/- 45 days) The Plan of Treatment section includes future care activities for the patient from all VA treatmentfacilities. This section includes future appointments and future orders which are active, pending or scheduled. Future Appointments This section includes appointments that were scheduled to occur 6 months from the date of the Encounter, up to a maximum of 20 appointments. The data comes from all [facility]. Appointment Date/Time Appointment Type Appointme nt Facility Name Jun 29, 2024 08:00 AM AMBULATORY - [place]IC[place] [facility] Jul 14, 2024 10:30 AM AM[facility]ATORY - PS[facility]RY [facility] Jul 19, 2024 03:30 PM AMBULATORY - MEDICINE [facility] Jul 26, 2024 03:30 PM AMBULATORY - MEDICINE [facility] Jul 27, 2024 09:45 AM [facility]ATORY - [facility]IC[facility] [place] [facility] Jul 27, 2024 02:00 PM [facility] [place] [facility] Aug 02, 2024 03:30 PM [facility] [facility] August 09, 2024 03:30 PM AMBULATORY - MEDICINE [facility] August 16, 2024 03:30 PM AMBULATORY - MEDICINE [facility] August 23, 2024 02:40 PM AM[facility]ATORY - [facility]IC[facility] [place] [facility] August 23, 2024 03:30 PM AMBULATORY - MEDICINE [facility] August 30, 2024 03:30 PM AMBULATORY - MEDICINE [facility] Sep 06, 2024 03:30 PM AMBULATORY - MEDICINE [facility] Sep 19, 2024 02:00 PM AMBULATORY - MEDICINE [facility] Sep 21, 2024 08:45 AM [facility]ORY - [facility] [place] [facility] Oct 04, 2024 03:30 PM [facility] [place] [facility] Oct 11, 2024 02:00 PM AM[facility]ORY - [place]IC[place] [facility] Oct 11, 2024 03:30 PM AM[facility]ORY - [place]IC[place] [facility] Oct 31, 2024 10:30 AM AMBULATORY - [facility]IC[facility] [place] [facility] Nov 04, 2024 10:30 AM AMBULATORY - PSYCHIATRY [facility] Active, Pending, and Scheduled Orders This section includes a listing of several types of active, pending, and scheduled orders, including clinic medications orders, diagnostic test orders, procedure orders and consult orders; where the start date of the order is 45 days before the date of the Encounter or 45 days after the date of theEncounter. The data comes from all VA treatment facilities. Test Date/Time Test Type Test Details Facility Name Jun 21, 2024 12:04 PM Consult Order [facility] [id number] [facility] Jul 07, 2024 02:34 PM Consult Order [facility] [id number] [facility] Lab Results: +/- 30 days of the encounter This section includes the Chemistry and Hematology Lab Results on record with [place] for the patient. Radiology Reports and Pathology Reports are provided separately, in subsequent sections. Lab Results This section contains the Chemistry/Hematology Results that were resulted 30 days before or 30 daysafter the date of the Encounter. Date/Time Source Result Type Result - Unit Interpretation Reference Range Specimen Type Comment Jun 21, 2024 10:39 AM [facility] DRUG SCREEN URINE-inhouse (PB) URINE Specimen Type: URINE No comment entered. Ordering Provider: LATISHA DE LOS SANTOS Report Released Date/Time: Jun 21, 2024 10:39 AM Reporting Lab: [place] [facility] [address] [facility] [facility] [phone] Performing Lab: [place] [facility] [facility] [address] [facility] [address] METHADONE Negative Negative OPIATES (PB) Negative Negative COCAINE... Negative Negative THC(Marijuana... Negative Negative BENZODIAZEPINE (PB) Negative Negative AMPHETAMINE... Negative Negative CREATININE URINE/OTHERS 65.89 mg/dL OXYCODONE (JMDDH-FSE-LO) Negative Negati ve BUPRENORPHINE (STL-PB-MA) Negative ng/mL Negative ETHANOL URINE 42 mg/dL H 0-20 FENTANYL, URINE (PB) Negative ng/mL Jun 15, 2024 08:44 AM [facility] URINE ALBUMIN PROFILE-ih (PB) URINE Specimen Type: URINE Comment: Unable to calculate due to Microalbumin <5.0 mg/dL Ordering Provider: LATISHA DE LOS SANTOS Report Released Date/Time: Dec 25, 2023 11:26 AM Reporting Lab: [place] [facility] [address] [place] [address] Performing Lab: [place] [facility] [address] [place] [address] URINE ALBUMIN (PB-STL) <5.00 mg/L L 0-30 uACR (PB-MA) comment ug/mg CREATININE URINE/OTHERS 75.94 mg/dL Jun 15, 2024 08:44 AM [facility] HGA1C BLOOD Specimen Type: BLOOD No comment entered. Ordering Provider: LATISHA DE LOS SANTOS Report Released Date/Time: Dec 25, 2023 11:26 AM Reporting Lab: [place] [facility] [address] [place] [address] Performing Lab: [place] [facility] [address] [place] [address] HGA1C 6.9 H 4.0-6.0 Jun 15, 2024 08:44 AM [facility] CHOLESTEROL PANEL (PB) PLASMA Specimen Type: P LASMA No comment entered. Ordering Provider: LATISHA DE LOS SANTOS Report Released Date/Time: Dec 25, 2023 11:26 AM Reporting Lab: [place] [facility] [address] [place] [address] Performing Lab: [place] [facility] [address] [place] [address] CHOLESTEROL 140 mg/dL 0-200 TRIGLYCERIDE 191 mg/dL H 0-150 CALCULATED LDL 57.9 mg/dL HDL(New) 43.9 mg/dL H >40 HDL % OF TOTAL CHOLESTEROL (PB) 31.4 >25 Jun 15, 2024 08:44 AM [facility] COMPREHENSIVE METABOLIC PANEL PLASMA Specimen Type: PLASMA No comment entered. Ordering Provider: LATISHA DE LOS SANTOS Report Released Date/Time: Dec 25, 2023 11:26 AM Reporting Lab: [place] [facility] [address] [place] [address] Performing Lab: [place] [facility] [address] [place] [address] CREATININE 1.57 mg/dL H 0.7-1.3 UREA NITROGEN [...] 31 U/L 8-40 EGFR (CKD-EPI 2020) 47 Vital Signs: All taken on the encounter date This section contains inpatient and outpatient Vital Signs collected on the date of the Encounter. Date/Time Temperature Pulse Blood Pressure Respiratory Rate SP02 Pain Height Weight Body Mass Index Source Jun 21, 2024 10:15 AM 63 112/70 20 93 244.9 34 [facility] Social History: Smoking Status (Most current) and Tobacco Use (All prior to encounter date) This section includes the most current, and the historical, smoking and tobacco- related health factors from the [place] facility where the Encounter took place. Current Smoking Status This section includes the most current smoking, or tobacco-related health factor, from the [place] facility where the Encounter took place. Date/Time Current Smoking Status Comment Facil ity Dec 25, 2023 10:00 AM VA-TOBACCO QUIT 5 TO < 15 YRS [facility] Tobacco Use History This section includes a history of the smoking, or tobacco-related health factors, that were collected on or before the date of the Encounter. The data comes from the [place] facility where the Encounter took place. Date/Time Smoking Status/Tobacco Use Comment F acility Dec 25, 2023 10:00 AM VA-TOBACCO QUIT 5 TO < 15 YRS [facility] [facility] Dec 30, 2022 09:30 AM VA-TOBACCO FORMER USER [facility] Dec 30, 2022 09:30 AM VA-TOBACCO QUIT 15 YRS OR MORE [facility] Jan 07, 2022 01:00 PM VA-TOBACCO FORMER USER [facility] [facility] Jan 07, 2022 01:00 PM VA-TOBACCO QUIT 15 YRS OR MORE [facility] Jan 08, 2021 01:00 PM VA-TOBACCO FORMER USER [facility] [facility] Jan 08, 2021 01:00 PM VA-TOBACCO QUIT 15 YRS OR MORE [facility] Jan 10, 2020 01:00 PM VA-TOBACCO FORMER USER [facility] [facility] Jan 10, 2020 01:00 PM VA-TOBACCO QUIT 5 TO < 15 YRS [facility] Apr 19, 2018 02:57 PM VA-TOBACCO FORMER USER [facility] Apr 19, 2018 02:57 PM VA-TOBACCO QUIT 15 YRS OR MORE [facility] Sep 05, 2015 02:32 PM QUIT TOBACCO >7 YEARS AGO [facility] Radiology Reports: +/- 30 days [...] the Encounter. The data comes from all [place] treatment facilities. Date/Time Radiology Report Provider Source Jun 21, 2024 10:39 AM KNEE,LEFT, 3 VIEWS : MANJIT MUNROE [id number] -[id number] M Exm Date: JUN 21, 2024@10:39 Req Phys: LATISHA DE LOS SANTOS Loc: PB-[facility]IS[facility] PACT ECHO PCP (Req'g Lo Img Loc: PB-XRAY [place] Service: [place] [address] (Case [id number] COMPLETE) KNEE,LEFT, 3 VIEWS (RAD Detailed) CPT:87326 Proc Modifiers : LEFT Reason for Study: Left knee pain Clinical History: Report Status: Verified Date Reported: JUN 21, 2024 Date Verified: JUN 21, 2024 Abrasive Grinder E-Sig: Report: 3 views of the left knee reveal mild degenerative skeletal change with no acute osseous or adjacent soft tissue abnormality. Vascular calcifications are noted. Impression: No acute process Primary Interpreting Staff: ROSALINA HANDY RADIOLOGIST (Abrasive Grinder, no e-sig) /ROSALINA Graff [facility] Encounter Notes: All associated encounter notes This section contains the clinical notes associated to the Encounter. Date/Time Encounter Note(s) Provider Source Sep 15, 2024 04:09 PM ACCOUNTING OF DISCLOSURES NOTE: LOCAL TITLE: STATE PRESCRIPTION DRUG MONITORING PROGRAM STANDARD TITLE: ACCOUNTING OF DISCLOSURES NOTE DATE OF NOTE: SEP 15, 2024@16:09:29 ENTRY DATE: SEP 15, 2024@16:09:29 AUTHOR: LATISHA DE LOS SANTOS EXP COSIGNER: URGENCY: STATUS: COMPLETED This PDMP query was submitted by Latisha De Los Santos MD. The clinical justification for this PDMP query is to review controlled substances prescribed outside of the VA, and any additional information that may become available, as an important component of standard clinical care, and in accordance with [facility] policy. [facility] [place]. No prescription(s) for controlled substances outside the [facility] were found in the last 90 days. /jessica De Los Santos MD [facility] Primary Care Signed: 09/15/2024 16:09 LATISHA DE LOSS ANTOS [facility] Jul 26, 2024 04:02 PM ACCOUNTING OF DISCLOSURES NOTE: LOCAL TITLE: STATE PRESCRIPTION DRUG MONITORING PROGRAM STANDARD TITLE: ACCOUNTING OF DISCLOSURES NOTE DATE OF NOTE: JUL 26, 2024@16:02:13 ENTRY DATE: JUL 26, 2024@16:02:13 AUTHOR: LATISHA DE LOS SANTOS EXP COSIGNER: URGENCY: STATUS: COMPLETED This PDMP query was submitted by Latisha De Los Santos MD. The clinical justification for this PDMP query is to review controlled substances prescribed outside of the [facility], and any additional information that may become available, as an important component of standard clinical care, and in accordance with [facility] policy. Patient information was shared with the [facility] [place]. No prescription(s) for controlled substances outside the [facility] were found in the last 90 days. /jessica De Los Santos MD [facility] Primary Care Signed: 07/26/2024 16:02 LATISHA DE LOS SANTOS [facility] Jun 21, 2024 12:03 PM INTEGRATIVE HEALTH NOTE: LOCAL TITLE: [place] ACUPUNCTURE NOTE STANDARD TITLE: INTEGRATIVE HEALTH NOTE DATE OF NOTE: JUN 21, 2024@12:03 ENTRY DATE: JUN 21, 2024@12:03:51 AUTHOR: LATISHA DE LOS SANTOS EXP COSIGNER: URGENCY: STATUS: COMPLETED Follow up visit [place] Acupuncture was the only treatment given. Patient was evaluated and agreed to receive [place] Acupuncture (BFA). Patient was evaluated and agreed to receive [place] Acupuncture Protocol (BFA) for the following pain condition(s): Comment: Low back and knee Pre BFA Pain Numeric Rating Scale of site with highest pain: 8 The patient was asked the following questions: During the past 24 hours, how much has your pain interfered with your usual activity? 7 During the past 24 hours, how much has your pain interfered with your usual sleep? 8 During the past 24 hours, how much has the pain affected your usual mood? 7 During the past 24 hours, how much has pain contributed to your stress? 7 Oral informed consent obtained for BFA. Procedure: Ear was prepped with alcohol Needle type: ASP- gold The following points were placed: All 10 points in both ears Complications: Patient tolerated well, without any complications. Post treatment Numeric Pain Rating Scale: 20% overall improvement Standard [id number] time for application of BFA protocol is 15 minutes. No electrical stimulation was used. Face to face time spent durin gthis procedure in the delivery of BFA was 15 minutes. The patient was provided with the following post BFA instructions: -Continue normal activities and avoid over exertion for the initial 6-12 hours after a treatment. Avoid alcohol for 12 hours after treatment. -You may bathe or shower with the needles in place, but be careful not to pull the needles when cleaning or drying the ear. -If you experience new or continued redness, swelling or pain, remove the needles or return to clinic for evaluation and/or needle removal. -You may experience drowsiness, lightheadedness, or euphoria during the treatment or within 30 minutes of treatment. -Do not have an MRI scan with the needles in place (If you need to have an MRI, please remove needles prior to scan). -Continue to take all prescription medication according to your provider's instructions. -After three days, remove all needles. You may have small stud needles (ASP needles) covered by an adhesive bandage, or needles that are attached to the adhesive bandage (press tack needles). ASP needles may be removed by gripping them with your fingernails or tweezers. Rock the needles back and forth to remove. Press tack needles may be removed by peeling off the tape that holds the needle in place. -[place] must be placed in a sharps container or household container that meets sharps disposal guidelines. Household container must be: a. made of a puncture-resistant material; b. able to close with a tight-fitting, puncture resistant lid, without sharps being able to come out; c. stand upright and be stable during use; d. leak-resistant; e. properly labeled (sharps - biohazard); and f. disposed of according to community guidelines, if available. -Please keep all regularly scheduled follow-up visits. Return sooner should your condition worsen. Future visit dates/details: elizabeth /chio/ Latisha De Los Santos MD [facility] Primary [facility] Signed: 06/21/2024 12:04 LATISHA DE LOS SANTOS [facility] Jun 21, 2024 10:23 AM PRIMARY CARE PROGRESS NOTE: LOCAL TITLE: PRIMARY CARE CLINIC PROGRESS NOTE PB STANDARD TITLE: PRIMARY CARE PROGRESS NOTE DATE OF NOTE: JUN 21, 2024@10:23 ENTRY DATE: JUN 21, 2024@10:23:55 AUTHOR: LATISHA DE LOS SANTOS EXP COSIGNER: URGENCY: STATUS: COMPLETED SUBJECTIVE: MANJIT MUNROE is a 74 years old MALE. HPI: Presents to the clinic today for a periodic health maintenance visit. Last seen December 25, 2023. He reports his mobility is just getting worse mainly due to his chronic pain he. He is getting right knee injections with Dr. Reardon of Durolane gel. He reports his left knee is getting worse as well. He has not been to physical therapy for quite a while. He did see neurosurgery last fall but no real plan initiated with that. He has taken tramadol around 4 times a day in addition to his weekly BFA. Non-VA Primary Care Provider none Specialty Services Neurologist, Dr. Costa Energy Administrator, [facility], Dr. Longoria Orthopedist, Dr. 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 JOB/DUTIES: [employer] OVERSEAS STATIONS/DEPLOYMENTS: no MAJOR ACCIDENTS OR INJURIES [...] 20) Benign Prostatic Hypertrophy without Outflow Obstruction ([facility] [id number]) 21) Alcohol Abuse ([facility] [id number]) 22) Charcot's joint of foot 23) Temporomandibular oszvt-qfno-xgvxfmbhgqt syndrome 24) Solitary nodule of lung 25) Carpal tunnel syndrome 26) Ulnar neuropathy 27) Basal cell carcinoma of face 28) Polyp Colon ([facility] [id number]) 29) Adrenal adenoma 30) Tenosynovitis of right ankle 31) Osteoarthritis of right knee joint 32) Cervicalgia 33) Exposure to potentially hazardous substance 34) Dysphonia 35) GERD - Gastro-Esophageal Reflux Disease ([facility] [id number]) 36) Bilateral osteoarthritis of knees 37) Cholelithiasis 38) Esophageal dysphagia 39) Diastolic heart failure Active Outpatient Medications (including Supplies): Active Outpatient Medications Status 1) ATORVASTATIN CALCIUM 40MG TAB TAKE ONE TABLET BY MOUTH EVERY ACTIVE EVENING Indication: FOR HIGH CHOLESTEROL 2) CLOBETASOL PROPIONATE 0.05% CREAM APPLY SPARINGLY TO ACTIVE AFFECTED AREA(S) TWICE DAILY NEEDED APPLY TO AFFECTED AREAS ON LEGS. NO MORE THAN TWO WEEKS OF THE MONTH. DO NOT USE ON FACE, GROIN, OR SKIN FOLDS. 3) ESCITALOPRAM OXALATE 20MG TAB TAKE ONE TABLET BY MOUTH EVERY ACTIVE MORNING Indication: FOR DEPRESSION 4) FINASTERIDE 5MG TAB TAKE ONE TABLET BY MOUTH ONCE A DAY FOR ACTIVE PROSTATE. SWALLOW WHOLE, DO NOT CRUSH, SPLIT, OR CHEW. 5) HYDRALAZINE HCL 25MG TAB TAKE ONE TABLET BY MOUTH TWICE A ACTIVE (S) DAY FOR BLOOD PRESSURE 6) HYDROCHLOROTHIAZIDE 25MG TAB TAKE ONE TABLET BY MOUTH ONCE A ACTIVE DAY FOR BLOOD PRESSURE 7) INSULIN SYRINGE 0.5ML 31G 8MM USE SYRINGE UNDER THE SKIN ACTIVE ONCE A DAY TO USE WITH INSULIN Indication: FOR DIABETES 8) INSULIN,ASPART(EQV-NOVLG)100UN /ML FLXPEN INJECT 18 UNITS ACTIVE UNDER THE SKIN THREE TIMES A DAY BEFORE MEALS FOR BLOOD SUGAR CONTROL. ADMINISTER 10 MINUTES BEFORE FOOD DIRECTED. REFRIGERATE UN-OPENED PENS. DISCARD CARTRIDGE 28 DAYS AFTER OPENING. Indication: FOR DIABETES 9) INSULIN,GLARGINE,HUMAN 100 UNIT/ML INJ INJECT 20 UNITS UNDER ACTIVE THE SKIN EVERY MORNING ADMINISTER AT SAME TIME EACH DAY DIRECTED. DISCARD ANY VIAL 28 DAYS AFTER OPENING. Indication: FOR DIABETES 10) LISINOPRIL 40MG TAB TAKE ONE TABLET BY MOUTH ONCE A DAY ACTIVE Indication: FOR HIGH BLOOD PRESSURE 11) LORATADINE 10MG TAB TAKE ONE TABLET BY MOUTH ONCE A DAY ON ACTIVE EMPTY STOMACH FOR ALLERGIES 12) MECLIZINE HCL 25MG CHEW TAB CHEW AND SWALLOW ONE TABLET BY ACTIVE MOUTH EVERY 6 HOURS NEEDED CHEWABLE TABLETS MAY BE CHEWED OR SWALLOWED WHOLE. MAY CAUSE DROWSINESS. Indication: FOR VERTIGO 13) MIRTAZAPINE 30MG TAB TAKE ONE TABLET BY MOUTH AT BEDTIME ACTIVE Indication: FOR DEPRESSION 14) OMEPRAZOLE 20MG EC CAP TAKE ONE CAPSULE BY MOUTH TWICE A DAY ACTIVE TAKE ON AN EMPTY STOMACH 15) PREGABALIN 150MG ORAL CAP TAKE ONE CAPSULE BY MOUTH TWICE A ACTIVE DAY *MAY CAUSE DROWSINESS* Indication: FOR NERVE PAIN 16) TIOTROPIUM 2.5MCG/ACTUAT 60D ORAL INHL INHALE 2 INHALATIONS ACTIVE BY MOUTH ONCE A DAY (ADMINISTER AT SAME TIME EACH DAY) FOR BREATHING. 17) TIZANIDINE HCL 4MG TAB TAKE TWO TABLETS BY MOUTH AT BEDTIME ACTIVE Indication: FOR SPASTICITY 18) TRAMADOL HCL 50MG TAB TAKE 1 TABLET BY MOUTH EVERY 4 HOURS ACTIVE NEEDED FOR MILD TO MODERATE PAIN Active Non-VA Medications Status 1) Non-VA MORPHINE SO4 15MG SA TAB 15MG BY MOUTH EVERY 12 HOURS ACTIVE NEEDED 19 Total Medications Allergies: BUPROPION, DORZOLAMIDE, VENLAFAXINE Review [...] SI/HI; denies nightmares OBJECTIVE: Vital Signs Temperature: 97.8 F [36.6 C] (03/18/2024 14:11) Respiratory Rate: 20 (06/21/2024 10:15) Pulse Rate: 63 (06/21/2024 10:15) Blood Pressure: 112/70 (06/21/2024 10:15) HT: 71 in [180.3 cm] (03/18/2024 14:11) WT: 244.9 lb [111.08 kg] (06/21/2024 10:15) BMI: 34.2 93% (06/21/2024 10:15) Physical Exam General: NAD noted, A&Ox3, pleasant, appears stated age HEENT: NCAT, TM's clear, nares and oropharynx clear Neck: Supple with normal active ROM, without any lymphadenopathy Heart: RRR, no murmur, clicks, or rub Resp: Lungs CTA bilaterally, respirations even and unlabored Ext: No clubbing, cyanosis, edema or obvious deformity Skin: Warm, pink, and dry, no rashes Neuro: Grossly intact Psych: Affect normal, answers questions appropriately throughout visit A/P: ASSESSMENT and PLAN Health Maintenance: Labs reviewed with patient and printout given to patient. Discussed preventative health to include diet and exercise as well as immunizations. Type 2 diabetes mellitus-controlled on Lantus insulin 20 units in the am Novolog sliding scale; before meals BS < 90 3 units 90-149 5 units 150-199 9 units 200-249 12 units 250-299 15 units >300 18 units Neuropathy- severe- sees Dr. Costa intolerant to zonisamide, doing better on the pregabalin. He is getting some relief with BFA. Will continue with the tramadol prn, but hopeful the increase pregabalin and BFA will decrease the need. Lumbar radiculopathy-appointment next week with neurosurgery in [place] Charcot foot- Right- followed by podiatry Tremor- right [...] to Degeneration of lumbar intervertebral disc/Cervical segmental dysfunction/osteoarthritis bilateral knees- stable; on pregabalin; he has participated and BFA with minimal improvement of about 10%; will get him into physical therapy as well; followed by Dr. Reardon will also get him in for his left knee Chronic post-traumatic stress disorder following combat with occ anxiety especially when around a lot of people, stable on Lexapro followed by Dr. Chapman Vertigo- chronic stable Tinnitus/Hearing loss- stable COPD -stable on Symbicort Alcohol abuse- seeing BPH- on Flomax and Proscar. ED- Viagra prn Left TMJ- stable Basal Cell Cancer face- followed by dermatology Glaucoma- followed by Dr. Neves in [place] Chronic diarrhea- stable Polyp Colon- normal colonoscopy 2021 GERD/Esophageal dysphagia-on omeprazole Dysphonia-workup with ENT felt to be related to GERD Solitary nodule of lung- due for repeat chest CT in July 2023; if no change then this will be the last CT Recent right knee injury- followed by orthopedist Diastolic heart failure-stable Cholelithiasis without obstruction-stable Exposure to potentially hazardous substance Stable. Discussed medications with patient; med rec [...] appointments. Medications Reconciled. See AVS given to [place]. Time spent 30 minutes. /chio/ Latisha De Los Santos MD [facility] Primary Care Signed: 06/21/2024 12:02 LATISHA DE LOS SANTOS [facility] Jun 21, 2024 09:55 AM PRIMARY CARE NURSING NOTE: LOCAL TITLE: PRIMARY CARE NURSING PROGRESS NOTE (TEXT) NURSING P STANDARD TITLE: PRIMARY CARE NURSING NOTE DATE OF NOTE: JUN 21, 2024@09:55 ENTRY DATE: JUN 21, 2024@09:55:42 AUTHOR: ILEANA PAREKH COSIGNER: URGENCY: STATUS: COMPLETED Established Patient MANJIT MUNROE IS A 74 YEAR OLD MALE BEING SEEN IN CLINIC JUN 21, 2024. REASON FOR VISIT: The is here for his 6 month follow up for DM. Both knees are bothering him, the increase weight is affecting them. And then with standing his back locks up. Only able to walk about 10 feet before he gets worn out. Are you receiving care any where other than the [place]? No HEALTH AND SURGICAL HISTORY: Does patient report using home oxygen? No CURRENT ACTIVE MEDICATIONS FOR REVIEW: Allergies/ADRs (Tool #5) FACILITY ALLERGY/ADR -------- [facility] MEDICAL BUPROPION [facility] DORZOLAMIDE [facility] MEDICAL VENLAFAXINE [facility] DIVISION BUPROPION [facility] DIVISION DORZOLAMIDE [facility] DIVISION VENLAFAXINE Med. Reconciliation (Tool #1) INCLUDED IN THIS LIST: Alphabetical list of active outpatient prescriptions dispensed from this [place] (local) and dispensed from another [place] or [facility] facility (remote) as well as inpatient orders (local pending and active), local clinic medications, locally documented non-VA medications, and local prescriptions that have or been discontinued in the past 90 days. Non-VA Meds Last Documented On: Jul 15, 2021 NOTE The display of VA prescriptions dispensed from another [place] or [facility] facility (remote) is limited to active outpatient prescription entries matched to National Drug File at the originating site and may not include some items such as investigational drugs, compounds, etc. NOT INCLUDED IN THIS LIST: Medications self-entered by the patient into personal health records (i.e. [employer]) are NOT included in this list. Non-VA medications documented outside this [place], remote inpatient orders (regardless of status) and remote clinic medications are NOT included in this list. The patient and provider must always discuss medications the patient is taking, regardless of where the medication was dispensed or obtained. OUTPT ALBUTEROL 90MCG (CFC-F) 200D ORAL INHL (Status = ) INHALE 2 PUFFS ORAL INHALATION FOUR TIMES A DAY NEEDED FOR COPD SHAKE WELL. RINSE MOUTHPIECE FREQUENTLY TO PREVENT CLOGGING. Rx# [id number] Last Released: 03/11/24 Qty/Days Supply: Rx Expiration Date: 06/02/24 Refills Remainin Indication: FOR COPD OUTPT ATORVASTATIN CALCIUM 40MG TAB (Status = Active) TAKE ONE TABLET BY MOUTH EVERY EVENING FOR HIGH CHOLESTEROL Rx# [id number] Last Released: 04/04/24 Qty/Days Supply: Rx Expiration Date: 11/24/24 Refills Remainin Indication: FOR HIGH CHOLESTEROL OUTPT CLOBETASOL PROPIONATE 0.05% CREAM (Status = Active) APPLY SPARINGLY TO AFFECTED AREA(S) TWICE DAILY NEEDED APPLY TO AFFECTED AREAS ON LEGS. NO MORE THAN TWO WEEKS OF THE MONTH. DO NOT USE ON FACE, GROIN, OR SKIN FOLDS. Rx# [id number] Last Released: 05/21/24 Qty/Days Supply: Rx Expiration Date: 03/10/25 Refills Remainin OUTPT ESCITALOPRAM OXALATE 20MG TAB (Status = Active) TAKE ONE TABLET BY MOUTH EVERY MORNING FOR DEPRESSION Rx# [id number] Last Released: 06/20/24 Qty/Days Supply: Rx Expiration Date: 11/17/24 Refills Remainin Indication: FOR DEPRESSION OUTPT FINASTERIDE 5MG TAB (Status = Active) TAKE ONE TABLET BY MOUTH ONCE A DAY FOR PROSTATE. SWALLOW WHOLE, DO NOT CRUSH, SPLIT, OR CHEW. Rx# [id number] Last Released: 06/20/24 Qty/Days Supply: Rx Expiration Date: 01/12/25 Refills Remainin OUTPT FLUTICASONE PROP 50MCG 120D NASAL INHL (Status = ) INSTILL 1 SPRAY IN EACH NOSTRIL ONCE A DAY FOR ALLERGIES (MUST BE USED DIRECTED FOR MINIMUM OF 21 DAYS TO PROVIDE ADEQUATE BENEFITS) Rx# [id number] Last Released: 03/11/24 Qty/Days Supply: Rx Expiration Date: 04/08/24 Refills Remainin OUTPT HYDRALAZINE HCL 25MG TAB (Status = Discontinued) TAKE ONE TABLET BY MOUTH TWICE A DAY FOR BLOOD PRESSURE Rx# [id number] Last Released: 03/11/24 Qty/Days Supply: 180 Rx Expiration Date: 03/27/24 Refills Remainin OUTPT HYDRALAZINE HCL 25MG TAB (Status = Active/Suspended) TAKE ONE TABLET BY MOUTH TWICE A DAY FOR BLOOD PRESSURE Rx# [id number] Last Released: Qty/Days Supply: 180 Rx Expiration Date: 06/22/25 Refills Remainin OUTPT HYDROCHLOROTHIAZIDE 25MG TAB (Status = Active) TAKE ONE TABLET BY MOUTH ONCE A DAY FOR BLOOD PRESSURE Rx# [id number] Last Released: 03/14/24 Qty/Days Supply: Rx Expiration Date: 03/10/25 Refills Remainin OUTPT INSULIN,ASPART(EQV-NOVLG)100UN /ML FLXPEN (Status = Discontinued) INJECT 18 UNITS UNDER THE SKIN THREE TIMES A DAY BEFORE MEALS FOR DIABETES FOR BLOOD SUGAR CONTROL. ADMINISTER 10 MINUTES BEFORE FOOD DIRECTED. REFRIGERATE UN-OPENED PENS. DISCARD CARTRIDGE 28 DAYS AFTER OPENING. Rx# [id number] Last Released: 02/18/24 Qty/Days Supply: Rx Expiration Date: 12/11/24 Refills Remainin Indication: FOR DIABETES OUTPT INSULIN,ASPART(EQV-NOVLG)100UN /ML FLXPEN (Status = Active) INJECT 18 UNITS UNDER THE SKIN THREE TIMES A DAY BEFORE MEALS FOR DIABETES FOR BLOOD SUGAR CONTROL. ADMINISTER 10 MINUTES BEFORE FOOD DIRECTED. REFRIGERATE UN-OPENED PENS. DISCARD CARTRIDGE 28 DAYS AFTER OPENING. Rx# [id number] Last Released: 06/08/24 Qty/Days Supply: Rx Expiration Date: 04/05/25 Refills Remainin Indication: FOR DIABETES OUTPT INSULIN,GLARGINE,HUMAN 100 UNIT/ML INJ (Status = Active) INJECT 20 UNITS UNDER THE SKIN EVERY MORNING FOR DIABETES ADMINISTER AT SAME TIME EACH DAY DIRECTED. DISCARD ANY VIAL 28 DAYS AFTER OPENING. Rx# [id number] Last Released: 06/01/24 Qty/Days Supply: Rx Expiration Date: 06/29/24 Refills Remainin Indication: FOR DIABETES OUTPT LISINOPRIL 40MG TAB (Status = Active) TAKE ONE TABLET BY MOUTH ONCE A DAY FOR HIGH BLOOD PRESSURE Rx# [id number] Last Released: 03/09/24 Qty/Days Supply: Rx Expiration Date: 12/29/24 Refills Remainin Indication: FOR HIGH BLOOD PRESSURE OUTPT LORATADINE 10MG TAB (Status = Active) TAKE ONE TABLET BY MOUTH ONCE A DAY ON EMPTY STOMACH FOR ALLERGIES Rx# [id number] Last Released: 05/21/24 Qty/Days Supply: Rx Expiration Date: 01/12/25 Refills Remainin OUTPT MECLIZINE HCL 25MG CHEW TAB (Status = Active) CHEW AND SWALLOW ONE TABLET BY MOUTH EVERY 6 HOURS NEEDED FOR VERTIGO CHEWABLE TABLETS MAY BE CHEWED OR SWALLOWED WHOLE. MAY CAUSE DROWSINESS. Rx# [id number] Last Released: 05/21/24 Qty/Days Supply: 120/30 Rx Expiration Date: 03/10/25 Refills Remainin Indication: FOR VERTIGO OUTPT MIRTAZAPINE 30MG TAB (Status = Active) TAKE ONE TABLET BY MOUTH AT BEDTIME FOR DEPRESSION Rx# [id number] Last Released: 06/20/24 Qty/Days Supply: Rx Expiration Date: 09/15/24 Refills Remainin Indication: FOR DEPRESSION Non-VA MORPHINE SO4 15MG SA TAB TAKE ONE TABLET BY MOUTH EVERY 12 HOURS NEEDED Patient wants to buy from Non-VA pharmacy. Medication prescribed by Non-VA provider. OUTPT OMEPRAZOLE 20MG EC CAP (Status = Discontinued) TAKE ONE CAPSULE BY MOUTH TWICE A DAY TAKE ON AN EMPTY STOMACH Rx# [id number] Last Released: 03/10/24 Qty/Days Supply: 60 Rx Expiration Date: 10/12/24 Refills Remainin OUTPT OMEPRAZOLE 20MG EC CAP (Status = Active) TAKE ONE CAPSULE BY MOUTH TWICE A DAY TAKE ON AN EMPTY STOMACH Rx# [id number] Last Released: 06/13/24 Qty/Days Supply: Rx Expiration Date: 04/05/25 Refills Remainin OUTPT PREGABALIN 150MG ORAL CAP (Status = Active) TAKE ONE CAPSULE BY MOUTH TWICE A DAY FOR NERVE PAIN *MAY CAUSE DROWSINESS* Rx# [id number] Last Released: 05/31/24 Qty/Days Supply: Rx Expiration Date: 09/09/24 Refills Remainin Indication: FOR NERVE PAIN OUTPT TIOTROPIUM 2.5MCG/ACTUAT 60D ORAL INHL (Status = Active) INHALE 2 INHALATIONS BY MOUTH ONCE A DAY (ADMINISTER AT SAME TIME EACH DAY) FOR BREATHING. Rx# [id number] Last Released: 03/11/24 Qty/Days Supply: Rx Expiration Date: 10/14/24 Refills Remainin OUTPT TIZANIDINE HCL 4MG TAB (Status = Discontinued) TAKE TWO TABLETS BY MOUTH AT BEDTIME FOR SPASTICITY Rx# [id number] Last Released: 05/19/24 Qty/Days Supply: 6030 Rx Expiration Date: 01/12/25 Refills Remainin Indication: FOR SPASTICITY OUTPT TIZANIDINE HCL 4MG TAB (Status = Active) TAKE TWO TABLETS BY MOUTH AT BEDTIME FOR SPASTICITY Rx# [id number] Last Released: Supply: Rx Expiration Date: 06/18/25 Refills Remainin Indication: FOR SPASTICITY OUTPT TRAMADOL HCL 50MG TAB (Status = Active) TAKE 1 TABLET BY MOUTH EVERY 4 HOURS NEEDED FOR MILD TO MODERATE PAIN Rx# [id number] Last Released: 06/20/24 Qty/Days Supply: Rx Expiration Date: 07/06/24 Refills Remainin SUPPLIES OUTPT GLUCOSE SENSOR FREESTYLE JEFE 2 (Status = ) USE SENSOR EVERY 2 WEEKS FOR CONTINUOUS GLUCOSE MONITORING. CHANGE SENSOR/SITE EVERY 14 DAYS. CONTACT [employer] CUSTOMER SERVICE AT ([id number]) FOR REPLACEMENT OF DAMAGED/MALFUNCTIONING SENSORS Rx# [id number] Last Released: 05/27/24 QtDays Supply: Rx Expiration Date: 06/11/24 Refills Remainin OUTPT INSULIN SYRINGE 0.5ML 31G 8MM (Status = Active) USE SYRINGE UNDER THE SKIN ONCE A DAY FOR DIABETES TO USE WITH INSULIN Rx# [id number] Last Released: 05/17/24 Qty/Days Supply: 100/90 Rx Expiration Date: 07/07/24 Refills Remainin Indication: FOR DIABETES PHARMACY TERMS AND POSSIBLE PATIENT ACTIONS [place] medication [place] outpatient prescription PHARMACY POSSIBLE PATIENT TERMS EXPLANATION ACTIONS -------- -- ACTIVE A prescription that can be If you have refills, filled at the local [facility] pharmacy. you may request a refill of this prescription from your VA pharmacy. CLINIC A medication you received during If you have questions a visit to a VA clinic or about this medication emergency department. contact your VA healthcare team. DISCONTINUED A prescription your provider has Contact your VA stopped. It is no longer healthcare team if you available to be sent to you or need more of this picked up at the [place] pharmacy medication. window. A prescription which is [...] the VA. Or, it may be an [id number] (OTC), herbal, dietary supplements or sample medication. [...] An active prescription that is Contact your VA not scheduled to be filled yet. pharmacy if you need You should receive it before this medication now. you run out. ====== Medication list reviewed with Patient Patient/Caregiver reports taking meds other than as directed/ordered: reports that he is taking the Tiotropium inhaler 3 times a day. Educated the he should only be using inhalers as ordered IS PATIENT TAKING ANY OVER THE COUNTER MEDICATIONS, SUCH VITAMINS OR HERBAL SUPPLEMENTS, INCLUDING ANY MEDICATIONS PRESCRIBED BY ANOTHER PHYSICIAN? Yes, List: Vitamin D and A, Potassium and Magnesium Does patient have any new allergies to report since last visit? NO VITALS: TEMPERATURE: 97.8 F [36.6 C] (03/18/2024 14:11) BP: 153/73 (03/18/2024 16:12) RESP: 20 (03/18/2024 14:11) PULSE: 87 (03/18/2024 14:11) HT: 71 in [180.3 cm] (03/18/2024 14:11) WT: 242.7 lb [110.09 kg] (03/18/2024 14:11) BMI: 33.9 PAIN ASSESSMENT: (Most Recent Pain Score in Vitals Package: 6 (03/18/2024 14:11) ) The patient indicated that they and [...] Now let us serve you. At the [facility], we strive to provide you with exceptional health care that improves your health and well-being. Are you feeling sad, empty, or depressed? No Do you need to talk about things in your life that worry you or cause you stress? No Do you need to talk about personal problems, family problems, alcohol use, drug use, or mental or emotional illness? No Sees a consular and Dr. Casey SUICIDE SCREENING: The patient was asked, Over the past two weeks, how often have you been bothered by thoughts that you would be better off or of hurting yourself in some way? Not At All SPIRITUAL ASSESSMENT: Are there yazidism practices or spiritual concerns you want the curbing stonecutter, your physician, and other health care team members to immediately know about? No Patient advised to call the clinic for any concerns, questions, or symptoms. Patient and/or caregiver verbalized understanding of plan of care. Suicide Screen - V: C-SSRS Screening [place] Suicide Severity Rating Scale (C-SSRS) screener 1. Over the past month, have you wished you were or wished you could go to sleep and not wake up? No 2. Over the past month, have you had any actual thoughts of killing yourself? No 3. Over the past month, have you been thinking about how you might do this? Response not required due to responses to other questions. 4. Over the past month, have you had these thoughts and had some intention of acting on them? Response not required due to responses to other questions. 5. Over the past month, have you started to work out or worked out the details of how to kill yourself? Response not required due to responses to other questions. 6. If yes, at any time in the past month did you intend to carry out this plan? Response not required due to responses to other questions. 7. In your lifetime, have you ever done anything, started to do anything, or prepared to do anything to end your life (for example, collected pills, obtained a gun, gave away valuables, went to the roof but didn't jump)? No 8. If YES, was this within the past 3 months? Response not required due to responses to other questions. Homelessness/Food Insecurity Screen - DI,L,N,P,PH,PS,S,U: In the past 2 months, have you been living in stable housing that you own, rent, or stay in as part of a household? Yes - Living in stable housing. Are you worried or concerned that in the next 2 months you may NOT have stable housing that you own, rent, or stay in as part of a household? No - Not worried about housing near future The [place] reports the following: Within the past 12 months, you worried whether your food would run out before you got money to buy more. Never true Within the past 12 months, the food you bought just didn't last and you didn't have money to get more. Never true URINE DRUG SCREEN: Patients on chronic opioid therapy for chronic non-malignant pain are required to have an UDS at least every 6 months. In addition, documentation of verbal consent for ongoing UDS is required at least every 6 months Verbal consent for Urine Drug Screen was obtained on this date. [facility] Foot Check - L,N,P,PH,PO,PT,U: A complete foot check was completed at this encounter. VISUAL INSPECTION: Includes inspection for skin breaks, deformity, erythema, trauma, pallor on elevation, dependent rubor, nail deformities, extensive callus and pitting edema. Visual exam results: Abnormal Observations: Non-healing wound, tip of third toe left foot, PEDAL PULSES: Includes palpation of dorsalis and posterior tibial pulses and signs/symptoms of vascular compromise like pain, pallor, parasthesia or paralysis. Present (even if diminished) SENSORY CHECK: Includes 10 gram Monofilament ([place]-Stevo) test of sensation. Intact (Greater than or equal to 80% of sites checked) Abnormal (Less than 80% of sites checked): Abnormal (decreased or absent sensation to monofilament): Comment: [place] has no feeling HIGH-RISK: HIGH RISK INFORMATION PROVIDED: 1. Advised patient that extra depth footwear with soft molded inserts and braces may be required. 2. Advised patient not to walk barefoot. 3. Explained the importance of daily foot checks. 4. Stressed the importance of daily foot hygiene, including bathing, complete drying and thorough inspection for changes. The patient verbalized understanding and was offered a detailed handout on diabetic foot care. Patient is established patient of Podiatry and/or Vascular: Last scheduled appointment: [Place data object here] Comment: has a follow up appointment in one month Patient/Nurse Interview: * * Patient stated that adequate information was received regarding the condition and/or treatment. Comment: The has no further questions at this time . Per [facility] Directive 1605.06, wristband documentation: Patient wristband was removed and destroyed by (staff name) Jennifer Parekh Rn and placed in the designated [employer] bin. /chio/ Ileana Parekh RN,BSN BHUPINDER [place] Signed: 06/21/2024 10:34 ILEANA PAREKH
--- OUTSIDE RECORDS SUMMARY | 2024-08-16 10:30 | XMS_ITS | Encounter Summary ---
Author Name [facility] [place] Address [address] [place] [address] Care Team Providers Care Cutting Machine Tender Helper Name Role Phone FILIBERTOLEONIDES KIMBALL Primary Care Provider Unavailabl e Insurance Providers: [...] PART A Dec 05, 2004 PART A [id number] MANJIT MUNROE PATIENT MEDICARE (WNR) MEDICARE (M) PART B Dec 05, 2004 PART B [id number] MANJIT MUNROE PATIENT MEDICARE (WNR) MEDICARE (M) PART B Dec 05, 2004 PART B [id number] [id number] MANJIT MUNROE PATIENT MEDICARE (WNR) MEDICARE (M) PART A Dec 05, 2004 PART A [id number] FY18 MANJIT MUNROE PATIENT MEDICARE (WNR) MEDICARE (M) PART A Dec 05, 2004 PART A [id number] MANJIT MUNROE PATIENT MEDICARE (WNR) MEDICARE (M) PART B Dec 05, 2004 PART B [id number] MANJIT MUNROE PATIENT MEDICARE (WNR) MEDICARE (M) PART B Dec 05, 2004 PART B [id number] MANJIT MUNROE PATIENT MEDICARE (WNR) MEDICARE (M) PART A Dec 05, 2004 PART A [id number] MANJIT MUNROE PATIENT MEDICARE PART D (WNR) MEDICARE (M) PART D Jun 04, 2012 PART D [id number] MANJIT MUNROE PATIENT MEDICARE PART D (WNR) MEDICARE (M) PART D Jun 04, 2012 PART D [id number] MANJIT MUNROE PATIENT Selected Encounter This section includes the information on record at [place] for the Encounter. Date/Time Encounter Type Encounter Description Reason Provider Source August 16, 2024 03:30 PM ACUP 1/> WO ESTIM 1ST 15 MIN PRIMARY CARE/MEDICINE ICD-10-CM M51.16 Intervertebral disc disorders w radiculopathy, lumbar region GERRI DE LOS SANTOS Y IHChanelle Encounter Template Text not used by [place] Assessments - Encounter Diagnoses This section includes the primary and secondary diagnoses documented for the Encounter. Date/Time Primary/Secondary Diagnosis Diagnosis Name Provider Source August 22, 2024 11:03 AM PRIMARY Intervertebral disc disorders w radiculopathy, lumbar region LEONIDES DE LOS SANTOS [facility] August 22, 2024 11:03 AM SECONDARY Unilateral primary osteoarthritis, right knee LEONIDES DE LOS SANTOS [facility] Plan of Treatment: Future Appointments (+ 6 months) and Future Tests (+/- 45 days) The Plan of Treatment section includes future care activities for the patient from all [place] treatmentfacilities. This section includes future appointments and future orders which are active, pending or scheduled. Future Appointments This section includes appointments that were scheduled to occur 6 months from the date of the Encounter, up to a maximum of 20 appointments. The data comes from all [place] treatment facilities. Appointment Date/Time Appointment Type Appointme nt Facility Name August 23, 2024 02:40 PM AMBULATORY - MEDICINE TAMMIE KULKARNI [facility] August 23, 2024 03:30 PM AMBULATORY - MEDICINE [facility] August 30, 2024 03:30 PM AMBULATORY - MEDICINE [facility] Sep 06, 2024 03:30 PM AMBULATORY - MEDICINE [facility] Sep 19, 2024 02:00 PM AMBULATORY - MEDICINE [facility] Sep 21, 2024 08:45 AM AMBULATORY - MEDICINE [place] [facility] [place] [facility] Oct 04, 2024 03:30 PM AMBULATORY - MEDICINE [facility] Oct 11, 2024 02:00 PM AMBULATORY - MEDICINE [place] [facility] Oct 11, 2024 03:30 PM AMBULATORY - MEDICINE [facility] Oct 31, 2024 10:30 AM AMBULATORY - MEDICINE [place] [facility] Nov 04, 2024 10:30 AM AMBULATORY - PSYCHIATRY [facility] Dec 20, 2024 01:30 PM AMBULATORY - MEDICINE [facility] Active, Pending, and Scheduled Orders This section includes a listing of several types of active, pending, and scheduled orders, including clinic medications orders, diagnostic test orders, procedure orders and consult orders; where the start date of the order is 45 days before the date of the Encounter or 45 days after the date of theEncounter. The data comes from all [place] treatment facilities. Test Date/Time Test Type Test Details Facility Name Jul 07, 2024 02:34 PM Consult Order COMMUNITY CARE-DERMATOLOGY 657A4 Cons Survey Research Associate's Choice [facility] Social History: Smoking Status (Most current) and Tobacco Use (All prior to encounter date) This section includes the most current, and the historical, smoking and tobacco- related health factors from the [place] facility where the Encounter took place. Current Smoking Status This section includes the most current smoking, or tobacco-related health factor, from the [place] facility where the Encounter took place. Date/Time Current Smoking Status Comment Facil ity Dec 25, 2023 10:00 AM PA-TOBACCO QUIT 5 TO < 15 YRS [facility] Tobacco Use History This section includes a history of the smoking, or tobacco-related health factors, that were collected on or before the date of the Encounter. The data comes from the [place] facility where the Encounter took place. Date/Time Smoking Status/Tobacco Use Comment F acility Dec 25, 2023 10:00 AM PA-TOBACCO QUIT 5 TO < 15 YRS [facility] Dec 30, 2022 09:30 AM VA-TOBACCO FORMER USER [facility] Dec 30, 2022 09:30 AM VA-TOBACCO QUIT 15 YRS OR MORE [facility] Jan 07, 2022 01:00 PM VA-TOBACCO FORMER USER [facility] Jan 07, 2022 01:00 PM VA-TOBACCO QUIT 15 YRS OR MORE [facility] Jan 08, 2021 01:00 PM VA-TOBACCO FORMER USER [facility] Jan 08, 2021 01:00 PM VA-TOBACCO QUIT 15 YRS OR MORE [facility] Jan 10, 2020 01:00 PM VA-TOBACCO FORMER USER [facility] Jan 10, 2020 01:00 PM VA-TOBACCO QUIT 5 TO < 15 YRS [place] [facility] Apr 19, 2018 02:57 PM VA-TOBACCO FORMER USER [facility] Apr 19, 2018 02:57 PM VA-TOBACCO QUIT 15 YRS OR MORE [place] [facility] Sep 05, 2015 02:32 PM QUIT TOBACCO >7 YEARS AGO [facility] Encounter Notes: All associated encounter notes This section contains the clinical notes associated to the Encounter. Date/Time Encounter Note(s) Provider Source August 16, 2024 04:41 PM [facility]TEGRATIVE HEALTH NOTE: LOCAL TITLE: [facility] ACUPUNCTURE NOTE STANDARD TITLE: [facility] NOTE DATE OF NOTE: AUGUST 16, 2024@16:41 ENTRY DATE: AUGUST 16, 2024@16:41:12 AUTHOR: LEONIDES DE LOS SANTOS COSIGNER: URGENCY: STATUS: COMPLETED Follow up visit [place]bal[place] Acupuncture was the only treatment given. Patient was evaluated and agreed to receive Archbald Acupuncture (BFA). Patient was evaluated and agreed to receive [place] Acupuncture Protocol (BFA) for the following pain condition(s): Comment: Low back and knee Pre BFA Pain Numeric Rating Scale of site with highest pain: 7 The patient was asked the following questions: During the past 24 hours, how much has your pain interfered with your usual activity? 8 During the past 24 hours, how much has your pain interfered with your usual sleep? 6 During the past 24 hours, how much has the pain affected your usual mood? 8 During the past 24 hours, how much has pain contributed to your stress? 9 Oral informed consent obtained for BFA. Procedure: Ear was prepped with alcohol Needle type: ASP- gold The following points were placed: All 10 points in both ears Complications: Patient tolerated well, without any complications. Post treatment Numeric Pain Rating Scale: 20% overall improvement Standard [id number] time for application of BFA protocol is [...] tape that holds the needle in place. -[place] must be placed in a sharps container [...] condition worsen. Future visit dates/details: elizabeth /chio/ MD Germán Bonilla [facility] Primary [facility] Signed: 08/16/2024 16:41 LEONIDES DE [place] [facility]
--- OUTSIDE RECORDS SUMMARY | 2024-08-23 10:30 | XMS_ITS | Encounter Summary ---
Author Name [facility] [place] Address [address] [place] [address] Care Team Providers Care Ultrasound Sonographer Name Role Phone FILIBERTOLATISHA KIMBALL Primary Care Provider Unavailabl e Insurance [...] PART A Dec 05, 2004 PART A [id number] MANJIT MUNROE PATIENT MEDICARE (WNR) MEDICARE (M) PART B Dec 05, 2004 PART B [id number] MANJIT MUNROE PATIENT MEDICARE (WNR) MEDICARE (M) PART B Dec 05, 2004 PART B [id number] FY18 [id number] MANJIT MUNROE PATIENT MEDICARE (WNR) MEDICARE (M) PART A Dec 05, 2004 PART A [id number] FY18 MANJIT MUNROE PATIENT MEDICARE (WNR) MEDICARE (M) PART A Dec 05, 2004 PART A [id number] MANJIT MUNROE PATIENT MEDICARE (WNR) MEDICARE (M) PART B Dec 05, 2004 PART B [id number] MANJIT MUNROE PATIENT MEDICARE (WNR) MEDICARE (M) PART A Dec 05, 2004 PART A [id number] MANJIT MUNROE PATIENT MEDICARE (WNR) MEDICARE (M) PART B Dec 05, 2004 PART B [id number] MANJIT MUNROE PATIENT MEDICARE PART D (WNR) MEDICARE (M) PART D Jun 04, 2012 PART D [id number] MANJIT MUNROE PATIENT MEDICARE PART D (WNR) MEDICARE (M) PART D Jun 04, 2012 PART D [id number] MANJIT MUNROE PATIENT Selected Encounter This section includes the information on record at [place] for the Encounter. Date/Time Encounter Type Encounter Description Reason Provider Source August 23, 2024 03:30 PM ACUP 1/> WO ESTIM 1ST 15 MIN PRIMARY CARE/MEDICINE ICD-10-CM M17.0 Bilateral primary osteoarthritis of knee GERRI ARCE Chanelle Encounter Template Text not used by [place] Assessments - Encounter Diagnoses This section includes the primary and secondary diagnoses documented for the Encounter. Date/Time Primary/Secondary Diagnosis Diagnosis Name Provider Source August 23, 2024 03:56 PM PRIMARY Bilateral primary osteoarthritis of knee LATISHA ARCE [facility] August 23, 2024 03:56 PM SECONDARY Intervertebral disc disorders w radiculopathy, lumbar [facility] Plan of Treatment: Future Appointments (+ 6 months) and Future Tests (+/- 45 days) The Plan of Treatment section includes future care activities for the patient from all [place] treatmentfacilities. This section includes future appointments and future orders which are active, pending or scheduled. Future Appointments This section includes appointments that were scheduled to occur 6 months from the date of the Encounter, up to a maximum of 20 appointments. The data comes from all [place] treatment facilities. Appointment Date/Time Appointment Type Appointme nt Facility Name August 30, 2024 03:30 PM AMBULATORY - MEDICINE [facility] Sep 06, 2024 03:30 PM AMBULATORY - MEDICINE [facility] Sep 19, 2024 02:00 PM AMBULATORY - MEDICINE [facility] Sep 21, 2024 08:45 AM AMBULATORY - MEDICINE [facility] Oct 04, 2024 03:30 PM AMBULATORY - MEDICINE [facility] Oct 11, 2024 02:00 PM AMBULATORY - MEDICINE [place] [facility] Oct 11, 2024 03:30 PM AMBULATORY - MEDICINE [facility] Oct 31, 2024 10:30 AM AMBULATORY - MEDICINE [place] [facility] Nov 04, 2024 10:30 AM AMBULATORY - PS[facility]CHIATRY [facility] Dec 20, 2024 01:30 PM AMBULATORY - MEDICINE [facility] Active, Pending, and Scheduled Orders This section includes a listing of several types of active, pending, and scheduled orders, including clinic medications orders, diagnostic test orders, procedure orders and consult orders; where the start date of the order is 45 days before the date of the Encounter or 45 days after the date of theEncounter. The data comes from all [place] treatment facilities. Test Date/Time Test Type Test Details Facility Name Oct 05, 2024 09:04 AM Consult Order COMMUNITY CARE-PODIATRY [id number] Cons Chief Meteorologist's Choice [facility] Social History: Smoking Status (Most current) and Tobacco Use (All prior to encounter date) This section includes the most current, and the historical, smoking and tobacco- related health factors from the [place] facility where the Encounter took place. Current Smoking Status This section includes the most current smoking, or tobacco-related health factor, from the [place] facility where the Encounter took place. Date/Time Current Smoking Status Comment Facil ity Dec 25, 2023 10:00 AM VA-TOBACCO QUIT 5 TO < 15 YRS [facility] Tobacco Use History This section includes a history of the smoking, or tobacco-related health factors, that were collected on or before the date of the Encounter. The data comes from the [place] facility where the Encounter took place. Date/Time Smoking Status/Tobacco Use Comment F acility Dec 25, 2023 10:00 AM VA-TOBACCO QUIT 5 TO < 15 YRS [facility] Dec 30, 2022 09:30 AM VA-TOBACCO FORMER USER [facility] Dec 30, 2022 09:30 AM VA-TOBACCO QUIT 15 YRS OR MORE [facility] Jan 07, 2022 01:00 PM VA-TOBACCO FORMER USER [place] [facility] Jan 07, 2022 01:00 PM VA-TOBACCO QUIT 15 YRS OR MORE [place] [facility] Jan 08, 2021 01:00 PM VA-TOBACCO FORMER US[place] [facility] Jan 08, 2021 01:00 PM VA-TOBACCO QUIT 15 YRS OR MORE [place] [facility] Jan 10, 2020 01:00 PM VA-TOBACCO FORMER US[place] [facility] Jan 10, 2020 01:00 PM VA-TOBACCO QUIT 5 TO < 15 YRS [facility] Apr 19, 2018 02:57 PM VA-TOBACCO FORMER USER [place] [facility] Apr 19, 2018 02:57 PM VA-TOBACCO QUIT 15 YRS OR MORE [place] [facility] Sep 05, 2015 02:32 PM QUIT TOBACCO >7 YEARS AGO [place] [facility] Encounter Notes: All associated encounter notes This section contains the clinical notes associated to the Encounter. Date/Time Encounter Note(s) Provider Source August 23, 2024 03:47 PM [facility]TEGRATIVE HEALTH NOTE: LOCAL TITLE: [facility] ACUPUNCTURE NOTE STANDARD TITLE: [facility]ATIVE [facility] NOTE DATE OF NOTE: AUGUST 23, 2024@15:47 ENTRY DATE: AUGUST 23, 2024@15:47:51 AUTHOR: LATISHA ARCE EXP COSIGNER: URGENCY: STATUS: COMPLETED Follow up visit [place] Acupuncture was the only treatment given. Patient was evaluated and agreed to receive [place] Acupuncture (BFA). Patient was evaluated and agreed to receive [place] Acupuncture Protocol (BFA) for the following pain condition(s): Comment: Low back and knee Pre BFA Pain Numeric Rating Scale of site with highest pain: 5 The patient was asked the following questions: [...] much has pain contributed to your stress? 8 Oral informed consent obtained for BFA. Procedure: Ear was prepped with alcohol Needle type: ASP- gold The following points were placed: All 10 points in both ears Complications: Patient tolerated well, without any complications. Post treatment Numeric Pain Rating Scale: 20% overall improvement Standard [id number] time for application of BFA protocol is [...] tape that holds the needle in place. -[place] must be placed in a sharps container [...] worsen. Future visit dates/details: elizabeth /chio/ Latisha Arce MD [facility] Primary Care Signed: 08/23/2024 15:56 LATISHA ARCE [facility]
--- OUTSIDE RECORDS SUMMARY | 2024-08-30 10:49 | XMS_ITS | Encounter Summary ---
Author Name [facility] [place] Address [address] [place] [address] Care Team Providers Care Comparison Shopper Name Role Phone FILIBERTOLEONIDES KIMBALL Primary Care [...] Policy [place] MEDICARE (WNR) MEDICARE (M) PART B Dec 05, 2004 PART B [id number] SHANEKA MANJIT PATIENT MEDICARE (WNR) MEDICARE (M) PART A Dec 05, 2004 PART A [id number] MANJIT MUNROE PATIENT MEDICARE (WNR) MEDICARE (M) PART A Dec 05, 2004 PART A [id number] SHANEKA MANJIT PATIENT MEDICARE (WNR) MEDICARE (M) PART B Dec 05, 2004 PART B [id number] MANJIT MUNROE PATIENT MEDICARE (WNR) MEDICARE (M) PART A Dec 05, 2004 PART A [id number] MANJIT MUNROE PATIENT MEDICARE (WNR) MEDICARE (M) PART B Dec 05, 2004 PART B [id number] MANJIT MUNROE PATIENT MEDICARE (WNR) MEDICARE (M) PART A Dec 05, 2004 PART A [id number] FY18 MANJIT MUNROE PATIENT MEDICARE (WNR) MEDICARE (M) PART B Dec 05, 2004 PART B [id number] MANJIT MUNROE PATIENT MEDICARE PART D (WNR) MEDICARE (M) PART D Jun 04, 2012 PART D [id number] MANJIT MUNROE PATIENT MEDICARE PART D (WNR) MEDICARE (M) PART D Jun 04, 2012 PART D [id number] FY18 [id number] MANJIT MUNROE PATIENT Selected Encounter This section includes the information on record at [place] for the Encounter. Date/Time Encounter Type Encounter Description Reason Pro vider Source August 30, 2024 03:49 PM Outpatient Encounter ADMIN PAT ACTIVTIES (MASNONCT) IHE Encounter Template Text not used by [place] Plan of Treatment: Future Appointments (+ 6 months) and Future Tests (+/- 45 days) The Plan of Treatment section includes future care activities for the patient from all [place] treatmentfacilities. This section includes future appointments and future orders which are active, pending or scheduled. Future Appointments This section includes appointments that were scheduled to occur 6 months from the date of the Encounter, up to a maximum of 20 appointments. The data comes from all [place] treatment facilities. Appointment Date/Time Appointment Type Appointme nt Facility Name Sep 06, 2024 03:30 PM AMBULATORY - MEDICINE [facility] Sep 19, 2024 02:00 PM AMBULATORY - MEDICINE [facility] Sep 21, 2024 08:45 AM AMBULATORY - MEDICINE [place] Oct 04, 2024 03:30 PM AMBULATORY - MEDICINE [facility] Oct 11, 2024 02:00 PM AMBULATORY - MEDICINE [place] [facility] Oct 11, 2024 03:30 PM AMBULATORY - MEDICINE [facility] Oct 31, 2024 10:30 AM AMBULATORY - MEDICINE [place] [facility] Nov 04, 2024 10:30 AM AMBULATORY - PS[facility]CHIATRY [facility] Dec 20, 2024 01:30 PM AMBULATORY - MEDICINE [facility] Active, Pending, and Scheduled Orders This section includes a listing of several types of active, pending, and scheduled orders, including clinic medications orders, diagnostic test orders, procedure orders and consult orders; where the start date of the order is 45 days before the date of the Encounter or 45 days after the date of theEncounter. The data comes from all [place] treatment facilities. Test Date/Time Test Type Test Details Facility Name Oct 05, 2024 09:04 AM Consult Order COMMUNITY CARE-PODIATRY 657A4 Cons Gas Compressor Operator's Choice NERY KULKARNI [facility] Social History: Smoking Status (Most current) and Tobacco Use (All prior to encounter date) This section includes the most current, and the historical, smoking and tobacco- related health factors from the [place] facility where the Encounter took place. Current Smoking Status This section includes the most current smoking, or tobacco-related health factor, from the [place] facility where the Encounter took place. Date/Time Current Smoking Status Comment Facil ity Dec 25, 2023 10:00 AM VA-TOBACCO QUIT 5 TO < 15 YRS [facility] Tobacco Use History This section includes a history of the smoking, or tobacco-related health factors, that were collected on or before the date of the Encounter. The data comes from the [place] facility where the Encounter took place. Date/Time Smoking Status/Tobacco Use Comment F acility Dec 25, 2023 10:00 AM VA-TOBACCO QUIT 5 TO < 15 YRS [facility] Dec 30, 2022 09:30 AM VA-TOBACCO FORMER USER [facility] Dec 30, 2022 09:30 AM VA-TOBACCO QUIT 15 YRS OR MORE [facility] [facility] Jan 07, 2022 01:00 PM VA-TOBACCO FORMER US[place] [facility] Jan 07, 2022 01:00 PM VA-TOBACCO QUIT 15 YRS OR MORE [facility] Jan 08, 2021 01:00 PM VA-TOBACCO FORMER USER [facility] Jan 08, 2021 01:00 PM VA-TOBACCO QUIT 15 YRS OR MORE [facility] Jan 10, 2020 01:00 PM VA-TOBACCO FORMER USER [facility] Jan 10, 2020 01:00 PM VA-TOBACCO QUIT 5 TO < 15 YRS [facility] Apr 19, 2018 02:57 PM VA-TOBACCO FORMER USER [facility] Apr 19, 2018 02:57 PM VA-TOBACCO QUIT 15 YRS OR MORE [facility] Sep 05, 2015 02:32 PM QUIT TOBACCO >7 YEARS AGO [facility] Encounter Notes: All associated encounter notes This section contains the clinical notes associated to the Encounter. Date/Time Encounter Note(s) Provider Source August 30, 2024 03:49 PM GENERAL MEDICINE N OTE: LOCAL TITLE: General Note PB STANDARD TITLE: GENERAL MEDICINE NOTE DATE OF NOTE: AUGUST 30, 2024@15:49 ENTRY DATE: AUGUST 30, 2024@15:49:45 AUTHOR: JACK DENNIS EXP COSIGNER: URGENCY: STATUS: COMPLETED dropped off right hearing aid, packaged and sent to [facility] via [employer] /es/ JACK DENNIS Telehealth Clinical Field Agronomist Signed: 08/30/2024 15:50 JACK DENNIS [facility]
--- OUTSIDE RECORDS SUMMARY | 2024-09-06 10:30 | XMS_ITS | Encounter Summary ---
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 Name Role Phone FILIBERTOLATISHA PIZARRO Primary Care [...] PART A Dec 05, 2004 PART A [id number] [phone] MANJIT MUNROE PATIENT MEDICARE (WNR) MEDICARE (M) PART B Dec 05, 2004 PART B [id number] [phone] MANJIT MUNROE PATIENT MEDICARE (WNR) MEDICARE (M) PART B Dec 05, 2004 PART B [id number] MANJIT MUNROE PATIENT MEDICARE (WNR) MEDICARE (M) PART A Dec 05, 2004 PART A [id number] MANJIT MUNROE PATIENT MEDICARE (WNR) MEDICARE (M) PART A Dec 05, 2004 PART A [id number] MANJIT MUNROE PATIENT MEDICARE (WNR) MEDICARE (M) PART B Dec 05, 2004 PART B [id number] MANJIT MUNROE PATIENT MEDICARE (WNR) MEDICARE (M) PART A Dec 05, 2004 PART A [id number] MANJIT MUNROE PATIENT MEDICARE (WNR) MEDICARE (M) PART B Dec 05, 2004 PART B [id number] [phone] MANJIT MUNROE PATIENT MEDICARE PART D (WNR) MEDICARE (M) PART D Jun 04, 2012 PART D [id number] MANJIT MUNROE PATIENT MEDICARE PART D (WNR) MEDICARE (M) PART D Jun 04, 2012 PART D [id number] MANJIT MUNROE PATIENT Selected Encounter This section includes the information on record at [place] for the Encounter. Date/Time Encounter Type Encounter Description Reason Provider Source Sep 06, 2024 03:30 PM ACUP 1/> WO ESTIM 1ST 15 MIN PRIMARY CARE/MEDICINE ICD-10-CM M25.512 Pain in left shoulder LATISHA ARCE [facility] Encounter Template Text not used by [place] Assessments - Encounter Diagnoses This section includes the primary and secondary diagnoses documented for the Encounter. Date/Time Primary/Secondary Diagnosis Diagnosis Name Provider Source Sep 06, 2024 04:18 PM PRIMARY Pain in left shoulder LATISHA ARCE [facility] Sep 06, 2024 04:18 PM SECONDARY Intervertebral disc disorders w radiculopathy, lumbar region [facility] Sep 06, 2024 04:18 PM SECONDARY Segmental and somatic dysfunction of [facility] of Treatment: Future Appointments (+ 6 months) and Future Tests (+/- 45 days) The Plan of Treatment section includes future care activities for the patient from all [place] treatmentfacilities. This section includes future appointments and future orders which are active, pending or scheduled. Future Appointments This section includes appointments that were scheduled to occur 6 months from the date of the Encounter, up to a maximum of 20 appointments. The data comes from all [place] treatment facilities. Appointment Date/Time Appointment Type Appointme nt Facility Name Sep 19, 2024 02:00 PM AMBULATORY - MEDICINE [facility] Sep 21, 2024 08:45 AM [facility]BULATORY - [facility]ICINE [facility] Oct 04, 2024 03:30 PM AMBULATORY - MEDICINE [facility] Oct 11, 2024 02:00 PM AMBULATORY - MEDICINE [facility] Oct 11, 2024 03:30 PM AMBULATORY - MEDICINE [facility] Oct 31, 2024 10:30 AM AMBULATORY - MEDICINE [facility] [facility] Nov 04, 2024 10:30 AM AM[facility]ULATORY - PS[facility]IATRY [facility] Dec 20, 2024 01:30 PM AMBULATORY - MEDICINE [facility] Active, Pending, and Scheduled Orders This section includes a listing of several types of active, pending, and scheduled orders, including clinic medications orders, diagnostic test orders, procedure orders and consult orders; where the start date of the order is 45 days before the date of the Encounter or 45 days after the date of theEncounter. The data comes from all [place] treatment facilities. Test Date/Time Test Type Test Details Facility Name Oct 05, 2024 09:04 AM Consult Order [facility] [id number] [address] [facility] Social History: Smoking Status (Most current) and Tobacco Use (All prior to encounter date) This section includes the most current, and the historical, smoking and tobacco- related health factors from the [place] facility where the Encounter took place. Current Smoking Status This section includes the most current smoking, or tobacco-related health factor, from the [place] facility where the Encounter took place. Date/Time Current Smoking Status Comment Facil ity Dec 25, 2023 10:00 AM VA-TOBACCO FORMER USER [facility] Tobacco Use History This section includes a history of the smoking, or tobacco-related health factors, that were collected on or before the date of the Encounter. The data comes from the [place] facility where the Encounter took place. Date/Time Smoking Status/Tobacco Use Comment F acility Dec 25, 2023 10:00 AM VA-TOBACCO QUIT 5 TO < 15 YRS [facility] Dec 30, 2022 09:30 AM VA-TOBACCO FORMER USER [facility] Dec 30, 2022 09:30 AM VA-TOBACCO QUIT 15 YRS OR MORE [facility] Jan 07, 2022 01:00 PM VA-TOBACCO FORMER USER [facility] Jan 07, 2022 01:00 PM VA-TOBACCO QUIT 15 YRS OR MORE [facility] Jan 08, 2021 01:00 PM VA-TOBACCO FORMER USER [facility] Jan 08, 2021 01:00 PM VA-TOBACCO QUIT 15 YRS OR MORE [facility] Jan 10, 2020 01:00 PM VA-TOBACCO FORMER USER [facility] Jan 10, 2020 01:00 PM VA-TOBACCO QUIT 5 TO < 15 YRS [facility] Apr 19, 2018 02:57 PM VA-TOBACCO FORMER USER [facility] Apr 19, 2018 02:57 PM VA-TOBACCO QUIT 15 YRS OR MORE [facility] Sep 05, 2015 02:32 PM QUIT TOBACCO >7 YEARS AGO [facility] Encounter Notes: All associated encounter notes This section contains the clinical notes associated to the Encounter. Date/Time Encounter Note(s) Provider Source Sep 06, 2024 04:10 PM [facility]: [facility] STANDARD TITLE: [facility] NOTE DATE OF NOTE: SEP 06, 2024@16:10 ENTRY DATE: SEP 06, 2024@16:10:46 AUTHOR: LATISHA ARCE COSIGNER: URGENCY: STATUS: COMPLETED Follow up visit [place] Acupuncture was the only treatment given. Patient was evaluated and agreed to receive [place] Acupuncture (BFA). Patient was evaluated and agreed to receive [place] Acupuncture Protocol (BFA) for the following pain [...] Pain Rating Scale: 20% overall improvement Standard [id number] time for application of BFA protocol is [...] tape that holds the needle in place. -[place] must be placed in a sharps container [...] [facility] Signed: 09/06/2024 16:18 LATISHA ARCE [facility]
--- OUTSIDE RECORDS SUMMARY | 2024-09-19 09:00 | XMS_ITS | Encounter Summary ---
Author Name [facility] [place] [facility] [place] [facility] [facility] [place] Address [address] [place] [address] Care Team Providers Care Lead Care Manager Name Role Phone FILIBERTOLATISHA PIZARRO Primary Care [...] PART B Dec 05, 2004 PART B [id number] MANJIT MUNROE PATIENT MEDICARE (WNR) MEDICARE (M) PART A Dec 05, 2004 PART A [id number] [phone] SHANEKA MANJIT PATIENT MEDICARE (WNR) MEDICARE (M) PART A Dec 05, 2004 PART A [id number] MANJIT MUNROE PATIENT MEDICARE (WNR) MEDICARE (M) PART B Dec 05, 2004 PART B [id number] SHANEKA MANJIT PATIENT MEDICARE (WNR) MEDICARE (M) PART A Dec 05, 2004 PART A [id number] MANJIT MUNROE PATIENT MEDICARE (WNR) MEDICARE (M) PART B Dec 05, 2004 PART B [id number] MANJIT MUNROE PATIENT MEDICARE (WNR) MEDICARE (M) PART A Dec 05, 2004 PART A [id number] MANJIT MUNROE PATIENT MEDICARE (WNR) MEDICARE (M) PART B Dec 05, 2004 PART B [id number] MANJIT MUNROE PATIENT MEDICARE PART D (WNR) MEDICARE (M) PART D Jun 04, 2012 PART D [id number] MANJIT MUNROE PATIENT MEDICARE PART D (WNR) MEDICARE (M) PART D Jun 04, 2012 PART D [id number] MANJIT MUNROE PATIENT Selected Encounter This section includes the information on record at CT for the Encounter. Date/Time Encounter Type Encounter Description Reason Provider Source Sep 19, 2024 02:00 PM OFFICE O/P EST MOD 30 MIN [facility] - IND ICD-10-CM F33.42 Major depressive disorder, recurrent, in full remission TATUM CHAPMAN Chanelle Encounter Template Text not used by CT Assessments - Encounter Diagnoses This section includes the primary and secondary diagnoses documented for the Encounter. Date/Time Primary/Secondary Diagnosis Diagnosis Name Provider Source Sep 19, 2024 03:56 PM PRIMARY Major depressive disorder, recurrent, in full remission TATUM CHAPMAN [facility] Sep 19, 2024 03:56 PM SECONDARY Anxiety disorder, unspecified TATUM CHAPMAN [facility] Plan of Treatment: Future Appointments (+ 6 months) and Future Tests (+/- 45 days) The Plan of Treatment section includes future care activities for the patient from all CT treatmentfacilities. This section includes future appointments and future orders which are active, pending or scheduled. Future Appointments This section includes appointments that were scheduled to occur 6 months from the date of the Encounter, up to a maximum of 20 appointments. The data comes from all CT treatment facilities. Appointment Date/Time Appointment Type Appointme nt Facility Name Sep 21, 2024 08:45 AM AMBULATORY - MEDICINE TAMMIE KULKARNI [facility] Oct 04, 2024 03:30 PM AMBULATORY - MEDICINE [facility] Oct 11, 2024 02:00 PM AMBULATORY - MEDICINE POPL JUAN ANTONIO [facility] Oct 11, 2024 03:30 PM AMBULATORY - MEDICINE [facility] Oct 31, 2024 10:30 AM AMBULATORY - MEDICINE POPL JUAN ANTONIO [facility] Nov 04, 2024 10:30 AM AMBULATORY - PSYCHIATRY [facility] Dec 20, 2024 01:30 PM AMBULATORY - MEDICINE [facility] Active, Pending, and Scheduled Orders This section includes a listing of several types of active, pending, and scheduled orders, including clinic medications orders, diagnostic test orders, procedure orders and consult orders; where the start date of the order is 45 days before the date of the Encounter or 45 days after the date of theEncounter. The data comes from all CT treatment facilities. Test Date/Time Test Type Test Details Facility Name Oct 05, 2024 09:04 AM Consult Order [facility] 657A4 Cons [employer] [facility] Vital Signs: All taken on the encounter date This section contains inpatient and outpatient Vital Signs collected on the date of the Encounter. Date/Time Temperature Pulse Blood Pressure Respiratory Rate SP02 Pain Height Weight Body Mass Index Source Sep 19, 2024 02:35 PM 145/79 mm[Hg] [facility] Sep 19, 2024 02:30 PM 97.4 F 73 /min 153/86 mm[Hg] 20 /min 96 % 4 232.2 lb 32 [facility] Social History: Smoking Status (Most current) and Tobacco Use (All prior to encounter date) This section includes the most current, and the historical, smoking and tobacco- related health factors from the CT facility where the Encounter took place. Current Smoking Status This section includes the most current smoking, or tobacco-related health factor, from the CT facility where the Encounter took place. Date/Time Current Smoking Status Comment Facil ity Dec 25, 2023 10:[address]-TOBACCO QUIT 5 TO < 15 YRS [facility] Tobacco Use History This section includes a history of the smoking, or tobacco-related health factors, that were collected on or before the date of the Encounter. The data comes from the CT facility where the Encounter took place. Date/Time Smoking Status/Tobacco Use Comment F acility Dec 25, 2023 10:[address]-TOBACCO QUIT 5 TO < 15 YRS [facility] Dec 30, 2022 09:30 AM VA-TOBACCO FORMER USER [facility] Dec 30, 2022 09:30 AM VA-TOBACCO QUIT 15 YRS OR MORE [facility] Jan 07, 2022 01:00 PM VA-TOBACCO FORMER USER [facility] Jan 07, 2022 01:00 PM VA-TOBACCO QUIT 15 YRS OR MORE [facility] Jan 08, 2021 01:00 PM VA-TOBACCO FORMER USER [facility] Jan 08, 2021 01:00 PM VA-TOBACCO QUIT 15 YRS OR MORE [facility] Jan 10, 2020 01:00 PM VA-TOBACCO FORMER USER [facility] Jan 10, 2020 01:00 PM VA-TOBACCO QUIT 5 TO < 15 YRS [facility] Apr 19, 2018 02:57 PM VA-TOBACCO FORMER USER [facility] Apr 19, 2018 02:57 PM VA-TOBACCO QUIT 15 YRS OR MORE [facility] Sep 05, 2015 02:32 PM QUIT TOBACCO >7 YEARS AGO [facility] Encounter Notes: All associated encounter notes This section contains the clinical notes associated to the Encounter. Date/Time Encounter Note(s) Provider Source Sep 19, 2024 02:32 PM NURSING PROGRESS N OTE: LOCAL TITLE: NURSING NOTE STANDARD TITLE: NURSING PROGRESS NOTE DATE OF NOTE: SEP 19, 2024@14:32 ENTRY DATE: SEP 19, 2024@14:32:22 AUTHOR: BEULAH VARGAS EXP COSIGNER: URGENCY: STATUS: COMPLETED [place] is here for his scheduled F psychiatry appt. He has already been seen by Dr Chapman. (this nurse had not been available prior to him being seen.) He is alert and oriented, resps even and unlabored, gait steady with the use of a walker. [place] is pleasant and conversational, states he has been doing good. Pain Assessment: - PAIN ASSESSMENT: .. This patient's last pain assessment score was: 6 (03/18/2024 14:11). A detailed pain assessment showed the following: Pain characteristics (per patient's own words) Constant Location of current pain Low Back, Other-right knee Onset/Duration of the current pain. Constant or variable? More than a year Patient's self-identified pain level: 4 [place] voiced no questions or concerns at this time and was escorted to the lobby in satisfactory condition, he is waiting to be seen for his individual BFA appt. /es/ GIANFRANCO GALLAGHER, RN [facility] Signed: 09/20/2024 12:28 BEULAH VARGAS [facility] Sep 19, 2024 02:30 PM PRIMARY CARE EDUCA TION NOTE: LOCAL TITLE: OPT PHY INSTR AUTO PB STANDARD TITLE: PRIMARY CARE EDUCATION NOTE DATE OF NOTE: SEP 19, 2024@14:30 ENTRY DATE: SEP 19, 2024@15:56:44 AUTHOR: TATUM CHAPMAN COSIGNER: URGENCY: STATUS: COMPLETED This documentation is related to: . F/U Visit Description of Today's Injury/Illness: MH MED MGMT Mental Health Testing: RETURN TO CLINIC: Discharge to Primary Care. . Special Instructions: . None. MEDICATION REVIEW/ASSESSMENT & PLAN: 1. Continue escitalopram 20mg po qam for mood and anxiety 2. Continue mirtazipine 30mg po qhs for mood and insomnia 3. Transfer MH med mgmt to PCP as pt has been stable for over 6 months on current medications. Pt aware of and agreed to this plan. Allergies/ADRs (Tool #5) FACILITY ALLERGY/ADR -------- [facility] BUPROPION [facility] DORZOLAMIDE [facility] VENLAFAXINE [facility] BUPROPION [facility] DORZOLAMIDE [facility] VENLAFAXINE Med. Reconciliation (Tool #1) INCLUDED IN THIS LIST: Alphabetical list of active outpatient prescriptions dispensed from this CT (local) and dispensed from another CT or [facility] facility (remote) as well as inpatient orders (local pending and active), local clinic medications, locally documented non-VA medications, and local prescriptions that have or been discontinued in the past 90 days. Non-VA Meds Last Documented On: Jul 15, 2021 NOTE The display of VA prescriptions dispensed from another CT or [facility] facility (remote) is limited to active outpatient prescription entries matched to National Drug File at the originating site and may not include some items such as investigational drugs, compounds, etc. NOT INCLUDED IN THIS LIST: Medications self-entered by the patient into personal health records (i.e. [facility]) are NOT included in this list. Non-VA medications documented outside this CT, remote inpatient orders (regardless of status) and remote clinic medications are NOT included in this list. The patient and provider must always discuss medications the patient is taking, regardless of where the medication was dispensed or obtained. OUTPT ATORVASTATIN CALCIUM 40MG TAB (Status = Active) TAKE ONE TABLET BY MOUTH EVERY EVENING FOR HIGH CHOLESTEROL Rx# [id number] Last Released: 08/12/24 Qty/Days Supply: Rx Expiration Date: 11/24/24 Refills Remainin Indication: FOR HIGH CHOLESTEROL OUTPT CLOBETASOL PROPIONATE 0.05% CREAM (Status = Active) APPLY SPARINGLY TO AFFECTED AREA(S) TWICE DAILY NEEDED APPLY TO AFFECTED AREAS ON LEGS. NO MORE THAN TWO WEEKS OF THE MONTH. DO NOT USE ON FACE, GROIN, OR SKIN FOLDS. Rx# [id number] Last Released: 05/21/24 Qty/Days Supply: 6030 Rx Expiration Date: 03/10/25 Refills Remainin OUTPT ESCITALOPRAM OXALATE 20MG TAB (Status = Active) TAKE ONE TABLET BY MOUTH EVERY MORNING FOR DEPRESSION Rx# [id number] Last Released: 09/16/24 Qty/Days Supply: Rx Expiration Date: 11/17/24 Refills Remainin Indication: FOR DEPRESSION OUTPT FINASTERIDE 5MG TAB (Status = Active) TAKE ONE TABLET BY MOUTH ONCE A DAY FOR PROSTATE. SWALLOW WHOLE, DO NOT CRUSH, SPLIT, OR CHEW. Rx# [id number] Last Released: 09/15/24 Qty/Days Supply: Rx Expiration Date: 01/12/25 Refills Remainin OUTPT HYDRALAZINE HCL 25MG TAB (Status = Active) TAKE ONE TABLET BY MOUTH TWICE A DAY FOR BLOOD PRESSURE Rx# [id number] Last Released: 06/22/24 Qty/Days Supply: 180 Rx Expiration Date: 06/22/25 Refills Remainin OUTPT HYDROCHLOROTHIAZIDE 25MG TAB (Status = Active) TAKE ONE TABLET BY MOUTH ONCE A DAY FOR BLOOD PRESSURE Rx# [id number] Last Released: 03/14/24 Qty/Days Supply: Rx Expiration Date: 03/10/25 Refills Remainin OUTPT INSULIN,ASPART(EQV-NOVLG)100UN/ ML FLXPEN (Status = Active) INJECT 18 UNITS UNDER THE SKIN THREE TIMES A DAY BEFORE MEALS FOR DIABETES FOR BLOOD SUGAR CONTROL. ADMINISTER 10 MINUTES BEFORE FOOD DIRECTED. REFRIGERATE UN-OPENED PENS. DISCARD CARTRIDGE 28 DAYS AFTER OPENING. Rx# [id number] Last Released: 08/25/24 Qty/Days Supply: Rx Expiration Date: 04/05/25 Refills Remainin Indication: FOR DIABETES OUTPT INSULIN,GLARGINE,HUMAN 100 UNIT/ML INJ (Status = ) INJECT 20 UNITS UNDER THE SKIN EVERY MORNING FOR DIABETES ADMINISTER AT SAME TIME EACH DAY DIRECTED. DISCARD ANY VIAL 28 DAYS AFTER OPENING. Rx# [id number] Last Released: 06/01/24 Qty/Days Supply: Rx Expiration Date: 06/29/24 Refills Remainin Indication: FOR DIABETES OUTPT LISINOPRIL 40MG TAB (Status = Active) TAKE ONE TABLET BY MOUTH ONCE A DAY FOR HIGH BLOOD PRESSURE Rx# [id number] Last Released: 09/16/24 Qty/Days Supply: Rx Expiration Date: 12/29/24 Refills Remainin Indication: FOR HIGH BLOOD PRESSURE OUTPT LORATADINE 10MG TAB (Status = Active) TAKE ONE TABLET BY MOUTH ONCE A DAY ON EMPTY STOMACH FOR ALLERGIES Rx# [id number] Last Released: 08/23/24 Qty/Days Supply: Rx Expiration Date: 01/12/25 Refills Remainin OUTPT MECLIZINE HCL 25MG CHEW TAB (Status = Active) CHEW AND SWALLOW ONE TABLET BY MOUTH EVERY 6 HOURS NEEDED FOR VERTIGO CHEWABLE TABLETS MAY BE CHEWED OR SWALLOWED WHOLE. MAY CAUSE DROWSINESS. Rx# [id number] Last Released: 05/21/24 Qty/Days Supply: 120/30 Rx Expiration Date: 03/10/25 Refills Remainin Indication: FOR VERTIGO OUTPT METHOCARBAMOL 500MG TAB (Status = Discontinued) TAKE 1 TABLET BY MOUTH THREE TIMES A DAY FOR 30 DAYS Rx# [id number] Last Released: 08/04/24 Qty/Days Supply: 90 Rx Expiration Date: 09/01/24 Refills Remainin OUTPT METHOCARBAMOL 500MG TAB (Status = Active/Suspended) TAKE 1 TABLET BY MOUTH THREE TIMES A DAY Rx# [id number] Last Released: QtDays Supply: 90 Rx Expiration Date: 10/16/24 Refills Remainin OUTPT MIRTAZAPINE 30MG TAB (Status = Discontinued) TAKE ONE TABLET BY MOUTH AT BEDTIME FOR DEPRESSION Rx# [id number] Last Released: 06/20/24 Qty/Days Supply: 90 Rx Expiration Date: 09/15/24 Refills Remainin Indication: FOR DEPRESSION OUTPT MIRTAZAPINE 30MG TAB (Status = Active) TAKE ONE TABLET BY MOUTH AT BEDTIME FOR DEPRESSION Rx# [id number] Last Released: 09/08/24 Qty/Days Supply: 90 Rx Expiration Date: 07/27/25 Refills Remainin Indication: FOR DEPRESSION Non-VA MORPHINE SO4 15MG SA TAB TAKE ONE TABLET BY MOUTH EVERY 12 HOURS NEEDED Patient wants to buy from Non-VA pharmacy. Medication prescribed by Non-VA provider. OUTPT OMEPRAZOLE 20MG EC CAP (Status = Active) TAKE ONE CAPSULE BY MOUTH TWICE A DAY TAKE ON AN EMPTY STOMACH Rx# [id number] Last Released: 09/09/24 Qty/Days Supply: 180/ Rx Expiration Date: 04/05/25 Refills Remainin OUTPT PREGABALIN 150MG ORAL CAP (Status = ) TAKE ONE CAPSULE BY MOUTH TWICE A DAY FOR NERVE PAIN *MAY CAUSE DROWSINESS* Rx# [id number] Last Released: 08/24/24 Qty/Days Supply: 60/30 Rx Expiration Date: 09/09/24 Refills Remainin Indication: FOR NERVE PAIN OUTPT PREGABALIN 150MG ORAL CAP (Status = Active/Suspended) TAKE ONE CAPSULE BY MOUTH TWICE A DAY FOR NERVE PAIN *MAY CAUSE DROWSINESS* Rx# [id number] Last Released: QtyDays Supply: Rx Expiration Date: 03/18/25 Refills Remainin Indication: FOR NERVE PAIN OUTPT TIOTROPIUM 2.5MCG/ACTUAT 60D ORAL INHL (Status = Active) INHALE 2 INHALATIONS BY MOUTH ONCE A DAY (ADMINISTER AT SAME TIME EACH DAY) FOR BREATHING. Rx# [id number] Last Released: 03/11/24 Qty/Days Supply: Rx Expiration Date: 10/14/24 Refills Remainin OUTPT TIZANIDINE HCL 4MG TAB (Status = Discontinued) TAKE TWO TABLETS BY MOUTH AT BEDTIME FOR SPASTICITY Rx# [id number] Last Released: 07/27/24 Qty/Days Supply: Rx Expiration Date: 06/18/25 Refills Remainin Indication: FOR SPASTICITY OUTPT TIZANIDINE HCL 4MG TAB (Status = Active) TAKE ONE TABLET BY MOUTH THREE TIMES A DAY FOR 30 DAYS Rx# [id number] Last Released: 08/26/24 Qty/Days Supply: Rx Expiration Date: 08/24/25 Refills Remainin OUTPT TRAMADOL HCL 50MG TAB (Status = ) TAKE 1 TABLET BY MOUTH EVERY 4 HOURS NEEDED FOR MILD TO MODERATE PAIN Rx# [id number] Last Released: 06/20/24 Qty/Days Supply: Rx Expiration Date: 07/06/24 Refills Remainin OUTPT TRAMADOL HCL 50MG TAB (Status = Discontinued) TAKE 1 TABLET BY MOUTH EVERY 4 HOURS NEEDED FOR MILD TO MODERATE PAIN Rx# [id number] Last Released: 07/28/24 Qty/Days Supply: Rx Expiration Date: 01/26/25 Refills Remainin Indication: FOR PAIN OUTPT TRAMADOL HCL 50MG TAB (Status = Discontinued) TAKE 1 TABLET BY MOUTH EVERY 4 TO 6 HOURS NEEDED FOR PAIN (NOT TO EXCEED 2 TABLETS PER DAY) THIS QUANTITY MUST LAST 30 DAYS OR MORE Rx# [id number] Last Released: 08/08/24 Qty/ Supply: Rx Expiration Date: 09/01/24 Refills Remainin OUTPT TRAMADOL HCL 50MG TAB (Status = Active) TAKE 1 TABLET BY MOUTH EVERY 4 TO 6 HOURS NEEDED FOR PAIN (NOT TO EXCEED 2 TABLETS PER DAY) THIS QUANTITY MUST LAST 30 DAYS OR MORE Rx# [id number] Last Released: 09/01/24 Qty Supply: Rx Expiration Date: 02/23/25 Refills Remainin SUPPLIES OUTPT GLUCOSE SENSOR FREESTYLE JEFE 2 (Status = Active) USE SENSOR EVERY 2 WEEKS FOR CONTINUOUS GLUCOSE MONITORING. CHANGE SENSOR/SITE EVERY 14 DAYS. CONTACT [facility] AT ([id number]) FOR REPLACEMENT OF DAMAGED/MALFUNCTIONING SENSORS Rx# [id number] Last Released: 09/06/24 Qt Supply: Rx Expiration Date: 07/14/25 Refills Remainin OUTPT INSULIN SYRINGE 0.5ML 31G 8MM (Status = ) USE SYRINGE UNDER THE SKIN ONCE A DAY FOR DIABETES TO USE WITH INSULIN Rx# [id number] Last Released: 05/17/24 Qty Supply: Rx Expiration Date: 07/07/24 Refills Remainin Indication: FOR DIABETES PHARMACY TERMS AND POSSIBLE PATIENT ACTIONS INPT = CT inpatient order IV = CT intravenous medication OUTPT = CT outpatient prescription PHARMACY POSSIBLE PATIENT TERMS EXPLANATION ACTIONS -------- - ACTIVE A prescription that can be If [...] more of this picked up at the CT pharmacy medication. window. A prescription which is [...] the [facility]. Or, it may be an xkdy-ydu-dukmder (OTC), herbal, dietary supplements or sample medication. [...] An active prescription that is Contact your CT not scheduled to be filled yet. pharmacy if you need You should receive it before this medication now. you run out. ==== Medication reconciliation performed with confirmed /caregiver and /caregiver voiced an understanding of current medications? Yes [place]/caregiver were provided an updated medication list. Following results reviewed and discussed with patient: None Future Appointments: 09/20/2024 15:30 [facility] ALT THER BFA GRP E 09/21/2024 08:45 COM CARE-NEUROLOGY 657A4 10/06/2024 10:30 [facility] BH MHC IND SWS CRI 10/31/2024 10:30 COM CARE-DERMATOLOGY 657A 12/20/2024 13:30 [facility] PACT ECHO PCP /es/ TATUM Rapp [facility] Signed: 09/19/2024 15:59 [facility] CHAPMAN [facility] Sep 19, 2024 02:30 PM MENTAL HEALTH NOTE : LOCAL TITLE: MH FLOW DISCHARGE STANDARD TITLE: MENTAL HEALTH NOTE DATE OF NOTE: SEP 19, 2024@14:30 ENTRY DATE: SEP 19, 2024@16:00:39 AUTHOR: TATUM CHAPMAN EXP COSIGNER: URGENCY: STATUS: COMPLETED Mental Health FLOW Discharge Note The is no longer receiving specialty mental health services at this time. PERTINENT DIAGNOSIS(ES): Major Depressive Disorder ; Unspecified Anxiety Disorder Please refer to the progress note date Sep for additional details. Summary of the episode of care is at the end of this note. NEXT PRIMARY CARE PROVIDER (PCP) APPOINTMENT PCP name & PACT Team: Team Information Primary Care Team: [facility] PC ECHO PC Provider: LATISHA DE LOS SANTOS Position: PHYSICIAN Non-PC Team: Troy CHAN GARCIA TEAM Non-PC Provider: ORIANA VELA Position: (TC) SOCIAL WOR No PCP appointment scheduled at this time REASON FOR DISCHARGE has adhered to and benefited from pharmacotherapy, which is now transferred to Primary Care (PC). The has: - enough medication refills for 5 or more months - been told to contact the PCP at least one month before needing additional refills - been given a copy of current medications today Progress toward goals as evidenced by improvements in: Self-report mental health measures Quality of life Interpersonal functioning Health behavior Current mental health medications to be refilled by PCP: Sertraline and mirtazapine [place] was made aware of the above: In person SUMMARY of EPISODE of CARE: [place]'s mood and anxiety were improved with therapy, which he will continue and med. mgmt.. He has been stable on mirtazipine and sertraline for over 6 months. The undersigned has added the 's PCP and other [facility] staff as additional signer. /es/ TATUM Rapp [facility] Signed: 09/19/2024 16:04 Receipt Acknowledged By: 09/19/2024 16:07 /es/ Latisha De Los Santos MD [facility] 09/20/2024 12:51 /es/ GIANFRANCO GALLAGHER, RN [facility] * AWAITING SIGNATURE * RONNI BOWIE [facility] Sep 19, 2024 02:30 PM PSYCHIATRY NOTE: LOCAL TITLE: PSYCHIATRIC PROGRESS NOTE PB STANDARD TITLE: PSYCHIATRY NOTE DATE OF NOTE: SEP 19, 2024@14:30 ENTRY DATE: SEP 19, 2024@16:00 AUTHOR: TATUM CHAPMAN COSIGNER: URGENCY: STATUS: COMPLETED PSYCHIATRIC PROGRESS NOTE PB Has ADDENDA CC: HPI: MANJIT MUNROE is a 74-year-old man with a history of XX who presents for medication management follow up appointment after last appointment on XX where he was continued on Patient reported compliance with meds with no side effects and good clinical effect. Patient denied any suicidal or homicidal ideation. Today patient reports that mood is XX with no depression or anxiety symptoms. Today patient reports that mood is XX with depression symptoms including: insomnia, anhedonia, hopelessness, low energy, poor concentration, poor appetite, psychomotor slowing, and increased thoughts of suicide with no plan and no intent on acting on these thoughts. Patient denied any anxiety symptoms. Patient reports anxiety symptoms including: feeling nervous, anxious or on edge, not being able to stop or control worrying, worrying too much about different things, trouble relaxing, being so restless that it is hard to sit, becoming easily annoyed or irritated and feeling afraid as if something awful might happen. Current stressors include: XX Patient denied manic or psychotic symptoms or history. Patient denied any PTSD symptoms. PTSD symptoms included: nightmares, flashbacks, avoidance, and hypervigilance. Interval Social History changes: ROS: Constitutional: Weight: Sleep: Energy: allergies reviewed: BUPROPION, DORZOLAMIDE, VENLAFAXINE PROBLEM LIST PER CPRS: reviewed 1) Type 2 diabetes mellitus 2) Neuropathy 3) HTN - Hypertension 4) HLD - Hyperlipidemia 5) Chronic gastritis 6) Allergic rhinitis comment: CT scan 07/17/2023 stable no further work-up 7) Anxiety 8) Depression 9) Glaucoma 10) Degeneration of lumbar intervertebral disc 11) Cervical segmental dysfunction 12) Shoulder pain 13) Chronic post-traumatic stress disorder following combat 14) Vertigo 15) Tinnitus 16) Hearing loss 17) COPD - Chronic obstructive pulmonary disease 18) Tremor comment: right arm 19) Poor short-term memory 20) Benign Prostatic Hypertrophy without Outflow Obstruction (SCT [id number]) 21) Alcohol Abuse (SCT [id number]) 22) Charcot's joint of foot comment: right 23) Temporomandibular ggrkk-phia-sbkedmbzskx syndrome 24) Solitary nodule of lung comment: RML, repeat CT scan in 09/2021 comment: stable on CT scan 08/2021 but needs repeated in 6-12 months comment: no change 07/2022 repeat one more time in 07/2023 for stability 25) Carpal tunnel syndrome comment: bilaterally NCT 02/2021 26) Ulnar neuropathy comment: bilaterally NCT 02/2021 27) Basal cell carcinoma of face comment: left cheek and nasal 28) Polyp Colon (SCT [id number]) comment: colonoscopy 03/19/22 repeat in 03/2025 29) Adrenal adenoma comment: right 30) Tenosynovitis of right ankle 31) Osteoarthritis of right knee joint comment: Dr. Bianchi gel injections 32) Cervicalgia 33) Exposure to potentially hazardous substance 34) Dysphonia comment: Secondary to chronic GERD leading to chronic laryngitis 35) GERD - Gastro-Esophageal Reflux Disease (SCT [id number]) 36) Bilateral osteoarthritis of knees 37) Cholelithiasis comment: Incidental finding on MRI 09/24/2023 38) Esophageal dysphagia comment: Type II achalasia; with esophageal reflux 39) Diastolic heart failure MEDICATIONS: reviewed Active and Recently Outpatient Medications (including Supplies): Active Outpatient Medications [...] DO NOT CRUSH, SPLIT, OR CHEW. 5) GLUCOSE SENSOR [address] FACC Fund I JEFE 2 USE SENSOR EVERY 2 WEEKS ACTIVE FOR CONTINUOUS GLUCOSE MONITORING. CHANGE SENSOR/SITE EVERY 14 DAYS. CONTACT [facility]UST[facility] AT ([id number]) FOR REPLACEMENT OF DAMAGED/MALFUNCTIONING SENSORS 6) HYDRALAZINE HCL 25MG TAB TAKE ONE TABLET BY MOUTH TWICE A ACTIVE DAY FOR BLOOD PRESSURE 7) HYDROCHLOROTHIAZIDE 25MG TAB TAKE ONE TABLET BY MOUTH ONCE A ACTIVE DAY FOR BLOOD PRESSURE 8) INSULIN,ASPART(EQV-NOVLG)100UN/ ML FLXPEN INJECT 18 UNITS ACTIVE UNDER THE SKIN THREE TIMES A DAY BEFORE MEALS FOR BLOOD SUGAR CONTROL. ADMINISTER 10 MINUTES BEFORE FOOD DIRECTED. REFRIGERATE UN-OPENED PENS. DISCARD CARTRIDGE 28 DAYS AFTER OPENING. Indication: FOR DIABETES 9) LISINOPRIL 40MG TAB TAKE ONE TABLET BY MOUTH ONCE A DAY ACTIVE Indication: FOR HIGH BLOOD PRESSURE 10) LORATADINE 10MG TAB TAKE ONE TABLET BY MOUTH ONCE A DAY ON ACTIVE EMPTY STOMACH FOR ALLERGIES 11) MECLIZINE HCL 25MG CHEW TAB CHEW AND SWALLOW ONE TABLET BY ACTIVE MOUTH EVERY 6 HOURS NEEDED CHEWABLE TABLETS MAY BE CHEWED OR SWALLOWED WHOLE. MAY CAUSE DROWSINESS. Indication: FOR VERTIGO 12) METHOCARBAMOL 500MG TAB TAKE 1 TABLET BY MOUTH THREE TIMES A ACTIVE (S) DAY 13) MIRTAZAPINE 30MG TAB TAKE ONE TABLET BY MOUTH AT BEDTIME ACTIVE Indication: FOR DEPRESSION 14) OMEPRAZOLE 20MG EC CAP TAKE ONE CAPSULE BY MOUTH TWICE A DAY ACTIVE TAKE ON AN EMPTY STOMACH 15) PREGABALIN 150MG ORAL CAP TAKE ONE CAPSULE BY MOUTH TWICE A ACTIVE (S) DAY *MAY CAUSE DROWSINESS* Indication: FOR NERVE PAIN 16) TIOTROPIUM 2.5MCG/ACTUAT 60D ORAL INHL INHALE 2 INHALATIONS ACTIVE BY MOUTH ONCE A DAY (ADMINISTER AT SAME TIME EACH DAY) FOR BREATHING. 17) TIZANIDINE HCL 4MG TAB TAKE ONE TABLET BY MOUTH THREE TIMES ACTIVE A DAY FOR 30 DAYS 18) TRAMADOL HCL 50MG TAB TAKE 1 TABLET BY MOUTH EVERY 4 TO 6 ACTIVE HOURS NEEDED FOR PAIN (NOT TO EXCEED 2 TABLETS PER DAY) THIS QUANTITY MUST LAST 30 DAYS OR MORE Pending Outpatient Medications Status 1) ESCITALOPRAM OXALATE 20MG TAB TAKE ONE TABLET BY MOUTH EVERY PENDING MORNING Indication: FOR DEPRESSION Inactive Outpatient Medications Status 1) PREGABALIN 150MG ORAL CAP TAKE ONE CAPSULE BY MOUTH TWICE A DAY *MAY CAUSE DROWSINESS* Indication: FOR NERVE PAIN Active Non-VA Medications Status 1) Non-VA MORPHINE SO4 15MG SA TAB 15MG BY MOUTH EVERY 12 HOURS ACTIVE NEEDED 21 Total Medications I have reviewed current medications w/ at this visit. Medication list and allergy list has been updated. Efficacy and side effects of the medications were reviewed and the was provided a current medication list. [place] denies questions, concerns, or problems with medications. O: reviewed Patient Weight History - Last Four 1. 244.9 lbs. / 111.1 kg. on JUN 21, 2024@10:15 2. 242.7 lbs. / 110.1 kg. on MAR 18, 2024@14:11:32 3. 242.7 lbs. / 110.1 kg. on DEC 25, 2023@10:10 4. 245.2 lbs. / 111.2 kg. on DEC 08, 2023@16:06 BMI: 34.2 Vitals (Per CPRS data): Temperature: 97.8 F [36.6 C] (03/18/2024 14:11) Blood Pressure: 112/70 (06/21/2024 10:15) Pulse: 63 (06/21/2024 10:15) Respirations: 20 (06/21/2024 10:15) MENTAL STATUS EXAM: Appearance and Behavior: The patient appears stated age. Attention to Hygiene: good Clothing: appropriate Eye Contact: good Level of Cooperation: good Speech: Rate: normal Volume: normal Articulation: good Spontaneity: normal Thought Processes: Rate of thoughts: normal Thought Content: normal Associations: intact Abnormal or Psychotic Thoughts: Auditory hallucinations: denies Visual hallucinations: denies Appearance of attention to internal stimuli: not present Overt evidence of delusions: not present Suicidal ideations: denies Homicidal ideations: denies Insight and Judgment: Insight: good Judgment: good Orientation: oriented to person, place, day, month, year, and situation Memory: Immediate Recall: intact Arfaf-ap-bduu-minute recall: intact Attention and Concentration: good Language: Naming common objects: intact Repeating phrases: intact Fund of knowledge: Current events awareness: good Vocabulary: good Mood and Affect: Mood: Affect: euthymic, restricted range Therapy provided in addition to e&m visit: Time spent in therapy: 16 minutes Total visit time: 30 minutes Modality: Supportive Psychotherapy Goals: Reduce overall frequency, intensity, and duration of the anxiety so daily functioning is not impaired. Focus: Learn and implement coping skills that result in a reduction of anxiety and improved daily functioning. Recent labs: No COMPREHENSIVE METABOLIC PANEL data found No CBC EO data found No HGA1C data found No LIPID PANEL EO data found No TSH data found No URINALYSIS EO data found OPIATES (PB) Negative 06/21/2024 10:39 COCAINE... Negative 06/21/2024 10:39 THC(Marijuana... Negative 06/21/2024 10:39 PCP...(Phencyclidine) Negative 06/23/2023 16:14 BENZODIAZEPINE (PB) Negative 06/21/2024 10:39 BARBITURATES (PB) Negative 06/23/2023 16:14 AMPHETAMINE... Negative 06/21/2024 10:39 Assessment: Patient is a XXyo man with xx that is well-controlled with current treatment plan. Patient is a low acute and low chronic suicide risk based on risk assessment and can safely be managed on an outpatient basis. Diagnosis: Plan: 1. Continue 2. RTC 1 month Discussed risks, benefits, side effects. Patient expressed understanding and agreed to medication trial. We discussed alternatives to treatment, including no treatment, as well as risks, benefits, side effects. The patient/guardian understood and consented to treatment provided. INSTRUCTIONS GIVEN TO PATIENT/FAMILY: Report medication side effects promptly No alcohol/illicit drug use with medication Exercise caution with driving/use of machinery Monitor for sedation with use of the medication and if needed avoid use in situations where decreased level of alertness could potentially be dangerous Follow up with Primary Care Provider Provided orientation to the clinic and ways to access crisis/emergency care Contact crisis line for suicidal or homicidal thoughts. Emergency procedures were reviewed including 988,sucide prevention lifeline(1- [phone]). [place] advised to return to ER or come in as walk-in to the clinic, should they experience any crisis. had an opportunity to ask questions and agreed with the treatment plan. The was instructed to contact mental health (or primary care clinic) with any problems or concerns. /es/ TATUM Rapp [facility] Signed: 09/19/2024 16:06 09/19/2024 ADDENDUM STATUS: COMPLETED Note signed before completion. Please see this addendum for remaining information: CC: good HPI: MANJIT MUNROE is a 74-year-old man with a history of depression and anxiety who presents for medication management follow up appointment after last appointment on 03/18/24 where he was continued on escitalopram 20mg qam for mood and anxiety and mirtazipine 30mg qhs for mood and insomnia. Patient reported compliance with meds with no side effects and good clinical effect. Patient denied any suicidal or homicidal ideation. Today patient reports that mood is good with no depression or anxiety symptoms. He said that he was excited to be traveling later this week to the [facility] in order to bring his back home. Current stressors include: none. Patient denied manic or psychotic symptoms or history. Patient denied any PTSD symptoms. Interval Social History changes: none ROS: neg. Constitutional: good Weight: stable Sleep: good Energy: good allergies reviewed: BUPROPION, DORZOLAMIDE, VENLAFAXINE PROBLEM LIST PER CPRS: reviewed 1) Type 2 diabetes mellitus 2) Neuropathy 3) HTN - Hypertension 4) HLD - Hyperlipidemia 5) Chronic gastritis 6) Allergic rhinitis comment: CT scan 07/17/2023 stable no further work-up 7) Anxiety 8) Depression 9) Glaucoma 10) Degeneration of lumbar intervertebral disc 11) Cervical segmental dysfunction 12) Shoulder pain 13) Chronic post-traumatic stress disorder following combat 14) Vertigo 15) Tinnitus 16) Hearing loss 17) COPD - Chronic obstructive pulmonary disease 18) Tremor comment: right arm 19) Poor short-term memory 20) Benign Prostatic Hypertrophy without Outflow Obstruction (SCT [id number]) 21) Alcohol Abuse ([facility] [id number]) 22) Charcot's joint of foot comment: right 23) Temporomandibular ecksy-jihk-opfxvgtcixn syndrome 24) Solitary nodule of lung comment: RML, repeat CT scan in 09/2021 comment: stable on CT scan 08/2021 but needs repeated in 6-12 months comment: no change 07/2022 repeat one more time in 07/2023 for stability 25) Carpal tunnel syndrome comment: bilaterally NCT 02/2021 26) Ulnar neuropathy comment: bilaterally NCT 02/2021 27) Basal cell carcinoma of face comment: left cheek and nasal 28) Polyp Colon (SCT [id number]) comment: colonoscopy 03/19/22 repeat in 03/2025 29) Adrenal adenoma comment: right 30) Tenosynovitis of right ankle 31) Osteoarthritis of right knee joint comment: Dr. Bianchi gel injections 32) Cervicalgia 33) Exposure to potentially hazardous substance 34) Dysphonia comment: Secondary to chronic GERD leading to chronic laryngitis 35) GERD - Gastro-Esophageal Reflux Disease (SCT [id number]) 36) Bilateral osteoarthritis of knees 37) Cholelithiasis comment: Incidental finding on MRI 09/24/2023 38) Esophageal dysphagia comment: Type II achalasia; with esophageal reflux 39) Diastolic heart failure MEDICATIONS: reviewed Active and Recently Outpatient Medications (including Supplies): Active Outpatient Medications [...] DO NOT CRUSH, SPLIT, OR CHEW. 5) GLUCOSE SENSOR [address] [employer] Fund I JEFE 2 USE SENSOR EVERY 2 WEEKS ACTIVE FOR CONTINUOUS GLUCOSE MONITORING. CHANGE SENSOR/SITE EVERY 14 DAYS. CONTACT [facility] AT ([id number]) FOR REPLACEMENT OF DAMAGED/MALFUNCTIONING SENSORS 6) HYDRALAZINE HCL 25MG TAB TAKE ONE TABLET BY MOUTH TWICE A ACTIVE DAY FOR BLOOD PRESSURE 7) HYDROCHLOROTHIAZIDE 25MG TAB TAKE ONE TABLET BY MOUTH ONCE A ACTIVE DAY FOR BLOOD PRESSURE 8) INSULIN,ASPART(EQV-NOVLG)100UN/ ML FLXPEN INJECT 18 UNITS ACTIVE UNDER THE SKIN THREE TIMES A DAY BEFORE MEALS FOR BLOOD SUGAR CONTROL. ADMINISTER 10 MINUTES BEFORE FOOD DIRECTED. REFRIGERATE UN-OPENED PENS. DISCARD CARTRIDGE 28 DAYS AFTER OPENING. Indication: FOR DIABETES 9) LISINOPRIL 40MG TAB TAKE ONE TABLET BY MOUTH ONCE A DAY ACTIVE Indication: FOR HIGH BLOOD PRESSURE 10) LORATADINE 10MG TAB TAKE ONE TABLET BY MOUTH ONCE A DAY ON ACTIVE EMPTY STOMACH FOR ALLERGIES 11) MECLIZINE HCL 25MG CHEW TAB CHEW AND SWALLOW ONE TABLET BY ACTIVE MOUTH EVERY 6 HOURS NEEDED CHEWABLE TABLETS MAY BE CHEWED OR SWALLOWED WHOLE. MAY CAUSE DROWSINESS. Indication: FOR VERTIGO 12) METHOCARBAMOL 500MG TAB TAKE 1 TABLET BY MOUTH THREE TIMES A ACTIVE (S) DAY 13) MIRTAZAPINE 30MG TAB TAKE ONE TABLET BY MOUTH AT BEDTIME ACTIVE Indication: FOR DEPRESSION 14) OMEPRAZOLE 20MG EC CAP TAKE ONE CAPSULE BY MOUTH TWICE A DAY ACTIVE TAKE ON AN EMPTY STOMACH 15) PREGABALIN 150MG ORAL CAP TAKE ONE CAPSULE BY MOUTH TWICE A ACTIVE (S) DAY *MAY CAUSE DROWSINESS* Indication: FOR NERVE PAIN 16) TIOTROPIUM 2.5MCG/ACTUAT 60D ORAL INHL INHALE 2 INHALATIONS ACTIVE BY MOUTH ONCE A DAY (ADMINISTER AT SAME TIME EACH DAY) FOR BREATHING. 17) TIZANIDINE HCL 4MG TAB TAKE ONE TABLET BY MOUTH THREE TIMES ACTIVE A DAY FOR 30 DAYS 18) TRAMADOL HCL 50MG TAB TAKE 1 TABLET BY MOUTH EVERY 4 TO 6 ACTIVE HOURS NEEDED FOR PAIN (NOT TO EXCEED 2 TABLETS PER DAY) THIS QUANTITY MUST LAST 30 DAYS OR MORE Pending Outpatient Medications Status 1) ESCITALOPRAM OXALATE 20MG TAB TAKE ONE TABLET BY MOUTH EVERY PENDING MORNING Indication: FOR DEPRESSION Inactive Outpatient Medications Status 1) PREGABALIN 150MG ORAL CAP TAKE ONE CAPSULE BY MOUTH TWICE A DAY *MAY CAUSE DROWSINESS* Indication: FOR NERVE PAIN Active Non-VA Medications Status 1) Non-VA MORPHINE SO4 15MG SA TAB 15MG BY MOUTH EVERY 12 HOURS ACTIVE NEEDED 21 Total Medications I have reviewed current medications w/ [place] at this visit. Medication list and allergy list has been updated. Efficacy and side effects of the medications were reviewed and the was provided a current medication list. [place] denies questions, concerns, or problems with medications. O: reviewed Patient Weight History - Last Four 1. 244.9 lbs. / 111.1 kg. on JUN 21, 2024@10:15 2. 242.7 lbs. / 110.1 kg. on MAR 18, 2024@14:11:32 3. 242.7 lbs. / 110.1 kg. on DEC 25, 2023@10:10 4. 245.2 lbs. / 111.2 kg. on DEC 08, 2023@16:06 BMI: 34.2 Vitals (Per CPRS data): Temperature: 97.8 F [36.6 C] (03/18/2024 14:11) Blood Pressure: 112/70 (06/21/2024 10:15) Pulse: 63 (06/21/2024 10:15) Respirations: 20 (06/21/2024 10:15) MENTAL STATUS EXAM: Appearance and Behavior: The patient appears stated age. Attention to Hygiene: good Clothing: appropriate Eye Contact: good Level of Cooperation: good Speech: Rate: normal Volume: normal Articulation: good Spontaneity: normal Thought Processes: Rate of thoughts: normal Thought Content: normal Associations: intact Abnormal or Psychotic Thoughts: Auditory hallucinations: denies Visual hallucinations: denies Appearance of attention to internal stimuli: not present Overt evidence of delusions: not present Suicidal ideations: denies Homicidal ideations: denies Insight and Judgment: Insight: good Judgment: good Orientation: oriented to person, place, day, month, year, and situation Memory: Immediate Recall: intact Jncek-xi-zeqp-minute recall: intact Attention and Concentration: good Language: Naming common objects: intact Repeating phrases: intact Fund of knowledge: Current events awareness: good Vocabulary: good Mood and Affect: Mood: good Affect: euthymic, restricted range Therapy provided in addition to e&m visit: Time spent in therapy: 16 minutes Total visit time: 30 minutes Modality: Supportive Psychotherapy Goals: Reduce overall frequency, intensity, and duration of the anxiety so daily functioning is not impaired. Focus: Learn and implement coping skills that result in a reduction of anxiety and improved daily functioning. Recent labs: No COMPREHENSIVE METABOLIC PANEL data found No CBC EO data found No HGA1C data found No LIPID PANEL EO data found No TSH data found No URINALYSIS EO data found OPIATES (PB) Negative 06/21/2024 10:39 COCAINE... Negative 06/21/2024 10:39 THC(Marijuana... Negative 06/21/2024 10:39 PCP...(Phencyclidine) Negative 06/23/2023 16:14 BENZODIAZEPINE (PB) Negative 06/21/2024 10:39 BARBITURATES (PB) Negative 06/23/2023 16:14 AMPHETAMINE... Negative 06/21/2024 10:39 Assessment: Patient is a 74yo man with MDD and anxiety that are well-controlled with current treatment plan. He has been stable on current meds for over 6 months and was agreeable to have his meds followed by his PCP. Patient is a low acute and low chronic suicide risk based on risk assessment and can safely be managed on an outpatient basis. Diagnosis: Major depressive disorder, recurrent, in full remission Anxiety disorder, unspecified Plan: 1. Continue escitalopram 20mg po qam for mood and anxiety 2. Continue mirtazipine 30mg po qhs for mood and insomnia 3. Transfer MH med mgmt to PCP as pt has been stable for over 6 months on current medications. Pt aware of and agreed to this plan. Discussed risks, benefits, side effects. Patient expressed understanding and agreed to medication trial. We discussed alternatives to treatment, including no treatment, as well as risks, benefits, side effects. The patient/guardian understood and consented to treatment provided. INSTRUCTIONS GIVEN TO PATIENT/FAMILY: Report medication side effects promptly No alcohol/illicit drug use with medication Exercise caution with driving/use of machinery Monitor for sedation with use of the medication and if needed avoid use in situations where decreased level of alertness could potentially be dangerous Follow up with Primary Care Provider Provided orientation to the clinic and ways to access crisis/emergency care Contact crisis line for suicidal or homicidal thoughts. Emergency procedures were reviewed including 988,sucide prevention lifeline(1- [phone]). advised to return to ER or come in as walk-in to the clinic, should they experience any crisis. [place] had an opportunity to ask questions and agreed with the treatment plan. The was instructed to contact mental health (or primary care clinic) with any problems or concerns. /es/ TATUM Whalenhing [facility] Signed: 09/20/2024 09:19 TATUM CHAPMAN [facility]
--- OUTSIDE RECORDS SUMMARY | 2024-10-10 09:24 | XMS_ITS | Encounter Summary ---
Author Name [facility] [facility] [place] Address [address] [place] [address] Care Team Providers Care Shopfitter Name Role Phone FILIBERTO, LEONIDES Primary Care Provider Unavailabl e Insurance [...] PART A Dec 05, 2004 PART A [id number] MANJIT MUNROE PATIENT MEDICARE (WNR) MEDICARE (M) PART B Dec 05, 2004 PART B [id number] MANJIT MUNROE PATIENT MEDICARE (WNR) MEDICARE (M) PART A Dec 05, 2004 PART A [id number] MANJIT MUNROE PATIENT MEDICARE (WNR) MEDICARE (M) PART B Dec 05, 2004 PART B [id number] MANJIT MUNROE PATIENT MEDICARE (WNR) MEDICARE (M) PART B Dec 05, 2004 PART B [id number] MANJIT MUNROE PATIENT MEDICARE (WNR) MEDICARE (M) PART A Dec 05, 2004 PART A [id number] MANJIT MUNROE PATIENT MEDICARE (WNR) MEDICARE (M) PART A Dec 05, 2004 PART A [id number] MANJIT MUNROE PATIENT MEDICARE (WNR) MEDICARE (M) PART B Dec 05, 2004 PART B [id number] MANJIT MUNROE PATIENT MEDICARE PART D (WNR) MEDICARE (M) PART D Jun 04, 2012 PART D [id number] MANJIT MUNROE PATIENT MEDICARE PART D (WNR) MEDICARE (M) PART D Jun 04, 2012 PART D [id number] MANJIT MUNROE PATIENT Selected Encounter This section includes the information on record at [place] for the Encounter. Date/Time Encounter Type Encounter Description Reason Provider Source Oct 10, 2024 02:24 PM Outpatient Encounter ADMIN PAT ACTIVTIES ([facility]) JACK DENNIS Chanelle Encounter Template Text not used by [place] Plan of Treatment: Future Appointments (+ 6 months) and Future Tests (+/- 45 days) The Plan of Treatment section includes future care activities for the patient from all [place] treatmentfacilities. This section includes future appointments and future orders which are active, pending or scheduled. Future Appointments This section includes appointments that were scheduled to occur 6 months from the date of the Encounter, up to a maximum of 20 appointments. The data comes from all [place] treatment facilities. Appointment Date/Time Appointment Type Appointme nt Facility Name Oct 11, 2024 02:00 PM AMBULATORY - MEDICINE [facility][NOTE 3] Oct 11, 2024 03:30 PM AMBULATORY - MEDICINE [facility] Oct 31, 2024 10:30 AM AMBULATORY - MEDICINE [facility][NOTE 3] Nov 04, 2024 10:30 AM AMBULATORY - PSYCHIATRY [facility] Dec 20, 2024 01:30 PM AMBULATORY - MEDICINE [facility] Active, Pending, and Scheduled Orders This section includes a listing of several types of active, pending, and scheduled orders, including clinic medications orders, diagnostic test orders, procedure orders and consult orders; where the start date of the order is 45 days before the date of the Encounter or 45 days after the date of theEncounter. The data comes from all [place] treatment facilities. Test Date/Time Test Type Test Details Facility Name Oct 05, 2024 09:04 AM Consult Order [facility] [id number] Cons [employer] [facility] Social History: Smoking Status (Most current) and Tobacco Use (All prior to encounter date) This section includes the most current, and the historical, smoking and tobacco- related health factors from the [place] facility where the Encounter took place. Current Smoking Status This section includes the most current smoking, or tobacco-related health factor, from the [place] facility where the Encounter took place. Date/Time Current Smoking Status Comment Facil ity Dec 25, 2023 10:00 AM VA-TOBACCO FORMER USER [facility]IC[facility] Tobacco Use History This section includes a history of the smoking, or tobacco-related health factors, that were collected on or before the date of the Encounter. The data comes from the [place] facility where the Encounter took place. Date/Time Smoking Status/Tobacco Use Comment F acility Dec 25, 2023 10:00 AM VA-TOBACCO QUIT 5 TO < 15 YRS [facility] Dec 30, 2022 09:30 AM VA-TOBACCO FORMER USER [facility] Dec 30, 2022 09:30 AM VA-TOBACCO QUIT 15 YRS OR MORE [facility] Jan 07, 2022 01:00 PM VA-TOBACCO FORMER USER [facility] Jan 07, 2022 01:00 PM VA-TOBACCO QUIT 15 YRS OR MORE [facility] Jan 08, 2021 01:00 PM VA-TOBACCO FORMER USER [facility] Jan 08, 2021 01:00 PM VA-TOBACCO QUIT 15 YRS OR MORE [facility] Jan 10, 2020 01:00 PM VA-TOBACCO FORMER USER [facility] Jan 10, 2020 01:00 PM VA-TOBACCO QUIT 5 TO < 15 YRS [facility] Apr 19, 2018 02:57 PM VA-TOBACCO FORMER USER [facility] Apr 19, 2018 02:57 PM VA-TOBACCO QUIT 15 YRS OR MORE [facility] Sep 05, 2015 02:32 PM QUIT TOBACCO >7 YEARS AGO [facility] Encounter Notes: All associated encounter notes This section contains the clinical notes associated to the Encounter. Date/Time Encounter Note(s) Provider Source Oct 10, 2024 02:24 PM GENERAL MEDICINE N OTE: LOCAL TITLE: General Note PB STANDARD TITLE: GENERAL MEDICINE NOTE DATE OF NOTE: OCT 10, 2024@14:24 ENTRY DATE: OCT 10, 2024@14:24:25 AUTHOR: JACK DENNIS EXP COSIGNER: URGENCY: STATUS: COMPLETED Eye Care At-Risk Screen - L,N,PH,U: Patient identified to be at risk for the following eye condition(s): DIABETIC RETINOPATHY: Diabetes Diagnosis Information: Encounter Diagnosis: 06/21/2024@10:00 E11.9 (ICD-10-CM) Type 2 Diabetes Mellitus without Complications rank: PRIMARY Prov. Narr. - Type 2 diabetes mellitus ([facility] [id number]) GLAUCOMA: Glaucoma Risk Factors Information: Encounter Diagnosis: 06/21/2024@10:00 H40.9 (ICD-10-CM) Unspecified Glaucoma rank: SECONDARY Prov. Narr. - Glaucoma ([facility] [id number]) Action: No Referral Ordered: The patient declined/refused referral for Tele-Eye screening and Eye Clinic appointment. Comment: [place] refused saying he is blind in one eye and does not want any testing /es/ JACK DENNIS Telehealth Clinical Livestock Speculator Signed: 10/10/2024 14:25 JACK DENNIS [facility]
--- OUTSIDE RECORDS SUMMARY | 2024-10-28 06:24 | XMS_ITS | Encounter Summary ---
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 Baker Operator Automatic Name Role Phone LEONIDES DE [facility] [...] PART A Dec 05, 2004 PART A [id number] MANJIT MUNROE PATIENT MEDICARE (WNR) MEDICARE (M) PART B Dec 05, 2004 PART B [id number] SHANEKA MANJIT PATIENT MEDICARE (WNR) MEDICARE (M) PART A Dec 05, 2004 PART A [id number] MANJIT MUNROE PATIENT MEDICARE (WNR) MEDICARE (M) PART B Dec 05, 2004 PART B [id number] SHANEKA MANJIT PATIENT MEDICARE (WNR) MEDICARE (M) PART A Dec 05, 2004 PART A [id number] MANJIT MUNROE PATIENT MEDICARE (WNR) MEDICARE (M) PART B Dec 05, 2004 PART B [id number] MANJIT MUNROE PATIENT MEDICARE (WNR) MEDICARE (M) PART A Dec 05, 2004 PART A [id number] [phone] MANJIT MUNROE PATIENT MEDICARE (WNR) MEDICARE (M) PART B Dec 05, 2004 PART B [id number] MANJIT MUNROE PATIENT MEDICARE PART D (WNR) MEDICARE (M) PART D Jun 04, 2012 PART D [id number] MANJIT MUNROE PATIENT MEDICARE PART D (WNR) MEDICARE (M) PART D Jun 04, 2012 PART D [id number] [phone] MANJIT MUNROE PATIENT Selected Encounter This section includes the information on record at [place] for the Encounter. Date/Time Encounter Type Encounter Description Reason Pro vider Source Oct 28, 2024 11:24 AM Outpatient Encounter CLINICAL PHARMACY [facility] Encounter Template Text not used by [place] Plan of Treatment: Future Appointments (+ 6 months) and Future Tests (+/- 45 days) The Plan of Treatment section includes future care activities for the patient from all [place] treatmentfacilities. This section includes future appointments and future orders which are active, pending or scheduled. Future Appointments This section includes appointments that were scheduled to occur 6 months from the date of the Encounter, up to a maximum of 20 appointments. The data comes from all [place] treatment facilities. Appointment Date/Time Appointment Type Appointme nt Facility Name Oct 31, 2024 10:30 AM AMBULATORY - MEDICINE [facility] Nov 04, 2024 10:30 AM AMBULATORY - PS[facility]RY [facility] Dec 20, 2024 01:30 PM AMBULATORY - MEDICINE [facility] Active, Pending, and Scheduled Orders This section includes a listing of several types of active, pending, and scheduled orders, including clinic medications orders, diagnostic test orders, procedure orders and consult orders; where the start date of the order is 45 days before the date of the Encounter or 45 days after the date of theEncounter. The data comes from all [place] treatment [facility]. Test Date/Time Test Type Test Details Facility Name Oct 05, 2024 09:04 AM Consult Order [facility]-PODIAT[facility] [id number] Cons Heading And Priming Operator's Choice [facility] Encounter Notes: All associated encounter notes This section contains the clinical notes associated to the Encounter. Date/Time Encounter Note(s) Provider Source Oct 28, 2024 11:24 AM ACCOUNTING OF DISC LOSURES NOTE: LOCAL TITLE: STATE PRESCRIPTION DRUG MONITORING PROGRAM STANDARD TITLE: ACCOUNTING OF DISCLOSURES NOTE DATE OF NOTE: OCT 28, 2024@11:24:47 ENTRY DATE: OCT 28, 2024@11:24:47 AUTHOR: MITCHELL CARDOSO EXP COSIGNER: URGENCY: STATUS: COMPLETED This PDMP query was submitted by Mitchell Cardoso [facility]. The clinical justification for this PDMP query is to review controlled substances prescribed outside of the [facility], and any additional information that may become available, as an important component of standard clinical care, and in accordance with [facility] policy. Patient information was shared with the PDMP Appriss [place]. No prescription(s) for controlled substances outside the [facility] were found in the last 90 days. /chio/ MITCHELL CARDOSO, PHARMD CLINICAL PHARMACIST Signed: 10/28/2024 11:27 MITCHELL CARDOSO [facility]
--- OUTSIDE RECORDS SUMMARY | 2024-10-30 09:24 | XMS_ITS | Continuity of Care Document ---
Author Name [facility] Organization [facility] Care Team Providers Care Cleaner And Polisher Name Role Phone [facility] Unavailable Unavailable Problems Combined list of problems from Department of Defense and Veterans Affairs facilities. It does not include entries that were removed or entered in error. Problem Status Onset Date Problem Type Date of Resolution Comments Source Adrenal adenoma Active Condition Sep 11, 2022 Entered By: LEONIDES DE LOS SANTOS Comment: right [place] [facility] Alcohol Abuse (SCT [id number]) Active Condition [place] [facility] Allergic rhinitis Active Condition 2023 Entered By: LEONIDES DE LOS SANTOS Comment: CT scan 07/17/2023 stable no further work-up [place] [facility] Allergic rhinitis * (ICD-9-CM 477.9) Active Condition [facility] Anxiety Active Condition [place] [facility] Appendectomy Active Condition [facility] Basal cell carcinoma of face Active Condition Jul 25, 2021 Entered By: LEONIDES DE LOS SANTOS Comment: left cheek and nasal [place] [facility] Benign prostatic hyperplasia Active Condition [facility] Benign Prostatic Hypertrophy without Outflow Obstruction (SCT [id number]) Active Condition [place] [facility] Bilateral osteoarthritis of knees Active Condition [place] [facility] Carpal tunnel syndrome Active Condition Apr 11, 2021 Entered By: LEONIDES DE LOS SANTOS Comment: bilaterally NCT 02/2021 [place] [facility] CERV SPONDYL W MYELOPATH Active Condition [place] [facility] Cervical radiculopathy Active Condition [facility] Cerv[facility] segmental dysfunction Active Condition [place] [facility] Cervicalgia Active Condition [place] [facility] Charcot's joint of foot Active Condition Jul 09, 2020 Entered By: LEONIDES DE LOS SANTOS Comment: right [place] [facility] Cholelithiasis Active Condition Nov 042023 Entered By: LEONIDES DE LOS SANTOS Comment: Incidental finding on MRI 09/24/2023 [place] [facility] Chronic gastritis Active Condition [place] [facility] Chronic obstructive lung disease Active Condition [facility] Chronic post-traumatic stress disorder following combat Active Condition [place] [facility] Chronic Venous Insufficiency (ICD-9-CM 459.81) Active Condition [facility] Colonoscopy Active Condition Oct 20, 2006 Entered By: ANDREZ WONG Comment: Benign exam. Done in [facility] Constipation Active Condition [facility] COPD - Chronic obstructive pulmonary disease Active Condition [place] [facility] Cortical Cataract Active Condition [facility] Degeneratiive Disc Disease Active Condition [place] [facility] Degeneration of lumbar intervertebral disc Active Condition [place] [facility] Depression Active Condition [place] [facility] Diabetes Active Condition [facility] Diabetic neuropathy [facility] Diastolic heart failure Active Condition [place] [facility] Dry mouth Active Condition [facility] Dysphonia Active Condition Jul 07 Entered By: LEONIDES DE LOS SANTOS Comment: Secondary to chronic GERD leading to chronic laryngitis [place] [facility] EGD Active Condition Oct 10 Entered By: ANDREZ WONG Comment: 08/17/09:Mild gastritisJul 2009 Entered By: ANDREZ WONG Comment: Biopsy: Negative for malignancy and H pylori [facility] Esophageal dysphagia Active Condition Nov 24, 2023 Entered By: LEONIDES DE LOS SANTOS Comment: Type II achalasia; with esophageal reflux [place] [facility] Exposure to potentially hazardous substance Active Condition [facility] GERD - Gastro-Esophageal Reflux Disease ([facility] [id number]) Active Condition [place] [facility] GERD * (ICD-9-CM 530.81) Active Condition [facility] Glaucoma Active Condition [place] [facility] Glaucoma, Suspect (ICD-9-CM 365.00) Active Condition [facility] Hearing loss Active Condition [place] [facility] HLD - Hyperlipidemia Active Condition [place] [facility] HTN - Hypertension Active Condition [place] [facility] Hyperlipidemia Active Condition [facility] Hypertension Active Condition [facility] Insomnia Active Condition [facility] Low back pain Active Condition [facility] Migraine * (ICD-9-CM 346.90) Active Condition [facility] Moderate recurrent major depression Active Condition [facility] Neuropathy Active Condition [place] [facility] Osteoarthritis of right knee joint Active Condition Jun 29 Entered By: LEONIDES DE LOS SANTOS Comment: Dr. Bianchi gel injections [place] [facility] Panic disorder with agoraphobia Active Condition [facility] Polyp Colon (SCT [id number]) Active Condition Mar 26, 2022 Entered By: LEONIDES DE LOS SANTOS Comment: colonoscopy 03/19/22 repeat in 03/2025 [place] [facility] Poor short-term memory Active Condition [place] [facility] Shoulder pain Active Condition [place] [facility] Sleep apnea Active Condition [facility] Sleep Apnea Active Condition [facility] Solitary nodule of lung Active Condition Apr 08, 2021 Entered By: LEONIDES DE LOS SANTOS Comment: RML, repeat CT scan in ug 2021 Entered By: LEONIDES DE LOS SANTOS Comment: stable on CT scan 08/2021 but needs repeated in 6-12 monthsJun 2022 Entered By: LEONIDES DE LOS SANTOS Comment: no change 07/2022 repeat one more time in 07/2023 for stability [place] [facility] STRESS TEST Active Condition Oct 20, 2006 Entered By: ANDREZ WONG Comment: Negative test in [facility] Temporomandibular Joint Diseases (ICD-9-CM 524.60) Active Condition [facility] Temporomandibular niwwe-tzju-riryrimhd on syndrome Active Condition [place] [facility] Tenosynovitis of right ankle Active Condition [place] [facility] Tinnitus Active Condition [place] [facility] Tremor Active Condition [facility] Tremor Active Condition Jul 09 Entered By: LEONIDES DE LOS SANTOS Comment: right arm [place] [facility] Type 2 diabetes mellitus Active Condition [facility] Ulnar neuropathy Active Condition Apr 11, 2021 Entered By: LEONIDES DE LOS SANTOS Comment: bilaterally NCT 02/2021 [place] [facility] Vertigo Active Condition [place] [facility] Benign prostatic hypertrophy without outflow obstruction Inactive Condition 03/14/2015 [facility] Chest pain Inactive Condition 06/26/2020 [place] [facility] Chronic back pain Inactive Condition 06/26/2020 [place] [facility] Chronic low back pain Inactive Condition 06/26/2020 [place] [facility] Chronic Obstructive Pulmonary Disease * (ICD-9-CM 496.) Inactive Condition 03/14/2015 [facility] Constipation, unspecified (ICD-9-CM 564.00) Inactive Condition 03/14/2015 [facility] Contact dermatitis and other eczema (ICD-9-CM 692.9) Inactive Condition 10/20/2006 [place] [facility] Hyperlipidemia * (ICD-9-CM 272.4) Inactive Condition 03/14/2015 [facility] Hypertension * (ICD-9-CM 401.9) Inactive Condition 03/14/2015 [facility] Hypertriglyceridemia * (ICD-9-CM 272.1) Inactive Condition 03/14/2015 [facility] Lumbago Inactive Condition 03/14/2015 [place] [facility] Lumbar segmental dysfunction Inactive Condition 06/26/2020 [place] [facility] MAJOR DEPRESSION - RECURRING Inactive Condition 03/14/2015 [place] [facility] Neck Pain (ICD-9-CM 723.1) Inactive Condition 03/14/2015 [facility] Pleuritic pain Inactive Condition 06/26/2020 [place] [facility] Spasm of back muscles Inactive Condition 06/26/2020 [place] [facility] Type 2 diabetes mellitus Inactive Condition 10/30/2004 Oct 30, 2004 Entered By: ANDREZ WONG Comment: AppendectomyJul 2004 Entered By: ANDREZ WONG Comment: Repair of tendon right hand. [facility] Diagnosis: ICD-10-CM M99.01 Segmental and somatic dysfunction of cervical region Active Diagnosis [facility] Diagnosis: ICD-10-CM M25.512 Pain in left shoulder Active Diagnosis [facility] Diagnosis: ICD-10-CM F33.42 Major depressive disorder, recurrent, in full remission [facility] Diagnosis: ICD-10-CM G99.0 Autonomic neuropathy in diseases classified elsewhere Active Diagnosis [facility] Diagnosis: ICD-10-CM M17.0 Bilateral primary osteoarthritis of knee [facility] Diagnosis: ICD-10-CM M51.16 Intervertebral disc disorders w radiculopathy, lumbar region Active Diagnosis [facility] Diagnosis: ICD-10-CM F43.12 Post-traumatic stress disorder, chronic Active Diagnosis [facility] Diagnosis: ICD-10-CM E11.9 Type 2 diabetes mellitus without complications Active Diagnosis [facility] Diagnosis: ICD-10-CM Z23 Encounter for immunization Active Diagnosis [facility] Diagnosis: ICD-10-CM M17.11 Unilateral primary osteoarthritis, right knee Active Diagnosis [facility] Diagnosis: ICD-10-CM M51.36 Other intervertebral disc degeneration, lumbar region Active Diagnosis [facility] Diagnosis: ICD-10-CM R60.0 Localized edema Active Diagnosis [facility] Diagnosis: ICD-10-CM Z46.1 Encounter for fitting and adjustment of hearing aid Active Diagnosis [place] [facility] Diagnosis: ICD-10-CM J18.8 Other pneumonia, unspecified organism Active Diagnosis [facility] Diagnosis: ICD-10-CM R06.02 Shortness of breath Active Diagnosis [facility] Diagnosis: ICD-10-CM M25.561 Pain in right knee Active Diagnosis [facility] Diagnosis: ICD-10-CM M54.50 Low back pain, unspecified Active Diagnosis [facility] Diagnosis: ICD-10-CM F33.0 Major depressive disorder, recurrent, mild Active Diagnosis [facility] Medications Combined list of outpatient medications from Department of Defense and Veterans Affairs facilities.Medications provided include 1) outpatient medications from the last 15 months, and 2) patient-reported medications. Medication Details Route Status Patient Instructions Prescription Expires Prescription Number Last Dispense Date Ordering Provider Order Date Order Qty Source ALBUTEROL SO4 90MCG/ACTUA T (CFC-F) INHL,ORAL,8 .5GM INHALE 2 PUFFS ORAL INHALATI ON FOUR TIMES A DAY NEEDED FOR COPD SHAKE WELL. RINSE MOUTHPIE CE FREQUENT LY TO PREVENT CLOGGING . RESPIR ATORY (INHAL ATION) 06/02/2024 [id number] 4 LEONIDES DE LOS SANTOS 2023 1 [facility] AMLODIPINE BESYLATE 10MG TAB TAKE ONE TABLET BY MOUTH ONCE A DAY FOR HEART/BL OOD PRESSURE ORAL DISCONT INUED BY MANASA R 04/15/2024 [id number] 4 BRIGETTE VILLARREAL [address] [place] [address] [facility] ASPIRIN 325MG TAB TAKE ONE TABLET BY MOUTH ONCE DAILY ORAL ACTIVE ANDREZ WONG 2004 [facility] ATORVASTATI N CA 40MG TAB TAKE ONE TABLET BY MOUTH EVERY EVENING FOR HIGH CHOLESTE ROL ORAL ACTIVE 11/24/2024 [id number] LEONIDES DE LOS SANTOS 2023 90 [facility] ATORVASTATI N CA 80MG TAB TAKE ONE-HALF TABLET BY MOUTH EVERY EVENING FOR HIGH CHOLESTE ROL ORAL DISCONT INUED (EDIT) 10/27/2024 [id number] LEONIDES DE LOS SANTOS 2023 45 [facility] CARBIDOPA 25MG/LEVODO PA 100MG TAB TAKE 1 TABLET BY MOUTH EVERY MORNING AND TAKE 1 TABLET AT NOON FOR TREMOR (TAKE WITH FOOD) ORAL SUSPEND ED 09/22/2025 [id number] 5 RADHIKA HARPER 2024 180 [place] [facility] CARBIDOPA 25MG/LEVODO PA 100MG TAB TAKE ONE-HALF TABLET BY MOUTH EVERY MORNING AND TAKE ONE-HALF TABLET AT NOON FOR 7 DAYS, THEN TAKE 1 TABLET EVERY MORNING AND TAKE 1 TABLET AT NOON FOR TREMOR (TAKE WITH FOOD) ORAL DISCONT INUED 09/22/2025 [id number] RADHIKA HARPER 2024 180 [place] [facility] CLOBETASOL PROPIONATE 0.05% CREAM,TOP APPLY SPARINGL Y TO AFFECTED AREA(S) TWICE DAILY NEEDED APPLY TO AFFECTED AREAS ON LEGS. NO MORE THAN TWO WEEKS OF THE MONTH. DO NOT USE ON FACE, GROIN, OR SKIN FOLDS. TOPICA L ACTIVE 03/10/2025 [id number] 5 TATUM PATTON 2023 60 [facility] ESCITALOPRA M OXALATE 20MG TAB TAKE ONE TABLET BY MOUTH EVERY MORNING FOR DEPRESSI ON ORAL SUSPEND ED 09/20/2025 [id number] 5 CANDIS TEJADA N R [address] [place] [address] [facility] ESCITALOPRA M OXALATE 20MG TAB TAKE ONE TABLET BY MOUTH EVERY MORNING FOR DEPRESSI ON ORAL DISCONT INUED 11/17/2024 [id number] 5 CANDIS TEJADA N R [address] [place] [address] [facility] ESCITALOPRA M OXALATE 20MG TAB TAKE ONE TABLET BY MOUTH EVERY MORNING FOR DEPRESSI ON ORAL DISCONT INUED 03/31/2024 [id number] CANDIS TEJADA N R [address] [place] [address] [facility] FINASTERIDE 5MG TAB TAKE ONE TABLET BY MOUTH ONCE A DAY FOR PROSTATE . SWALLOW WHOLE, DO NOT CRUSH, SPLIT, OR CHEW. ORAL ACTIVE 01/12/2025 [id number] 5 LEONIDES DE LOS SANTOS [address] [place] [address] [facility] FINASTERIDE 5MG TAB TAKE ONE TABLET BY MOUTH ONCE A DAY FOR PROSTATE . SWALLOW WHOLE, DO NOT CRUSH, SPLIT, OR CHEW. ORAL DISCONT INUED 09/17/2023 [id number] 4 LEONIDES DE LOS SANTOS 2022 90 [facility] FLUTICASONE PROPIONATE 50MCG/SPRAY SOLN,NASAL, 16GM INSTILL 1 SPRAY IN EACH NOSTRIL ONCE A DAY FOR ALLERGIE S (MUST BE USED DIRECTED FOR MINIMUM OF 21 DAYS TO PROVIDE ADEQUATE BENEFITS ) NASAL 04/08/2024 [id number] 4 LEONIDES DE LOS SANTOS 2023 1 [facility] HYDRALAZINE HCL 25MG TAB TAKE ONE TABLET BY MOUTH TWICE A DAY FOR BLOOD PRESSURE ORAL SUSPEND ED 06/22/2025 [id number] 5 LEONIDES DE LOS SANTOS 2024 180 [facility] HYDRALAZINE HCL 25MG TAB TAKE ONE TABLET BY MOUTH TWICE A DAY FOR BLOOD PRESSURE ORAL DISCONT INUED 03/27/2024 [id number] 4 BRIGETTE VILLARREAL [address] [place] [address] [facility] HYDROCHLORO THIAZIDE 25MG TAB TAKE ONE TABLET BY MOUTH ONCE A DAY FOR BLOOD PRESSURE ORAL ACTIVE 03/10/2025 [id number] 5 TATUM PATTON M [address] [place] [address] [facility] HYDROCHLORO THIAZIDE 25MG TAB TAKE ONE TABLET BY MOUTH ONCE A DAY FOR BLOOD PRESSURE ORAL DISCONT INUED 03/11/2024 [id number] 4 BRIGETTE VILLARREAL 2022 90 [facility] INSULIN,ASP ART,HUMAN (EQV-NOVOLO G) 100 UNIT/ML,FLE XPEN,3ML INJECT 18 UNITS UNDER THE SKIN THREE TIMES A DAY BEFORE MEALS FOR DIABETES FOR BLOOD SUGAR CONTROL. ADMINIST ER 10 MINUTES BEFORE FOOD DIRECTED . REFRIGER ATE UN-OPENE D PENS. DISCARD CARTRIDG E 28 DAYS AFTER OPENING. SUBCUT ANEOUS SUSPEND ED 04/05/2025 [id number] 5 LEONIDES DE LOS SANTOS [address] [place] [address] [facility] INSULIN,ASP ART,HUMAN (EQV-NOVOLO G) 100 UNIT/ML,FLE XPEN,3ML INJECT 18 UNITS UNDER THE SKIN THREE TIMES A DAY BEFORE MEALS FOR DIABETES FOR BLOOD SUGAR CONTROL. ADMINIST ER 10 MINUTES BEFORE FOOD DIRECTED . REFRIGER ATE UN-OPENE D PENS. DISCARD CARTRIDG E 28 DAYS AFTER OPENING. SUBCUT ANEOUS DISCONT INUED 12/11/2024 [id number] LEONIDES DE LOS SANTOS [address] [place] [address] [facility] INSULIN,ASP ART,HUMAN (EQV-NOVOLO G) 100 UNIT/ML,FLE XPEN,3ML INJECT 12 UNITS UNDER THE SKIN THREE TIMES A DAY BEFORE MEALS FOR BLOOD SUGAR CONTROL. ADMINIST ER 10 MINUTES BEFORE FOOD DIRECTED . REFRIGER ATE UN-OPENE D PENS. DISCARD CARTRIDG E 28 DAYS AFTER OPENING. SUBCUT ANEOUS DISCONT INUED (EDIT) 06/16/2024 [id number] 4 DHARMESH TAVERA 2023 15 [facility] INSULIN,GLA RGINE,HUMAN 100 UNT/ML INJ INJECT 20 UNITS UNDER THE SKIN EVERY MORNING FOR DIABETES ADMINIST ER AT SAME TIME EACH DAY DIRECTED . DISCARD ANY VIAL 28 DAYS AFTER OPENING. SUBCUT ANEOUS 06/29/2024 [id number] 5 LEONIDES DE LOS SANTOS 2023 5 [facility] LISINOPRIL 40MG TAB TAKE ONE TABLET BY MOUTH ONCE A DAY FOR HIGH BLOOD PRESSURE ORAL SUSPEND ED 12/29/2024 [id number] TANISHA DE LOS SANTOSMY 2023 90 [facility] LISINOPRIL 40MG TAB TAKE ONE-HALF TABLET BY MOUTH ONCE A DAY FOR HEART OR BLOOD PRESSURE ORAL DISCONT INUED (EDIT) 03/04/2024 [id number] 4 BRIGETTE VILLARREAL 2022 45 [facility] LORATADINE 10MG TAB TAKE ONE TABLET BY MOUTH ONCE A DAY ON EMPTY STOMACH FOR ALLERGIE S ORAL ACTIVE 01/12/2025 [id number] 5 STEPHANIE GUILLEN LLIAM R [address] [place] [address] [facility] LORATADINE 10MG TAB TAKE ONE TABLET BY MOUTH ONCE A DAY ON EMPTY STOMACH FOR ALLERGIE S ORAL DISCONT INUED 12/30/2023 [id number] 4 STEPHANIE GUILLEN LLIAM R [address] [place] [address] [facility] MECLIZINE HCL 25MG TAB,CHEWABL E CHEW AND SWALLOW ONE TABLET BY MOUTH EVERY 6 HOURS NEEDED FOR VERTIGO CHEWABLE TABLETS MAY BE CHEWED OR SWALLOWE D WHOLE. MAY CAUSE DROWSINE SS. ORAL ACTIVE 03/10/2025 [id number] 5 TATUM PATTON [address] [place] [address] [facility] MECLIZINE HCL 25MG TAB,CHEWABL E CHEW AND SWALLOW ONE TABLET BY MOUTH EVERY 6 HOURS NEEDED FOR VERTIGO CHEWABLE TABLETS MAY BE CHEWED OR SWALLOWE D WHOLE. MAY CAUSE DROWSINE SS. ORAL DISCONT INUED 04/08/2024 [id number] LEONIDES DE LOS SANTOS [address] [place] [address] [facility] MELOXICAM 15MG TAB TAKE ONE TABLET BY MOUTH ONCE A DAY FOR PAIN ORAL DISCONT INUED BY PROVIDE R 11/28/2023 [id number] 4 LEONIDES DE LOS SANTOS [address] [place] [address] [facility] METHOCARBAM OL 500MG TAB TAKE 1 TABLET BY MOUTH THREE TIMES A DAY FOR 30 DAYS ORAL DISCONT INUED 09/01/2024 [id number] 5 SELMA BUCKLEY 2024 90 [place] [facility] METHOCARBAM OL 500MG TAB TAKE 1 TABLET BY MOUTH THREE TIMES A DAY ORAL 10/16/2024 [id number] 5 MEMESYSELMA FARRAR 2024 90 [place] [facility] METOPROLOL TARTRATE 100MG TAB TAKE ONE-HALF TABLET BY MOUTH TWICE A DAY FOR HEART/BL OOD PRESSURE . TAKE WITH OR IMMEDIAT JO FOLLOWIN G FOOD. ORAL 03/11/2024 [id number] 4 BRIGETTE VILLARREAL [address] [place] [address] [facility] MIRTAZAPINE 30MG TAB TAKE ONE TABLET BY MOUTH AT BEDTIME FOR DEPRESSI ON ORAL SUSPEND ED 07/27/2025 [id number] 5 CANDIS TEJADA R [address] [place] [address] [facility] MIRTAZAPINE 30MG TAB TAKE ONE TABLET BY MOUTH AT BEDTIME FOR DEPRESSI ON ORAL DISCONT INUED 09/15/2024 [id number] 5 CANDIS TEJADA R 2023 90 [facility] MORPHINE SO4 15MG TAB,SA TAKE ONE TABLET BY MOUTH EVERY 12 HOURS NEEDED ORAL ACTIVE LEONIDES DE LOS SANTOS 2021 [place] [facility] OMEPRAZOLE 20MG CAP,EC TAKE ONE CAPSULE BY MOUTH TWICE A DAY TAKE ON AN EMPTY STOMACH ORAL SUSPEND ED 04/05/2025 [id number] TATUM PATTON 2023 180 [place] [facility] OMEPRAZOLE 20MG CAP,EC TAKE ONE CAPSULE BY MOUTH TWICE A DAY TAKE ON AN EMPTY STOMACH ORAL DISCONT INUED 10/12/2024 [id number] 4 KANG GRAMAJO 2023 60 [place] [facility] OMEPRAZOLE 20MG CAP,EC TAKE ONE CAPSULE BY MOUTH TWICE A DAY TAKE ON AN EMPTY STOMACH ORAL DISCONT INUED 05/04/2024 [id number] KANG GRAMAJO 2023 60 [place] [facility] PREGABALIN 150MG CAP,ORAL TAKE ONE CAPSULE BY MOUTH TWICE A DAY FOR NERVE PAIN *MAY CAUSE DROWSINE SS* ORAL SUSPEND ED 03/18/2025 [id number] 5 LEONIDES DE LOS SANTOS 2024 60 [facility] PREGABALIN 150MG CAP,ORAL TAKE ONE CAPSULE BY MOUTH TWICE A DAY FOR NERVE PAIN *MAY CAUSE DROWSINE SS* ORAL DISCONT INUED 01/31/2024 [id number] 4 LEONIDES DE LOS SANTOS 2023 60 [facility] PREGABALIN 150MG CAP,ORAL TAKE ONE CAPSULE BY MOUTH TWICE A DAY FOR NERVE PAIN *MAY CAUSE DROWSINE SS* ORAL 09/09/2024 [id number] 5 TATUM PATTON 2023 60 [facility] TIOTROPIUM 2.5MCG/ACTU AT INHL,ORAL,6 0D,4GM INHALE 2 INHALATI ONS BY MOUTH ONCE A DAY (ADMINIS TER AT SAME TIME EACH DAY) FOR BREATHIN G. ORAL 10/14/2024 [id number] 5 LEONIDES DE LOS SANTOS 2023 3 [facility] TIZANIDINE HCL 4MG TAB TAKE ONE TABLET BY MOUTH THREE TIMES A DAY NEEDED FOR SPASTICI TY ORAL ACTIVE 10/28/2025 [id number] 5 SELMA BUCKLEY 2024 90 [place] [facility] TIZANIDINE HCL 4MG TAB TAKE ONE TABLET BY MOUTH THREE TIMES A DAY FOR 30 DAYS ORAL DISCONT INUED 08/24/2025 [id number] 5 MEMESYUTSELMA FERNANDEZ 2024 90 [place] [facility] TIZANIDINE HCL 4MG TAB TAKE TWO TABLETS BY MOUTH AT BEDTIME FOR SPASTICI TY ORAL DISCONT INUED 06/18/2025 [id number] 5 CANDIS TEJADA N R 2024 60 [facility] TIZANIDINE HCL 4MG TAB TAKE TWO TABLETS BY MOUTH AT BEDTIME FOR SPASTICI TY ORAL DISCONT INUED 01/12/2025 [id number] 5 CANDIS TEJADA N R 2023 60 [facility] TIZANIDINE HCL 4MG TAB TAKE TWO TABLETS BY MOUTH AT BEDTIME FOR SPASTICI TY ORAL DISCONT INUED 06/26/2024 [id number] 4 CANDIS TEJADA R 2023 60 [facility] TRAMADOL HCL 50MG TAB TAKE 1 TABLET BY MOUTH EVERY 4 TO 6 HOURS NEEDED FOR PAIN (NOT TO EXCEED 2 TABLETS PER DAY) THIS QUANTITY MUST LAST 30 DAYS OR MORE ORAL ACTIVE 04/29/2025 [id number] 5 PAIGEUKSYUTO [facility], [facility] 2024 60 [place] [facility] TRAMADOL HCL 50MG TAB TAKE 1 TABLET BY MOUTH EVERY 4 TO 6 HOURS NEEDED FOR PAIN (NOT TO EXCEED 2 TABLETS PER DAY) THIS QUANTITY MUST LAST 30 DAYS OR MORE ORAL DISCONT INUED 02/23/2025 [id number] 5 LYUKSYUTO [facility] 2024 60 [place] [facility] TRAMADOL HCL 50MG TAB TAKE 1 TABLET BY MOUTH EVERY 4 TO 6 HOURS NEEDED FOR PAIN (NOT TO EXCEED 2 TABLETS PER DAY) THIS QUANTITY MUST LAST 30 DAYS OR MORE ORAL DISCONT INUED 09/01/2024 [id number] 5 LYUKSYUTO [facility], [facility] 2024 60 [place] [facility] TRAMADOL HCL 50MG TAB TAKE 1 TABLET BY MOUTH EVERY 4 HOURS NEEDED FOR MILD TO MODERATE PAIN ORAL DISCONT INUED 01/26/2025 [id number] 5 LEONIDES DE LOS SANTOS 2024 42 [place] [facility] TRAMADOL HCL 50MG TAB TAKE 1 TABLET BY MOUTH EVERY 4 HOURS NEEDED FOR MILD TO MODERATE PAIN ORAL 07/06/2024 [id number] 5 SOO BAHENA III 2023 42 [place] [facility] Allergies, Adverse Reactions, Alerts Combined list of allergies from Department of Defense and [facility] facilities. It does not include entries that were removed or entered in error. Substance Category Reaction Severity Reaction type Status Date Reported Comments Source BUPROPION Propensity to adverse reactions to drug (finding) Headache active 5 DENILSONYEJAZMINEIL EPI [facility] BUPROPION Propensity to adverse reactions to drug (finding) Dyspnea, Chest pain active 6 [facility] DORZOLAMIDE Propensity to adverse reactions to drug (finding) Red eye, Itching of eye active 2 FAYETTJAY CHOWDARY [facility] DORZOLAMIDE Propensity to adverse reactions to drug (finding) active 6 [facility] VENLAFAXINE Propensity to adverse reactions to drug (finding) active 9 [facility] VENLAFAXINE Propensity to adverse reactions to drug (finding) Nausea and vomiting active 6 [facility] Immunizations Combined list of available immunizations from the Department of Defense and [facility] facilities. Immunization Series Date Given Administered By Site Reaction Lot Number CVX Code Drug Behavioral Health Clinician Status Comments Source COVID-19 (MODERNA), MRNA, LNP-S, PF, 50 MCG/0.5 ML (AGES 12+ YEARS) 2023 CHASIDY MOSCOSO LEFT DELTO ID [id number] 312 complet ed [facility] INFLUENZA, HIGH-DOSE, TRIVALENT, PF 2023 CHASIDY MOSCOSO RIGHT DELTO ID [id number] A 135 complet ed [facility] COVID-19 (MODERNA), MRNA, LNP-S, PF, 50 MCG/0.5 ML (AGES 12+ YEARS) 1 2022 FABIENNE MARTINEZ RIGHT DELTO ID [id number] 312 complet ed [facility] INFLUENZA, INJECTABLE, QUADRIVALENT, PRESERVATIVE FREE 2022 FABIENNE MARTINEZ LEFT DELTO ID [id number] A 150 complet ed [facility] COVID-19, MRNA, LNP-S, BIVALENT BOOSTER, PF, 50 MCG/0.5 ML OR 25MCG/0.25 ML DOSE 1 2021 229 complet ed MOD; [id number]; 3 [facility] INFLUENZA VACCINE, QUADRIVALENT, ADJUVANTED 2021 205 complet ed [facility] COVID-19 (MODERNA), MRNA, LNP-S, PF, 100 MCG OR 50 MCG DOSE 3 2020 207 complet ed MOD; [id number]; 2 [facility] INFLUENZA, INJECTABLE, QUADRIVALENT, PRESERVATIVE FREE 2020 150 complet ed [facility] PNEUMOCOCCAL POLYSACCHARID E [id number] 2020 33 complet ed [facility] COVID-19 (MODERNA), MRNA, LNP-S, PF, 100 MCG OR 50 MCG DOSE 2 2020 207 complet ed [facility] COVID-19 (MODERNA), MRNA, LNP-S, PF, 100 MCG OR 50 MCG DOSE 1 2020 207 complet ed [facility] INFLUENZA, INJECTABLE, QUADRIVALENT, PRESERVATIVE FREE 2019 150 complet ed [facility] INFLUENZA, INJECTABLE, QUADRIVALENT, PRESERVATIVE FREE 2019 150 complet ed [facility] ZOSTER RECOMBINANT 2 2019 187 complet ed [facility] INFLUENZA, INJECTABLE, QUADRIVALENT, PRESERVATIVE FREE 2018 150 complet ed [facility] HEP A-HEP B 2018 104 complet ed lot #[id number] exp 06/15/21 given in left deltoid [facility] ZOSTER RECOMBINANT 1 2018 187 complet ed [facility] MMR 2018 03 complet ed [facility] TDAP 2018 115 complet ed [facility] HEP A-HEP B 2 2018 NONE 104 complet ed [facility] HEP A-HEP B 1 2018 NONE 104 complet ed [facility] INFLUENZA, SEASONAL, INJECTABLE, PRESERVATIVE FREE 2017 140 complet ed Left Deltoid [facility] INFLUENZA, SEASONAL, INJECTABLE, PRESERVATIVE FREE 2017 140 complet ed Left Deltoid [facility] PNEUMOCOCCAL CONJUGATE PCV 13 2017 133 complet ed [facility] INFLUENZA, SEASONAL, INJECTABLE, PRESERVATIVE FREE 2015 140 complet ed [facility] ZOSTER LIVE 2015 NONE 121 complet ed Completed Series, [facility] INFLUENZA, UNSPECIFIED FORMULATION 2014 88 complet ed [facility] PNEUMOCOCCAL CONJUGATE PCV 13 2014 133 complet ed [facility] INFLUENZA, UNSPECIFIED FORMULATION 2013 88 complet ed JOSEChanelle NOR[facility] INFLUENZA, UNSPECIFIED FORMULATION 2012 88 complet ed [facility] INFLUENZA, UNSPECIFIED FORMULATION 2011 88 complet ed [facility] INFLUENZA, UNSPECIFIED FORMULATION 2011 88 complet ed [facility] INFLUENZA, UNSPECIFIED FORMULATION 2010 88 complet ed [facility] INFLUENZA, SPLIT VIRUS, TRIVALENT, PF 1 2009 140 complet ed HISTORICA L INFORMATI ON - FROM OTHER REGISTRY, [facility]EL INFLUENZA-H1N 1-09, ALL FORMULATIONS 2009 NONE 128 complet ed Completed Series, [facility] PNEUMOCOCCAL, UNSPECIFIED FORMULATION 2008 109 complet ed [facility] INFLUENZA, UNSPECIFIED FORMULATION 2006 88 complet ed Sick ever since getting flu shot. EMANUEL ALMAZAN [facility] INFLUENZA, UNSPECIFIED FORMULATION 2006 88 complet ed [facility] TD(ADULT) UNSPECIFIED FORMULATION 2004 NONE 139 complet ed Booster for Series, [facility] INFLUENZA, UNSPECIFIED FORMULATION 2004 88 complet ed [facility] AL[facility] AR INFLUENZA, UNSPECIFIED FORMULATION 2003 NONE 88 complet ed [facility] ALMAZAN AR PNEUMOCOCCAL, UNSPECIFIED FORMULATION 2002 109 complet ed pneumonia 0.5 cc im left deltoid EMANUEL ALMAZAN AR INFLUENZA, UNSPECIFIED FORMULATION 2001 88 complet ed EMANUEL ROMANO Results Combined list of recent chemistry, hematology and other laboratory results from Department of Defense and [facility], ranging from 15 months to all on record, depending upon the facility. Order Name Results Value Reference Range Date Interpretation Specimen Comments Source DRUG SCREEN URINE-inh ouse (PB) METHADONE [PRESENCE] IN URINE Negative 06/21 Specimen Type: URINE No comment entered. Ordering Provider: ALISSA DE LOS SANTOS Report Released Date/Time: Jun 21, 2024 10:39 AM Reporting Lab: [place] [facility] [address] [place] [address] Performing Lab: [place] [facility] [address] [place] [address] [facility] DRUG SCREEN URINE-inh ouse (PB) OPIATES [PRESENCE] IN URINE BY SCREEN METHOD Negative 06/21 Specimen Type: URINE No comment entered. Ordering Provider: ALISSA DE LOS SANTOS Report Released Date/Time: Jun 21, 2024 10:39 AM Reporting Lab: [place] [facility] [address] [place] [address] Performing Lab: [place] [facility] [address] [place] [address] [facility] DRUG SCREEN URINE-inh ouse (PB) COCAINE [PRESENCE] IN URINE Negative 06/21 Specimen Type: URINE No comment entered. Ordering Provider: ALISSA DE LOS SANTOS Report Released Date/Time: Jun 21, 2024 10:39 AM Reporting Lab: [place] [facility] [address] [place] [address] Performing Lab: [place] [facility] [address] [place] [address] [facility] DRUG SCREEN URINE-inh ouse (PB) TETRAHYDROC ANNABINOL [PRESENCE] IN URINE BY SCREEN METHOD Negative 06/21 Specimen Type: URINE No comment entered. Ordering Provider: ALISSA DE LOS SANTOS Report Released Date/Time: Jun 21, 2024 10:39 AM Reporting Lab: [place] [facility] [address] [place] [address] Performing Lab: [place] [facility] [address] [place] [address] [facility] DRUG SCREEN URINE-inh ouse (PB) BENZODIAZEP NELIDA [PRESENCE] IN URINE BY SCREEN METHOD Negative 06/21 Specimen Type: URINE No comment entered. Ordering Provider: ALISSA DE LOS SANTOS MMY Report Released Date/Time: Jun 21, 2024 10:39 AM Reporting Lab: [place] [facility] [address] [place] [id number] Performing Lab: [place] [facility] [address] [place] [address] [place] [address] [facility] DRUG SCREEN URINE-inh ouse (PB) AMPHETAMINE [PRESENCE] IN URINE BY SCREEN METHOD Negative 06/21 Specimen Type: URINE No comment entered. Ordering Provider: ALISSA DE LOS SANTOS MMY Report Released Date/Time: Jun 21, 2024 10:39 AM Reporting Lab: [place] [facility] [address] [place] [address] Performing Lab: [place] [facility] [address] [place] [address] [facility] DRUG SCREEN URINE-inh ouse (PB) CREATININE [MASS/VOLUM E] IN URINE 65.89 mg/dL 06/21 Specimen Type: URINE No comment entered. Ordering Provider: ALISSA DE LOS SANTOS MMY Report Released Date/Time: Jun 21, 2024 10:39 AM Reporting Lab: [place] [facility] [address] [place] [phone] Performing Lab: [place] [facility] [address] [place] [address] [facility] DRUG SCREEN URINE-inh ouse (PB) OXYCODONE CUTOFF [MASS/VOLUM E] IN URINE FOR SCREEN METHOD Negative 06/21 Specimen Type: URINE No comment entered. Ordering Provider: ALISSA DE LOS SANTOS MMY Report Released Date/Time: Jun 21, 2024 10:39 AM Reporting Lab: [place] [facility] [address] [place] [address] Performing Lab: [place] [facility] [address] [place] [address] [facility] DRUG SCREEN URINE-inh ouse (PB) BUPRENORPHI NE [PRESENCE] IN URINE Negative ng/mL 06/21 Specimen Type: URINE No comment entered. Ordering Provider: ALISSA DE LOS SANTOS Report Released Date/Time: Jun 21, 2024 10:39 AM Reporting Lab: [place] [facility] [address] [place] [address] Performing Lab: [place] [facility] [address] [place] [address] [facility] DRUG SCREEN URINE-inh ouse (PB) ETHANOL [MASS/VOLUM E] IN URINE 42 mg/dL 0 - 20 06/21 H Specimen Type: URINE No comment entered. Ordering Provider: ALISSA DE LOS SANTOS Report Released Date/Time: Jun 21, 2024 10:39 AM Reporting Lab: [place] [facility] [address] [place] [address] Performing Lab: [place] [facility] [address] [place] [address] [facility] DRUG SCREEN URINE-inh ouse (PB) FENTANYL [PRESENCE] IN URINE Negative ng/mL 06/21 Specimen Type: URINE No comment entered. Ordering Provider: ALISSA DE LOS SANTOS Report Released Date/Time: Jun 21, 2024 10:39 AM Reporting Lab: [place] [facility] [address] [place] [address] Performing Lab: [place] [facility] [address] [place] [address] [facility] URINE ALBUMIN PROFILE-i h (PB) ALBUMIN [MASS/VOLUM E] IN URINE <5.00mg/ L 0 - 30 06/15 L Specimen Type: URINE Comment: Unable to calculate due to Microalbumi n <5.0 mg/dL Ordering Provider: ALISSA DE LOS SANTOS Report Released Date/Time: Dec 25, 2023 11:26 AM Reporting Lab: [place] [facility] [address] [place] [address] Performing Lab: [place] [facility] [address] [place] [address] [facility] URINE ALBUMIN PROFILE-i h (PB) ALBUMIN/CRE ATININE [MASS RATIO] IN URINE commentu g/mg 06/15 Specimen Type: URINE Comment: Unable to calculate due to Microalbumi n <5.0 mg/dL Ordering Provider: ALISSA DE LOS SANTOS MMY Report Released Date/Time: Dec 25, 2023 11:26 AM Reporting Lab: [place] [facility] [address] [place] [address] Performing Lab: [place] [facility] [address] [place] [address] [facility] URINE ALBUMIN PROFILE-i h (PB) CREATININE [MASS/VOLUM E] IN URINE 75.94 mg/dL 06/15 Specimen Type: URINE Comment: Unable to calculate due to Microalbumi n <5.0 mg/dL Ordering Provider: ALISSA DE LOS SANTOS MMY Report Released Date/Time: Dec 25, 2023 11:26 AM Reporting Lab: [place] [facility] [address] [place] [address] Performing Lab: [place] [facility] [address] [place] [address] [facility] HGA1C HEMOGLOBIN A1C/HEMOGLO BIN.TOTAL IN BLOOD 6.9 4.0 - 6.0 06/15 H Specimen Type: BLOOD No comment entered. Ordering Provider: ALISSA DE LOS SANTOS MMY Report Released Date/Time: Dec 25, 2023 11:26 AM Reporting Lab: [place] [facility] [address] [place] [address] Performing Lab: [place] [facility] [address] [place] [address] [facility] CHOLESTER OL PANEL (PB) CHOLESTEROL [MASS/VOLUM E] IN SERUM OR PLASMA 140 mg/dL 0 - 200 06/15 Specimen Type: PLASMA No comment entered. Ordering Provider: ALISSA DE LOS SANTOS MMY Report Released Date/Time: Dec 25, 2023 11:26 AM Reporting Lab: [place] [facility] [address] [place] [id number] Performing Lab: [place] [facility] [address] [place] [address] [facility] CHOLESTER OL PANEL (PB) TRIGLYCERID E [MASS/VOLUM E] IN SERUM OR PLASMA 191 mg/dL 0 - 150 06/15 H Specimen Type: PLASMA No comment entered. Ordering Provider: ALISSA DE LOS SANTOS Report Released Date/Time: Dec 25, 2023 11:26 AM Reporting Lab: [place] [facility] [address] [place] [address] Performing Lab: [place] [facility] [address] [place] [address] [facility] CHOLESTER OL PANEL (PB) CHOLESTEROL IN LDL [MASS/VOLUM E] IN SERUM OR PLASMA BY CALCULATION 57.9 mg/dL 06/15 Specimen Type: PLASMA No comment entered. Ordering Provider: ALISSA DE LOS SANTOS Report Released Date/Time: Dec 25, 2023 11:26 AM Reporting Lab: [place] [facility] [address] [place] [address] Performing Lab: [place] [facility] [address] [place] [address] [facility] CHOLESTER OL PANEL (PB) CHOLESTEROL IN HDL [MASS/VOLUM E] IN SERUM OR PLASMA 43.9 mg/dL 40 06/15 H Specimen Type: PLASMA No comment entered. Ordering Provider: ALISSA DE LOS SANTOS Report Released Date/Time: Dec 25, 2023 11:26 AM Reporting Lab: [place] [facility] [address] [place] [address] Performing Lab: [place] [facility] [address] [place] [address] [facility] CHOLESTER OL PANEL (PB) CHOLESTEROL IN HDL/CHOLEST CHIARA.TOTAL [MASS RATIO] IN SERUM OR PLASMA 31.4 25 06/15 Specimen Type: PLASMA No comment entered. Ordering Provider: ALISSA DE LOS SANTOS MMSharon Report Released Date/Time: Dec 25, 2023 11:26 AM Reporting Lab: [place] [facility] [address] [place] [address] Performing Lab: [place] [facility] [address] [place] [address] [facility] COMPREHEN SIVE METABOLIC PANEL CREATININE [MASS/VOLUM E] IN SERUM OR PLASMA 1.57 mg/dL 0.7 - 1.3 06/15 H Specimen Type: PLASMA No comment entered. Ordering Provider: ALISSA DE LOS SANTOS Report Released Date/Time: Dec 25, 2023 11:26 AM Reporting Lab: [place] [facility] [address] [place] [address] Performing Lab: [place] [facility] [address] [place] [address] [facility] COMPREHEN SIVE METABOLIC PANEL UREA NITROGEN [MASS/VOLUM E] IN SERUM OR PLASMA 37 mg/dL 9 - 25 06/15 H Specimen Type: PLASMA No comment entered. Ordering Provider: ALISSA DE LOS SANTOS Report Released Date/Time: Dec 25, 2023 11:26 AM Reporting Lab: [place] [facility] [address] [place] [address] Performing Lab: [place] [facility] [address] [place] [address] [facility] COMPREHEN SIVE METABOLIC PANEL GLUCOSE [MASS/VOLUM E] IN SERUM OR PLASMA 114 mg/dL 72 - 99 06/15 H Specimen Type: PLASMA No comment entered. Ordering Provider: ALISSA DE LOS SANTOS Report Released Date/Time: Dec 25, 2023 11:26 AM Reporting Lab: [place] [facility] [address] [place] [address] Performing Lab: [place] [facility] [address] [place] [address] [facility] COMPREHEN SIVE METABOLIC PANEL SODIUM [MOLES/VOLU ME] IN SERUM OR PLASMA 140 meq/L 136 - 145 06/15 Specimen Type: PLASMA No comment entered. Ordering Provider: LAISSA DE LOS SANTOS MMY Report Released Date/Time: Dec 25, 2023 11:26 AM Reporting Lab: [place] [facility] [address] [place] [address] Performing Lab: [place] [facility] [address] [place] [address] [facility] COMPREHEN SIVE METABOLIC PANEL POTASSIUM [MOLES/VOLU ME] IN SERUM OR PLASMA 3.8 meq/L 3.5 - 5 06/15 Specimen Type: PLASMA No comment entered. Ordering Provider: ALISSA DE LOS SANTOS MMY Report Released Date/Time: Dec 25, 2023 11:26 AM Reporting Lab: [place] [facility] [address] [place] [address] Performing Lab: [place] [facility] [address] [place] [address] [facility] COMPREHEN SIVE METABOLIC PANEL CHLORIDE [MOLES/VOLU ME] IN SERUM OR PLASMA 106 meq/L 98 - 107 06/15 Specimen Type: PLASMA No comment entered. Ordering Provider: ALISSA DE LOS SANTOS MMY Report Released Date/Time: Dec 25, 2023 11:26 AM Reporting Lab: [place] [facility] [address] [place] [address] Performing Lab: [place] [facility] [address] [place] [address] [facility] COMPREHEN SIVE METABOLIC PANEL CARBON DIOXIDE, TOTAL [MOLES/VOLU ME] IN SERUM OR PLASMA 23 meq/L 22 - 31 06/15 Specimen Type: PLASMA No comment entered. Ordering Provider: ALISSA DE LOS SANTOS MMY Report Released Date/Time: Dec 25, 2023 11:26 AM Reporting Lab: [place] [facility] [address] [place] [address] Performing Lab: [place] [facility] [address] [place] [address] [facility] COMPREHEN SIVE METABOLIC PANEL CALCIUM [MASS/VOLUM E] IN SERUM OR PLASMA 9.4 mg/dL 8.4 - 10.4 06/15 Specimen Type: PLASMA No comment entered. Ordering Provider: ALISSA DE LOS SANTOS MMY Report Released Date/Time: Dec 25, 2023 11:26 AM Reporting Lab: [place] [facility] [address] [place] [address] Performing Lab: [place] [facility] [address] [place] [address] [facility] COMPREHEN SIVE METABOLIC PANEL PROTEIN [MASS/VOLUM E] IN SERUM OR PLASMA 7.7 g/dL 6 - 8.6 06/15 Specimen Type: PLASMA No comment entered. Ordering Provider: ALISSA DE LOS SANTOS MMY Report Released Date/Time: Dec 25, 2023 11:26 AM Reporting Lab: [place] [facility] [address] [place] [address] Performing Lab: [place] [facility] [address] [place] [address] [facility] COMPREHEN SIVE METABOLIC PANEL ALBUMIN [MASS/VOLUM E] IN SERUM OR PLASMA 4.8 g/dL 3.4 - 5 06/15 Specimen Type: PLASMA No comment entered. Ordering Provider: ALISSA DE LOS SANTOS MMY Report Released Date/Time: Dec 25, 2023 11:26 AM Reporting Lab: [place] [facility] [address] [place] [address] Performing Lab: [place] [facility] [address] [place] [address] [facility] COMPREHEN SIVE METABOLIC PANEL BILIRUBIN.T OTAL [MASS/VOLUM E] IN SERUM OR PLASMA 0.7 mg/dL 0.2 - 1.2 06/15 Specimen Type: PLASMA No comment entered. Ordering Provider: ALISSA DE LOS SANTOS MMY Report Released Date/Time: Dec 25, 2023 11:26 AM Reporting Lab: [place] [facility] [address] [place] [address] Performing Lab: [place] [facility] [address] [place] [address] [facility] COMPREHEN SIVE METABOLIC PANEL ALKALINE PHOSPHATASE [ENZYMATIC ACTIVITY/VO LUME] IN SERUM OR PLASMA 58 U/L 40 - 150 06/15 Specimen Type: PLASMA No comment entered. Ordering Provider: ALISSA DE LOS SANTOS MMY Report Released Date/Time: Dec 25, 2023 11:26 AM Reporting Lab: [place] [facility] [address] [place] [address] Performing Lab: [place] [facility] [address] [place] [address] [facility] COMPREHEN SIVE METABOLIC PANEL ASPARTATE AMINOTRANSF ERASE [ENZYMATIC ACTIVITY/VO LUME] IN SERUM OR PLASMA 36 U/L 5 - 34 06/15 H Specimen Type: PLASMA No comment entered. Ordering Provider: ALISSA DE LOS SANTOS Report Released Date/Time: Dec 25, 2023 11:26 AM Reporting Lab: [place] [facility] [address] [place] [address] Performing Lab: [place] [facility] [address] [place] [address] [facility] COMPREHEN SIVE METABOLIC PANEL ALANINE AMINOTRANSF ERASE [ENZYMATIC ACTIVITY/VO LUME] IN SERUM OR PLASMA 31 U/L 8 - 40 06/15 Specimen Type: PLASMA No comment entered. Ordering Provider: ALISSA DE LOS SANTOS Report Released Date/Time: Dec 25, 2023 11:26 AM Reporting Lab: [place] [facility] [address] [place] [address] Performing Lab: [place] [facility] [address] [place] [address] [facility] COMPREHEN SIVE METABOLIC PANEL GLOMERULAR FILTRATION RATE/1.73 SQ M.PREDICTED [VOLUME RATE/AREA] IN SERUM, PLASMA OR BLOOD BY CREATININE- BASED FORMULA (CKD-EPI 2020) 47 06/15 Specimen Type: PLASMA No comment entered. Ordering Provider: ALISSA DE LOS SANTOS Report Released Date/Time: Dec 25, 2023 11:26 AM Reporting Lab: [place] [facility] [address] [place] [address] Performing Lab: [place] [facility] [address] [place] [address] [facility] HGA1C HEMOGLOBIN A1C/HEMOGLO BIN.TOTAL IN BLOOD 7.0 4.0 - 6.0 12/17 H Specimen Type: BLOOD No comment entered. Ordering Provider: ALISSA DE LOS SANTOS Report Released Date/Time: Dec 30, 2022 09:51 AM Reporting Lab: [place] [facility] [address] [place] [address] Performing Lab: [place] [facility] [address] [place] [address] [facility] TSH (MA-PB) THYROTROPIN [UNITS/VOLU ME] IN SERUM OR PLASMA 2.380 u[IU]/mL 0.47 - 5 12/17 Specimen Type: SERUM No comment entered. Ordering Provider: ALISSA DE LOS SANTOS Report Released Date/Time: Dec 30, 2022 09:51 AM Reporting Lab: [place] [facility] [address] [place] [address] Performing Lab: [place] [facility] [address] [place] [id number] [facility] CHOLESTER OL PANEL (PB) CHOLESTEROL [MASS/VOLUM E] IN SERUM OR PLASMA 134 mg/dL 0 - 200 12/17 Specimen Type: PLASMA No comment entered. Ordering Provider: ALISSA DE LOS SANTOS Report Released Date/Time: Dec 30, 2022 09:51 AM Reporting Lab: [place] [facility] [address] [place] [address] Performing Lab: [place] [facility] [address] [place] [id number] [facility] CHOLESTER OL PANEL (PB) TRIGLYCERID E [MASS/VOLUM E] IN SERUM OR PLASMA 106 mg/dL 0 - 150 12/17 Specimen Type: PLASMA No comment entered. Ordering Provider: ALISSA DE LOS SANTOS Report Released Date/Time: Dec 30, 2022 09:51 AM Reporting Lab: [place] [facility] [address] [place] [address] Performing Lab: [place] [facility] [address] [place] [address] [facility] CHOLESTER OL PANEL (PB) CHOLESTEROL IN LDL [MASS/VOLUM E] IN SERUM OR PLASMA BY CALCULATION 68.8 mg/dL 12/17 Specimen Type: PLASMA No comment entered. Ordering Provider: ALISSA DE LOS SANTOS MMY Report Released Date/Time: Dec 30, 2022 09:51 AM Reporting Lab: [place] [facility] [address] [place] [address] Performing Lab: [place] [facility] [address] [place] [address] [facility] CHOLESTER OL PANEL (PB) CHOLESTEROL IN HDL [MASS/VOLUM E] IN SERUM OR PLASMA 44.0 mg/dL 40 12/17 H Specimen Type: PLASMA No comment entered. Ordering Provider: ALISSA DE LOS SANTOS [facility] Report Released Date/Time: Dec 30, 2022 09:51 AM Reporting Lab: [place] [facility] [address] [place] [address] Performing Lab: [place] [facility] [address] [place] [address] [facility] CHOLESTER OL PANEL (PB) CHOLESTEROL IN HDL/CHOLEST CHIARA.TOTAL [MASS RATIO] IN SERUM OR PLASMA 32.8 25 12/17 Specimen Type: PLASMA No comment entered. Ordering Provider: ALISSA DE LOS SANTOS Report Released Date/Time: Dec 30, 2022 09:51 AM Reporting Lab: [place] [facility] [address] [place] [address] Performing Lab: [place] [facility] [address] [place] [address] [facility] COMPREHEN SIVE METABOLIC PANEL CREATININE [MASS/VOLUM E] IN SERUM OR PLASMA 0.93 mg/dL 0.7 - 1.3 12/17 Specimen Type: PLASMA No comment entered. Ordering Provider: ALISSA DE LOS SANTOS Report Released Date/Time: Dec 30, 2022 09:51 AM Reporting Lab: [place] [facility] [address] [place] [address] Performing Lab: [place] [facility] [address] [place] [address] [facility] COMPREHEN SIVE METABOLIC PANEL UREA NITROGEN [MASS/VOLUM E] IN SERUM OR PLASMA 12 mg/dL 9 - 25 12/17 Specimen Type: PLASMA No comment entered. Ordering Provider: ALISSA DE LOS SANTOS MMY Report Released Date/Time: Dec 30, 2022 09:51 AM Reporting Lab: [place] [facility] [address] [place] [address] Performing Lab: [place] [facility] [address] [place] [address] [facility] COMPREHEN SIVE METABOLIC PANEL GLUCOSE [MASS/VOLUM E] IN SERUM OR PLASMA 173 mg/dL 72 - 99 12/17 H Specimen Type: PLASMA No comment entered. Ordering Provider: ALISSA DE LOS SANTOS MMY Report Released Date/Time: Dec 30, 2022 09:51 AM Reporting Lab: [place] [facility] [address] [place] [address] Performing Lab: [place] [facility] [address] [place] [address] [facility] COMPREHEN SIVE METABOLIC PANEL SODIUM [MOLES/VOLU ME] IN SERUM OR PLASMA 138 meq/L 136 - 145 12/17 Specimen Type: PLASMA No comment entered. Ordering Provider: ALISSA DE LOS SANTOS Report Released Date/Time: Dec 30, 2022 09:51 AM Reporting Lab: [place] [facility] [address] [place] [address] Performing Lab: [place] [facility] [address] [place] [address] [facility] COMPREHEN SIVE METABOLIC PANEL POTASSIUM [MOLES/VOLU ME] IN SERUM OR PLASMA 4.1 meq/L 3.5 - 5 12/17 Specimen Type: PLASMA No comment entered. Ordering Provider: ALISSA DE LOS SANTOS Report Released Date/Time: Dec 30, 2022 09:51 AM Reporting Lab: [place] [facility] [address] [place] [address] Performing Lab: [place] [facility] [address] [place] [address] [facility] COMPREHEN SIVE METABOLIC PANEL CHLORIDE [MOLES/VOLU ME] IN SERUM OR PLASMA 102 meq/L 98 - 107 12/17 Specimen Type: PLASMA No comment entered. Ordering Provider: ALISSA DE LOS SANTOS MMY Report Released Date/Time: Dec 30, 2022 09:51 AM Reporting Lab: [place] [facility] [address] [place] [address] Performing Lab: [place] [facility] [address] [place] [address] [facility] COMPREHEN SIVE METABOLIC PANEL CARBON DIOXIDE, TOTAL [MOLES/VOLU ME] IN SERUM OR PLASMA 25 meq/L 22 - 31 12/17 Specimen Type: PLASMA No comment entered. Ordering Provider: ALISSA DE LOS SANTOS MMY Report Released Date/Time: Dec 30, 2022 09:51 AM Reporting Lab: [place] [facility] [address] [place] [address] Performing Lab: [place] [facility] [address] [place] [address] [facility] COMPREHEN SIVE METABOLIC PANEL CALCIUM [MASS/VOLUM E] IN SERUM OR PLASMA 9.3 mg/dL 8.4 - 10.4 12/17 Specimen Type: PLASMA No comment entered. Ordering Provider: ALISSA DE LOS SANTOS MMY Report Released Date/Time: Dec 30, 2022 09:51 AM Reporting Lab: [place] [facility] [address] [place] [address] Performing Lab: [place] [facility] [address] [place] [address] [facility] COMPREHEN SIVE METABOLIC PANEL PROTEIN [MASS/VOLUM E] IN SERUM OR PLASMA 7.5 g/dL 6 - 8.6 12/17 Specimen Type: PLASMA No comment entered. Ordering Provider: ALISSA DE LOS SANTOS MMY Report Released Date/Time: Dec 30, 2022 09:51 AM Reporting Lab: [place] [facility] [address] [place] [address] Performing Lab: [place] [facility] [address] [place] [address] [facility] COMPREHEN SIVE METABOLIC PANEL ALBUMIN [MASS/VOLUM E] IN SERUM OR PLASMA 4.4 g/dL 3.4 - 5 12/17 Specimen Type: PLASMA No comment entered. Ordering Provider: ALISSA DE LOS SANTOS MMY Report Released Date/Time: Dec 30, 2022 09:51 AM Reporting Lab: [place] [facility] [address] [place] [address] Performing Lab: [place] [facility] [address] [place] [address] [facility] COMPREHEN SIVE METABOLIC PANEL BILIRUBIN.T OTAL [MASS/VOLUM E] IN SERUM OR PLASMA 0.7 mg/dL 0.2 - 1.2 12/17 Specimen Type: PLASMA No comment entered. Ordering Provider: ALISSA DE LOS SANTOS Report Released Date/Time: Dec 30, 2022 09:51 AM Reporting Lab: [place] [facility] [address] [place] [address] Performing Lab: [place] [facility] [address] [place] [address] [facility] COMPREHEN SIVE METABOLIC PANEL ALKALINE PHOSPHATASE [ENZYMATIC ACTIVITY/VO LUME] IN SERUM OR PLASMA 70 U/L 40 - 150 12/17 Specimen Type: PLASMA No comment entered. Ordering Provider: ALISSA DE LOS SANTOS Report Released Date/Time: Dec 30, 2022 09:51 AM Reporting Lab: [place] [facility] [address] [place] [address] Performing Lab: [place] [facility] [address] [place] [address] [facility] COMPREHEN SIVE METABOLIC PANEL ASPARTATE AMINOTRANSF ERASE [ENZYMATIC ACTIVITY/VO LUME] IN SERUM OR PLASMA 23 U/L 5 - 34 12/17 Specimen Type: PLASMA No comment entered. Ordering Provider: ALISSA DE LOS SANTOS Report Released Date/Time: Dec 30, 2022 09:51 AM Reporting Lab: [place] [facility] [address] [place] [address] Performing Lab: [place] [facility] [address] [place] [address] [facility] COMPREHEN SIVE METABOLIC PANEL ALANINE AMINOTRANSF ERASE [ENZYMATIC ACTIVITY/VO LUME] IN SERUM OR PLASMA 24 U/L 8 - 40 12/17 Specimen Type: PLASMA No comment entered. Ordering Provider: ALISSA DE LOS SANTOS Report Released Date/Time: Dec 30, 2022 09:51 AM Reporting Lab: [place] [facility] [address] [place] [facility] Performing Lab: [place] [facility] [address] [place] [id number] [facility] COMPREHEN SIVE METABOLIC PANEL GLOMERULAR FILTRATION RATE/1.73 SQ M.PREDICTED [VOLUME RATE/AREA] IN SERUM, PLASMA OR BLOOD BY CREATININE- BASED FORMULA (CKD-EPI 2020) 88 12/17 Specimen Type: PLASMA No comment entered. Ordering Provider: ALISSA DE LOS SANTOS MMY Report Released Date/Time: Dec 30, 2022 09:51 AM Reporting Lab: [place] [facility] [address] [place] [id number] Performing Lab: [place] [facility] [address] [place] [address] [facility] URINE ALBUMIN PROFILE-i h (PB) ALBUMIN [MASS/VOLUM E] IN URINE 5.80 mg/L 0 - 30 12/17 Specimen Type: URINE No comment entered. Ordering Provider: ALISSA DE LOS SANTOS MMY Report Released Date/Time: Dec 30, 2022 09:51 AM Reporting Lab: [place] [facility] [address] [place] [id number] Performing Lab: [place] [facility] [address] [place] [address] [facility] URINE ALBUMIN PROFILE-i h (PB) ALBUMIN/CRE ATININE [MASS RATIO] IN URINE 4.45 ug/mg 12/17 Specimen Type: URINE No comment entered. Ordering Provider: ALISSA DE LOS SANTOS MMY Report Released Date/Time: Dec 30, 2022 09:51 AM Reporting Lab: [place] [facility] [address] [place] [id number] Performing Lab: [place] [facility] [address] [place] [id number] [facility] URINE ALBUMIN PROFILE-i h (PB) CREATININE [MASS/VOLUM E] IN URINE 130.23 mg/dL 12/17 Specimen Type: URINE No comment entered. Ordering Provider: ALISSA DE LOS SANTOS MMY Report Released Date/Time: Dec 30, 2022 09:51 AM Reporting Lab: [place] [facility] [address] [place] [address] Performing Lab: [place] [facility] [address] [place] [address] [place] [facility] Vital Signs Combined list of inpatient and outpatient Vital Signs from Department of Defense and Veterans Affairs, ranging from 12 months to all on record, depending upon the facility. Vital Sign Value Date Comments Source SYSTOLIC BLOOD PRESSURE 153 09/19/2024 14:30:00 [place] [facility] DIASTOLIC BLOOD PRESSURE 86 09/19/2024 14:30:00 [place] [facility] PULSE OXIMETRY 96 % 09/19/2024 14:30:00 [facility] WEIGHT 232.2 09/19/2024 14:30:00 [place] [facility] BMI 32 kg/m2 09/19/2024 14:30:00 [place] [facility] PAIN 4 09/19/2024 14:30:00 [place] [facility] TEMPERATURE 97.4 09/19/2024 14:30:00 [place] [facility] PULSE 73 09/19/2024 14:30:00 [place] [facility] RESPIRATION 20 09/19/2024 14:30:00 [place] [facility] SYSTOLIC BLOOD PRESSURE 112 06/21/2024 10:15:00 [place] [facility] DIASTOLIC BLOOD PRESSURE 70 06/21/2024 10:15:00 [place] [facility] PULSE OXIMETRY 93 06/21/2024 10:15:00 [facility] WEIGHT 244.9 06/21/2024 10:15:00 [place] [facility] BMI 34 kg/m2 06/21/2024 10:15:00 [place] [facility] PULSE 63 06/21/2024 10:15:00 [place] [facility] RESPIRATION 20 06/21/2024 10:15:00 [place] [facility] SYSTOLIC BLOOD PRESSURE 155 03/18/2024 14:11:32 [place] [facility] DIASTOLIC BLOOD PRESSURE 83 03/18/2024 14:11:32 [place] [facility] PULSE OXIMETRY 95 03/18/2024 14:11:32 [facility] WEIGHT 242.7 03/18/2024 14:11:32 [place] [facility] BMI 34 kg/m2 03/18/2024 14:11:32 [place] [facility] PAIN 6 03/18/2024 14:11:32 [place] [facility] HEIGHT 71 03/18/2024 14:11:32 [place] [facility] TEMPERATURE 97.8 03/18/2024 14:11:32 [place] [facility] PULSE 87 03/18/2024 14:11:32 [place] [facility] RESPIRATION 20 03/18/2024 14:11:32 [place] [facility] SYSTOLIC BLOOD PRESSURE 131 12/25/2023 10:10:00 [place] [facility] DIASTOLIC BLOOD PRESSURE 89 12/25/2023 10:10:00 [place] [facility] PULSE OXIMETRY 95 12/25/2023 10:10:00 [facility] WEIGHT 242.7 12/25/2023 10:10:00 [place] [facility] BMI 34 kg/m2 12/25/2023 10:10:00 [place] [facility] PAIN 4 12/25/2023 10:10:00 [place] [facility] HEIGHT 71.0 12/25/2023 10:10:00 [place] [facility] TEMPERATURE 98.5 12/25/2023 10:10:00 [place] [facility] PULSE 82 12/25/2023 10:10:00 [place] [facility] RESPIRATION 19 12/25/2023 10:10:00 [place] [facility] SYSTOLIC BLOOD PRESSURE 120 12/08/2023 16:06:00 [place] [facility] DIASTOLIC BLOOD PRESSURE 80 12/08/2023 16:06:00 [place] [facility] PULSE OXIMETRY 93 12/08/2023 16:06:00 [facility] WEIGHT 245.2 12/08/2023 16:06:00 [place] [facility] BMI 34 kg/m2 12/08/2023 16:06:00 [place] [facility] TEMPERATURE 97.8 12/08/2023 16:06:00 [place] [facility] PULSE 99 12/08/2023 16:06:00 [place] [facility] RESPIRATION 20 12/08/2023 16:06:00 [facility] Encounters Combined list of: 1) Encounters from Department of [facility] Affairs facilities going backup to the last 18 months, not all VA inpatient encounters are included; 2) Encounters from the Department of Defense facilities going backup to 280 months. Location Location Details Encounter Type Encounter Number Reason For Visit Attending Provider ADM Date DC Date Status Disposition Source [facility] Outpatient Encounter [id number] 05/04 [facility] OFFICE O/P EST SF 10 MIN [id number] Diagnos is: ICD-10- CM F43.12 Post-tr aumatic stress disorde r, chronic SCHAY,TATUM R 05/05 [facility] ACUPUNCT W/O STIMUL 15 MIN [id number] Diagnos is: ICD-10- CM M51.36 Other interve rtebral disc degener ation, lumbar region FILIBERTO,T MELISSA 05/05 [facility] ACUPUNCT W/O STIMUL 15 MIN [id number] Diagnos is: ICD-10- CM M51.36 Other interve rtebral disc degener ation, lumbar region FILIBERTO,T MELISSA 05/12 [facility] Outpatient Encounter [id number] 05/13 [facility] ACUPUNCT W/O STIMUL 15 MIN [id number] Diagnos is: ICD-10- CM M99.01 Segment al and somatic dysfunc tion of cervica l region FILIBERTO,T MELISSA 05/26 [facility] ACUPUNCT W/O STIMUL 15 MIN [id number] Diagnos is: ICD-10- CM M51.36 Other interve rtebral disc degener ation, lumbar region FILIBERTO,T MELISSA 06/02 [facility] ACUPUNCT W/O STIMUL 15 MIN [id number] Diagnos is: ICD-10- CM M51.36 Other interve rtebral disc degener ation, lumbar region FILIBERTO,T MELISSA 06/08 [facility] OFFICE O/P EST SF 10 MIN [id number] Diagnos is: ICD-10- CM F33.0 Major depress jacinda disorde r, recurre nt, mild SCHAY,TATUM R 06/15 [facility] ACUPUNCT W/O STIMUL 15 MIN [id number] Diagnos is: ICD-10- CM M54.50 Low back pain, unspeci fied FILIBERTO,T MELISSA 06/15 [facility] Outpatient Encounter [id number] 06/21 [facility] OFF/OP EST AUGUST X REQ PHY/QHP [id number] Diagnos is: ICD-10- CM M25.561 Pain in right knee MICHELLENBA RAHMAN R 06/22 [facility] OFFICE O/P EST SF 10 MIN [id number] Diagnos is: ICD-10- CM M99.01 Segment al and somatic dysfunc tion of cervica l region FILIBERTO,T MELISSA 06/22 [facility] Outpatient Encounter [id number] 06/22 [facility] Outpatient Encounter [id number] 06/22 [facility] [place] [facility] Outpatient Encounter [id number] LISS CASTRO L 06/23 [place] [facility] [place] [facility] Outpatient Encounter [id number] 06/25 [place] [facility] EST MOD 30 MIN [id number] Diagnos is: ICD-10- CM E11.9 Type 2 diabete s mellitu s without complic ations FILIBERTO,Daniel MELISSA 06/28 [facility] Outpatient Encounter [id number] 06/28 [facility] Outpatient Encounter [id number] 07/06 [facility] ACUPUNCT W/O STIMUL 15 MIN [id number] Diagnos is: ICD-10- CM M51.36 Other interve rtebral disc degener ation, lumbar region FILIBERTO,T MELISSA 07/06 [facility] OFFICE O/P EST LOW 20 MIN [id number] Diagnos is: ICD-10- CM M99.01 Segment al and somatic dysfunc tion of cervica l region FILIBERTO,T MELISSA 07/13 [facility] Outpatient Encounter [id number] 07/16 [facility] PSYTX W PT 60 MINUTES [id number] Diagnos is: ICD-10- CM F43.12 Post-tr aumatic stress disorde r, chronic KRISTIAN VELA P 07/19 [place] [facility] [place] [facility] ACUPUNCT W/O STIMUL 15 MIN [id number] Diagnos is: ICD-10- CM M51.36 Other interve rtebral disc degener ation, lumbar region Daniel DE LOS SANTOS 07/20 [facility] Outpatient Encounter [id number] 07/22 [facility] ACUPUNCT W/O STIMUL 15 MIN [id number] Diagnos is: ICD-10- CM G99.0 Autonom ic neuropa thy in disease s classif ied elsewhe re Daniel DE LOS SANTOS 07/27 [facility] Outpatient Encounter [id number] 07/29 [facility] En[facility] [id number] 08/09 [facility] STIMUL 15 MIN [id number] Diagnos is: ICD-10- CM G99.0 Autonom ic neuropa thy in disease s classif ied elsewhe re Daniel DE LOS SANTOS 08/10 [facility] FEE [id number] Diagnos is: ICD-10- CM Z46.1 Encount er for fitting and adjustm ent of hearing aid MILTON BONILLA A 08/12 [facility] [place] [facility] HEARING AID REPAIR/MOD IFYING [id number] Diagnos is: ICD-10- CM Z46.1 Encount er for fitting and adjustm ent of hearing aid MILTON BONILLANDRA A 08/12 [place] [facility] ACUPUNCT W/O STIMUL 15 MIN [id number] Diagnos is: ICD-10- CM M99.01 Segment al and somatic dysfunc tion of cervica l region Daniel DE LOS SANTOS 08/17 [facility] Outpatient Encounter [id number] 08/24 [facility]O STIMUL 15 MIN [id number] Diagnos is: ICD-10- CM M51.36 Other interve rtebral disc degener ation, lumbar region Daniel DE LOS SANTOS 08/24 [facility] ACUPUNCT W/O STIMUL 15 MIN [id number] Diagnos is: ICD-10- CM G99.0 Autonom ic neuropa thy in disease s classif ied elsewhe re Daniel DE LOS SANTOS 08/31 [facility] Outpatient Encounter [id number] 09/01 [facility] ACUPUNCT W/O STIMUL 15 MIN [id number] Diagnos is: ICD-10- CM M99.01 Segment al and somatic dysfunc tion of cervica l region Daniel DE LOS SANTOS 09/07 [facility] Outpatient Encounter [id number] 09/08 [facility] En[facility] [id number] 09/09 [facility] [id number] 09/10 [facility] En[facility] [id number] 09/13 [facility] OFFICE O/P EST LOW 20 MIN [id number] Diagnos is: ICD-10- CM F43.12 Post-tr aumatic stress disorde r, chronic SCHAY,TATUM R 09/14 [facility] ACUPUNCT W/O STIMUL 15 MIN [id number] Diagnos is: ICD-10- CM G99.0 Autonom ic neuropa thy in disease s classif ied elsewhe re Daniel DE LOS SANTOS 09/14 [facility] ACUPUNCT W/O STIMUL 15 MIN [id number] Diagnos is: ICD-10- CM G99.0 Autonom ic neuropa thy in disease s classif ied elsewhe re Daniel DE LOS SANTOS AMMY 09/21 [facility] Outpatient Encounter [id number] 09/23 [facility] ACUPUNCT W/O STIMUL 15 MIN [id number] Diagnos is: ICD-10- CM M51.36 Other interve rtebral disc degener ation, lumbar region Daniel DE LOS SANTOS 09/28 [facility] Outpatient Encounter [id number] 09/29 [facility] ACUPUNCT W/O STIMUL 15 MIN [id number] Diagnos is: ICD-10- CM M17.11 Unilate ral primary osteoar thritis , right knee Daniel DE LOS SANTOS 10/05 [facility] Outpatient Encounter [id number] 10/08 [facility] EST MAY X REQ PHY/QHP [id number] [id number] Diagnos is: ICD-10- CM R06.02 Shortne ss of breath NBA MARTINEZ R [facility] MIN [id number] [id number] Diagnos is: ICD-10- CM M51.36 Other interve rtebral disc degener ation, lumbar region FILIBERTO,T MELISSA 10/12 [facility] Outpatient Encounter [id number] JOSE CARLOS,AP RIL L 10[facility] Outpatient Encounter [id number] 10/14 [facility] ACUPUNCT W/O STIMUL 15 MIN [id number] Diagnos is: ICD-10- CM M51.36 Other interve rtebral disc degener ation, lumbar region FILIBERTO,T MELISSA 10/19 [facility] Outpatient Encounter [id number] 10/25 [facility] OFFICE O/P EST MOD 30 MIN [id number] Diagnos is: ICD-10- CM J18.8 Other pneumon ia, unspeci fied organis m FILIBERTO,T MELISSA 10/26 [facility] Outpatient Encounter [id number] 10/26 [facility] ACUPUNCT W/O STIMUL 15 MIN [id number] [id number] Diagnos is: ICD-10- CM G99.0 Autonom ic neuropa thy in disease s classif ied elsewhe re Daniel DE LOS SANTOS MELISSA 11/02 [facility] ACUPUNCT W/O STIMUL 15 MIN [id number] [id number] Diagnos is: ICD-10- CM M51.36 Other interve rtebral disc degener ation, lumbar region Daniel DE LOS SANTOS MELISSA 11/09 [facility] Outpatient Encounter [id number] 11/10 [facility] Outpatient Encounter [id number] 11/10 [facility] Outpatient Encounter [id number] 11/12 [facility] Outpatient Encounter [id number] 11/15 [facility] OFFICE O/P EST LOW 20 MIN [id number] [id number] Diagnos is: ICD-10- CM F43.12 Post-tr aumatic stress disorde r, chronic TATUM TEJADA R 11/16 [facility] ACUPUNCT W/O STIMUL 15 MIN [id number] Diagnos is: ICD-10- CM M51.36 Other interve rtebral disc degener ation, lumbar region Daniel DE LOS SANTOS MELISSA 11/16 [facility] ACUPUNCT W/O STIMUL 15 MIN [id number] [id number] Diagnos is: ICD-10- CM G99.0 Autonom ic neuropa thy in disease s classif ied elsewhe re Daniel DE LOS SANTOS MELISSA 11/23 [facility] FEE [id number] [id number] Diagnos is: ICD-10- CM Z46.1 Encount er for fitting and adjustm ent of hearing aid MILTON BONILLA 11/26 [facility] HEARING AID REPAIR/MOD IFYING [id number] [id number] Diagnos is: ICD-10- CM Z46.1 Encount er for fitting and adjustm ent of hearing aid MILTON BONILLA A 11/26 [facility] ACUPUNCT W/O STIMUL 15 MIN 33002-8.65 [id number] Diagnos is: ICD-10- CM M51.36 Other interve rtebral disc degener ation, lumbar region FILIBERTO,T MELISSA 11/30 [facility] Outpatient Encounter [id number] 12/02 [facility] STIMUL 15 MIN [id number] [id number] Diagnos is: ICD-10- CM M51.36 Other interve rtebral disc degener ation, lumbar region FILIBERTO,T MELISSA 12/07 [facility] OFF/OP EST AUGUST X REQ PHY/QHP 27292-5.65 [id number] Diagnos is: ICD-10- CM R60.0 Localiz ed edema MICHELLE,NBA ROSENA R 12/07 [facility] Outpatient Encounter [id number] 12/13 [facility]/O STIMUL 15 MIN 39489-5.65 [id number] Diagnos is: ICD-10- CM M51.36 Other interve rtebral disc degener ation, lumbar region FILIBERTO,T MELISSA 12/14 [facility] ACUPUNCT W/O STIMUL 15 MIN [id number] [id number] Diagnos is: ICD-10- CM M17.11 Unilate ral primary osteoar thritis , right knee FILIBERTO,T [facility]ELISSA 12[facility]P EST MOD 30 MIN 49693-4.65 [id number] Diagnos is: ICD-10- CM E11.9 Type 2 diabete s mellitu s without complic ations FILIBERTO,T MELISSA 12/24 [facility] Outpatient Encounter [id number] [id number] 12/28 [facility] ACUPUNCT W/O STIMUL 15 MIN [id number] [id number] Diagnos is: ICD-10- CM M51.36 Other interve rtebral disc degener ation, lumbar region FILIBERTO,T MELISSA 12/28 [facility] Outpatient Encounter [id number] [id number] 12/28 [facility] Outpatient Encounter [id number] [id number] 12/29 [facility] Outpatient Encounter 62340-2.65 [id number] 12/29 [facility] Outpatient Encounter [id number] [id number] 01/03 [facility] Outpatient Encounter [id number] [id number] 01/04 [facility] W/O STIMUL 15 MIN [id number] [id number] Diagnos is: ICD-10- CM M17.0 Bilater al primary osteoar thritis of knee FILIBERTO,T MELISSA 01/04 [facility] Outpatient Encounter [id number] [id number] 01/11 [facility] N [facility] Outpatient Encounter [id number] [id number] 01/11 [facility] STIMUL 15 MIN [id number] [id number] Diagnos is: ICD-10- CM M99.01 Segment al and somatic dysfunc tion of cervica l region FILIBERTO,T MELISSA 01/11 [facility] ACUPUNCT W/O STIMUL 15 MIN [id number] [id number] Diagnos is: ICD-10- CM M17.11 Unilate ral primary osteoar thritis , right knee FILIBERTO,T MELISSA 01/18 [facility] Outpatient Encounter [id number] [id number] 01/20 [facility] Outpatient Encounter [id number] [id number] 01/25 [facility] ACUPUNCT W/O STIMUL 15 MIN 85287-4.65 [id number] Diagnos is: ICD-10- CM M17.11 Unilate ral primary osteoar thritis , right knee FILIBERTO,T MELISSA 01/26 [facility] Outpatient Encounter [id number] [id number] 01/27 [facility] Outpatient Encounter 91687-3.65 [id number] 02/01 [facility] ADMN SARSCOV2 VACC 1 DOSE 25828-2.65 [id number] Diagnos is: ICD-10- CM Z23 Encount er for immuniz STEPHAN Freedman 02/01 [facility] ACUPUNCT W/O STIMUL 15 MIN [id number] [id number] Diagnos is: ICD-10- CM 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, lumbar region FILIBERTO,T MELISSA 02/01 [facility] ACUPUNCT W/O STIMUL 15 MIN [id number] [id number] Diagnos is: ICD-10- CM M99.01 Segment al and somatic dysfunc tion of cervica l region FILIBERTO,T MELISSA 02/15 [facility] 15 MIN 78955-7.65 [id number] Diagnos is: ICD-10- CM 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, lumbar region FILIBERTO,T MELISSA 02/22 [facility] Outpatient Encounter [id number] [id number] 03/08 [facility] Outpatient Encounter [id number] [id number] VARGASJANICE SKYLA M 03/17 [facility] OFFICE O/P EST LOW 20 MIN 16783-9.65 [id number] Diagnos is: ICD-10- CM F33.42 Major depress jacinda disorde r, recurre nt, in full remissi on TATUM TEJADA 03/18 [facility] Outpatient Encounter [id number] [id number] 03/23 [facility] Outpatient Encounter [id number] [id number] 04/01 [facility] Outpatient Encounter [id number] [id number] 04/04 [facility] Outpatient Encounter 33549-3.65 [id number] LYNDSEY MONTEMAYOR M 04/04 [facility] Outpatient Encounter [id number] [id number] 04/07 [facility] Outpatient Encounter 24592-4.65 [id number] 05/03 [facility] ACUP 1/> WO ESTIM 1ST 15 MIN [id number] [id number] Diagnos is: ICD-10- CM 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, lumbar region FILIBERTO,Daniel MELISSA 05/03 [facility] Outpatient Encounter [id number] [id number] 05/04 [facility] ACUP 1/> WO ESTIM 1ST 15 MIN [id number] [id number] Diagnos is: ICD-10- CM M99.01 Segment al and somatic dysfunc tion of cervica l region FILIBERTO,T MELISSA 05/10 [facility] Outpatient Encounter 19605-6.65 [id number] 05/17 [facility] Outpatient Encounter [id number] [id number] 05/20 [facility] PSYTX W PT 60 MINUTES 29858-2.65 [id number] Diagnos is: ICD-10- CM F43.12 Post-tr aumatic stress disorde r, chronic VELAKRISTIAN P 05/30 [facility] ACUP 1/> WO ESTIM 1ST 15 MIN [id number] [id number] Diagnos is: ICD-10- CM G99.0 Autonom ic neuropa thy in disease s classif ied elsewhe re Daniel DE LOS SANTOS MELISSA 05/31 [facility] Outpatient Encounter [id number] [id number] 05/31 [facility] ACUP 1/> WO ESTIM 1ST 15 MIN 14233-9.65 [id number] Diagnos is: ICD-10- CM G99.0 Autonom ic neuropa thy in disease s classif ied elsewhe re Daniel DE LOS SANTOS MELISSA 06/07 [facility] ACUP 1/> WO ESTIM 1ST 15 MIN [id number] [id number] Diagnos is: ICD-10- CM G99.0 Autonom ic neuropa thy in disease s classif ied elsewhe re Daniel DE LOS SANTOS MELISSA 06/14 [facility] Outpatient Encounter [id number] [id number] 06/17 [facility] Outpatient Encounter [id number] [id number] 06/20 [facility] Outpatient Encounter 99445-8.65 [id number] 06/20 [facility] OFFICE O/P EST MOD 30 MIN [id number] [id number] Diagnos is: ICD-10- CM E11.9 Type 2 diabete s mellitu s without complic ations Daniel DE LOS SANTOS MELISSA 06/21 [facility] Outpatient Encounter [id number] [id number] 06/21 [facility] Outpatient Encounter 81820-4.65 [id number] 06/29 [facility] Outpatient Encounter [id number] [id number] 07/04 [facility] PSYTX W PT 60 MINUTES 69388-9.65 [id number] Diagnos is: ICD-10- CM F43.12 Post-tr aumatic stress disorde r, chronic VELA,KRISTIAN NICOLE P 07/14 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 Outpatient Encounter [id number] [id number] 07/27 [facility] ACUP 1/> WO ESTIM 1ST 15 MIN 79842-5.65 [id number] Diagnos is: ICD-10- CM M17.0 Bilater al primary osteoar thritis of knee Daniel DE LOS SANTOS MELISSA 08/02 [facility] Outpatient Encounter [id number] [id number] 08/09 [facility] ACUP 1/> WO ESTIM 1ST 15 MIN [id number] [id number] Diagnos is: ICD-10- CM G99.0 Autonom ic neuropa thy in disease s classif ied elsewhe re Daniel DE LOS SANTOS MELISSA 08/09 [facility] Outpatient Encounter [id number] [id number] 08/10 [facility] Outpatient Encounter [id number] [id number] 08/11 [facility] Outpatient Encounter [id number] [id number] 08/15 [facility] Outpatient Encounter [id number] [id number] 08/15 [facility] Outpatient Encounter [id number] [id number] 08/15 [facility] Outpatient Encounter [id number] [id number] SANJU MOSELEY M 08/16 [facility] ACUP 1/> WO ESTIM 1ST 15 MIN [id number] [id number] Diagnos is: ICD-10- CM 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 Outpatient Encounter [id number] [id number] 08/25 [facility] Outpatient Encounter [id number] [id number] 08/25 [facility]/> WO ESTIM 1ST 15 MIN [id number] [id number] Diagnos is: ICD-10- CM G99.0 Autonom ic neuropa thy in disease s classif ied elsewhe re Daniel DE LOS SANTOS 08/30 [facility] Outpatient Encounter [id number] [id number] 08/30 [facility] ACUP 1/> WO ESTIM 1ST 15 MIN [id number] [id number] Diagnos is: ICD-10- CM M25.512 Pain in left shoulde r Daniel DE LOS SANTOS 09/06 [facility] Outpatient Encounter [id number] [id number] 09/07 [facility] En[facility] [id number] [id number] 09/16 [facility] OFFICE O/P EST MOD 30 MIN [id number] [id number] Diagnos is: ICD-10- CM F33.42 Major depress jacinda disorde r, recurre nt, in full remissi on TATUM TEJADA R 09/19 [facility] ACUP 1/> WO ESTIM 1ST 15 MIN [id number] [id number] Diagnos is: ICD-10- CM M25.512 Pain in left shoulde r Daniel DE LOS SANTOS 09/19 [facility] Outpatient Encounter [id number] [id number] 09/20 [facility] Outpatient Encounter [id number] [id number] 09/21 [facility] ACUP 1/> WO ESTIM 1ST 15 MIN [id number] [id number] Diagnos is: ICD-10- CM M99.01 Segment al and somatic dysfunc tion of cervica l region Daniel DE LOS SANTOS 10/04 [facility] Outpatient Encounter [id number] [id number] 10/04 [facility] Outpatient Encounter [id number] [id number] 10/05 [facility] Outpatient Encounter [id number] [id number] PORSCHE BOWMAN L 10/06 [facility] Outpatient Encounter [id number] [id number] 10/06 [facility] Outpatient Encounter [id number] [id number] JUSTA DENNIS 10/10 [facility] Outpatient Encounter [id number] [id number] 10/28 [facility] Social History Combined list of available smoking, tobacco, and other social history from Department of Defense and Veterans Affairs facilities. Social History Type Response Date Comment Source Tobacco smoking status NHIS VA-TOBACCO FORMER USER 12/25/2023 [facility] History of tobacco use NV-TOBACCO QUIT 5 TO < 15 YRS 12/25/2023 [facility] History of tobacco use VA-TOBACCO FORMER USER 12/30/2022 [facility] History of tobacco use VA-TOBACCO FORMER USER 01/07/2022 [facility] History of tobacco use VA-TOBACCO FORMER USER 01/08/2021 [facility] History of tobacco use NV-TOBACCO FORMER USER 01/10/2020 [facility] History of tobacco use VA-TOBACCO FORMER USER 04/19/2018 [facility] History of tobacco use QUIT TOBACCO >7 YEARS AGO 09/05/2015 [facility] History of tobacco use V16 TOBACCO USE SCREEN 03/14/2015 [facility] History of tobacco use V16 TOBACCO USE SCREEN 03/13/2014 [facility] History of tobacco use V16 LIFETIME NON-TOBACCO USER 03/08/2013 [facility] History of tobacco use V16 TOBACCO USE SCREEN 07/16/2011 [facility] History of tobacco use V16 TOBACCO USE SCREEN 05/22/2010 [facility] History of tobacco use V16 TOBACCO USE SCREEN 05/30/2009 [facility] History of tobacco use V16 TOBACCO USE SCREEN 05/05/2008 [employer] [facility] History of tobacco use V16 TOBACCO USE SCREEN 03/18/2007 [facility] History of tobacco use V16 TOBACCO USE SCREEN 07/16/2006 [facility] History of tobacco use V16 TOBACCO USE SCREEN 01/16/2006 [facility] History of tobacco use TOBACCO CESSATION: 1-5 YEARS 10/10/2005 quit smoking 2004 [facility] History of tobacco use TOBACCO CESSATION: <1 YEAR 04/03/2005 quit smoking 04/10 [facility] History of tobacco use TOBACCO CESSATION: <1 YEAR 02/10/2005 [facility] History of tobacco use TOBACCO CESSATION: <1 YEAR 12/25/2004 quit smoking 04/10 [facility] History of tobacco use TOBACCO CESSATION: <1 YEAR 12/12/2004 quit smoking 04/10 [facility] History of tobacco use TOBACCO CESSATION: <1 YEAR 11/07/2004 quit smoking 04/10 [facility] History of tobacco use TOBACCO CESSATION: <1 YEAR 09/25/2004 quit smoking 04/10 [facility] History of tobacco use CURRENT SMOKER 03/26/2004 [facility] History of tobacco use CURRENT SMOKER 09/05/2003 [facility] History of tobacco use CURRENT SMOKER 06/26/2003 [facility] History of tobacco use CURRENT SMOKER 06/26/2003 [facility] History of tobacco use CURRENT SMOKER 11/29/2002 1-2 pks daily [facility] History of tobacco use CURRENT SMOKER 07/07/2002 1ppd [facility] History of tobacco use CURRENT SMOKER 06/07/2002 1 pk cig daily [facility] History of tobacco use CURRENT SMOKER 06/07/2002 1 PPD. [facility] History of tobacco use CURRENT SMOKER 04/15/2002 1 1/2 ppd/30yrs [facility] History of tobacco use CURRENT SMOKER 02/04/2002 drinks 1 pk. cig daily [facility] History of tobacco use TOBACCO USER 11/23/2001 [facility] History of tobacco use TOBACCO USER 08/31/2001 Smokes 1 1/2 packs of cigarettes per day [facility] Plan of Care List of future care activities from Department of [facility] Affairs facilities. Additional future care activities may be listed in the Assessment and Plan section. Date/Time Care Activity Care Activity Detail Facili ty 10/31/2024 AMBULATORY - MEDICINE AMBULATORY - MEDICI [facility]
--- OUTSIDE RECORDS SUMMARY | 2024-10-30 14:25 | XMS_ITS | Clinical Summary ---
Author Organization [facility] tone Address 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 Gender Identity Not on file Sexual Orientation Not on file Plan of Treatment Health Maintenance Due Date Last Done Comments DTAP/TDAP/TD VACCINES (1 - Tdap) 01/04/1971 COLORECTAL SCREENING 01/04/1997 Colorectal Cancer Screening 01/04/1997 FIT-DNA Q 3 years 01/04/1997 FIT/FOBT Q 1 year 01/04/1997 Flex Sig/CT Colonography Q 5 years 01/04/1997 PNEUMOCOCCAL VACCINE 50+ YEARS (1 of 1 - PCV) 01/05/20 02 ZOSTER VACCINE (1 of 2) 01/04/2002 INFLUENZA VACCINE (#1) 2024 01/18/2014 RSV VACCINE (60+ or ) (1 - 1-dose 75+ series) 01/04/2027 Insurance MEDICARE PART A AND B Care Teams Chair Installer Relationship Specialty Start Date End Date Jose Maria Lowe MD [address] [place] [id number] PCP - General 08/17/09
--- OUTSIDE RECORDS SUMMARY | 2024-10-30 14:25 | XMS_ITS | Encounter Summary ---
Author Organization [facility] Address [address] [place] [address] Care Team Providers Care Surface Boss Name Role Phone Jose Maria Lowe MD Primary Care Provider [phone] Reason for Referral * MRI (Routine) - Closed Specialty Diagnoses / Procedures Referred By Iris ni Referred To Contact Radiology Diagnoses Pain in left shoulder Procedures MRI SHOULDER WO CONTRAST LEFT Vamsi Domínguez MD [address] [place] [address] Phone: tel: fax: [facility] [place] [address] [place] [address] Phone: tel: fax: Referral ID Status Reason Start Date Expiration Date V isits Requested Visits Authorized [id number] Closed [facility] CTS to Schedule (SGF) 04/22/2018 07/03/2018 1 1 ET POST INSPECTOR Encounter Details Date Type Department Care Team (Late st Contact Info) Description 04/22/2018 Ancillary Orders [facility] Centralized Scheduling [address] [place] [address] Vamsi Domínguez MD [address] [place] [address] Pain in left shoulder Social History Tobacco Use Types Packs/Day Years Used Date Smoking Tobacco: Never Assessed Sex and Gender Information Value Date Recorded Sex Assigned at Not on file 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 Exam: MRI SHOULDER WO CONTRAST LEFT Date/Time of Exam: 05/04/2018 11:42 AM Reason For Exam: See Diagnosis. Diagnosis: Pain in left shoulder. Technique: MRI of the left shoulder was performed without the administration of intravenous contrast. Comparison: None. Findings: The exam is degraded by motion artifact. The glenohumeral joint is anatomically aligned and appears well-maintained with a physiologic amount of joint fluid. There is no definitive evidence of a discrete labral tear or paralabral cyst. The long head biceps tendon is normally positioned within the bicipital groove with an intact-appearing intracapsular segment. There is a low-grade partial tear involving the insertional and critical zone fibers of the supraspinatus tendon measuring approximately 0.4 cm in the AP dimension. There is no evidence of a high-grade partial or full-thickness rotator cuff tear. There is supraspinatus and infraspinatus bursal surface edema which may reflect underlying subacromial impingement. There is no significant rotator cuff muscle atrophy or edema. The acromioclavicular joint is anatomically aligned and demonstrates moderate degenerative changes. There is effacement of the subacromial fat with impression upon the supraspinatus myotendinous junction. There is no significant distention of the subacromial-subdeltoid bursa. There is no acute osseous abnormality. IMPRESSION: 1. Low-grade partial tear involving the supraspinatus tendon with bursal surface edema which may reflect underlying subacromial impingement. 2. Moderate acromioclavicular joint degenerative changes. [id number] Narrative Procedure Note Mitchel Bunch, DO - 05/04/2018 IMPRESSION: Please see below. Exam: MRI SHOULDER WO CONTRAST LEFT Date/Time of Exam: 05/04/2018 11:42 AM Reason For Exam: See Diagnosis. Diagnosis: Pain in left shoulder. Technique: MRI of the left shoulder was performed without the administration of intravenous contrast. Comparison: None. Findings: The exam is degraded by motion artifact. The glenohumeral joint is anatomically aligned and appears well-maintained with a physiologic amount of joint fluid. There is no definitive evidence of a discrete labral tear or paralabral cyst. The long head biceps tendon is normally positioned within the bicipital groove with an intact-appearing intracapsular segment. There is a low-grade partial tear involving the insertional and critical zone fibers of the supraspinatus tendon measuring approximately 0.4 cm in the AP dimension. There is no evidence of a high-grade partial or full-thickness rotator cuff tear. There is supraspinatus and infraspinatus bursal surface edema which may reflect underlying subacromial impingement. There is no significant rotator cuff muscle atrophy or edema. The acromioclavicular joint is anatomically aligned and demonstrates moderate degenerative changes. There is effacement of the subacromial fat with impression upon the supraspinatus myotendinous junction. There is no significant distention of the subacromial-subdeltoid bursa. There is no acute osseous abnormality. IMPRESSION: 1. Low-grade partial tear involving the supraspinatus tendon with bursal surface edema which may reflect underlying subacromial impingement. 2. Moderate acromioclavicular joint degenerative changes. [id number] Vamsi Domínguez MD MR ORDERABLES Final Result documented in this encounter Visit Diagnoses Diagnosis Pain in left shoulder Pain in joint, shoulder region Pain in left shoulder Pain in joint, shoulder region documented in this encounter Care Teams Surface Boss Relationship Specialty Start Date End Date Jose Maria Lowe MD [address] [place] [id number] PCP - General 08/17/09 documented as of this encounter
--- OUTSIDE RECORDS SUMMARY | 2024-10-30 14:25 | XMS_ITS | Patient Health Record ---
Author Organization [facility] Address [address], [place] [id number] Care Team Providers Care Infection Control Practitioner Name Role Phone [facility] Primary Care Provider Gisell crystal Joyner MD, Brian Unavailable [phone] [place], [place] Unavailable Unavailable Allergies Allergen (clinical drug ingredient) Drug/Non Drug Allergy documented on EMR Reaction Allergy Type Onset Date Status Antidepressants (pat ient could not recall Rxs) (uncoded) Unknown Allergy Active bupropion Unknown Drug Allergy Active venlafaxine Unknown Drug Allergy Activ e dorzolamide ophthalmic Unknown Drug Allergy Active Reason For Referral No Information Medications Medication SIG (Take, Route, Frequency, Duration) Notes Start Date End Date Status lisinopril 40 mg 1/2 tab orally once a day Active hydroCHLOROthiazide 25 mg 1 tab orally once a day Active timolol ophthalmic hemihydrate 0.5% 1 gtt in each affected eye as directed Active hydrALAZINE 25 mg 1 tab orally 2 times a day Active tamsulosin 0.4 mg 1 cap orally once a day Active glipiZIDE 5 mg 1 tab orally once a day Active Super B Complex Vitamin B Complex 1 tab orally as directed Active fluticasone nasal 50 mcg/inh intranasall y as directed Active sildenafil 100 mg 1 tab orally every week, as needed Active finasteride 5 mg 1 tab orally once a day Active pravastatin 40 mg 1/2 tab orally once a day Active Calcium 600+D orally as directed Active omeprazole 20 mg 1 cap orally once a day Active brimonidine ophthalmic 0.2% in each affe cted eye as directed Active NovoLOG FlexPen 100 units/mL as directed subcutaneously Active MS Contin 15 mg/8 to 12 hr 1 tab po orally Q8H 10/2021 Active aspirin 81 mg orally as directed Active MS Contin 15 mg/8 to 12 hr 1 tab po oral ly Q8H for 30 day(s) Active amLODIPine 10 mg 1 tab orally o nce a day Active Metoprolol Tartrate 50 mg 1/2 tab orally 2 times a day Active Vitamin D3 1000 intl units orally as directed Active loratadine 10 mg 1 tab orally once a day Active Vitamin A 8000 I.U. as directed Active tiZANidine 4 mg 2 tabs orally at bedtime, as needed Active Social History Tobacco Use: Social History Observation Description Date Details (start date - stop date) Former Smoker NA - NA alcohol Question Answer Notes Did you have a drink contain ing alcohol in the past year? Yes How often did you have a dri nk containing alcohol in the past year? Monthly or less (1 point) How many drinks did you have on a typical day when you were drinking in the past year? 5 or 6 (2 points) How often did you have six o r more drinks on one occasion in the past year? Never (0 points) Points 3 Interpretation Negative Tobacco use: Question Answer Notes : former smoker How long has it been since you last smoked? 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 (Z79.891) Active confirmed Problem Obstructive sleep apnea syndrome (15071789) Obstructive sleep apnea (adult) (pediatric) (G47.33) Active confirmed Problem Radiculopathy due to lumbar intervertebral disc disorder (828003895570419) Intervertebral disc disorders with radiculopathy, lumbar region (M51.16) Active confirmed Problem Myalgia (62041549) Myalgia (M79.1) Active confirmed Problem Lumbar sprain (032657854) Sprain of other parts of lumbar spine and pelvis, initial encounter (S33.8XXA) Active confirmed Problem Long-term current use of drug therapy (011026072) 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 (Z79.899) Active confirmed Problem Pain in lumbar spine (234820489) Vertebrogenic low back pain (M54.51) Active confirmed Plan Of Treatment No Information Insurance Providers Payer Name Payer Address Payer Phone Subscriber Number Group Number Insured Name Patient Relationship to Insured Coverage Start Date Coverage End Date [employer]UM [address] [place] [address] [id number] Manoj Anglin Self - patient is the insured Medical (General) History Medical History History ICD Code Low back pain Hayfever Diabetes mellitus Depression and anxiety Hypertension Left shoulder pain Neck pain Neuropathy in bilateral lower extremitie s Hearing loss Tinnitus Alcohol abuse (patient has since reporte d no alcohol use) Allergic rhinitis Anxiety disorder Arthralgia Benign prostatic hypertrophy Charcot's joint Chronic obstructive pulmonary disease Depression, major Amnesia Degenerative disc disease, lumbar Peripheral vertigo, bilateral Post-traumatic stress disorder Segmental and somatic dysfunction, cervi jeet Tremors Gastritis, chronic Glaucoma Spondylosis Sacroiliitis Kidney prolems Surgical History Surgery Date(Month/Year) Appendectomy Hospitalization History Reason Date(Month/Year) Staph infection, treated at [facility] 07/2020
--- OUTSIDE RECORDS SUMMARY | 2024-10-30 14:25 | XMS_ITS | Clinical Summary ---
Author Organization [facility] Address [address] [facility] Attn: Epic Prelude ADT [place] [address] Care Team Providers Care Rack Puller Name Role Phone Jose Maria oLwe MD Primary Care Provider [phone] Allergies Active Allergy Reactions Criticality Noted Date Comments Acetazolamide Diarrhea,Rash,Nausea and Vomiting,Other (See Comments) Low 09/18/2022 Pain in pancreas and liver we identified as cramps on both sides of abdomen Bupropion Other (See Comments) Medium 06/25/2022 Spencer like I was having a heart attack Dorzolamide Other (See Comments) Low 06/25/2022 Eyes burned Venlafaxine Unknown 06/25/2022 I cannot remember what reaction was Medications dorzolamide-devonte oloL (COSOPT) 22.3-6.8 mg/mL solution Administer 1 Drop in right eye 2 times daily. 10 mL 11 2 Active atorvastatin (LIPITOR) 80 mg tablet Take 80 mg by mouth daily. Active finasteride (PROSCAR) 5 mg tablet Take 5 mg by mouth daily. Active hydrALAZINE (APRESOLINE) 25 mg tablet Take 25 mg by mouth 2 times daily. Active hydroCHLOROthia zide 25 mg tablet Take 25 mg by mouth daily. Active lisinopriL (PRINIVIL) 40 mg tablet Take 40 mg by mouth daily. Active loratadine 10 mg Capsule Take 10 mg by mouth daily. Active pregabalin (LYRICA) 100 mg Capsule Take 100 mg by mouth 2 times daily. Active sildenafiL (VIAGRA) 100 mg tablet Take 100 mg by mouth 1 time daily as needed. Active tiZANidine (ZANAFLEX) 4 mg Capsule Take 4 mg by mouth daily at bedtime. prn Active aspirin 325 mg tablet Take 325 mg by mouth daily. Active difluprednate (DurezoL) 0.05 % solution Administer 1 Drop in right eye daily. 5 mL 3 3 Active brimonidine (ALPHAGAN) 0.2 % solution INSTILL 1 DROP IN BOTH EYES TWICE A DAY FOR GLAUCOMA 2 Active clobetasoL (TEMOVATE) 0.05 % Ointment APPLY LIGHTLY TO AFFECTED AREA(S) THREE TIMES PER WEEK NEEDED FOR FLARES NO MORE THAN 2 WEEKS PER MONTH 3 Active DULoxetine 30 mg capsule,delayed release 30 mg. 3 Active latanoprost (XALATAN) 0.005 % solution INSTILL 1 DROP IN BOTH EYES AT BEDTIME FOR GLAUCOMA. KEEP REFRIGERATED UNTIL READY TO USE, THEN STORE AT ROOM TEMPERATURE FOR MAXIMUM OF 42 DAYS. 2 Active naloxone (NARCAN) 4 mg/spray Orient, Non-Aerosol USE 1 SPRAY (4MG) INTO ONE NOSTRIL ONLY ONE-TIME FOR OPIOID OVERDOSE DO NOT PRIME NASAL SPRAYS. GIVE ADDITIONAL DOSE IF PATIENT DOES NOT RESPOND WITHIN 2-3 MINUTES OR RESPONDING BUT STOPS BREATHING AGAIN. CALL 911. IF USED, NOTIFY YOUR PROVIDER. 3 Active netarsudiL (RHOPRESSA) 0.02 % Drops solution INSTILL 1 DROP IN BOTH EYES AT BEDTIME KEEP REFRIGERATED UNTIL READY TO USE, THEN STORE AT ROOM TEMPERATURE FOR MAXIMUM OF 42 DAYS. 3 Active timoloL maleate (TIMOPTIC) 0.5% solution INSTILL 1 DROP IN BOTH EYES TWICE A DAY FOR GLAUCOMA. 2 Active traMADoL 50 mg tablet TAKE 1 TABLET BY MOUTH FOUR TIMES A DAY NEEDED 3 Active albuterol sulfate HFA 90 mcg/actuation aerosol inhaler Take 2 Puffs by inhalation every 6 hours as needed. 4 Active escitalopram oxalate (LEXAPRO) 20 mg tablet Take 20 mg by mouth daily. 4 Active mirtazapine (REMERON) 30 mg tablet Take 30 mg by mouth daily at bedtime. 4 Active potassium chloride (KLOR-CON M20) 20 mEq Extended Release tablet Take 20 mEq by mouth daily. 4 Active aspirin (ECOTRIN EC) 81 mg Tablet, Delayed Release (E.C.) Take 81 mg by mouth daily. Active fluticasone propionate (FLONASE) 50 mcg/spray Orient, Suspension nasal inhaler Administer in each nostril. 4 Active insulin glargine-yfgn 100 unit/mL vial Inject by subcutaneous injection. 4 Active meclizine 25 mg Tablet, Chewable Take 25 mg by mouth. 4 Active tiotropium (SPIRIVA RESPIMAT) 2.5 mcg/actuation Mist Take by mouth. 4 Active MAGNESIUM CITRATE ORAL Take by mouth. Ac tive omeprazole (PriLOSEC) 40 mg Capsule, Delayed Release(E.C.) Take 1 Capsule (40 mg) by mouth daily. 90 Capsule 1 5 Active Active Problems Problem Noted Date Diagnosed Date Primary open angle glaucoma (POAG) of right eye, severe stage 08/29/2022 Ocular hypertension, left eye 08/29/2022 Pseudophakia of both eyes 08/29/2022 Encounters Date Type Department Care Team Description 09/12/2024 Telephone [facility] Gastroenterology - [address] [place] [phone] Meenu Greco RN Results 09/12/2024 Orders Only Endoscopy [place] [address] [place] [address] Maykel Palacio MD 09/07/2024 8:51 AM CDT Anesthesia Event Endoscopy [address] [place] [phone] Paul Deal MD 09/07/2024 7:40 AM CDT - 09/07/2024 8:00 AM CDT Surgery Endoscopy [address] [place] [address] Maykel Palacio MD ESOPHAGOGASTRODUODENOSCOPY 09/07/2024 7:31 AM CDT - 09/07/2024 9:41 AM CDT Hospital Encounter Endoscopy [address] [place] [phone] Maykel Palacio MD Discharge Disposition: Home or Self Care 08/25/2024 External Device Data STL ABSTRACTION Provider, Abstract 08/25/2024 External Device Data STL ABSTRACTION Provider, Abstract 08/24/2024 External Device Data STL ABSTRACTION Provider, Abstract from Last 3 Months Immunizations Immunization Administration Dates Next Due Influenza Vaccine Quad Split 3+ Yrs Im 4 Family History Medical History Relation Name Comments Colon Cancer Neg Hx Social History Tobacco Use Types Packs/Day Years Used Date Smoking Tobacco: Former Cigarettes Smokeless Tobacco: Former Tobacco Cessation:Counseling Given: No Alcohol Use Standard Drinks/Week Comments Yes 0 (1 standard drink = 0.6 oz pur e alcohol) few times weekly Sex and Gender Information Value Date Recorded Sex Assigned at Not on file 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 Gender Identity Not on file Sexual Orientation Not on file Last Filed Vital Signs Vital Sign Reading Time Taken Comments Blood Pressure 145/63 09/07/2024 9:28 AM CDT Pulse 56 09/07/2024 9:28 AM CDT Temperature 37.1 C (98.8 F) 09/07/2024 9:13 AM CDT Respiratory Rate 13 09/07/2024 9:28 AM CDT Oxygen Saturation 96% 09/07/2024 9:28 AM CDT Inhaled Oxygen Concentration - - Weight 110.7 kg (244 lb) 05/20/2024 9:16 AM 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 Height 177.8 cm (5' 10 ) 05/20/2024 9:16 AM 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 Body Mass Index 35.01 05/20/2024 9:16 AM 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 Plan of Treatment Upcoming Encounters Date Type Department Care Team (Late st Contact Info) Description 11/18/2024 9:00 AM CDT Office Visit [facility] Gastroenterology- [place] [address] [facility] [address] [place] [phone] Joyce Horner [facility] [address] [facility] [address] [place] [phone] Health Maintenance Due Date Last Done Comments DIABETES ANNUAL FOOT EXAM 01/04/1970 DIABETES MICROALBUMIN ANNUAL SCREEN 01/04/1970 LDL CHOLESTEROL ANNUAL 01/04/1970 COLORECTAL SCREENING 01/04/1997 Colorectal Cancer Screening 01/04/1997 FIT-DNA Q 3 years 01/04/1997 FIT/FOBT Q 1 year 01/04/1997 Flex Sig/CT Colonography Q 5 years 01/04/1997 RSV VACCINE (60+ or ) (1 - Risk 60-74 years 1-dose series) 2012 Abdominal Aortic Aneurysm (A AA) Screening 01/04/2017 DIABETES ANNUAL RETINAL EXAM 08/30/2023, 08/29/2022, 08/18/2022, Additional history exists COVID-19 Vaccine (2023-2 5 season) 2024 02/02/2024, 01/26/2023, 01/07/2022, Additional history exists INFLUENZA VACCINE (#1) 2024 , 01/26/2023, 01/07/2022, Additional history exists DIABETES HBA1C Q 6 MONTHS 12/16/2024 06/15/2024 DTAP/TDAP/TD VACCINES (2 - T d or Tdap) 09/28/2028 09/28/2018, 04/03/2005 ZOSTER VACCINE Completed 01/10/2020, 10/05, 05/10/2015 PNEUMOCOCCAL VACCINE 50+ YEARS Completed 1 , 04/29/2017, 03/14/2015, Additional history exists Medical Devices Implanted Type Area Water Resource Consultant Device Identifier Shelf Expiration Date Model / Serial / Lot Capsule Vaughn Ph Testing [id number]-[id number] - [id number] Implanted:Qty: 1 on 09/07/2024 by Maykel Palacio MD at Other N/A: 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 GIVEN 05/25/2025 FGS-0635 / / [id number] Description:38 @ [facility] Procedures Procedure Name Priority Date/Time Associated Diagnosis Comments ESOPHAGEAL PH PROBE - 48 HR Routine 12/2024 8:16 AM CDT UPPER ENDOSCOPY REPORT 9:13 AM CDT ANESTHESIA AIRWAY Routine 09/07/2024 8:58 AM CDT POC GLUCOSE Routine 09/07/2024 8:01 AM CDT [facility] GASTROESOPHAG REFLX TEST W/TELEMTRY PH ELTRD 09/07/2024 7:40 AM CDT Dysphagia, unspecified type Hoarseness Burning sensation of throa Case Notes 05/26/24 EGD/Vaughn and Manometry - [facility] Sildenafil on list - states not taking anymore BMI 35.01 Referring Provider: Latisha Arce MD Ins [id number] 05/03/24- 09/01/24 Previous esophageal or stomach surgeries- No Pacemaker/Def/loop recorder -No Blood thinners - No Opioids -Tramadol daily Anxiety / sleep meds -No Insulin dep diabetic - Yes Metal allergy -No Mobility concerns -Uses walker Dialysis pt -No Home O2/tracheostomy/hx throat or neck cancer - No Allergy to fentanyl/versed - No [facility] ESOPHAGOGASTRODUODENOSCOP Y TRANSORAL DIAGNOSTIC 09/07/2024 7:40 AM CDT Dysphagia, unspecified type Hoarseness Burning sensation of throa Case Notes 05/26/24 EGD/Vaughn and Manometry - [facility] Sildenafil on list - states not taking anymore BMI 35.01 Referring Provider: Latisha Arce MD Ins [id number] 05/03/24- 09/01/24 Previous esophageal or stomach surgeries- No Pacemaker/Def/loop recorder -No Blood thinners - No Opioids -Tramadol daily Anxiety / sleep meds -No Insulin dep diabetic - Yes Metal allergy -No Mobility concerns -Uses walker Dialysis pt -No Home O2/tracheostomy/hx throat or neck cancer - No Allergy to fentanyl/versed - No from Last 3 Months Results * ESOPHAGEAL PH PROBE - 48 HR (09/12/2024 8:16 AM CDT) Maykel Palacio MD GI PROCEDURE ORDERABLES Final Result * UPPER ENDOSCOPY REPORT (09/07/2024 9:13 AM CDT) Narrative Procedure Note Maykel Palacio MD - 09/07/2024 9:13 AM CDT GI Patient Name: Manoj Anglin Procedure Date: 09/07/2024 Date of : 1950 Admit Type: Outpatient Age: 74 Attending MD: Maykel Palacio , , Procedure: Upper GI endoscopy Indications: Esophageal reflux with symptoms that persist despite appropriate therapy Providers: Maykel Palacio Referring MD: Latisha Arce MD Medicines: Monitored Anesthesia Care Complications: No immediate complications. Procedure: After obtaining informed consent, the endoscope was passed under direct vision. Throughout the procedure, the patient's blood pressure, pulse, and oxygen saturations were monitored continuously. The Endoscope was introduced through the mouth, and advanced to the second part of duodenum. The upper GI endoscopy was accomplished without difficulty. The patient tolerated the procedure well. Estimated Blood Loss: Estimated blood loss: none. Findings: The examined esophagus was mildly tortuous. The VAUGHN capsule with delivery system was introduced through the mouth and advanced into the esophagus, such that the pH capsule was positioned 38 cm from the incisors, which was 6 cm proximal to the GE junction. The pH capsule was then deployed and attached to the esophageal mucosa. The delivery system was then withdrawn. Endoscopy was utilized for placement of the probe only. The entire examined stomach was normal. The examined duodenum was normal. Impression: - Tortuous esophagus. - Normal stomach. - Normal examined duodenum. - The VAUGHN capsule was deployed. - No specimens collected. Recommendation: Await Vaughn results. - Take the lowest dose of acid reflux medication that controls symptoms, and follow anti reflux lifestyle modifcations: avoid soft drinks,refined sugars, and refined oils; eat a palm sized portion of lean protein and at least two colorful vegetables at each meal; elevate the head of the bed at night or sleep in the left lateral decubitus position, don't eat immediately before going to bed, lose weight if overweight, avoid trigger foods and alcohol / cigarettes. Maykel Palacio, 09/07/2024 9:13:42 AM Number of Addenda: 0 Note Initiated On: 09/07/2024 8:51 AM Scope Withdrawal Time Scope In: Scope Out: [address] [place], [place] Maykel Palacio MD GI PROCEDURE ORDERABLES Final Result * Airway (09/07/2024 8:58 AM CDT) Narrative Roseanna Nuñez CRNA - 09/07/2024 8:58 AM CDT Roseanna Nuñez CRNA 09/07/2024 8:58 AM Airway Date/Time: 09/07/2024 8:58 AM Location: Other [facility] Non OR Location: GI Plan: elective intubation Patient Identity Confirmed by: Verbally with patient Airway: not difficult Staffing Performed: Anesthesiologist (/) and SALES RECRUITING COORDINATOR/CAA Authorized by: Paul Deal MD Performed by: Roseanna Nuñez CRNA Indications and Patient Condition: Indications for Airway Management: Anesthesia Sedation Level: sedation Final Airway Details: Final Airway Type: Mask Paul Deal MD PROCEDURE/MINOR SURGICAL ORDE RABLES Final Result * (ABNORMAL) POC GLUCOSE (09/07/2024 8:01 AM CDT) GLUCOSE POC 132(H) 74 - 99 mg/dL 09/07/2024 8:01 AM CDT [facility] SPECIMEN SOURCE, GLUCOSE POC Capillary 09/07/2024 8:01 AM CDT [facility] Blood, whole 09/07/2024 8:01 AM CDT 09/07/2024 8:10 AM CDT Maykel Palacio MD POINT OF CARE TESTING F inal Result [facility] CLIA # [id number] [address] [facility] [place] [address] from Last 3 Months Insurance * Guarantor: [employer] Account Type Relation to Patient Date of Phone Billing Address Corporate Other DEFAULT ADDRESS [address] OPT[employer] * Guarantor: [employer] [facility] W (C) 2022 Account Type Relation to Patient Date of Phone Billing Address Corporate Other DEFAULT ADDRESS [address] [employer] * Guarantor: [employer] [facility] W (C) Account Type Relation to Patient Date of Phone Billing Address Corporate Other DEFAULT ADDRESS [address] [employer] Advance Directives For more information, please contact: [phone] * Full Code (Latest Code Status on File) Date Activated Date Inactivated Comments 09/07/2024 7:51 AM 09/07/2024 11:46 AM * Full Code Date Activated Date Inactivated Comments 05/04/2024 8:43 AM 05/04/2024 12:34 PM * Full Code Date Activated Date Inactivated Comments 09/18/2022 8:14 AM 09/18/2022 4:01 PM Care Teams Rack Puller Relationship Specialty Start Date End Date Jose Maria Lowe MD PCP - General 08/17/09
[2024-10-30 14:26] VITALS: BP 178/87; PULSE 68; RESP 16; O2SAT 99
--- OUTSIDE RECORDS SUMMARY | 2024-10-30 14:26 | XMS_ITS | Encounter Summary ---
Author Organization [facility] Address [address] [place] [address] Care Team Providers Care Checkerer Hand Name Role Phone Jose Maria Lowe MD Primary Care Provider [phone] Encounter Details Date Type Department Care Team (Latest Contact Info) Description 03/16/1998 Outpatient Historical [facility] Internal Medicine- [address] [place] [address] Mike George III, MD [address] [place] [address] Acute sinusitis, unspecified (Primary Dx); Unspecified internal derangement of knee; Headache(784.0) Social History Tobacco Use Types Packs/Day Years Used Date Smoking Tobacco: Never Assessed Sex and Gender Information Value Date Recorded Sex Assigned at Not on file 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
--- OUTSIDE RECORDS SUMMARY | 2024-10-30 14:26 | XMS_ITS | Encounter Summary ---
Author Organization [facility] Address [address] [place] [address] Care Team Providers Care Clinical Registered Nurse Name Role Phone Jose Maria Lowe MD Primary Care Provider [phone] Encounter Details Date Type Department Care Team (Latest Contact Info) Description 05/03/1999 Outpatient Historical [facility] Internal Medicine- [place] [address] [place] [address] Mike George III, MD [address] [place] [address] Pain in limb (Primary Dx); Unspecified internal derangement of knee Social History Tobacco Use Types Packs/Day Years Used Date Smoking Tobacco: Never Assessed Sex and Gender Information Value Date Recorded Sex Assigned at Not on file 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
--- OUTSIDE RECORDS SUMMARY | 2024-10-30 14:26 | XMS_ITS | Encounter Summary ---
Author Organization [facility] Address [address] [place] [address] Care Team Providers Care Radiation Therapist Name Role Phone Jose Maria Lowe MD Primary Care Provider [phone] Encounter Details Date Type Department Care Team (Latest Contact Info) Description 07/08/2000 Outpatient Historical [facility] Ophthalmology 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
--- OUTSIDE RECORDS SUMMARY | 2024-10-30 14:26 | XMS_ITS | Encounter Summary ---
Author Organization [facility] Address [address] [place] [address] Care Team Providers Care Medical Insurance Verifier Name Role Phone Jose Maria Lowe MD Primary Care Provider [phone] Encounter Details Date Type Department Care Team (Latest Contact Info) Description 06/01/1998 Outpatient Historical [facility] Imaging Services[facility] [place] [address] [place] [address] Maykel Moore MD NO ADDRESS ON FILE Chest pain, unspecified (Primary Dx); Other dyspnea and respiratory abnormality Social History Tobacco Use Types Packs/Day Years Used Date Smoking Tobacco: Never Assessed Sex and Gender Information Value Date Recorded Sex Assigned at Not on file 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
--- OUTSIDE RECORDS SUMMARY | 2024-10-30 14:26 | XMS_ITS | Encounter Summary ---
Author Organization [facility] Address [address] [place] [address] Care Team Providers Care Youth Pastor Name Role Phone Jose Maria Lowe MD Primary Care Provider [phone] Reason for Referral * Outpatient Services (Routine) - Closed Specialty Diagnoses / Procedures Referred By Contac t Referred To Contact Diagnoses Dyspnea Chest pain Procedures NM PHARMACOLOGICAL STRESS TEST Jose Maria Lowe MD Phone: tel: [facility] [place] [facility] [place] CALL TO MAKE APPOINTMENT ONLY [address] [place] [address] Phone: tel: fax: Referral ID Status Reason Start Date Expiration Date V isits Requested Visits Authorized [id number] Closed [facility] TO SCHEDULE (SGF) 09/06/2015 12/05/2015 1 1 * Outpatient Services (Routine) - Closed Specialty Diagnoses / Procedures Referred By Contac t Referred To Contact Diagnoses Dyspnea Chest pain Procedures NM MYOCARD PERF IMAG SPECT MULT Jose Maria Lowe MD Phone: tel: fax: [email or web address] [facility] Pre-Registration [place] CALL TO MAKE APPOINTMENT ONLY [address] [place] [address] Phone: tel: fax: Referral ID Status Reason Start Date Expiration Date V isits Requested Visits Authorized [id number] Closed [facility] TO SCHEDULE (SGF) 09/06/2015 12/05/2015 1 1 Encounter Details Date Type Department Care Team (Latest Contact Info) Description 08/17/2015 Ancillary Orders [facility] Pre-Registration [place] CALL TO MAKE APPOINTMENT ONLY [address] [place] [phone] Jose Maria Lowe MD [address] [facility] [place] [address] Dyspnea (Primary Dx); Chest pain Social History Tobacco Use Types Packs/Day Years Used Date Smoking Tobacco: Never Assessed Sex and Gender Information Value Date Recorded Sex Assigned at Not on file Legal Sex 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 The BP went from 135/83 with a hr of 77 to 132/95 with a hr of 103 with the infusion. The patient experienced no significant adverse side effects. The baseline ECG showed normal sinus rythym. The tracing was within normal limits. No significant arrhythmias were noted. No significant ST changes were observed. IMPRESSIONS: 1) Negative electrocardiographic response to pharmacologic stress. 2) Nuclear imaging results reported separately. Procedure Note Chano Rosales MD - 09/06/2015 In preparation for pharmacologic stress nuclear imaging, the patient was injected with 0.4mg of regadenoson intravenously. The BP went from 135/83 with a hr of 77 to 132/95 with a hr of 103 with the infusion. The patient experienced no significant adverse side effects. The baseline ECG showed normal sinus rythym. The tracing was within normal limits. No significant arrhythmias were noted. No significant ST changes were observed. IMPRESSIONS: 1) Negative electrocardiographic response to pharmacologic stress. 2) Nuclear imaging results reported separately. us Jose Maria LOW ORDERABLES Final Result INTERFACE SYSTEM Refer to clinic/hospital department * NM MYOCARD PERF IMAG SPECT MULT (09/06/2015 3:09 PM CDT) EJECTION FRACTION 62 50 - 65 percent INTERFACE SYSTEM Risk Stratification INTERFACE SYSTEM 09/06/2015 3:09 PM CDT Impressions INTERFACE SYSTEM - 09/06/2015 4:18 PM CDT IMPRESSION: 1. Negative electrocardiographic response to pharmacologic stress. This is reported separately. 2. Normal appearing myocardial perfusion. No evidence of significant reversible ischemia or of prior myocardial infarction. The findings described above appear artifactual. 3. No evidence of left ventricular decompensation with pharmacologic stress. 4. Normal left ventricular function. The LVEF is 65%. Narrative INTERFACE SYSTEM - 09/06/2015 4:18 PM CDT MYOVIEW MYOCARDIAL PERFUSION IMAGING,REST/STRESS, PHARMACOLOGIC STRESS One day Rest/Stress, single isotope, gated myocardial perfusion SPECT imaging with pharmacologic stress. Indications: chest pain shortness of breath, assess myocardial perfusion and function. The overall quality of the study is adequate. Prior study for comparison: None.. After a baseline ECG and BP had been obtained, 0.4 mg of Regadenoson were injected intravenously as a bolus. 32.80 mCi of Myoview were then injected intravenously and SPECT images were obtained. Resting images had been obtained approximately an hour earlier after the intravenous injection of 11.00 mCi of Myoview. The data was reconstructed in the short, horizontal long and vertical long axis views and tomographic slices were generated. Findings: The left ventricular cavity is within normal limits in size on both sets of images. The left ventricular cavity did not appear to dilate significantly with the regadenoson stress. The transient ischemic dilatation ratio is 0.90 Pulmonary activity appears to be within normal limits. Left ventricular wall thickness appears to be within normal limits. The right ventricle appears to be appears unremarkable. Splanchnic activity appears very prominent. Soft tissue attenuation is prominent. On the immediate post infusion images, the distribution of tracer around the left ventricle demonstrates a mild decrease in tracer concentration in the basilar inferolateral wall. The basilar septum is thinned and foreshortened adjacent to the mitral valve plane. Tracer concentration throughout the remaining segments appears unremarkable. On the resting images, there is a small notch-like focal decrease in tracer concentration in the basilar inferior wall. Tracer concentration throughout the remaining segments appears essentially unchanged, although there is a small focal area of thinning at the apex. These findings appear most typical of soft tissue attenuation artifact. In corroboration of this, the summed stress score is zero and the summed rest score is one. The summed difference score is of course zero. The polar maps are in agreement. The gated images reveal an attenuated basilar inferior wall with good wall motion and wall thickening throughout. The BP went from 135/83 with a hr of 77 to 132/95 with a hr of 103 with the Regadenoson infusion. The patient experienced no significant adverse side effects. The baseline ECG shows normal sinus rhythm. The tracing was within normal limits. No significant arrhythmias were noted. No significant ST changes were observed. Procedure Note Chano Rosales MD - 09/06/2015 MYOVIEW MYOCARDIAL PERFUSION IMAGING,REST/STRESS, PHARMACOLOGIC STRESS One day Rest/Stress, single isotope, gated myocardial perfusion SPECT imaging with pharmacologic stress. Indications: chest pain shortness of breath, assess myocardial perfusion and function. The overall quality of the study is adequate. Prior study for comparison: None.. After a baseline ECG and BP had been obtained, 0.4 mg of Regadenoson were injected intravenously as a bolus. 32.80 mCi of Myoview were then injected intravenously and SPECT images were obtained. Resting images had been obtained approximately an hour earlier after the intravenous injection of 11.00 mCi of Myoview. The data was reconstructed in the short, horizontal long and vertical long axis views and tomographic slices were generated. Findings: The left ventricular cavity is within normal limits in size on both sets of images. The left ventricular cavity did not appear to dilate significantly with the regadenoson stress. The transient ischemic dilatation ratio is 0.90 Pulmonary activity appears to be within normal limits. Left ventricular wall thickness appears to be within normal limits. The right ventricle appears to be appears unremarkable. Splanchnic activity appears very prominent. Soft tissue attenuation is prominent. On the immediate post infusion images, the distribution of tracer around the left ventricle demonstrates a mild decrease in tracer concentration in the basilar inferolateral wall. The basilar septum is thinned and foreshortened adjacent to the mitral valve plane. Tracer concentration throughout the remaining segments appears unremarkable. On the resting images, there is a small notch-like focal decrease in tracer concentration in the basilar inferior wall. Tracer concentration throughout the remaining segments appears essentially unchanged, although there is a small focal area of thinning at the apex. These findings appear most typical of soft tissue attenuation artifact. In corroboration of this, the summed stress score is zero and the summed rest score is one. The summed difference score is of course zero. The polar maps are in agreement. The gated images reveal an attenuated basilar inferior wall with good wall motion and wall thickening throughout. The BP went from 135/83 with a hr of 77 to 132/95 with a hr of 103 with the Regadenoson infusion. The patient experienced no significant adverse side effects. The baseline ECG shows normal sinus rhythm. The tracing was within normal limits. No significant arrhythmias were noted. No significant ST changes were observed. IMPRESSION IMPRESSION: 1. Negative electrocardiographic response to pharmacologic stress. This is reported separately. 2. Normal appearing myocardial perfusion. No evidence of significant reversible ischemia or of prior myocardial infarction. The findings described above appear artifactual. 3. No evidence of left ventricular decompensation with pharmacologic stress. 4. Normal left ventricular function. The LVEF is 65%. Jose Maria Lowe MD [place] ORDERABLES Final Result Performing Organization Address City/State/[facility] Co de Phone Number INTERFACE SYSTEM Refer to clinic/hospital department documented in this encounter Visit Diagnoses Diagnosis Dyspnea- Primary Other dyspnea and respiratory abnormality Chest pain Chest pain, unspecified Dyspnea on exertion- Primary Other dyspnea and respiratory abnormality Dyspnea Other dyspnea and respiratory abnormality Chest pain Chest pain, unspecified Dyspnea Other dyspnea and respiratory abnormality Chest pain Chest pain, unspecified documented in this encounter Care Teams Youth Pastor Relationship Specialty Start Date End Date Jose Maria Lowe MD [address] [facility] [place] [phone] PCP - General 08/17/09 documented as of this encounter
--- OUTSIDE RECORDS SUMMARY | 2024-10-30 14:26 | XMS_ITS | Encounter Summary ---
Author Organization [facility] Address [address] [place] [address] Care Team Providers Care Toeing Stockings Name Role Phone Jose Maria Lowe MD Primary Care Provider [phone] Encounter Details Date Type Department Care Team (Latest Contact Info) Description 06/01/1998 Outpatient Historical [facility] Cardiology- [place] [address] [place] [address] Maykel Moore MD NO ADDRESS ON FILE Coronary atherosclerosis of [place] coronary artery (Primary Dx); Chest pain, unspecified Social History Tobacco Use Types Packs/Day Years Used Date Smoking Tobacco: Never Assessed Sex and Gender Information Value Date Recorded Sex Assigned at Not on file 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
--- OUTSIDE RECORDS SUMMARY | 2024-10-30 14:26 | XMS_ITS | Encounter Summary ---
Author Organization [facility] Address [address] [place] [address] Care Team Providers Care Hair Dresser Name Role Phone Jose Maria Lowe MD Primary Care Provider [phone] Encounter Details Date Type Department Care Team (Late st Contact Info) Description 04/22/2018 Ancillary Orders [facility] [place] [address] [place] [phone] Vamsi Domínguez MD [address] [place] [address] Social History Tobacco Use Types Packs/Day Years Used Date Smoking Tobacco: Never Assessed Sex and Gender Information Value Date Recorded Sex Assigned at Not on file 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
--- OUTSIDE RECORDS SUMMARY | 2024-10-30 14:26 | XMS_ITS | Encounter Summary ---
Author Organization [facility] Address [address] [place] [address] Care Team Providers Care Adjuster And Inspector Name Role Phone Jose Maria Lowe MD Primary Care Provider [phone] Encounter Details Date Type Department Care Team (Latest Contact Info) Description 01/07/2000 Outpatient Historical [facility] Internal Medicine- [address] [place] [address] Mike George III, MD [address] [place] [address] Lumbago (Primary Dx) Social History Tobacco Use Types Packs/Day Years Used Date Smoking Tobacco: Never Assessed Sex and Gender Information Value Date Recorded Sex Assigned at Not on file 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
--- OUTSIDE RECORDS SUMMARY | 2024-10-30 14:26 | XMS_ITS | Encounter Summary ---
Author Organization [facility] Address [address] [place] [address] Care Team Providers Care Welder Fitter Name Role Phone Jose Maria Lowe MD Primary Care Provider [phone] Encounter Details Date Type Department Care Team (Late st Contact Info) Description 07/26/1999 Outpatient [facility] Internal Medicine- [address] [place] [address] Social History Tobacco Use Types Packs/Day Years Used Date Smoking Tobacco: Never Assessed Sex and Gender Information Value Date Recorded Sex Assigned at Not on file 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
--- OUTSIDE RECORDS SUMMARY | 2024-10-30 14:26 | XMS_ITS | Encounter Summary ---
Author Organization [facility] Address [address] [facility] [address] 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
--- OUTSIDE RECORDS SUMMARY | 2024-10-30 14:26 | XMS_ITS | Encounter Summary ---
Author Organization [facility] Address [address] [place] [address] Care Team Providers Care Swimming Pool Plasterer Helper Name Role Phone Jose Maria Lowe MD Primary Care Provider [phone] Encounter Details Date Type Department Care Team (Late st Contact Info) Description 08/17/2009 Emergency [facility] Emergency Services [address] [place] [place] [id number] Frank Taylor Abdominal Pain, Epigastric (Primary Dx) Social History Tobacco Use Types Packs/Day Years Used Date Smoking Tobacco: Never Assessed Sex and Gender Information Value Date Recorded Sex Assigned at Not on file 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
--- OUTSIDE RECORDS SUMMARY | 2024-10-30 14:26 | XMS_ITS | Encounter Summary ---
Author Organization [facility] Address [address] [place] [address] Care Team Providers Care Pharmacy Cashier Name Role Phone Jose Maria Lowe MD Primary Care Provider [phone] Encounter Details Date Type Department Care Team (Latest Contact Info) Description 02/09/1998 Outpatient Historical [facility] Internal Medicine- [address] [place] [address] Mike George III, MD [address] [place] [address] Headache(784.0) (Primary Dx); Migraine with aura, without mention of intractable migraine without mention of status migrainosus Social History Tobacco Use Types Packs/Day Years Used Date Smoking Tobacco: Never Assessed Sex and Gender Information Value Date Recorded Sex Assigned at Not on file 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
--- OUTSIDE RECORDS SUMMARY | 2024-10-30 14:26 | XMS_ITS | Encounter Summary ---
Author Organization [facility] Address [address] [place] [address] Care Team Providers Care Addressograph Operator Name Role Phone Jose Maria Lowe MD Primary Care Provider [phone] Encounter Details Date Type Department Care Team (Latest Contact Info) Description 06/19/2000 Outpatient [facility] Internal Medicine- [address] [place] [address] Mike George III, MD [address] [place] [address] Lumbago (Primary Dx) Social History Tobacco Use Types Packs/Day Years Used Date Smoking Tobacco: Never Assessed Sex and Gender Information Value Date Recorded Sex Assigned at Not on file 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
--- OUTSIDE RECORDS SUMMARY | 2024-10-30 14:26 | XMS_ITS | Encounter Summary ---
Author Organization [facility] Address [address] [place] [address] Care Team Providers Care Shaper Setter Name Role Phone Jose Maria Lowe MD Primary Care Provider [phone] Encounter Details Date Type Department Care Team (Latest Contact Info) Description 09/18/2000 Outpatient 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
--- OUTSIDE RECORDS SUMMARY | 2024-10-30 14:26 | XMS_ITS | Encounter Summary ---
Author Organization [facility] Address [address] [place] [address] Care Team Providers Care Heating And Ventilating Worker Name Role Phone Jose Maria oLwe MD Primary Care Provider [phone] Encounter Details Date Type Department Care Team (Latest Contact Info) Description 09/20/1999 Outpatient Historical [facility] Imaging Services-[facility] [address] [place] [address] Ariel MENDES, Mike Burrows MD [address] [place] [address] Hemoptysis (Primary Dx) Social History Tobacco Use Types Packs/Day Years Used Date Smoking Tobacco: Never Assessed Sex and Gender Information Value Date Recorded Sex Assigned at Not on file Legal 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
--- OUTSIDE RECORDS SUMMARY | 2024-10-30 14:26 | XMS_ITS | Encounter Summary ---
Author Organization [facility] Address [address] [place] [address] Care Team Providers Care Service Center Assistant Name Role Phone Jose Maria Lowe MD Primary Care Provider [phone] Encounter Details Date Type Department Care Team (Latest Contact Info) Description 01/08/1998 Outpatient Historical [facility] Internal Medicine- [address] [place] [address] Mike George III, MD [address] [place] [address] Migraine with aura, without mention of intractable migraine without mention of status migrainosus (Primary Dx); Allergic rhinitis, cause unspecified Social History Tobacco Use Types Packs/Day Years Used Date Smoking Tobacco: Never Assessed Sex and Gender Information Value Date Recorded Sex Assigned at Not on file Legal Sex Male 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
--- OUTSIDE RECORDS SUMMARY | 2024-10-30 14:26 | XMS_ITS | Encounter Summary ---
Author Organization [facility] Address [address] [place] [address] Care Team Providers Care Barrel Waterer Name Role Phone Jose Maria Lowe MD Primary Care Provider [phone] Encounter Details Date Type Department Care Team (Latest Contact Info) Description 05/10/1999 Outpatient Historical [facility] Neurology [address] [place] [address] Dariusz Ndiaye NO ADDRESS ON FILE Pain in limb (Primary Dx); Carpal tunnel syndrome Social History Tobacco Use Types Packs/Day Years Used Date Smoking Tobacco: Never Assessed Sex and Gender Information Value Date Recorded Sex Assigned at Not on file 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
--- OUTSIDE RECORDS SUMMARY | 2024-10-30 14:26 | XMS_ITS | Encounter Summary ---
Author Organization [facility] Address [address] [place] [address] Care Team Providers Care Children'S Counselor Name Role Phone Jose Maria Lowe MD Primary Care Provider [phone] Encounter Details Date Type Department Care Team (Latest Contact Info) Description 07/20/[address] 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
--- OUTSIDE RECORDS SUMMARY | 2024-10-30 14:26 | XMS_ITS | Encounter Summary ---
Author Organization [facility] Address [address] [place] [address] Care Team Providers Care Ripsaw Matcher Name Role Phone Jose Maria Lowe MD Primary Care Provider [phone] Encounter Details Date Type Department Care Team (Latest Contact Info) Description 06/15/1998 Outpatient Historical [facility] Internal Medicine- [address] [place] [address] Mike George III, MD [address] [place] [address] Acute bronchitis (Primary Dx) Social History Tobacco Use Types Packs/Day Years Used Date Smoking Tobacco: Never Assessed Sex and Gender Information Value Date Recorded Sex Assigned at Not on file 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
--- OUTSIDE RECORDS SUMMARY | 2024-10-30 14:26 | XMS_ITS | Encounter Summary ---
Author Organization [facility] Address [address] [place] [address] Care Team Providers Care Technical Assoc Name Role Phone Jose Maria Lowe MD Primary Care Provider [phone] Encounter Details Date Type Department Care Team (Latest Contact Info) Description 01/25/1999 Outpatient Historical [facility] Internal Medicine- [address] [place] [address] Mike George III, MD [address] [place] [address] Abdominal pain, unspecified site (Primary Dx); Unspecified internal derangement of knee Social History Tobacco Use Types Packs/Day Years Used Date Smoking Tobacco: Never Assessed Sex and Gender Information Value Date Recorded Sex Assigned at Not on file 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
--- OUTSIDE RECORDS SUMMARY | 2024-10-30 14:26 | XMS_ITS | Encounter Summary ---
Author Organization [facility] Address [address] [place] [address] Care Team Providers Care Quality Control Auditor Name Role Phone Jose Maria Lowe MD Primary Care Provider [phone] Encounter Details Date Type Department Care Team (Latest Contact Info) Description 09/13/1999 Outpatient Historical [facility] Internal Medicine- [address] [place] [address] Mike George III, MD [address] [place] [address] Hemoptysis (Primary Dx); Encounter for long-term (current) use of other medications Social History Tobacco Use Types Packs/Day Years Used Date Smoking Tobacco: Never Assessed Sex and Gender Information Value Date Recorded Sex Assigned at Not on file 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
--- OUTSIDE RECORDS SUMMARY | 2024-10-30 14:26 | XMS_ITS | Encounter Summary ---
Author Organization [facility] Address [address] [place] [address] Care Team Providers Care Rn Hemodialysis Charge Name Role Phone Jose Maria Lowe MD Primary Care Provider [phone] Encounter Details Date Type Department Care Team (Latest Contact Info) Description 09/21/1998 Outpatient Historical [facility] Internal Medicine- [address] [place] [address] Mike George III, MD [address] [place] [address] Migraine, unspecified, without mention of intractable migraine without mention of status migrainosus (Primary Dx); Allergic rhinitis, cause unspecified Social History Tobacco Use Types Packs/Day Years Used Date Smoking Tobacco: Never Assessed Sex and Gender Information Value Date Recorded Sex Assigned at Not on file 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
--- OUTSIDE RECORDS SUMMARY | 2024-10-30 14:26 | XMS_ITS | Encounter Summary ---
Author Organization [facility] Address [address] [place] [address] Care Team Providers Care Alloy Weigher Name Role Phone Jose Maria Lowe MD Primary Care Provider [phone] Encounter Details Date Type Department Care Team (Late st Contact Info) Description 09/16/1999 Outpatient Historical [facility] Imaging Services-[facility] [place] [address] [place] [address] Social History Tobacco Use Types Packs/Day Years Used Date Smoking Tobacco: Never Assessed Sex and Gender Information Value Date Recorded Sex Assigned at Not on file 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
--- OUTSIDE RECORDS SUMMARY | 2024-10-30 14:26 | XMS_ITS | Encounter Summary ---
Author Organization [facility] Address [address] [place] [address] Care Team Providers Care Rack Production Worker Name Role Phone Jose Maria Lowe MD Primary Care Provider [phone] Encounter Details Date Type Department Care Team (Latest Contact Info) Description 07/07/2000 Outpatient Historical [facility] Internal Medicine- [place] [address] [place] [address] Mike George III, MD [address] [place] [address] Foreign body in unspecified site on external eye (Primary Dx); Lumbago Social History Tobacco Use Types Packs/Day Years Used Date Smoking Tobacco: Never Assessed Sex and Gender Information Value Date Recorded Sex Assigned at Not on file 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
--- NOTE | 2024-10-30 18:00 | CTR_ITS ---
PROCEDURE INFORMATION: Exam: CT Head Without Contrast Exam date and time: 10/30/2024 6:08 PM Age: 74 years old Clinical indication: Injury or trauma; Fall; Blunt trauma (contusions or hematomas); Pain in mid back and hit back of head; Additional info: Fall 10/28 TECHNIQUE: Imaging protocol: Computed tomography of the head without contrast. Radiation optimization: All CT scans at this facility use at least one of these dose optimization techniques: automated exposure control; mA and/or kV adjustment per patient size (includes targeted exams where dose is matched to clinical indication); or iterative reconstruction. COMPARISON: MR head wo/w con [id number] 07/26/2020 3:05 PM RADIATION DOSE METRICS: Total DLP (mGy-cm): 1156 FINDINGS: Brain: Parenchymal volume loss with scattered white matter hyperintensities consistent with chronic microvascular ischemic changes. No acute intracranial hemorrhage, mass effect or midline shift. Cerebral ventricles: No ventriculomegaly. Paranasal sinuses: Visualized sinuses are unremarkable. No fluid levels. Mastoid air cells: Visualized mastoid air cells are well aerated. Bones: Unremarkable. No acute fracture. Soft tissues: Unremarkable. CT/CT head wo con* [id number] IMPRESSION: No acute intracranial abnormality.
--- NOTE | 2024-10-30 18:00 | CTR_ITS ---
PROCEDURE INFORMATION: Exam: CT Thoracic Spine Without Contrast Exam date and time: 10/30/2024 6:13 PM Age: 74 years old Clinical indication: Injury or trauma; Fall; Blunt trauma (contusions or hematomas); Injury details: Pain in mid back and hit back of head; Additional info: Fall, midline tenderness TECHNIQUE: Imaging protocol: Computed tomography of the thoracic spine without contrast. Radiation optimization: All CT scans at this facility use at least one of these dose optimization techniques: automated exposure control; mA and/or kV adjustment per patient size (includes targeted exams where dose is matched to clinical indication); or iterative reconstruction. COMPARISON: 1. CT cervical spin wo con* [id number] 10/30/2024 6:[address] angio chest PE protcl [id number] 10/14/2023 6:46 PM RADIATION DOSE METRICS: Total DLP (mGy-cm): 855.61 FINDINGS: Bones/joints: Subtle S shaped scoliosis. Mild straightening of the normal thoracic lordosis. No evidence of acute fracture. Stable multilevel degenerative change. Soft tissues: The soft tissues are within normal limits. CT/CT thoracic spin wo con* [id number] IMPRESSION: No evidence of acute fracture.
--- NOTE | 2024-10-30 18:00 | CTR_ITS ---
PROCEDURE INFORMATION: Exam: CT Cervical Spine Without Contrast Exam date and time: 10/30/2024 6:10 PM Age: 74 years old Clinical indication: Injury or trauma; Fall; Blunt trauma; Pain in mid back and hit back of head; Additional info: Fall, midline tenderness TECHNIQUE: Imaging protocol: Computed tomography of the cervical spine without contrast. Radiation optimization: All CT scans at this facility use at least one of these dose optimization techniques: automated exposure control; mA and/or kV adjustment per patient size (includes targeted exams where dose is matched to clinical indication); or iterative reconstruction. COMPARISON: CT head wo con* [id number] 10/30/2024 6:08 PM RADIATION DOSE METRICS: Total DLP (mGy-cm): 401.97 FINDINGS: Bones: Straightening of the normal cervical lordosis. Multilevel trace degenerative listhesis. Mild dextroscoliosis. Alignment is otherwise intact. Vertebral body heights are well-maintained. No evidence of acute fracture. Lungs: Biapical scarring. Soft tissues: The soft tissues are within normal limits. CT/CT cervical spin wo con* [id number] IMPRESSION: No evidence of acute fracture.
--- NOTE | 2024-10-30 18:00 | CTR_ITS ---
PROCEDURE INFORMATION: Exam: CT Lumbar Spine Without Contrast Exam date and time: 10/30/2024 6:16 PM Age: 74 years old Clinical indication: Injury or trauma; Fall; Blunt trauma (contusions or hematomas); Additional info: Fall, midline tenderness TECHNIQUE: Imaging protocol: Computed tomography of the lumbar spine without contrast. Radiation optimization: All CT scans at this facility use at least one of these dose optimization techniques: automated exposure control; mA and/or kV adjustment per patient size (includes targeted exams where dose is matched to clinical indication); or iterative reconstruction. COMPARISON: MR lumbar spine wo con* [id number] 09/24/2023 10:59 AM RADIATION DOSE METRICS: Total DLP (mGy-cm): 811.4 FINDINGS: Bones/joints: Straightening of the normal lumbar lordosis. Acute appearing mild anterior inferior endplate compression fracture of L1. Of note, the superior portion of the L1 vertebral body is on CT thoracic spine in the inferior portion of the L1 vertebral body is in the lumbar spine series. No other evidence of acute fracture. [id number] multilevel degenerative change Soft tissues: Trace increased soft tissue density in the anterior paraspinal tissues adjacent to fracture likely reflecting trace amounts of blood. CT/CT lumbar spine wo con* [id number] IMPRESSION: Acute appearing mild anterior inferior endplate compression fracture of L1.
--- NOTE | 2024-10-30 18:16 | W.ED.BACK ---
HPI - Back Pain/Injury General: Chief Complaint: Back Pain/Injury Stated Complaint: back pain post fall Time Seen by Provider: 10/30/24 17:10 History of Present Illness: 74-year-old gentleman with chronic back pain, initially fell on concrete, Thursday, 3 days ago, presents to ED due to low left back pain and spine tenderness. Patient noted he slipped, fell directly on concrete, causing tenderness to left sciatica area. He states he was attempting to stretch it out, use [id number] remedies, however continued to have pain in this area. He was working in the garden yesterday, and had increasing pain as well. Presents today with ongoing midline tenderness to his spine, and left SI tenderness. No fevers. No bowel or bladder incontinence, no groin anesthesia. Associated symptoms: Deny abdominal pain, chills, fever(s), nausea or vomiting Related Data Home Medications ?Medication ?Instructions ?Recorded ?Confirmed aspirin 81 mg tablet,delayed 81 mg PO DAILY@52906/23/20 10/11/24 release brimonidine 0.2 %-timolol 0.5 % 1 drp ophthalmic (eye) 06/23/20 10/11/24 eye drops BID@529,1999 hydrochlorothiazide 25 mg tablet 25 mg PO QAM 06/23/20 10/11/24 latanoprost 0.005 % eye drops 1 drp ophthalmic (eye) DAILY@199906/23/20 10/11/24 loratadine 10 mg tablet 10 mg PO DAILY 06/23/20 10/11/24 omeprazole 20 mg tablet,delayed 20 mg PO BID 06/23/20 10/11/24 release timolol maleate (PF) 0.5 % eye 1 drp ophthalmic (eye) DAILY@52906/23/20 10/11/24 drops in a dropperette (Timoptic Ocudose (PF)) vitamin B complex 1 tab PO DAILY@52906/23/20 10/11/24 albuterol sulfate 90 mcg/actuation 2 puff inhalation QID PRN COPD 10/14/23 10/11/24 aerosol inhaler ascorbic acid (vitamin C) 500 mg 250 mg PO DAILY 10/14/23 10/11/24 tablet (Vitamin C) cholecalciferol (vitamin D3) 50 50 mcg PO DAILY 10/14/23 10/11/24 mcg (2,000 unit) capsule (Vitamin D3) clobetasol 0.05 % topical cream See Rx Instructions .Route .COMPLEX 10/14/23 10/11/24 escitalopram oxalate 20 mg tablet 20 mg PO QAM DEPRESSION 10/14/23 10/11/24 (Lexapro) fluticasone propionate 50 1 spray intranasal DAILY ALLERGIES 10/14/23 10/11/24 mcg/actuation nasal spray,suspension meclizine 25 mg chewable tablet 25 mg PO Q6H PRN Vertigo 10/14/23 10/11/24 mirtazapine 30 mg tablet 30 mg PO BEDTIME 10/14/23 10/11/24 pregabalin 150 mg capsule 150 mg PO BID 10/14/23 10/11/24 tizanidine 4 mg tablet 8 mg PO BEDTIME PRN SPASTICITY 10/14/23 10/11/24 vitamin A 2,400 mcg capsule 2,400 mcg PO DAILY 10/14/23 10/11/24 vitamin E 268 mg (400 unit) capsule 268 mg PO DAILY 10/14/23 10/11/24 lisinopril 40 mg tablet 40 mg PO DAILY 01/21/24 10/11/24 potassium chloride 20 mEq meq PO 06/29/24 10/11/24 tablet,extended release(part/cryst) Previous Rx's ?Medication ?Instructions ?Recorded Cam Walker #1 ea 01/02/20 ASO Ankle brace #1 ea 01/16/20 diabetic shoes with 3 inserts #1 ea 01/26/23 AFO brace #1 ea 03/10/23 insulin aspart U-100 100 unit/mL See Rx Instructions .Route 10/15/23 (3 mL) subcutaneous pen (Novolog .COMPLEX #15 mL FlexPen U-100 Insulin aspart) insulin glargine 100 unit/mL (3 10 unit (0.1 mL) SUBCUT QAM #15 mL 10/15/23 mL) subcutaneous pen (Lantus Solostar U-100 Insulin) Right Medial Compliance Coordinator Knee Brace #1 ea 12/22/23 carbidopa 25 mg-levodopa 100 mg 1 tab PO BID #180 tabs 09/21/24 tablet (Sinemet) methocarbamol 500 mg tablet 500 mg PO Q8H PRN muscle spasm #30 10/30/24 tabs Allergies Allergy/AdvReac Type Severity Reaction Status Date / Time No Known Allergies Allergy Verified 10/11/24 13:45 Review of Systems General: Reports: 10 or more systems reviewed and unremarkable except in HPI and below Const: Denies: fever(s) or chills Card: Denies: chest pain or orthopnea Resp: Denies: dyspnea, productive cough or wheezing GI: Denies: abdominal pain, nausea or vomiting Musc: Reports: joint pain, joint swelling, joint stiffness and limited range of motion Skin/Breast: Denies: rash, pruritus or dry skin Neuro: Denies: numbness in extremities or weakness in extremities Psych: Denies: anxiety or depression Rico/Lymph: Denies: easy bruising or easy bleeding PFSH ED PFSH: Medical History (Updated 10/30/24 @ 20:08 by LISA Dias) Diabetes mellitus Hypertension Family History Other CAD (coronary artery disease) Social History Smoking and tobacco/nicotine status: former use of tobacco/nicotine Alcohol intake: current Alcohol intake frequency: few times a week Substance/Drug Use: never Physical Exam Const: COMMON NORMALS: no acute distress, average body habitus and patient oriented x3 HENMT: COMMON NORMALS: normocephalic and atraumatic HEAD & SCALP: normocephalic and atraumatic Neck/C-Spine: COMMON NORMALS: full ROM and no lymphadenopathy Lymph: LYMPHATIC: no lymphadenopathy noted Resp: COMMON NORMALS: normal respiratory effort, No retractions and clear to auscultation bilaterally AUSCULTATION: clear to auscultation bilaterally GI: COMMON NORMALS: Normal to inspection, nondistended, normoactive bowel sounds present and Soft to palpation PALPATION: Yes Soft to palpation : COMMON NORMALS: Yes no CVA tenderness BLADDER/KIDNEY EXAM: Yes no CVA tenderness Back/Pelvis: COMMON NORMALS: no CVA tenderness Extremity: COMMON NORMALS: normal to inspection, full ROM and capillary refill normal Neuro: COMMON NORMALS: patient oriented x3, CN's II-XII intact bilaterally and moves all extremities Psych: COMMON NORMALS: mental status grossly normal and Normal thought process present THOUGHT PROCESS: Normal thought process present Course Vital Signs: Vital signs: Vital Signs Pulse Rate 54 L 10/30/24 20:54 Respiratory Rate 16 10/30/24 14:26 Blood Pressure 190/95 10/30/24 20:54 Pulse Oximetry 98 10/30/24 20:54 Oxygen Delivery Me thod Room Air 10/30/24 18:34 MDM - Back Pain/Injury Medical Decision Making Patient is 74-year-old gentleman with L1 acute compression fracture. Attempted to order TLSO brace, however not available tonight, and this will be secured in the morning. Patient was given small amount of analgesic, and Robaxin sent to the pharmacy. He will follow-up with orthopedist Dr. Broderick for further evaluation and possible procedure. Labs Radiology Impressions Cervical Spine CT 10/30/24 18:00 IMPRESSION: No evidence of acute fracture. Head CT 10/30/24 18:00 IMPRESSION: No acute intracranial abnormality. Lumbar Spine CT 10/30/24 18:00 IMPRESSION: Acute appearing mild anterior inferior endplate compression fracture of L1. Thoracic Spine CT 10/30/24 18:00 IMPRESSION: No evidence of acute fracture. All radiology interpretation(s) finalized by discharge Discharge Plan Discharge Patient Disposition: Home Clinical Impression: Closed compression fracture of L1 vertebra Qualifiers: Encounter type: initial encounter Qualified Code(s): S32.010A - Wedge compression fracture of first lumbar vertebra, initial encounter for closed fracture Condition: Stable Prescriptions: New methocarbamol 500 mg tablet 500 mg PO Q8H PRN (Reason: muscle spasm) Qty: 30 0RF No Action (DME) Cam Walker See Rx Instructions .ROUTE .MEDSUPPLY Qty: 1 0RF Rx Instructions: As directed (DME) ASO Ankle brace See Rx Instructions .Route .MEDSUPPLY Qty: 1 0RF Rx Instructions: As directed carbidopa-levodopa [Sinemet] 25-100 mg tablet 1 tab PO BID Qty: 180 3RF Rx Instructions: One half in the morning and at noon for 7 days, then 1 in the morning and 1 at noon for tremor potassium chloride 20 mEq tablet,ER particles/crystals PO (DME) diabetic shoes with 3 inserts See Rx Instructions .Route .MEDSUPPLY Qty: 1 0RF Rx Instructions: As directed to the [facility] (DME) AFO brace See Rx Instructions .Route .MEDSUPPLY Qty: 1 0RF Rx Instructions: As directed to the [facility] (DME) Right Medial Compliance Coordinator Knee Brace See Rx Instructions .Route .MEDSUPPLY Qty: 1 0RF Rx Instructions: As directed lisinopril 40 mg tablet 40 mg PO DAILY latanoprost 0.005 % Drops 1 drp OPHTHALMIC (EYE) DAILY@2000 aspirin 81 mg Tablet,Delayed Release (Dr/Ec) 81 mg PO DAILY@0530 vitamin B complex Tablet 1 tab PO DAILY@0530 hydrochlorothiazide 25 mg Tablet 25 mg PO QAM loratadine 10 mg Tablet 10 mg PO DAILY Rx Instructions: TAKE ON EMPTY STOMACH timolol maleate (PF) [Timoptic Ocudose (PF)] 0.5 % Dropperette 1 drp OPHTHALMIC (EYE) DAILY@0530 brimonidine-timolol 0.2-0.5 % Drops 1 drp OPHTHALMIC (EYE) BID@0530,2000 omeprazole 20 mg Tablet,Delayed Release (Dr/Ec) 20 mg PO BID vitamin A 2,400 mcg Capsule 2,400 mcg PO DAILY tizanidine 4 mg Tablet 8 mg PO BEDTIME PRN (Reason: SPASTICITY) clobetasol 0.05 % Cream See Rx Instructions .ROUTE .COMPLEX Rx Instructions: APPLY SPARINGLY TO AFFECTED AREAS ON LEGS TWICE DAILY. NO MORE THAN 2 WEEKS PER MONTH. DO NOT USE ON FACE, GROIN OR SKIN FOLDS. Vitamin C 500 mg Tablet 250 mg PO DAILY mirtazapine 30 mg Tablet 30 mg PO BEDTIME albuterol sulfate 90 mcg/actuation Hfa Aerosol Inhaler 2 puff INHALATION QID PRN (Reason: COPD) fluticasone propionate 50 mcg/actuation [place],Suspension 1 spray INTRANASAL DAILY Rx Instructions: administer into each nostril vitamin E 268 mg (400 unit) Capsule 268 mg PO DAILY meclizine 25 mg Tablet,Chewable 25 mg PO Q6H PRN (Reason: Vertigo) Lexapro 20 mg Tablet 20 mg PO QAM pregabalin 150 mg Capsule 150 mg PO BID Vitamin D3 50 mcg (2,000 unit) Capsule 50 mcg PO DAILY Lantus Solostar U-100 Insulin 100 unit/mL (3 mL) Insulin Pen 10 unit SUBCUT QAM Qty: 15 0RF Novolog FlexPen U-100 Insulin 100 unit/mL (3 mL) Insulin Pen See Rx Instructions .ROUTE .COMPLEX Qty: 15 0RF Rx Instructions: Inject, subcut, 3 times daily, after meals, based on sliding scale provided Discharge Orders: Discharge ED (Routine); Ordered 10/30/24 Ordered By: Cynthia Newell Referrals: Latisha Arce MD [Primary Care Provider, Family Practice] Shay Broderick DO [Physician, Orthopedics] Discharge Diet: Usual diet Discharge Activity: Limit activity as instructed Patient Instructions: Vertebral Compression Fracture (ED), Patient Portal & Carlos Instructions Activity Restrictions/Additional Instructions: Follow-up with Dr. Broderick. Call his office tomorrow for an appointment Wear brace anytime you are outside of your bed. Tylenol and ibuprofen for pain are best. Minimal amount of pain medication has been given. Return to ED for worsening pain, redness Print Language: Cameroonian Coding Level of Care Code ED Relief Captain for Kalpana Doherty
[2024-10-30] MEDS: orphenadrine 30 mg/mL Inj 2 mL IM (18:28)
[2024-10-30 18:34] VITALS: BP 185/116; PULSE 64; O2SAT 100
[2024-10-30] MEDS: HYDROcodone-acetaminophen 10-325 mg Tablet 1 TAB PO (20:20)
[2024-10-30 20:54] VITALS: BP 190/95; PULSE 54; O2SAT 98
== END 2024-10-30 20:55 | disposition home or self-care (01) ==
PROVIDERS: Emergency Provider Physician Assistant; PCP Family Medicine
DX: S32.010A Wedge compression fracture of first lumbar vertebra, initial encounter for closed fracture (principal); Z79.82 Long term (current) use of aspirin; Z87.891 Personal history of nicotine dependence; E11.9 Type 2 diabetes mellitus without complications; I10 Essential (primary) hypertension; W01.0XXA Fall on same level from slipping, tripping and stumbling without subsequent striking against object, initial encounter
CPT/HCPCS: 70450; 72125; 72128; 72131; 96372; 99284; J1100; J1885; J2360; J9999

== ENCOUNTER → 2024-11-08 15:17 | Outpatient (BNVA) | payer OTHER, SELFPAY | PROVIDERS: PCP Family Medicine; Visit Provider Orthopaedic Surgery | DX: S32.010A Wedge compression fracture of first lumbar vertebra, initial encounter for closed fracture (principal); W01.0XXA Fall on same level from slipping, tripping and stumbling without subsequent striking against object, initial encounter; Z09 Encounter for follow-up examination after completed treatment for conditions other than malignant neoplasm | CPT/HCPCS: 72100; 99203 ==

== ENCOUNTER 2024-11-14 14:51 | Outpatient (CLI) | payer OTHER, SELFPAY ==
--- NOTE | 2024-11-14 15:15 | MR_ITS ---
WS: [id number] MRI LUMBAR SPINE NONCONTRAST HISTORY: L1 compression fx COMPARISON: 09/24/2023 TECHNIQUE: Sagittal and axial multisequence imaging is submitted. As noted on the prior MRI the S1 is partially lumbarized. New L1 compression fracture by 20% without retropulsion. Marrow edema along the inferior endplate. Minimal edema extends into the pedicles. Reidentified is a prominent epidural fat that was described on the prior study. Resulting in crowding of the nerve roots. Most significant epidural fat at L5. Posterior alignment appropriate. Small amount of reactive marrow edema along the anterior endplates of L3 and L4. Disc bases are narrowed and desiccated. Conus terminates normally at L1-2 disc level. L1-L2: Mild diffuse annular disc bulging. Mild facet arthritis. Mild disc contact on the traversing L2 nerve roots. Mild foraminal stenosis. L2-L3: Diffuse annular disc bulging with osteophytic ridging and facet arthritis. Mild to moderate central canal stenosis and foraminal narrowing. No progression. L3-L4: Diffuse annular disc bulging with facet joint arthropathy. Mild disc encroachment upon the subarticular recesses and traversing L4 nerve roots. Mild central, subarticular recess and RIGHT foraminal stenosis. Epidural fat is prominent. L4-L5: Moderate size RIGHT paracentral disc extrusion extends into the subarticular recess. Disc contacts the traversing RIGHT L5 nerve root. Prominent epidural fat. Moderate central, RIGHT subarticular recess and mild foraminal stenosis. L5-S1: Diffuse annular disc bulging and osteophytic ridging. RIGHT foraminal disc osteophyte contacts the exiting RIGHT L5 nerve root. Complete effacement of fat and severe RIGHT foraminal stenosis. Mild LEFT foraminal stenosis and moderate central stenosis. Epidural fat is prominent. Moderate facet arthritis. Bilateral renal cysts. MR/MR lumbar spine wo con* [id number] IMPRESSION: 1. New L1 compression fracture, 20% without retropulsion. Fracture described o n CT of 10/30/2024. 2. Multilevel advanced degenerative facet arthritis and disc disease with prom inent epidural fat contributing to central stenosis. Findings described on 09/23 without significant progression. 3. L4-5: Moderate RIGHT paracentral disc protrusion extends inferior contactin g the traversing RIGHT L5 nerve root. Moderate central, RIGHT subarticular rece ss and mild foraminal stenosis. 4. L5-S1: Severe RIGHT foraminal stenosis due to disc osteophyte disease. Mode rate central stenosis with epidural fat encroachment upon the central canal. 5. L3-4: Mild central, subarticular recess and RIGHT foraminal stenosis. 6. L2-3: Mild to moderate central and foraminal stenosis.
== END 2024-11-14 14:52 | disposition home or self-care (01) ==
LOC: RAD 14:51
PROVIDERS: PCP Family Medicine; Visit Provider Orthopaedic Surgery
DX: S32.010A Wedge compression fracture of first lumbar vertebra, initial encounter for closed fracture (principal); M47.816 Spondylosis without myelopathy or radiculopathy, lumbar region; M48.061 Spinal stenosis, lumbar region without neurogenic claudication; M51.26 Other intervertebral disc displacement, lumbar region; X58.XXXA Exposure to other specified factors, initial encounter
CPT/HCPCS: 72148

== ENCOUNTER → 2024-11-22 14:01 | Outpatient (BNVA) | payer OTHER, SELFPAY | PROVIDERS: PCP Family Medicine; Visit Provider Orthopaedic Surgery | DX: S22.080A Wedge compression fracture of T11-T12 vertebra, initial encounter for closed fracture (principal); X58.XXXA Exposure to other specified factors, initial encounter; Z09 Encounter for follow-up examination after completed treatment for conditions other than malignant neoplasm | CPT/HCPCS: 99214 ==

== ENCOUNTER 2024-11-25 12:55 | Outpatient (CLI) | payer OTHER, SELFPAY ==
[2024-11-25 13:24] LABS: Hematocrit 38.0 % (37-53); Hemoglobin 13.20 g/dL (11.27-16.99); Mean Corpuscular HGB Conc 34.7 g/dL (30-55); Mean Corpuscular Hemoglobin 32.6 pg (27-33); Mean Corpuscular Volume 93.8 fl (82-101); Nucleated Red Blood Cells % 0 %; Platelet Count 202 10^3/cmm (157-399); Red Blood Count 4.05 10^6/uL (3.85-5.65); White Blood Count 6.27 10^3/uL (3.29-11.43)
[2024-11-25 13:27] LABS: Glucose Urine UA Negative (Normal); Nitrate Urine Negative (Negative); Specific Gravity, Urine 1.011 (1.005-1.030)
[2024-11-25 13:30] LABS: Add Urine Microscopic? YES
[2024-11-25 14:04] LABS: Alanine Aminotransferase 23 U/L (0-41); Albumin Level 4.4 g/dL (3.5-5.2); Alkaline Phosphatase 90 U/L (40-130); Anion Gap 17.3 (5-19); Aspartate Amino Transferase 28 U/L (0-40); Blood Urea Nitrogen 24 mg/dL (8-23); Calcium 9.3 mg/dL (8.5-10.5); Carbon Dioxide 23 mmol/L (22-29); Chloride 101 mmol/L (98-107); Globulin 2.9 g/dL (1.3-4.6); Glucose 131 mg/dL (65-115); Osmolality Calculated 288 mOsm/kg (285-295); Potassium 5.3 mmol/L (3.5-5.1); Sodium 136 mmol/L (136-145); Total Protein 7.3 g/dL (6.6-8.7)
== END 2024-11-25 12:56 | disposition home or self-care (01) ==
LOC: LAB 12:58
PROVIDERS: Family Provider Family Medicine; PCP Family Medicine; Visit Provider Orthopaedic Surgery
DX: Z01.818 Encounter for other preprocedural examination (principal)
CPT/HCPCS: 36415; 80053; 81001; 85025

== ENCOUNTER 2024-12-02 07:41 | Day surgery (SDC) | payer OTHER, SELFPAY ==
[2024-12-02] VITALS (11 sets, daily range): BP systolic 129–163; BP diastolic 68–121; PULSE 66–121; RESP 10–19; TEMP 36.3–36.6; O2SAT 98–100
--- NOTE | 2024-12-02 08:09 | P.ANESASSM_ITS ---
Pre-Anesthetic Assessment Height/Weight: Height 5 ft 10 in Weight 228 lb Preop Diagnosis: L1 compression fracture Operation Date: 12/02/24 09:40 Proposed Procedures p Kyphoplasty L1(Not Applicable) - Shay Broderick, DO Was Beta Jessica taken within 24 hours: N/A Was Clonidine taken within 24 hours: N/A Anesthetic Plan ASA status: 3 Anesthesia: General Other: No prior issues with anesthesia NPO since yesterday evening History of COPD, has not smoked in 15 years Type 2 diabetes on insulin. Preop BS 165 Hypertension on lisinopril. Preop BP 160/84 Labs reviewed 11/25/2024 and acceptable for procedure, K+ 5.3 Plan for GETA Medications/Allergies Home Medications ?Medication ?Instructions ?Recorded ?Confirmed ?Last Taken ?Type Cam Walker #1 ea 01/02/20 11/29/24 Unkn own Rx ASO Ankle brace #1 ea 01/16/20 11/29/24 Unkn own Rx aspirin 81 mg tablet,delayed 81 mg PO DAILY@0530 06/2312/01/24 03/16/22 History release brimonidine 0.2 %-timolol 0.5 % 1 drp ophthalmic (eye) 06/23/20 12/01/24 12/01/24 History eye drops BID@0530,1999 hydrochlorothiazide 25 mg tablet 25 mg PO QAM 06/23/20 12/01/24 12/01/24 History latanoprost 0.005 % eye drops 1 drp ophthalmic (eye) D AILY@199906/23/20 12/01/24 12/01/24 History loratadine 10 mg tablet 10 mg PO DAILY 06/23/20 08/11/2812/01/24 History omeprazole 20 mg tablet,delayed 20 mg PO BID 06/23/20 12/01/24 12/01/24 History release timolol maleate (PF) 0.5 % eye 1 drp ophthalmic (eye) DAILY@0530 06/23/20 12/01/24 12/01/24 History drops in a dropperette (Timoptic Ocudose (PF)) vitamin B complex 1 tab PO DAILY@0530 06/23/20 12/01/24 12/01/24 History diabetic shoes with 3 inserts #1 ea 01/26/23 11/29/24 Unknown Rx AFO brace #1 ea 03/10/23 11/29/24 Unkn own Rx albuterol sulfate 90 mcg/actuation 2 puff inhalation Q ID PRN COPD 10/14/23 12/01/24 12/01/24 History aerosol inhaler ascorbic acid (vitamin C) 500 mg 250 mg PO DAILY 10/1312/01/24 12/01/24 History tablet (Vitamin C) cholecalciferol (vitamin D3) 50 50 mcg PO DAILY 12/01/24 12/01/24 History mcg (2,000 unit) capsule (Vitamin D3) clobetasol 0.05 % topical cream 0.05 applic topical DIRECTED 10/14/23 12/01/24 12/01/24 History escitalopram oxalate 20 mg tablet 20 mg PO QAM DEPRESS ION 10/14/23 12/01/24 12/01/24 History (Lexapro) fluticasone propionate 50 1 spray intranasal DAILY ALL ERGIES 10/14/23 12/01/24 12/01/24 History mcg/actuation nasal spray,suspension meclizine 25 mg chewable tablet 25 mg PO Q6H PRN Verti go 10/14/23 12/01/24 12/01/24 History mirtazapine 30 mg tablet 30 mg PO BEDTIME 10/14/2312/01/24 History pregabalin 150 mg capsule 150 mg PO BID 10/14/2312/0112/01/24 History tizanidine 4 mg tablet 8 mg PO BEDTIME PRN SPASTICI TY 10/14/23 12/01/24 12/01/24 History vitamin A 2,400 mcg capsule 2,400 mcg PO DAILY 4 12/01/24 12/01/24 History vitamin E 268 mg (400 unit) capsule 268 mg PO DAILY 12/01/24 12/01/24 History Right Medial Envelope Maker Knee Brace #1 ea 12/22/23 Unknown Rx lisinopril 40 mg tablet 40 mg PO DAILY 01/21/2411/0512/01/24 History potassium chloride 20 mEq 20 meq PO DAILY 06/29/2412/01/24 History tablet,extended release(part/cryst) carbidopa 25 mg-levodopa 100 mg 1 tab PO BID #180 tabs 09/21/24 12/01/24 12/01/24 Rx tablet (Sinemet) methocarbamol 500 mg tablet 500 mg PO Q8H PRN muscle s pasm #30 10/30/24 12/01/24 12/01/24 Rx tabs insulin glargine 100 unit/mL (3 20 unit SUBCUT QAM 12/01/24 12/01/24 History mL) subcutaneous pen (Lantus Solostar U-100 Insulin) insulin aspart U-100 100 unit/mL 100 sliding scale dos e SUBCUT 12/01/24 12/01/24 12/01/24 History (3 mL) subcutaneous pen (Novolog DIRECTED FlexPen U-100 Insulin aspart) Allergies Allergy/AdvReac Type Severity Reaction Status Date / Time No Known Allergies Allergy Verified 12/01/24 09:33 [facility] Anesthesia Medical History Diabetes mellitus Hypertension Family History Other CAD (coronary artery disease) Social History Smoking and tobacco/nicotine status: never used tobacco/nicotine Alcohol intake: current Alcohol intake frequency: few times a week Substance/Drug Use: never Data Anesthesia Cardiac Studies: Echocardiogram 10/13/23 Sestamibi Stress Test (Cardiology) 10/12
--- NOTE | 2024-12-02 08:09 | ANES.PREANE2 ---
Pre-Anesthetic Assessment Height/Weight: Height 5 ft 10 in Weight 228 lb Preop Diagnosis: L1 compression fracture Operation Date: 12/02/24 09:40 Proposed Procedures p Kyphoplasty L1(Not Applicable) - Shay Broderick, DO Was Beta Jessica taken within 24 hours: N/A Was Clonidine taken within 24 hours: N/A Anesthetic Plan ASA status: 3 Anesthesia: General Other: No prior issues with anesthesia NPO since yesterday evening History of COPD, has not smoked in 15 years Type 2 diabetes on insulin. Preop BS 165 Hypertension on lisinopril. Preop BP 160/84 Labs reviewed 11/25/2024 and acceptable for procedure, K+ 5.3 Plan for GETA Medications/Allergies Home Medications ?Medication ?Instructions ?Recorded ?Confirmed ?Last Taken ?Type Cam Walker #1 ea 01/02/20 11/29/24 Unknown Rx ASO Ankle brace #1 ea 01/16/20 11/29/24 Unknown Rx aspirin 81 mg tablet,delayed 81 mg PO DAILY@0530 06/23/20 12/01/24 03/16/22 History release brimonidine 0.2 %-timolol 0.5 % 1 drp ophthalmic (eye) 06/23/20 12/01/24 12/01/24 History eye drops BID@0530,1999 hydrochlorothiazide 25 mg tablet 25 mg PO QAM 06/23/20 12/01/24 12/01/24 History latanoprost 0.005 % eye drops 1 drp ophthalmic (eye) DAILY@199906/23/20 12/01/24 12/01/24 History loratadine 10 mg tablet 10 mg PO DAILY 06/23/20 12/01/24 12/01/24 History omeprazole 20 mg tablet,delayed 20 mg PO BID 06/23/20 12/01/24 12/01/24 History release timolol maleate (PF) 0.5 % eye 1 drp ophthalmic (eye) DAILY@30 06/23/20 12/01/24 12/01/24 History drops in a dropperette (Timoptic Ocudose (PF)) vitamin B complex 1 tab PO DAILY@0530 06/23/20 12/01/24 12/01/24 History diabetic shoes with 3 inserts #1 ea 01/26/23 11/29/24 Unknown Rx AFO brace #1 ea 03/10/23 11/29/24 Unknown Rx albuterol sulfate 90 mcg/actuation 2 puff inhalation QID PRN COPD 10/14/23 12/01/24 12/01/24 History aerosol inhaler ascorbic acid (vitamin C) 500 mg 250 mg PO DAILY 10/14/23 12/01/24 12/01/24 History tablet (Vitamin C) cholecalciferol (vitamin D3) 50 50 mcg PO DAILY 10/14/23 12/01/24 12/01/24 History mcg (2,000 unit) capsule (Vitamin D3) clobetasol 0.05 % topical cream 0.05 applic topical DIRECTED 10/14/23 12/01/24 12/01/24 History escitalopram oxalate 20 mg tablet 20 mg PO QAM DEPRESSION 10/14/23 12/01/24 12/01/24 History (Lexapro) fluticasone propionate 50 1 spray intranasal DAILY ALLERGIES 10/14/23 12/01/24 12/01/24 History mcg/actuation nasal spray,suspension meclizine 25 mg chewable tablet 25 mg PO Q6H PRN Vertigo 10/14/23 12/01/24 12/01/24 History mirtazapine 30 mg tablet 30 mg PO BEDTIME 10/14/23 12/01/24 12/01/24 History pregabalin 150 mg capsule 150 mg PO BID 10/14/23 12/01/24 12/01/24 History tizanidine 4 mg tablet 8 mg PO BEDTIME PRN SPASTICITY 10/14/23 12/01/24 12/01/24 History vitamin A 2,400 mcg capsule 2,400 mcg PO DAILY 10/14/23 12/01/24 12/01/24 History vitamin E 268 mg (400 unit) capsule 268 mg PO DAILY 10/14/23 12/01/24 12/01/24 History Right Medial Technical Data Analyst Knee Brace #1 ea 12/22/23 11/29/24 Unknown Rx lisinopril 40 mg tablet 40 mg PO DAILY 01/21/24 12/01/24 12/01/24 History potassium chloride 20 mEq 20 meq PO DAILY 06/29/24 12/01/24 12/01/24 History tablet,extended release(part/cryst) carbidopa 25 mg-levodopa 100 mg 1 tab PO BID #180 tabs 09/21/24 12/01/24 12/01/24 Rx tablet (Sinemet) methocarbamol 500 mg tablet 500 mg PO Q8H PRN muscle spasm #30 10/30/24 12/01/24 12/01/24 Rx tabs insulin glargine 100 unit/mL (3 20 unit SUBCUT QAM 11/29/24 12/01/24 12/01/24 History mL) subcutaneous pen (Lantus Solostar U-100 Insulin) insulin aspart U-100 100 unit/mL 100 sliding scale dose SUBCUT 12/01/24 12/01/24 12/01/24 History (3 mL) subcutaneous pen (Novolog DIRECTED FlexPen U-100 Insulin aspart) Allergies Allergy/AdvReac Type Severity Reaction Status Date / Time No Known Allergies Allergy Verified 12/01/24 09:33 [facility] Anesthesia Medical History Diabetes mellitus Hypertension Family History Other CAD (coronary artery disease) Social History Smoking and tobacco/nicotine status: never used tobacco/nicotine Alcohol intake: current Alcohol intake frequency: few times a week Substance/Drug Use: never Data Anesthesia Cardiac Studies: Echocardiogram 10/13/23 Sestamibi Stress Test (Cardiology) 10/13/23
--- NOTE | 2024-12-02 09:21 | W.PM.OPSUD ---
Surgery/Procedure H&P Update DATE OF PROCEDURE: December 02, 2024 DATE H&P PERFORMED: 11/22/24 H&P UPDATE INFORMATION: I have reviewed H&P completed within last 30 days, I have examined patient prior to procedure and No changes to prior documentation PREOP DIAGNOSIS: L1 compression fracture PLANNED PROCEDURE: Operation Date: 12/02/24 09:40 Proposed Procedures p Kyphoplasty L1(Not Applicable) - Shay Broderick, DO
[2024-12-02] MEDS: ceFAZolin 2,000 mg SDV 2000 MG IVP (09:38)
[2024-12-02] MEDS: lidocaine-epi 1% 20 mL INJ INJECTION (10:03)
[2024-12-02] MEDS: iohexol 300 mg/mL 50 mL Btl XX (10:04)
--- NOTE | 2024-12-02 10:32 | XR_ITS ---
WS: [id number] Exam: XR lumbar spine 2-3V* [id number] Date/Time of Exam: 12/02/2024 10:34 AM Reason For Exam: OR PICS DLP: AP and lateral intraoperative C-arm images of the upper lumbar spine are submitted. Images were obtained for intraoperative visualization purposes.
--- NOTE | 2024-12-02 10:40 | P.OP_ITS ---
Operative Report Date of procedure: December 02, 2024 Pre-op diagnosis: L1 osteoporotic wedge traumatic compression fracture Post-op diagnosis: same Procedure done: L1 kyphoplasty Surgeon: Shay Broderick DO Estimated blood loss (mL): 5 Procedure: L1 kyphoplasty Patient was brought to the operative suite. After undergoing anesthesia patient was placed in the prone position. All areas impingement were well-padded. Patient is prepped and draped normal sterile fashion. Skin incision is made just lateral to the pedicle of L1. Awl was then inserted. Through the pedicle. Balloon was then inserted and inflated. Balloon was then deflated. Cement was then injected. This was done under C-arm guidance. Once the cement was then x- ray imaging was taken to ensure that the fracture and hardware in good position. Wounds were irrigated and closed with nylon suture. Sterile dressings were applied.
[2024-12-02] MEDS: HYDROcodone-acetaminophen 10-325 mg Tablet 1 TAB PO (11:11)
--- NOTE | 2024-12-02 11:33 | ANE.PACU2 ---
Inpatient post-anesthesia follow up: Airway intact: Yes Vital signs: Temperature 97.5 F Pulse Rate 73 Respiratory Rate 16 Blood Pressure 147/75 Pulse Oximetry 99 Oxygen Delivery Me thod Room Air Oxygen Flow Rate Fraction of Inspir ed Oxygen Hydration adequate: Yes Nausea and vomiting: No Pain level: 1 Mental status: Baseline
== END 2024-12-02 11:33 | disposition home or self-care (01) ==
PROVIDERS: PCP Family Medicine; Visit Provider Orthopaedic Surgery
PROC: (CPT 22514; principal; 2024-12-02 09:30)
DX: M48.56XA Collapsed vertebra, not elsewhere classified, lumbar region, initial encounter for fracture (principal); J44.9 Chronic obstructive pulmonary disease, unspecified; E11.9 Type 2 diabetes mellitus without complications; I10 Essential (primary) hypertension; Z79.82 Long term (current) use of aspirin; K21.9 Gastro-esophageal reflux disease without esophagitis; Z79.4 Long term (current) use of insulin
CPT/HCPCS: 22514; 36416; 72100; 76000; 82962; A4216; J0690; J1100; J2405; J2704; J3010; J3490; J7030; J9999; Q9967

== ENCOUNTER → 2024-12-13 12:46 | Outpatient (BNVA) | payer OTHER, SELFPAY | PROVIDERS: PCP Family Medicine; Visit Provider Orthopaedic Surgery | DX: Z98.890 Other specified postprocedural states (principal); Z48.89 Encounter for other specified surgical aftercare | CPT/HCPCS: 99024 ==

== ENCOUNTER → 2024-12-14 12:51 | Outpatient (BNVA) | payer OTHER, SELFPAY | PROVIDERS: PCP Family Medicine; Visit Provider Podiatrist Foot & Ankle Surgery | DX: E11.8 Type 2 diabetes mellitus with unspecified complications (principal); B35.1 Tinea unguium; L84 Corns and callosities; Z79.4 Long term (current) use of insulin; G62.9 Polyneuropathy, unspecified; E11.621 Type 2 diabetes mellitus with foot ulcer; L97.522 Non-pressure chronic ulcer of other part of left foot with fat layer exposed; E11.42 Type 2 diabetes mellitus with diabetic polyneuropathy; M21.371 Foot drop, right foot | CPT/HCPCS: 11042; 11055; 11721; 99213 ==

== ENCOUNTER → 2024-12-29 15:03 | Outpatient (BNVA) | payer OTHER, SELFPAY | PROVIDERS: PCP Family Medicine; Visit Provider Podiatrist Foot & Ankle Surgery | DX: E11.8 Type 2 diabetes mellitus with unspecified complications (principal); B35.1 Tinea unguium; Z79.4 Long term (current) use of insulin; G62.9 Polyneuropathy, unspecified; E11.621 Type 2 diabetes mellitus with foot ulcer; L97.522 Non-pressure chronic ulcer of other part of left foot with fat layer exposed; E11.42 Type 2 diabetes mellitus with diabetic polyneuropathy; M21.371 Foot drop, right foot | CPT/HCPCS: 99213 ==

== ENCOUNTER → 2025-01-04 14:47 | Outpatient (BNVA) | payer OTHER, SELFPAY | PROVIDERS: PCP Family Medicine; Visit Provider Podiatrist Foot & Ankle Surgery | DX: E11.621 Type 2 diabetes mellitus with foot ulcer (principal); L97.522 Non-pressure chronic ulcer of other part of left foot with fat layer exposed; Z79.4 Long term (current) use of insulin; E11.8 Type 2 diabetes mellitus with unspecified complications; B35.1 Tinea unguium; G62.9 Polyneuropathy, unspecified; M21.379 Foot drop, unspecified foot; M21.371 Foot drop, right foot | CPT/HCPCS: 99213 ==

== ENCOUNTER → 2025-01-19 09:20 | Outpatient (BNVA) | payer OTHER, SELFPAY | PROVIDERS: PCP Family Medicine; Visit Provider Thoracic Surgery (Cardiothoracic Vascular Surgery) | DX: E11.52 Type 2 diabetes mellitus with diabetic peripheral angiopathy with gangrene (principal); E11.621 Type 2 diabetes mellitus with foot ulcer; L97.522 Non-pressure chronic ulcer of other part of left foot with fat layer exposed | CPT/HCPCS: 11042 ==

== ENCOUNTER → 2025-01-23 13:05 | Outpatient (BNVA) | payer OTHER, SELFPAY | PROVIDERS: PCP Family Medicine; Visit Provider Thoracic Surgery (Cardiothoracic Vascular Surgery) | DX: E11.52 Type 2 diabetes mellitus with diabetic peripheral angiopathy with gangrene (principal); E11.621 Type 2 diabetes mellitus with foot ulcer; L97.521 Non-pressure chronic ulcer of other part of left foot limited to breakdown of skin | CPT/HCPCS: 97597; A6213 ==

== ENCOUNTER 2025-01-25 14:02 | Outpatient (CLI) | payer OTHER, SELFPAY ==
--- NOTE | 2025-01-25 14:13 | XR_ITS ---
WS: [id number] Left foot, 3 views, 01/25/2025 Clinical Data: E11.621 - Type 2 diabetes mellitus with foot ulcer Comparison: None. Findings: No fractures or dislocations are seen. No bone destruction or erosion is noted. The joint spaces and soft tissues are normal. XR/XR foot LT min 3V* [id number] Impression: Negative left foot.
== END 2025-01-25 14:03 | disposition home or self-care (01) ==
LOC: RAD 14:03
PROVIDERS: PCP Family Medicine; Visit Provider Thoracic Surgery (Cardiothoracic Vascular Surgery)
DX: E11.621 Type 2 diabetes mellitus with foot ulcer (principal); L97.509 Non-pressure chronic ulcer of other part of unspecified foot with unspecified severity
CPT/HCPCS: 73630; 97602; A6251

== ENCOUNTER → 2025-01-31 10:49 | Outpatient (BNVA) | payer OTHER, SELFPAY | PROVIDERS: PCP Family Medicine; Visit Provider Thoracic Surgery (Cardiothoracic Vascular Surgery) | DX: E11.52 Type 2 diabetes mellitus with diabetic peripheral angiopathy with gangrene (principal); E11.621 Type 2 diabetes mellitus with foot ulcer; L97.521 Non-pressure chronic ulcer of other part of left foot limited to breakdown of skin | CPT/HCPCS: 97597 ==

== ENCOUNTER → 2025-02-01 13:30 | Outpatient (BNVA) | payer OTHER, SELFPAY | PROVIDERS: PCP Family Medicine; Visit Provider Physician Assistant | DX: M17.0 Bilateral primary osteoarthritis of knee (principal) | CPT/HCPCS: 20610; 73562; 99213; J3301; J9999 ==